=== PATIENT | female | born 1945 | race Caucasian/White ===

== ENCOUNTER 2018-05-28 08:45 | Inpatient (IN) | payer MEDICAID ==
[2018-05-28] MEDS ORDERED: NACL 0.9% 500 ML 500 ML IV ONE (09:04)
[2018-05-28 09:33] LABS: Hematocrit 25.7 % (30.3-42.9); Hemoglobin 7.8 gm/dl (10.1-14.3); Mean Corpuscular HGB Conc 30 % (30-34); Mean Corpuscular Volume 80 fl (79-97); Platelet Count 596 K/mm3 (140-440); Red Blood Count 3.23 M/mm3 (3.65-5.03); Red Cell Distribution Width 17.2 % (13.2-15.2)
[2018-05-28 09:45] LABS: INR 1.1 (0.87-1.13)
[2018-05-28] MEDS ORDERED: NACL 0.9% 1000 ML IV ONE (09:52)
[2018-05-28] MEDS ORDERED: ZOSYN/NS 4.5GM/100ML 4.5 GM/100 ML VIAL IV ONE (09:52)
[2018-05-28 09:56] LABS: Albumin 2.6 g/dL (3.9-5); Calcium 9.2 mg/dL (8.4-10.2)
--- NOTE | 2018-05-28 10:04 | Emergency Department Report ---
ED Female HPI - General Chief complaint: Urogenital-Female Stated complaint: SIDE PAIN Time Seen by Provider: 05/28/18 09:09 Source: patient Mode of arrival: Ambulatory Limitations: Language Barrier - History of Present Illness Initial comments: 73-year-old female with no significant past medical history presents to the hospital complaining of suprapubic abdominal pain 1 month. Patient is complaining of urinary incontinence, suprapubic pain, dysuria, decreased appetite, intermittent fever, and generalized weakness. Patient also complains of intermittent fecal incontinence. She denies a history of medical problems but she has not seen a doctor in over 20 years and does not currently have a PMD. Patient is Maltese-speaking and cement handler used at the bedside. - Related Data Allergies Allergy/AdvReac Type Severity Reaction Status Date / Time No Known Allergies Allergy Verified 05/28/18 09:10 ED Review of Systems ROS: Stated complaint: SIDE PAIN Other details as noted in HPI Comment: All other systems reviewed and negative ED Past Medical Hx - Past Medical History Previous Medical History?: No Additional medical history: Tubal ligation - Surgical History Past Surgical History?: No - Social History Smoking Status: Never Smoker Substance Use Type: None ED Physical Exam - General Limitations: No Limitations - Other Other exam information: General: No limitations, patient is alert in no acute distress Head exam: Atraumatic, normocephalic Eyes exam: Normal appearance, pupils equal reactive to light, extraocular movements intact ENT: Moist mucous membrane, normal oropharynx Neck exam: Normal inspection, full range of motion, no meningismus nontender Respiratory exam: Clear to auscultation bilateral, no wheezes, rales, crackles Cardiovascular: Normal rate and rhythm Abdomen: Soft, nondistended, suprapubic tenderness, with normal bowel sounds, no rebound, or guarding Extremity: Full range of motion normal inspection no deformity Back: Normal Inspection, full range of motion, no tenderness Neurologic: Alert, oriented x3, cranial nerves intact, no motor or sensory deficit Psychiatric: normal affect, normal mood Skin: Warm, dry, intact ED Course Vital Signs 05/28/18 05/28/18 05/28/18 09:01 09:22 09:30 Temperature 98 F Pulse Rate 150 H 126 H 100 H Respiratory 20 22 15 Rate Blood Pressure 115/53 155/84 O2 Sat by Pulse 97 98 Oximetry 02/05/28/18 05/28/18 09:46 10:00 10:16 Temperature Pulse Rate 99 H 94 H 98 H Respiratory 12 13 16 Rate Blood Pressure 162/76 172/67 128/71 O2 Sat by Pulse 99 98 99 Oximetry 05/28/18 11:23 Temperature Pulse Rate 117 H Respiratory 14 Rate Blood Pressure 143/68 O2 Sat by Pulse 98 Oximetry - Consultations Consultation #1: 05/28/18 10:30 Gibran residential plumber paged Consultation #2: 05/28/18 12:20 Case d/w Dr Leary request vascular consult for dialysis if pt consents 05/28/18 12:30 Galen with vascular consultation for Vas-Cath placement and possible nephrostomy tubes ED Medical Decision Making - Lab Data Result diagrams: 05/28/18 09:09 05/28/18 09:09 Lab Results 05/28/18 05/28/18 05/28/18 Range/Units 09:09 09:09 09:09 WBC 33.9 H (4.5-11.0) K/mm3 RBC 3.23 L (3.65-5.03) M/mm3 Hgb 7.8 L (10.1-14.3) gm/dl Hct 25.7 L (30.3-42.9) % MCV 80 (79-97) fl MCH 24 L (28-32) pg MCHC 30 (30-34) % RDW 17.2 H (13.2-15.2) % Plt Count 596 H (140-440) K/mm3 Add Manual Diff Complete Total Counted 100 Seg Neutrophils % Linux System Admin Seg Neuts % (Manual) 93.0 H (40.0-70.0) % Band Neutrophils % 0 % Lymphocytes % (Manual) 4.0 L (13.4-35.0) % Reactive Lymphs % (Man) 0 % Monocytes % (Manual) 2.0 (0.0-7.3) % Eosinophils % (Manual) 1.0 (0.0-4.3) % Basophils % (Manual) 0 (0.0-1.8) % Metamyelocytes % 0 % Myelocytes % 0 % Promyelocytes % 0 % Blast Cells % 0 % Nucleated RBC % Not Reportable Seg Neutrophils # Man 31.5 H (1.8-7.7) K/mm3 Band Neutrophils # 0.0 K/mm3 Lymphocytes # (Manual) 1.4 (1.2-5.4) K/mm3 Abs React Lymphs (Man) 0.0 K/mm3 Monocytes # (Manual) 0.7 (0.0-0.8) K/mm3 Eosinophils # (Manual) 0.3 (0.0-0.4) K/mm3 Basophils # (Manual) 0.0 (0.0-0.1) K/mm3 Metamyelocytes # 0.0 K/mm3 Myelocytes # 0.0 K/mm3 Promyelocytes # 0.0 K/mm3 Blast Cells # 0.0 K/mm3 WBC Morphology Not Reportable Hypersegmented Neuts Not Reportable Hyposegmented Neuts Not Reportable Hypogranular Neuts Not Reportable Smudge Cells Not Reportable Toxic Granulation Not Reportable Toxic Vacuolation Not Reportable Dohle Bodies Not Reportable Pelger-Huet Anomaly Not Reportable Sully Rods Not Reportable Platelet Estimate Consistent w auto Clumped Platelets Not Reportable Plt Clumps, EDTA Not Reportable Large Platelets Not Reportable Giant Platelets Not Reportable Platelet Satelliting Not Reportable Plt Morphology Comment Not Reportable RBC Morphology Not Reportable Dimorphic RBCs Not Reportable Polychromasia 1+ Hypochromasia 1+ Poikilocytosis Not Reportable Anisocytosis 1+ Microcytosis Not Reportable Macrocytosis Not Reportable Spherocytes Not Reportable Pappenheimer Bodies Not Reportable Sickle Cells Not Reportable Target Cells Not Reportable Tear Drop Cells Not Reportable Ovalocytes Not Reportable Helmet Cells Not Reportable Blackmon-Maxwell Bodies Not Reportable Warwick Rings Not Reportable Bowdon Cells Not Reportable Bite Cells Not Reportable Crenated Cell Not Reportable Elliptocytes Not Reportable Acanthocytes (Spur) Not Reportable Rouleaux Not Reportable Hemoglobin C Crystals Not Reportable Schistocytes Not Reportable Malaria parasites Not Reportable Stevenson Bodies Not Reportable Hem Pathologist Commnt No PT 14.9 (12.2-14.9) Sec. INR 1.10 (0.87-1.13) VBG pH (7.320-7.420) Sodium 133 L (137-145) mmol/L Potassium 6.1 H* (3.6-5.0) mmol/L Chloride 91.0 L (98-107) mmol/L Carbon Dioxide 12 L (22-30) mmol/L Anion Gap 36 mmol/L BUN 107 H (7-17) mg/dL Creatinine 10.9 H (0.7-1.2) mg/dL Estimated GFR 3 ml/min BUN/Creatinine Ratio 10 % Glucose 97 (65-100) mg/dL Lactic Acid (0.7-2.0) mmol/L Calcium 9.2 (8.4-10.2) mg/dL Total Bilirubin 0.30 (0.1-1.2) mg/dL AST 13 (5-40) units/L ALT 11 (7-56) units/L Alkaline Phosphatase 106 (35-129) units/L Total Protein 7.9 (6.3-8.2) g/dL Albumin 2.6 L (3.9-5) g/dL Albumin/Globulin Ratio 0.5 % Urine Color (Yellow) Urine Turbidity (Clear) Urine pH (5.0-7.0) Ur Specific [place] (1.003-1.030) Urine Protein (Negative) mg/dL Urine Glucose (UA) (Negative) mg/dL Urine Ketones (Negative) mg/dL Urine Blood (Negative) Urine Nitrite (Negative) Urine Bilirubin (Negative) Urine Urobilinogen (<2.0) mg/dL Ur Leukocyte Esterase (Negative) Urine WBC (Auto) (0.0-6.0) /HPF Urine RBC (Auto) (0.0-6.0) /HPF U Epithel Cells (Auto) (0-13.0) /HPF Urine Bacteria (Auto) (Negative) /HPF Urine Mucus /HPF 05/28/18 05/28/18 05/28/18 Range/Units 09:09 09:09 11:44 WBC (4.5-11.0) K/mm3 RBC (3.65-5.03) M/mm3 Hgb (10.1-14.3) gm/dl Hct (30.3-42.9) % MCV (79-97) fl MCH (28-32) pg MCHC (30-34) % RDW (13.2-15.2) % Plt Count (140-440) K/mm3 Add Manual Diff Total Counted Seg Neutrophils % Seg Neuts % (Manual) (40.0-70.0) % Band Neutrophils % % Lymphocytes % (Manual) (13.4-35.0) % Reactive Lymphs % (Man) % Monocytes % (Manual) (0.0-7.3) % Eosinophils % (Manual) (0.0-4.3) % Basophils % (Manual) (0.0-1.8) % Metamyelocytes % % Myelocytes % % Promyelocytes % % Blast Cells % % Nucleated RBC % Seg Neutrophils # Man (1.8-7.7) K/mm3 Band Neutrophils # K/mm3 Lymphocytes # (Manual) (1.2-5.4) K/mm3 Abs React Lymphs (Man) K/mm3 Monocytes # (Manual) (0.0-0.8) K/mm3 Eosinophils # (Manual) (0.0-0.4) K/mm3 Basophils # (Manual) (0.0-0.1) K/mm3 Metamyelocytes # K/mm3 Myelocytes # K/mm3 Promyelocytes # K/mm3 Blast Cells # K/mm3 WBC Morphology Hypersegmented Neuts Hyposegmented Neuts Hypogranular Neuts Smudge Cells Toxic Granulation Toxic Vacuolation Dohle Bodies Pelger-Huet Anomaly Sully Rods Platelet Estimate Clumped Platelets Plt Clumps, EDTA Large Platelets Giant Platelets Platelet Satelliting Plt Morphology Comment RBC Morphology Dimorphic RBCs Polychromasia Hypochromasia Poikilocytosis Anisocytosis Microcytosis Macrocytosis Spherocytes Pappenheimer Bodies Sickle Cells Target Cells Tear Drop Cells Ovalocytes Helmet Cells Blackmon-Maxwell Bodies Warwick Rings Bowdon Cells Bite Cells Crenated Cell Elliptocytes Acanthocytes (Spur) Rouleaux Hemoglobin C Crystals Schistocytes Malaria parasites Stevenson Bodies Hem Pathologist Commnt PT (12.2-14.9) Sec. INR (0.87-1.13) VBG pH 7.271 L (7.320-7.420) Sodium (137-145) mmol/L Potassium (3.6-5.0) mmol/L Chloride (98-107) mmol/L Carbon Dioxide (22-30) mmol/L Anion Gap mmol/L BUN (7-17) mg/dL Creatinine (0.7-1.2) mg/dL Estimated GFR ml/min BUN/Creatinine Ratio % Glucose (65-100) mg/dL Lactic Acid 1.50 2.00 (0.7-2.0) mmol/L Calcium (8.4-10.2) mg/dL Total Bilirubin (0.1-1.2) mg/dL AST (5-40) units/L ALT (7-56) units/L Alkaline Phosphatase (35-129) units/L Total Protein (6.3-8.2) g/dL Albumin (3.9-5) g/dL Albumin/Globulin Ratio % Urine Color (Yellow) Urine Turbidity (Clear) Urine pH (5.0-7.0) Ur Specific [place] (1.003-1.030) Urine Protein (Negative) mg/dL Urine Glucose (UA) (Negative) mg/dL Urine Ketones (Negative) mg/dL Urine Blood (Negative) Urine Nitrite (Negative) Urine Bilirubin (Negative) Urine Urobilinogen (<2.0) mg/dL Ur Leukocyte Esterase (Negative) Urine WBC (Auto) (0.0-6.0) /HPF Urine RBC (Auto) (0.0-6.0) /HPF U Epithel Cells (Auto) (0-13.0) /HPF Urine Bacteria (Auto) (Negative) /HPF Urine Mucus /HPF / Range/Units 12:02 WBC (4.5-11.0) K/mm3 RBC (3.65-5.03) M/mm3 Hgb (10.1-14.3) gm/dl Hct (30.3-42.9) % MCV (79-97) fl MCH (28-32) pg MCHC (30-34) % RDW (13.2-15.2) % Plt Count (140-440) K/mm3 Add Manual Diff Total Counted Seg Neutrophils % Seg Neuts % (Manual) (40.0-70.0) % Band Neutrophils % % Lymphocytes % (Manual) (13.4-35.0) % Reactive Lymphs % (Man) % Monocytes % (Manual) (0.0-7.3) % Eosinophils % (Manual) (0.0-4.3) % Basophils % (Manual) (0.0-1.8) % Metamyelocytes % % Myelocytes % % Promyelocytes % % Blast Cells % % Nucleated RBC % Seg Neutrophils # Man (1.8-7.7) K/mm3 Band Neutrophils # K/mm3 Lymphocytes # (Manual) (1.2-5.4) K/mm3 Abs React Lymphs (Man) K/mm3 Monocytes # (Manual) (0.0-0.8) K/mm3 Eosinophils # (Manual) (0.0-0.4) K/mm3 Basophils # (Manual) (0.0-0.1) K/mm3 Metamyelocytes # K/mm3 Myelocytes # K/mm3 Promyelocytes # K/mm3 Blast Cells # K/mm3 WBC Morphology Hypersegmented Neuts Hyposegmented Neuts Hypogranular Neuts Smudge Cells Toxic Granulation Toxic Vacuolation Dohle Bodies Pelger-Huet Anomaly Sully Rods Platelet Estimate Clumped Platelets Plt Clumps, EDTA Large Platelets Giant Platelets Platelet Satelliting Plt Morphology Comment RBC Morphology Dimorphic RBCs Polychromasia Hypochromasia Poikilocytosis Anisocytosis Microcytosis Macrocytosis Spherocytes Pappenheimer Bodies Sickle Cells Target Cells Tear Drop Cells Ovalocytes Helmet Cells Blackmon-Maxwell Bodies Warwick Rings Radha Cells Bite Cells Crenated Cell Elliptocytes Acanthocytes (Spur) Rouleaux Hemoglobin C Crystals Schistocytes Malaria parasites Stevenson Bodies Hem Pathologist Commnt PT (12.2-14.9) Sec. INR (0.87-1.13) VBG pH (7.320-7.420) Sodium (137-145) mmol/L Potassium (3.6-5.0) mmol/L Chloride (98-107) mmol/L Carbon Dioxide (22-30) mmol/L Anion Gap mmol/L BUN (7-17) mg/dL Creatinine (0.7-1.2) mg/dL Estimated GFR ml/min BUN/Creatinine Ratio % Glucose (65-100) mg/dL Lactic Acid (0.7-2.0) mmol/L Calcium (8.4-10.2) mg/dL Total Bilirubin (0.1-1.2) mg/dL AST (5-40) units/L ALT (7-56) units/L Alkaline Phosphatase (35-129) units/L Total Protein (6.3-8.2) g/dL Albumin (3.9-5) g/dL Albumin/Globulin Ratio % Urine Color Yellow (Yellow) Urine Turbidity Clear (Clear) Urine pH 7.0 (5.0-7.0) Ur Specific [place] 1.006 (1.003-1.030) Urine Protein 30 mg/dl (Negative) mg/dL Urine Glucose (UA) Neg (Negative) mg/dL Urine Ketones Tr (Negative) mg/dL Urine Blood Mod (Negative) Urine Nitrite Neg (Negative) Urine Bilirubin Neg (Negative) Urine Urobilinogen < 2.0 (<2.0) mg/dL Ur Leukocyte Esterase Neg (Negative) Urine WBC (Auto) 6.0 (0.0-6.0) /HPF Urine RBC (Auto) 5.0 (0.0-6.0) /HPF U Epithel Cells (Auto) 1.0 (0-13.0) /HPF Urine Bacteria (Auto) 1+ (Negative) /HPF Urine Mucus Few /HPF - EKG Data -: EKG Interpreted by Tn EKG shows normal: sinus rhythm, axis (qrs 8), QRS complexes (qrs 94), ST-T waves (no stemi) - Radiology Data Radiology results: report reviewed CT ABDOMEN PELVIS WITHOUT CONTRAST: HISTORY: Abdominal pain, leukocytosis. COMPARISON: none. TECHNIQUE: Helical CT in 1.25mm intervals without IV contrast. Sagittal and coronal reconstructions. FINDINGS: Lung bases: Normal. Liver: Normal. Biliary system: Normal. Pancreas: Normal. Spleen: Normal. Kidneys/ureters/bladder: There is moderate to severe bilateral hydronephrosis. No obvious obstructing lesion in the distal ureters. The bladder is partially decompressed with a Wing catheter. 5.6 cm cyst in the superior right kidney is noted. Adrenal glands: Normal. Aorta: Normal. Intestines: Unremarkable given no oral contrast was administered. Appendix: Normal. Pelvic viscera: The cervix appears to be enlarged and heterogeneous measuring 9.4 x 5.4 cm in axial plane. A cervical mass cannot be excluded. PIC mass may be tracking both distal ureters. The uterus is unremarkable otherwise on noncontrast CT. The adnexa are unremarkable. Ascites: None. Adenopathy: There is suggestion of bilateral iliac adenopathy measuring up to 5 cm on the left and 3 cm on the right. A 3.4 x 3.7 cm lesion is identified to the left side of the aorta which probably represents an enlarged retroperitoneal lymph node. Musculoskeletal: Osteopenia is evident. No evidence for acute fracture sclerotic bony lesions are identified in the left posterior iliac bone and left ischium which are suspicious for metastatic lesions. IMPRESSION: Severe bilateral hydronephrosis. The cervix appears enlarged and heterogeneous. Bilateral iliac and retroperitoneal adenopathy is suspected. Sclerotic bony lesions are identified in the left pelvis. Metastatic cervical cancer? AP CHEST :05/28/18 08:45:00 CLINICAL: Sepsis. COMPARISON:None. FINDINGS: Normal heart and pulmonary vasculature. The lungs are normally expanded and clear except for a few chronic appearing interstitial opacities. No air space disease or pleural effusion. Hypertensive changes of the aorta. The bones and soft tissues are normal.No tubes or lines. IMPRESSION: No acute cardiopulmonary process and no pneumonia. - Medical Decision Making Patient presents to the hospital with newly diagnosed renal failure requiring emergent dialysis. CT reveals bilateral hydronephrosis with possible cervical cancer. Nephrology and vascular consult as well as interventional radiology to determine if nephrostomy tubes are required. Patient presents with a significant leukocytosis without active device was of infection. Empirically covered with Zosyn. Patient also received several medications for acute hyperkalemia. - Differential Diagnosis UTI, pneumonia, infection, dehydration, renal sufficiency Critical Care Time: No Critical care attestation.: If time is entered above; I have spent that time in minutes in the direct care of this critically ill patient, excluding procedure time. ED Disposition Clinical Impression: Acute renal failure, Bilateral hydronephrosis, Hyperkalemia, Leukocytosis, Anemia, Cervical mass Disposition: OP ADMIT IP TO THIS HOSP Is pt being admited?: Yes Condition: Stable Time of Disposition: 13:10 (Dr Corrigna/hosp)
[2018-05-28] MEDS ORDERED: PROVENTIL IH ONE (10:05)
[2018-05-28] MEDS ORDERED: CALCIUM GLUCONATE 1,000 MG in NACL 0.9% 100 ML IV ONE (10:05)
[2018-05-28] MEDS ORDERED: HumuLIN R IV ONE (10:06)
[2018-05-28 10:08] LABS: Basophils % (Manual) 0 % (0.0-1.8); Total Cells Counted 100
[2018-05-28 10:09] LABS: Anisocytosis 1+
[2018-05-28 10:10] LABS: Hypochromasia 1+; Platelet Estimate Consistent w Auto
[2018-05-28] MEDS: D50W (25GM) Syringe IV ONE (10:50)
[2018-05-28] MEDS ORDERED: SODIUM BICARBONATE IV ONE (11:00)
[2018-05-28 12:34] LABS: Bacteria,Urine 1+ /HPF (Negative); Bilirubin,Urine NEG (Negative); Blood,Urine MOD (Negative); Color,Urine Yellow (Yellow); Mucus,Urine FEW /HPF; Urobilinogen,Urine < 2.0 mg/dL (<2.0)
--- NOTE | 2018-05-28 12:47 | Cat Scan Report ---
CT ABDOMEN PELVIS WITHOUT CONTRAST: HISTORY: Abdominal pain, leukocytosis. COMPARISON: none. TECHNIQUE: Helical CT in 1.25mm intervals without IV contrast. Sagittal and coronal reconstructions. FINDINGS: Lung bases: Normal. Liver: Normal. Biliary system: Normal. Pancreas: Normal. Spleen: Normal. Kidneys/ureters/bladder: There is moderate to severe bilateral hydronephrosis. No obvious obstructing lesion in the distal ureters. The bladder is partially decompressed with a Wing catheter. 5.6 cm cyst in the superior right kidney is noted. Adrenal glands: Normal. Aorta: Normal. Intestines: Unremarkable given no oral contrast was administered. Appendix: Normal. Pelvic viscera: The cervix appears to be enlarged and heterogeneous measuring 9.4 x 5.4 cm in axial plane. A cervical mass cannot be excluded. PIC mass may be tracking both distal ureters. The uterus is unremarkable otherwise on noncontrast CT. The adnexa are unremarkable. Ascites: None. Adenopathy: There is suggestion of bilateral iliac adenopathy measuring up to 5 cm on the left and 3 cm on the right. A 3.4 x 3.7 cm lesion is identified to the left side of the aorta which probably represents an enlarged retroperitoneal lymph node. Musculoskeletal: Osteopenia is evident. No evidence for acute fracture sclerotic bony lesions are identified in the left posterior iliac bone and left ischium which are suspicious for metastatic lesions. IMPRESSION: Severe bilateral hydronephrosis. The cervix appears enlarged and heterogeneous. Bilateral iliac and retroperitoneal adenopathy is suspected. Sclerotic bony lesions are identified in the left pelvis. Metastatic cervical cancer?
[2018-05-28] MEDS ORDERED: ANCEF/STERILE WATER 2 GM/20 ML 2 GM/20 ML SYRINGE IV NR (13:00)
--- NOTE | 2018-05-28 13:20 | Consultation ---
History of Present Illness - History of Present Illness Thank you for the consultation ! Patient was evaluated today My assessment and plan are as follows; Met wtih daughter used Fire Control Mechanic Deborah from ER Discusssed with daughter / D?W Dr Pro Renal failure, severe metabolic acidosis, hyperkalemia encephalopathy: Patient will need immediate renal replacement therapy with a Vas-Cath discussed with emergency room physician already patient will need dialysis Severe bilateral hydronephrosis noted, cervix appears to be enlarged with b ilateral retroperitoneal adenopathy, ? Metastatic cervical cancer Patient will benefit from bilateral nephrostomy tube placement. FOOD SUPERVISOR oncology evaluation Duration of renal failure, unknown? Advanced renal failure. Patient has not been seen by physicians on a regular basis Metabolic acidosis: We'll give IV bicarbonate, patient does need initiation of renal replacement therapy Hyperkalemia. Patient has been given hyperkalemia treatment already in the ER. She needs hemodialysis. Anemia with renal failure. Patient will require further workup. Elevated platelet count. Likely may have iron deficiency Leukocytosis of unclear etiology, rule out sepsis, rule out other causes. Suggest Urine culture, blood culture Encephalopathy: Likely toxic metabolic resulting from renal failure. Rule out other causes Severe malnutrition, present on admission, likely due to renal failure Low-grade proteinuria 30 mg per DL Her overall prognosis appears to be very poor due to multiple comorbidities We'll continue with supportive care for now, care plan was discussed with emergency room physician already We'll order for stat hemodialysis post Vas-Cath placement. Discussed with emergency room physician about getting dialysis catheter Patient was adequately counseled and educated regarding multiple renal related issues. Renal prognosis remains guarded at this time All renal related questions were answered and simple [place] Sor[place] with the help of customer care representative, pertinent lab studies as well as imaging results were also discussed with patient And her family member We will continue to follow and make recommendations from renal standpoint. Thank you for the consultation Author: Matteo Leary M.D. [facility], [address] [place] [address] Tel; [phone] Source of information: From patient, History of present illness Patient has noted 3-year-old female who came to the hospital with complaints of abdominal pain mostly suprapubic in nature with urinary incontinence. Most the history was obtained from patient's relative of the bedside, as well as Ukrainian speaking customer care representative, which was ER staff. Consultation was placed for manage ment of acute renal failure BUN was 107 creatinine was 10.9 with a potassium of 6.1 hemoglobin 7.8 patient was also noted to have obstructive uropathy and due to the degree and severity of renal failure and hyperkalemia and dialysis was suggested Patient during this admission has also been noted to have bilateral hydronephrosis with a large retroperitoneal node possibility of metastatic cervical cancer is currently being entertained Past medical history is significant for No chronic disorder Current allergies: None Home medication: None Social history no history of any alcohol drug tobacco use Family history: Noncontributory for related daughter Review of system: Positive for Generalized weakness fatigue since the discomfort Urinary incontinence abdominal distention gradual All other review of systems negative Physical examination Vitals: Reviewed General: No acute distress/ Thin built Ukrainian female HEENT: Oral mucosa moist no pallor or icterus Neck: Supple without any JVD thyromegaly or nodular mass Chest: Clear to auscultation Heart: Regular rate and rhythm S1-S2 heard no S3-S4 Abdomen: Soft patient has some suprapubic discomfort Possibly may have fluid: Flank appears to be dull nontender, bowel sounds present no renal bruit no suprapubic masses no CVA tenderness noted Extremity: Minimal edema dry skin no peripheral cyanosis Endocrine: Thyroid not enlarged Psychiatric: No agitation and aggression noted Musculoskeletal: No joint effusion noted Labs and x-rays: Reviewed from this admission Medications and Allergies Allergies Allergy/AdvReac Type Severity Reaction Status Date / Time No Known Allergies Allergy Verified 05/28/18 09:10 Home Medications Medication Instructions Recorded Confirmed Last Taken Type Acetaminophen [Acetaminophen 650 mg PO Q4H PRN #15 tab 08/06/18 Unknown Rx SUPPOS] Active Meds: Active Medications Cefazolin Sodium (Ancef/Sterile Water 2 Gm/20 Ml) 2 gm in 20 mls @ 80 mls/hr IV PREOP NR; Protocol Stop: 05/28/18 23:00 Exam - Vital Signs Vital signs: Vital Signs Temp Pulse Resp BP Pulse Ox 98 F 150 H 20 115/53 97 05/28/18 09:01 05/28/18 09:01 05/28/18 09:01 05/28/18 09:01 05/28/18 09:01 Results - Lab Results 06/10/18 07:42 06/10/18 07:42 Most recent lab results Calcium 9.2 mg/dL (8.4-10.2) 05/28/18 09:09
[2018-05-28] MEDS ORDERED: NACL 0.9% 100 ML IV PRN (13:21)
[2018-05-28] MEDS ORDERED: HEPARIN/NS 5000 UNIT/500ML(CATH LAB) 500 ML IR ONE (14:49)
[2018-05-28] MEDS ORDERED: HEPARIN 10,000 UNITS/10 ML ONE (14:50)
[2018-05-28] MEDS ORDERED: XYLOCAINE 2% INFILTRATI ONE (14:50)
[2018-05-28] MEDS ORDERED: ANCEF/STERILE WATER 2 GM/20 ML 2 GM/20 ML SYRINGE IV ONE (14:52)
[2018-05-28] MEDS ORDERED: SUBLIMAZE ONE (15:16)
[2018-05-28] MEDS ORDERED: VERSED ONE (15:16)
--- NOTE | 2018-05-28 15:21 | Consultation ---
History of Present Illness - Reason for Consult Consult date: 05/28/18 Dialysis access, possible neph tube placement - History of Present Illness This pt is a 73 yo female who presented to the ER at [facility] with a 1 month history of progressive abdominal pain with dysuria. Initial lab work suggested renal failure. A ct scan of the abd and pelvis revealed severe bilateral hydronephrosis with and enlarged heterogeneous cervix with iliac retroperitoneal adenopathy concerning for possible metastatic disease. A vascular/IR consult has been requested to evaluate for temporary hemodialysis catheter and possible nephrostomy tube placement. Past History Past Medical History: other (Pt reportedly denied chronic medical conditions, but had not been seen by a physician in decades.) Past Surgical History: No surgical history (none listed) Social history: denies: smoking, alcohol abuse Family history: no significant family history (none listed) Medications and Allergies Allergies Allergy/AdvReac Type Severity Reaction Status Date / Time No Known Allergies Allergy Verified 05/28/18 09:10 Home Medications Medication Instructions Recorded Confirmed Last Taken Type No Known Home Medications [No 05/28/18 05/28/18 Unknown History Reported Home Medications] Active Meds: Active Medications Cefazolin Sodium (Ancef/Sterile Water 2 Gm/20 Ml) 2 gm in 20 mls @ 80 mls/hr IV PREOP NR; Protocol Stop: 05/28/18 23:00 Sodium Chloride (Nacl 0.9%) 100 mls @ 999 mls/hr IV CATHERINE PRN PRN Reason: Hypotension Review of Systems All systems: negative Exam - Constitutional Vitals: Temp Pulse Resp BP Pulse Ox 98 F 115 H 15 137/57 94 05/28/18 09:01 05/28/18 13:16 05/28/18 13:16 05/28/18 12:00 05/28/18 13:16 General appearance: Present: no acute distress - EENT Eyes: Present: EOM intact ENT: hearing intact - Neck Neck: Present: supple - Respiratory Respiratory effort: normal - Extremities Extremities: normal temperature - Psychiatric Psychiatric: appropriate mood/affect, intact judgment & insight, cooperative - Neurologic Neurologic: no focal deficits Results - Labs CBC & Chem 7: 05/28/18 09:09 05/28/18 09:09 Labs: Abnormal lab results 05/28/18 05/28/18 05/28/18 Range/Units 09:09 09:09 09:09 WBC 33.9 H (4.5-11.0) K/mm3 RBC 3.23 L (3.65-5.03) M/mm3 Hgb 7.8 L (10.1-14.3) gm/dl Hct 25.7 L (30.3-42.9) % MCH 24 L (28-32) pg RDW 17.2 H (13.2-15.2) % Plt Count 596 H (140-440) K/mm3 Seg Neuts % (Manual) 93.0 H (40.0-70.0) % Lymphocytes % (Manual) 4.0 L (13.4-35.0) % Seg Neutrophils # Man 31.5 H (1.8-7.7) K/mm3 VBG pH 7.271 L (7.320-7.420) Sodium 133 L (137-145) mmol/L Potassium 6.1 H* (3.6-5.0) mmol/L Chloride 91.0 L (98-107) mmol/L Carbon Dioxide 12 L (22-30) mmol/L BUN 107 H (7-17) mg/dL Creatinine 10.9 H (0.7-1.2) mg/dL Lactic Acid (0.7-2.0) mmol/L Albumin 2.6 L (3.9-5) g/dL 05/28/18 Range/Units 13:29 WBC (4.5-11.0) K/mm3 RBC (3.65-5.03) M/mm3 Hgb (10.1-14.3) gm/dl Hct (30.3-42.9) % MCH (28-32) pg RDW (13.2-15.2) % Plt Count (140-440) K/mm3 Seg Neuts % (Manual) (40.0-70.0) % Lymphocytes % (Manual) (13.4-35.0) % Seg Neutrophils # Man (1.8-7.7) K/mm3 VBG pH (7.320-7.420) Sodium (137-145) mmol/L Potassium (3.6-5.0) mmol/L Chloride (98-107) mmol/L Carbon Dioxide (22-30) mmol/L BUN (7-17) mg/dL Creatinine (0.7-1.2) mg/dL Lactic Acid 2.10 H* (0.7-2.0) mmol/L Albumin (3.9-5) g/dL Assessment and Plan Pt presented with ARF. CT scan suggest bilateral hydronephrosis and an enlarged cervix and bilateral iliac lymphadenopathy (concerning for cervical ca with mets). A vascular/IR consult was requested to evaluate for Vas cath/Neph tube placement. Spoke with nephrology. Given hyperkalemia, we will place a vas cath today, and pt will be dialyzed. Once medically stablized, we will plan on bilateral nephrostomy tube placement tomorrow. This was discussed with the pt, and her daughter at the bedside via a maxillofacial prosthodontist in the emergency room. The risk, bene fits, and alternatives to each were discussed in great detail (including but not limited to bleeding, infection, lung injury, blood clot, and a 1 in 20 chance of bleeding from kidney with nephrostomy tube placement). All questions were asked and answered. They stated understanding and agreed to proceed. - Patient Problems (1) Acute renal failure Current Visit: Yes Status: Acute (2) Hyperkalemia Current Visit: Yes Status: Acute (3) Bilateral hydronephrosis Current Visit: Yes Status: Acute (4) Cervical mass Current Visit: Yes Status: Acute (5) Leukocytosis Current Visit: Yes Status: Acute
--- NOTE | 2018-05-28 15:33 | Operative Report ---
Operative Report Operative Report: EXAM: 1. Ultrasound-guided puncture of the right internal jugular vein 2. Fluoroscopic-guided placement of a right internal jugular nontunneled noncuffed hemodialysis catheter. DATE: 03/27/19 INDICATION: Acute renal failure requiring hemodialysis. MEDICATIONS: Please see nursing report for full details. DEVICES: 15 cm dual lumen hemodialysis catheter FUNERAL PRE NEED CONSULTANT: JOSH FELIPE MD CONTRAST: None PROCEDURE: The risks, benefits, and alternatives were discussed and informed consent was obtained. The patient was transported to the angiography suite in satisfactory/stable condition and was transported onto the angiography table. The patient's right internal jugular vein was assessed with ultrasound and determined to be patent prior to procedure. The patient was prepped and draped in a sterile fashion. The puncture site was anesthetized. The right internal jugular vein was patent on ultrasound. Under sonographic guidance, the right internal jugular vein was punctured with a 21-gauge micropuncture needle and a 0.018 inch wire was advanced through the needle. Needle was exchanged for transitional dilator. The inner dilator and wire was removed and a 0.035 inch wire was advanced through the transitional dilator into the inferior vena cava. Over the 0.035 inch wire, serial dilatation was performed. The catheter was advanced over the wire and positioned centrally under fluoroscopic guidance. 2-0 Ethilon suture was used to secure the catheter. The catheter was charged with heparin 1000 units per mL space. Sterile dressing and Biopatch applied. The patient was transferred from the angiography suite back to the floor in stable condition. FNDINGS: 1. Excellent flow was obtained through the dialysis catheter with 20 mL syringes. 2. The catheter tip is in the right atrium. IMPRESSION: 1. Successful sonographically and fluoroscopically guided placement of a right internal jugular nontunneled noncuffed hemodialysis catheter.
[2018-05-28 16:40] LABS: Hepatitis B Surface Antigen Non-Reactive (Negative); Hepatitis C Virus Antibody Non-Reactive (NonReactive)
[2018-05-28] MEDS ORDERED: NACL 0.9 (PRIMING MACHINE ONLY DIALYSIS) MC ONE (16:57)
--- NOTE | 2018-05-28 21:28 | Event Note ---
Date: 05/28/18 See dictated H/p inreports Obstructive uropathy Bilateral Hydronephrosis Acute renal failure Cervical(Pelvic) mass with Lymphadenopathy Emergent vascath and Hemodialysis done
[2018-05-28] MEDS: TYLENOL PO PRN (23:04)
[2018-05-29] MEDS ORDERED: SODIUM CHLORIDE FLUSH SYRINGE 10 ML IV PRN ×2 (03:19→03:28)
[2018-05-29] MEDS ORDERED: TYLENOL PO PRN ×2 (03:19→03:28)
[2018-05-29] MEDS ORDERED: ZOFRAN IV PRN ×2 (03:19→03:28)
[2018-05-29] MEDS ORDERED: REGLAN IV PRN (03:21)
--- NOTE | 2018-05-29 03:50 | History and Physical Report ---
CHIEF COMPLAINT: Suprapubic abdominal pain for 1 month. Increasing weakness. HISTORY OF PRESENT ILLNESS: The patient is a 73-year-old female with no significant past medical history who comes in for suprapubic abdominal pain and difficulty urinating. Also, urinary incontinence. The patient has never been to a doctor in the last 20 years. No significant past medical history. PAST MEDICAL HISTORY: None. PAST SURGICAL HISTORY: Till now none except for tubal ligation. SOCIAL HISTORY: Does not smoke. FAMILY HISTORY: Hypertension. REVIEW OF SYSTEMS: Significant for lower abdominal pain, severe and intermittent. Also, decreased appetite. Otherwise, review of systems negative. PHYSICAL EXAMINATION: GENERAL: Elderly female. VITAL SIGNS: Blood pressure is 139/68, temperature is 97.6, pulse is 109, respirations 16. HEENT: Unremarkable. Pupils equal and reactive. NECK: Supple, no lymphadenopathy, no thyromegaly. LUNGS: Clear to auscultation and percussion. Good air entry. CARDIOVASCULAR: S1, S2 heard. No gallop, no murmur, no rub. Apical impulse in the left fifth intercostal space and midclavicular line. ABDOMEN: Soft and benign. No tenderness present. Bowel sounds are normal. EXTREMITIES: Good pedal pulses. No pedal edema. CENTRAL NERVOUS SYSTEM: Alert and oriented x 4. Nonfocal exam. SKIN: Normal. LABORATORY DATA: Significant for white count of 33,900, H and H is 7.8 and 25.7, platelet count is 596,000. Sodium is 133, potassium is 6.9, BUN and creatinine is 107/10.9. LFTs are normal. Albumin is 2.6. Urine is negative. Hepatitis profile is negative. LABORATORY DATA: Abdominal and pelvis CT shows cervical mass and also parailiac lymph nodes. Severe bilateral hydronephrosis on the CAT scan. Cervix appears enlarged and heterogeneous, bilateral iliac and retroperitoneal adenopathy suspected. Sclerotic bone lesions are noted. Metastatic cervical cancer suspected. ASSESSMENT AND PLAN: 1. Metastatic cervical cancer. Oncology consult requested. 2. Bilateral hydronephrosis causing acute renal failure. The patient to get Vas-Cath and an emergent hemodialysis. 3. Hyperkalemia, treated in the Emergency Room and the patient also going for hemodialysis. 4. Deep venous thrombosis prophylaxis, heparin 5000 q.12h. In summary, the patient has pelvic mass, which is compressing on the ureters, causing the bilateral hydronephrosis. May need radiation therapy. Oncology consult requested. An emergent hemodialysis done. JOB# [id number] VSM/NTS
[2018-05-29] MEDS ORDERED: NACL 0.45% 1000 ML 1,000 ML IV SCH (04:00)
[2018-05-29] MEDS: SODIUM CHLORIDE FLUSH SYRINGE 10 ML IV SCH ×3 (06:09→21:39)
[2018-05-29 09:02] LABS: Mean Corpuscular HGB Conc 31 % (30-34); Mean Corpuscular Volume 77 fl (79-97); Platelet Count 437 K/mm3 (140-440); Red Blood Count 2.53 M/mm3 (3.65-5.03); Red Cell Distribution Width 17.3 % (13.2-15.2)
[2018-05-29 09:07] LABS: Hematocrit 19.4 % (30.3-42.9)
[2018-05-29 09:22] LABS: Calcium 8.4 mg/dL (8.4-10.2)
[2018-05-29] MEDS ORDERED: NACL 0.9% 500 ML 500 ML IV NR (09:30)
[2018-05-29 09:54] LABS: Hematocrit 18.5 % (30.3-42.9)
[2018-05-29] MEDS ORDERED: PEPCID PO SCH (10:00)
[2018-05-29] MEDS ORDERED: SODIUM CHLORIDE FLUSH SYRINGE 10 ML IV SCH (10:00)
[2018-05-29] MEDS: PEPCID PO SCH ×2 (10:09→21:39)
--- NOTE | 2018-05-29 10:42 | Progress Note ---
Assessment and Plan Impression: * LYLE * obstructive uropathy * Uremia * AMS * bilateral hydronephrosis * metabolic acidosis * cervical lymphadenopathy * hyperkalemia * Anemia Plan: * s/p emergent hd * hb noted, needs prbcs, can give with hd today * strict i/os, avoid nephrotoxins * needs PCNT bilaterally * rec [facility] onc consultation * daily lytes * continue hd prn for volume and solute control Subjective Date of service: 05/29/18 Principal diagnosis: lyle, urinary obstruction Interval history: resting in bed today Objective - Exam Narrative Exam: General: No limitations, patient is alert in no acute distress Head exam: Atraumatic, normocephalic Eyes exam: Normal appearance, pupils equal reactive to light, extraocular movements intact ENT: Moist mucous membrane, normal oropharynx Neck exam: Normal inspection, full range of motion, no meningismus nontender Respiratory exam: Clear to auscultation bilateral, no wheezes, rales, crackles Cardiovascular: Normal rate and rhythm Abdomen: Soft, nondistended, suprapubic tenderness, with normal bowel sounds, no rebound, or guarding Extremity: Full range of motion normal inspection no deformity Back: Normal Inspection, full range of motion, no tenderness Neurologic: Alert, oriented x3, cranial nerves intact, no motor or sensory deficit Psychiatric: normal affect, normal mood Skin: Warm, dry, intact - Vital Signs Vital signs: Vital Signs - 12hr 05/28/18 05/29/18 05/29/18 23:04 01:35 04:16 Temperature 100.0 F H Pulse Rate 112 H 109 H Respiratory 18 17 17 Rate Blood Pressure 107/50 113/60 O2 Sat by Pulse 96 97 Oximetry - Lab 05/29/18 09:40 05/29/18 08:47 Most recent lab results Calcium 8.4 mg/dL (8.4-10.2) 05/29/18 08:47 Medications & Allergies - Medications Allergies/Adverse Reactions: Allergies No Known Allergies Allergy (Verified 05/28/18 09:10) Home Medications: Home Medications Medication Instructions Recorded Confirmed Last Taken Type No Known Home Medications [No 05/28/18 05/28/18 Unknown History Reported Home Medications] Active Medications: Generic Name Dose Route Start Last Admin Trade Name Freq PRN Reason Stop Dose Admin Acetaminophen 650 mg 05/28/18 22:37 05/28/18 23:04 Tylenol PO 650 mg Q6H PRN Administration Pain, Mild (1-3) Famotidine 10 mg 05/29/18 10:00 Pepcid PO BID ALBINA Hydromorphone HCl 0.5 mg 05/29/18 03:21 Dilaudid IV Q3H PRN Pain , Severe (7-10) Sodium Chloride 100 mls @ 999 mls/hr 05/28/18 13:21 Nacl 0.9% IV CATHERINE PRN Hypotension Sodium Chloride 1,000 mls @ 42 mls/hr 05/29/18 04:00 05/29/18 06:10 Nacl 0.45% 1000 Ml IV 05/29/18 11:00 42 mls/hr DIRECT ALBINA Administration Sodium Chloride 500 mls @ 0 mls/hr 05/29/18 09:30 Nacl 0.9% 500 Ml IV 05/29/18 15:00 ONCE NR As Directed Metoclopramide HCl 10 mg 05/29/18 03:21 Reglan IV Q6H PRN Nausea And Vomiting Ondansetron HCl 4 mg 05/29/18 03:19 Zofran IV Q8H PRN Nausea And Vomiting Oxycodone/Acetaminophen 1 tab 05/29/18 03:21 Percocet 5/325 PO Q6H PRN Pain, Moderate (4-6) Sodium Chloride 10 ml 05/29/18 04:00 05/29/18 06:09 Sodium Chloride Flush Syringe 10 Ml IV 10 ml BID ALBINA Administration Sodium Chloride 10 ml 05/29/18 03:19 Sodium Chloride Flush Syringe 10 Ml IV PRN PRN LINE FLUSH
--- NOTE | 2018-05-29 12:54 | Progress Note ---
Assessment and Plan Assessment and plan: Anemia. Transfuse 2 units PRBC Stool occult blood Cervical mass with enlarged regional nodes, likely cervical cancer Consult Gyne rn rehabilitation LYLE due to obstruction Nephrology following Hyperkalemia Improved Hypokalemia Leukocytosis:SIRS vs Sepsis Blood cultures drawn Bilateral hydronephrosis . For Nephrostomy tube placement IR consulted Full code status Hospitalist Physical - Physical exam Narrative exam: GEN: Not in acute distress, HEENT: Normocephalic, atraumatic, Neck: supple, No JVD Lungs: Clear to auscultation bilaterally, no wheeze Heart:S1 and S2 regular, no murmurs, rubs or gallop, Abd:soft, non tender, non distended, normal bowel sounds Ext: No edema, no clubbing or cyanosis Neuro: Awake,alert, moves all extremities, no focal neurological signs - Constitutional Vitals: Temp Pulse Resp BP Pulse Ox 100.0 F H 109 H 17 113/60 97 05/29/18 01:35 05/29/18 04:16 05/29/18 04:16 05/29/18 04:16 05/29/18 04:16 General appearance: Present: no acute distress Results - Labs CBC & Chem 7: 05/29/18 09:40 05/29/18 08:47 Labs: Laboratory Last Values WBC 24.4 K/mm3 (4.5-11.0) H 05/29/18 08:42 RBC 2.53 M/mm3 (3.65-5.03) L 05/29/18 08:42 Hgb 6.0 gm/dl (10.1-14.3) L 05/29/18 09:40 Hct 18.5 % (30.3-42.9) L* 05/29/18 09:40 MCV 77 fl (79-97) L 05/29/18 08:42 MCH 24 pg (28-32) L 05/29/18 08:42 MCHC 31 % (30-34) 05/29/18 08:42 RDW 17.3 % (13.2-15.2) H 05/29/18 08:42 Plt Count 437 K/mm3 (140-440) 05/29/18 08:42 Add Manual Diff Complete 05/28/18 09:09 Total Counted 100 05/28/18 09:09 Seg Neutrophils % Affiliate Manager 05/28/18 09:09 Seg Neuts % (Manual) 93.0 % (40.0-70.0) H 05/28/18 09:09 Band Neutrophils % 0 % 05/28/18 09:09 Lymphocytes % (Manual) 4.0 % (13.4-35.0) L 05/28/18 09:09 Reactive Lymphs % (Man) 0 % 05/28/18 09:09 Monocytes % (Manual) 2.0 % (0.0-7.3) 05/28/18 09:09 Eosinophils % (Manual) 1.0 % (0.0-4.3) 05/28/18 09:09 Basophils % (Manual) 0 % (0.0-1.8) 05/28/18 09:09 Metamyelocytes % 0 % 05/28/18 09:09 Myelocytes % 0 % 05/28/18 09:09 Promyelocytes % 0 % 05/28/18 09:09 Blast Cells % 0 % 05/28/18 09:09 Nucleated RBC % Not Reportable 05/28/18 09:09 Seg Neutrophils # Man 31.5 K/mm3 (1.8-7.7) H 05/28/18 09:09 Band Neutrophils # 0.0 K/mm3 05/28/18 09:09 Lymphocytes # (Manual) 1.4 K/mm3 (1.2-5.4) 05/28/18 09:09 Abs React Lymphs (Man) 0.0 K/mm3 05/28/18 09:09 Monocytes # (Manual) 0.7 K/mm3 (0.0-0.8) 05/28/18 09:09 Eosinophils # (Manual) 0.3 K/mm3 (0.0-0.4) 05/28/18 09:09 Basophils # (Manual) 0.0 K/mm3 (0.0-0.1) 05/28/18 09:09 Metamyelocytes # 0.0 K/mm3 05/28/18 09:09 Myelocytes # 0.0 K/mm3 05/28/18 09:09 Promyelocytes # 0.0 K/mm3 05/28/18 09:09 Blast Cells # 0.0 K/mm3 05/28/18 09:09 WBC Morphology Not Reportable 05/28/18 09:09 Hypersegmented Neuts Not Reportable 05/28/18 09:09 Hyposegmented Neuts Not Reportable 05/28/18 09:09 Hypogranular Neuts Not Reportable 05/28/18 09:09 Smudge Cells Not Reportable 05/28/18 09:09 Toxic Granulation Not Reportable 05/28/18 09:09 Toxic Vacuolation Not Reportable 05/28/18 09:09 Dohle Bodies Not Reportable 05/28/18 09:09 Pelger-Huet Anomaly Not Reportable 05/28/18 09:09 Sully Rods Not Reportable 05/28/18 09:09 Platelet Estimate Consistent w auto 05/28/18 09:09 Clumped Platelets Not Reportable 05/28/18 09:09 Plt Clumps, EDTA Not Reportable 05/28/18 09:09 Large Platelets Not Reportable 05/28/18 09:09 Giant Platelets Not Reportable 05/28/18 09:09 Platelet Satelliting Not Reportable 05/28/18 09:09 Plt Morphology Comment Not Reportable 05/28/18 09:09 RBC Morphology Not Reportable 05/28/18 09:09 Dimorphic RBCs Not Reportable 05/28/18 09:09 Polychromasia 1+ 05/28/18 09:09 Hypochromasia 1+ 05/28/18 09:09 Poikilocytosis Not Reportable 05/28/18 09:09 Anisocytosis 1+ 05/28/18 09:09 Microcytosis Not Reportable 05/28/18 09:09 Macrocytosis Not Reportable 05/28/18 09:09 Spherocytes Not Reportable 05/28/18 09:09 Pappenheimer Bodies Not Reportable 05/28/18 09:09 Sickle Cells Not Reportable 05/28/18 09:09 Target Cells Not Reportable 05/28/18 09:09 Tear Drop Cells Not Reportable 05/28/18 09:09 Ovalocytes Not Reportable 05/28/18 09:09 Helmet Cells Not Reportable 05/28/18 09:09 [place] Bodies Not Reportable 05/28/18 09:09 Callery Rings Not Reportable 05/28/18 09:09 Radha Cells Not Reportable 05/28/18 09:09 Bite Cells Not Reportable 05/28/18 09:09 Crenated Cell Not Reportable 05/28/18 09:09 Elliptocytes Not Reportable 05/28/18 09:09 Acanthocytes (Spur) Not Reportable 05/28/18 09:09 Rouleaux Not Reportable 05/28/18 09:09 Hemoglobin C Crystals Not Reportable 05/28/18 09:09 Schistocytes Not Reportable 05/28/18 09:09 Malaria parasites Not Reportable 05/28/18 09:09 Stevenson Bodies Not Reportable 05/28/18 09:09 Hem Pathologist Commnt No 05/28/18 09:09 PT 14.9 Sec. (12.2-14.9) 05/28/18 09:09 INR 1.10 (0.87-1.13) 05/28/18 09:09 VBG pH 7.271 (7.320-7.420) L 05/28/18 09:09 Sodium 137 mmol/L (137-145) 05/29/18 08:47 Potassium 4.6 mmol/L (3.6-5.0) D 05/29/18 08:47 Chloride 99.1 mmol/L (98-107) 05/29/18 08:47 Carbon Dioxide 22 mmol/L (22-30) D 05/29/18 08:47 Anion Gap 21 mmol/L 05/29/18 08:47 BUN 46 mg/dL (7-17) H 05/29/18 08:47 Creatinine 6.2 mg/dL (0.7-1.2) H 05/29/18 08:47 Estimated GFR 7 ml/min 05/29/18 08:47 BUN/Creatinine Ratio 7 % 05/29/18 08:47 Glucose 89 mg/dL (65-100) 05/29/18 08:47 Hemoglobin A1c 6.1 % (4-6) H 05/29/18 04:41 Lactic Acid 2.10 mmol/L (0.7-2.0) H* 05/28/18 13:29 Calcium 8.4 mg/dL (8.4-10.2) 05/29/18 08:47 Total Bilirubin 0.30 mg/dL (0.1-1.2) 05/28/18 09:09 AST 13 units/L (5-40) 05/28/18 09:09 ALT 11 units/L (7-56) 05/28/18 09:09 Alkaline Phosphatase 106 units/L (35-129) 05/28/18 09:09 Total Protein 7.9 g/dL (6.3-8.2) 05/28/18 09:09 Albumin 2.6 g/dL (3.9-5) L 05/28/18 09:09 Albumin/Globulin Ratio 0.5 % 05/28/18 09:09 Urine Color Yellow (Yellow) 05/28/18 12:02 Urine Turbidity Clear (Clear) 05/28/18 12:02 Urine pH 7.0 (5.0-7.0) 05/28/18 12:02 Ur Specific [place] 1.006 (1.003-1.030) 05/28/18 12:02 Urine Protein 30 mg/dl mg/dL (Negative) 05/28/18 12:02 Urine Glucose (UA) Neg mg/dL (Negative) 05/28/18 12:02 Urine Ketones Tr mg/dL (Negative) 05/28/18 12:02 Urine Blood Mod (Negative) 05/28/18 12:02 Urine Nitrite Neg (Negative) 05/28/18 12:02 Urine Bilirubin Neg (Negative) 05/28/18 12:02 Urine Urobilinogen < 2.0 mg/dL (<2.0) 05/28/18 12:02 Ur Leukocyte Esterase Neg (Negative) 05/28/18 12:02 Urine WBC (Auto) 6.0 /HPF (0.0-6.0) 05/28/18 12:02 Urine RBC (Auto) 5.0 /HPF (0.0-6.0) 05/28/18 12:02 U Epithel Cells (Auto) 1.0 /HPF (0-13.0) 05/28/18 12:02 Urine Bacteria (Auto) 1+ /HPF (Negative) 05/28/18 12:02 Urine Mucus Few /HPF 05/28/18 12:02 Hepatitis A IgM Ab Non-reactive (NonReactive) 05/28/18 15:50 Hep Bs Antigen Non-reactive (Negative) 05/28/18 15:50 Hep B Core IgM Ab Non-reactive (NonReactive) 05/28/18 15:50 Hepatitis C Antibody Non-reactive (NonReactive) 05/28/18 15:50 Blood Type O POSITIVE 05/29/18 09:41 Antibody Screen Negative 05/29/18 09:41 Crossmatch See Detail 05/29/18 09:41
--- NOTE | 2018-05-29 15:40 | Event Note ---
Date: 05/29/18 Contacted the nurse numerous times today to have blood transfused early for nephrostomy tubes later today. Contacted at 9 am. They are nearly complete, but still not completed. In order to prevent further delay and possible irreversible renal damage, we will bring downstairs for nephrostomy tubes and complete blood infusion downstairs.
[2018-05-29] MEDS ORDERED: NACL 0.9% 500 ML 0 ML ONE (15:58)
[2018-05-29] MEDS ORDERED: ANCEF/STERILE WATER 2 GM/20 ML 0 GM/0 ML SYRINGE IV ONE (15:58)
[2018-05-29] MEDS ORDERED: NACL 0.9% 500 ML IR ONE (15:58)
[2018-05-29] MEDS ORDERED: LEVAQUIN 500MG/100ML 500 MG/100 ML BAG IV ONE (16:27)
[2018-05-29] MEDS ORDERED: XYLOCAINE 2% INFILTRATI ONE (16:28)
[2018-05-29] MEDS: SUBLIMAZE ONE ×2 (16:42→16:55)
[2018-05-29] MEDS: VERSED ONE ×2 (16:42→16:55)
[2018-05-29] MEDS ORDERED: XYLOCAINE 1%/ EPI 1:100,000 INFILTRATI ONE (16:47)
--- NOTE | 2018-05-29 17:30 | Operative Report ---
Operative Report Operative Report: EXAM: 1. Ultrasound guided access of the interpolar posterior calyx of the left kidney 2. Nephrostogram of the left kidney 3. Percutaneous 8 Fr nephrostomy tube placement of the left kidney 4. Ultrasound guided access of the lower posterior calyx of the right kidney 5. Nephrostogram of the right kidney 6. Percutaneous 8 Fr nephrostomy tube placement of the right kidney DATE: 05/29/18 CORPORATE REPRESENTATIVE: JOSH FELIPE MD INDICATION: Bilateral hydronephrosis with underlying malignancy with acute renal failure. MEDICATIONS: Please see nursing report for full details. DEVICES: 8 Kenyan nephrostomy tube, bilateral CONTRAST: Please see labor representative report for full details. PROCEDURE: The risks, benefits, and alternatives were discussed with the patient; written informed consent was obtained. The patient's back was prepped and draped in a sterile fashion. The patient's puncture site was anesthetized with lidocaine. Under direct ultrasound guidance, the left interpolar pole posterior calyx was accessed with a 21-gauge needle. Urine was aspirated. 0.018 inch wire was passed into the collecting system. Needle was exchanged for a 6 Kenyan Accu stick system. 6 Kenyan Accustick system was advanced over the wire and passed into the collecting system. Wire, inner dilator and cannula were removed. Contrast was injected confirming position within the collecting system. Nephrostogram was performed demonstrating of the left collecting system demonstrating moderate to severe hydronephrosis and proximal occlusion of the ureter. 0.035 inch Amplatz wire was advanced through the transitional dilator of the AccuStick system and the dilator was removed. 8 Kenyan nephrostomy tube was adv anced over the wire. Wire was removed. Waka loop was performed in the renal pelvis. Contrast was injected into the nephrostomy tube confirming position within the collecting system. Contrast was aspirated. The nephrostomy tube was sutured in place with Ethilon. Sterile dressing applied. Under direct ultrasound guidance, the right lower pole posterior calyx was accessed with a 21-gauge needle. Urine was aspirated. 0.018 inch wire was passed into the collecting system. Needle was exchanged for a 6 Kenyan Accu stick system. 6 Kenyan Accustick system was advanced over the wire and passed into the collecting system. Wire, inner dilator and cannula were removed. Contrast was injected confirming position within the collecting system. Nephrostogram was performed demonstrating of the right collecting system demonstrating moderate to severe hydronephrosis and proximal occlusion of the ureter. 0.035 inch Amplatz wire was advanced through the transitional dilator of the AccuStick system and the dilator was removed. 8 Kenyan nephrostomy tube was advanced over the wire. Wire was removed. Waka loop was performed in the renal pelvis. Contrast was injected into the nephrostomy tube confirming position within the collecting system. Contrast was aspirated. The nephrostomy tube was sutured in place with Ethilon. Sterile dressing applied. Patient tolerated the procedure well. She was transferred to the floor in stable condition. FINDINGS: Please see procedure note above. IMPRESSION: 1. Percutaneous nephrostomy tube placement in the lower posterior calyx of the right kidney. 2. Percutaneous nephrostomy tube placement in the interpolar posterior calyx of the left kidney.
[2018-05-29] MEDS: REGLAN IV SCH (21:39)
[2018-05-29] MEDS: D50W (25GM) Syringe IV ONE (21:40)
[2018-05-30 05:12] LABS: Hemoglobin 9.3 gm/dl (10.1-14.3); Mean Corpuscular HGB Conc 32 % (30-34); Mean Corpuscular Volume 81 fl (79-97); Platelet Count 347 K/mm3 (140-440); Red Blood Count 3.58 M/mm3 (3.65-5.03); Red Cell Distribution Width 16.6 % (13.2-15.2)
[2018-05-30 05:27] LABS: Albumin 1.7 g/dL (3.9-5); BUN/Creatinine Ratio 11; Blood Urea Nitrogen 27 mg/dL (7-17); Calcium 8.4 mg/dL (8.4-10.2); Hemolysis Index 2
[2018-05-30 05:52] LABS: Alanine Aminotransferase < 5 units/L (7-56)
[2018-05-30 06:04] LABS: Band Neutrophils # (Manual) 0.3 K/mm3; Basophils % (Manual) 0 % (0.0-1.8); Monocytes % (Manual) 0 % (0.0-7.3); Ovalocytes 1+; Total Cells Counted 100
[2018-05-30 06:05] LABS: Large Platelets 1+; Tear Drop Cells Rare
[2018-05-30] MEDS: PEPCID PO SCH ×3 (09:54→21:55)
[2018-05-30] MEDS: REGLAN IV SCH ×2 (09:55→21:55)
[2018-05-30] MEDS: SODIUM CHLORIDE FLUSH SYRINGE 10 ML IV SCH ×2 (09:55→21:55)
--- NOTE | 2018-05-30 10:29 | Progress Note ---
Assessment and Plan Impression: * LYLE * obstructive uropathy * Uremia * AMS * bilateral hydronephrosis * metabolic acidosis * cervical lymphadenopathy * hyperkalemia * Anemia Plan: * s/p emergent hd * hold dialysis * cr is better at this time * strict i/os, avoid nephrotoxins * s/p PCNT bilaterally * rec Inside Sales Advertising Executive onc consultation * daily lytes * no indication for GANG BORE OPERATOR today Subjective Date of service: 05/30/18 Principal diagnosis: lyle, urinary obstruction Interval history: resting in bed today Objective - Exam Narrative Exam: General: No limitations, patient is alert in no acute distress Head exam: Atraumatic, normocephalic Eyes exam: Normal appearance, pupils equal reactive to light, extraocular movements intact ENT: Moist mucous membrane, normal oropharynx Neck exam: Normal inspection, full range of motion, no meningismus nontender Respiratory exam: Clear to auscultation bilateral, no wheezes, rales, crackles Cardiovascular: Normal rate and rhythm Abdomen: Soft, nondistended, suprapubic tenderness, with normal bowel sounds, no rebound, or guarding Extremity: Full range of motion normal inspection no deformity Back: Normal Inspection, full range of motion, no tenderness Neurologic: Alert, oriented x3, cranial nerves intact, no motor or sensory deficit Psychiatric: normal affect, normal mood Skin: Warm, dry, intact - Vital Signs Vital signs: Vital Signs - 12hr 05/30/18 05/30/18 05/30/18 00:09 03:00 05:02 Temperature 98.8 F 98.8 F Pulse Rate 105 H 105 H 104 H Respiratory 17 17 Rate Blood Pressure 128/65 127/68 O2 Sat by Pulse 95 94 Oximetry 05/30/18 08:35 Temperature 98.3 F Pulse Rate 104 H Respiratory 12 Rate Blood Pressure 135/74 O2 Sat by Pulse 95 Oximetry - Lab 05/30/18 04:29 05/30/18 04:29 Most recent lab results Calcium 8.4 mg/dL (8.4-10.2) 05/30/18 04:29 Medications & Allergies - Medications Allergies/Adverse Reactions: Allergies No Known Allergies Allergy (Verified 05/28/18 09:10) Home Medications: Home Medications Medication Instructions Recorded Confirmed Last Taken Type No Known Home Medications [No 05/28/18 05/28/18 Unknown History Reported Home Medications] Active Medications: Generic Name Dose Route Start Last Admin Trade Name Freq PRN Reason Stop Dose Admin Acetaminophen 650 mg 05/28/18 22:37 05/28/18 23:04 Tylenol PO 650 mg Q6H PRN Administration Pain, Mild (1-3) Famotidine 10 mg 05/29/18 10:00 05/30/18 09:54 Pepcid PO 10 mg BID ALBINA Administration Hydromorphone HCl 0.5 mg 05/29/18 03:21 Dilaudid IV Q3H PRN Pain , Severe (7-10) Sodium Chloride 100 mls @ 999 mls/hr 05/28/18 13:21 Nacl 0.9% IV CATHERINE PRN Hypotension Levofloxacin/Dextrose 500 mg in 100 mls @ 100 mls/hr 05/31/18 10:00 Levaquin 500mg/100ml IV Q48H [facility] Protocol Metoclopramide HCl 5 mg 05/29/18 22:00 05/30/18 09:55 Reglan IV 5 mg BID ALBINA Administration Ondansetron HCl 4 mg 05/29/18 03:19 Zofran IV Q8H PRN Nausea And Vomiting Oxycodone/Acetaminophen 1 tab 05/29/18 03:21 Percocet 5/325 PO Q6H PRN Pain, Moderate (4-6) Sodium Chloride 10 ml 05/29/18 04:00 05/30/18 09:55 Sodium Chloride Flush Syringe 10 Ml IV 10 ml BID ALBINA Administration Sodium Chloride 10 ml 05/29/18 03:19 Sodium Chloride Flush Syringe 10 Ml IV PRN PRN LINE FLUSH
--- NOTE | 2018-05-30 12:09 | Progress Note ---
Assessment and Plan Assessment and plan: Anemia. Transfused 2 units PRBC Stool occult blood Cervical mass with enlarged regional nodes, likely cervical cancer Consulted Gyne injection molding operator Discussed with Dr. Jair Hoyos. He states will do EUA and cervical biopsy tomorrow. LYLE due to obstruction Improving Cr 2.4 Nephrology following Hyperkalemia Improved Hypokalemia Leukocytosis:SIRS vs Sepsis Blood cultures drawn Continue Levaquin Bilateral hydronephrosis . s/p bilat Nephrostomy tube placement 05/29 Full code status History Interval history: Less abd pain Hospitalist Physical - Physical exam Narrative exam: GEN: Not in acute distress, HEENT: Normocephalic, atraumatic, Neck: supple, No JVD Lungs: Clear to auscultation bilaterally, no wheeze Heart:S1 and S2 regular, no murmurs, rubs or gallop, Abd:soft, non tender, non distended, normal bowel sounds Ext: No edema, no clubbing or cyanosis Neuro: Awake,alert, moves all extremities, no focal neurological signs - Constitutional Vitals: Temp Pulse Resp BP Pulse Ox 98.3 F 104 H 12 135/74 95 05/30/18 08:35 05/30/18 08:35 05/30/18 08:35 05/30/18 08:35 05/30/18 08:35 General appearance: Present: no acute distress Results - Labs CBC & Chem 7: 05/30/18 04:29 05/30/18 04:29 Labs: Laboratory Last Values WBC 26.3 K/mm3 (4.5-11.0) H 05/30/18 04:29 RBC 3.58 M/mm3 (3.65-5.03) L 05/30/18 04:29 Hgb 9.3 gm/dl (10.1-14.3) L D 05/30/18 04:29 Hct 29.0 % (30.3-42.9) L D 05/30/18 04:29 MCV 81 fl (79-97) 05/30/18 04:29 MCH 26 pg (28-32) L 05/30/18 04:29 MCHC 32 % (30-34) 05/30/18 04:29 RDW 16.6 % (13.2-15.2) H 05/30/18 04:29 Plt Count 347 K/mm3 (140-440) 05/30/18 04:29 Add Manual Diff Complete 05/30/18 04:29 Total Counted 100 05/30/18 04:29 Seg Neutrophils % Certified Hyperbaric Technologist 05/28/18 09:09 Seg Neuts % (Manual) 95.0 % (40.0-70.0) H 05/30/18 04:29 Band Neutrophils % 1.0 % 05/30/18 04:29 Lymphocytes % (Manual) 1.0 % (13.4-35.0) L 05/30/18 04:29 Reactive Lymphs % (Man) 0 % 05/30/18 04:29 Monocytes % (Manual) 0 % (0.0-7.3) 05/30/18 04:29 Eosinophils % (Manual) 2.0 % (0.0-4.3) 05/30/18 04:29 Basophils % (Manual) 0 % (0.0-1.8) 05/30/18 04:29 Metamyelocytes % 1.0 % 05/30/18 04:29 Myelocytes % 0 % 05/30/18 04:29 Promyelocytes % 0 % 05/30/18 04:29 Blast Cells % 0 % 05/30/18 04:29 Nucleated RBC % Not Reportable 05/30/18 04:29 Seg Neutrophils # Man 25.0 K/mm3 (1.8-7.7) H 05/30/18 04:29 Band Neutrophils # 0.3 K/mm3 05/30/18 04:29 Lymphocytes # (Manual) 0.3 K/mm3 (1.2-5.4) L 05/30/18 04:29 Abs React Lymphs (Man) 0.0 K/mm3 05/30/18 04:29 Monocytes # (Manual) 0.0 K/mm3 (0.0-0.8) 05/30/18 04:29 Eosinophils # (Manual) 0.5 K/mm3 (0.0-0.4) H 05/30/18 04:29 Basophils # (Manual) 0.0 K/mm3 (0.0-0.1) 05/30/18 04:29 Metamyelocytes # 0.3 K/mm3 05/30/18 04:29 Myelocytes # 0.0 K/mm3 05/30/18 04:29 Promyelocytes # 0.0 K/mm3 05/30/18 04:29 Blast Cells # 0.0 K/mm3 05/30/18 04:29 WBC Morphology Not Reportable 05/30/18 04:29 Hypersegmented Neuts Not Reportable 05/30/18 04:29 Hyposegmented Neuts Not Reportable 05/30/18 04:29 Hypogranular Neuts Not Reportable 05/30/18 04:29 Smudge Cells Not Reportable 05/30/18 04:29 Toxic Granulation Not Reportable 05/30/18 04:29 Toxic Vacuolation Not Reportable 05/30/18 04:29 Dohle Bodies Not Reportable 05/30/18 04:29 Pelger-Huet Anomaly Not Reportable 05/30/18 04:29 Sully Rods Not Reportable 05/30/18 04:29 Platelet Estimate Appears normal 05/30/18 04:29 Clumped Platelets Not Reportable 05/30/18 04:29 Plt Clumps, EDTA Not Reportable 05/30/18 04:29 Large Platelets 1+ 05/30/18 04:29 Giant Platelets Not Reportable 05/30/18 04:29 Platelet Satelliting Not Reportable 05/30/18 04:29 Plt Morphology Comment Not Reportable 05/30/18 04:29 RBC Morphology Not Reportable 05/30/18 04:29 Dimorphic RBCs Not Reportable 05/30/18 04:29 Polychromasia Not Reportable 05/30/18 04:29 Hypochromasia Not Reportable 05/30/18 04:29 Poikilocytosis Not Reportable 05/30/18 04:29 Anisocytosis Not Reportable 05/30/18 04:29 Microcytosis Not Reportable 05/30/18 04:29 Macrocytosis Not Reportable 05/30/18 04:29 Spherocytes Not Reportable 05/30/18 04:29 Pappenheimer Bodies Not Reportable 05/30/18 04:29 Sickle Cells Not Reportable 05/30/18 04:29 Target Cells Not Reportable 05/30/18 04:29 Tear Drop Cells Rare 05/30/18 04:29 Ovalocytes 1+ 05/30/18 04:29 Helmet Cells Not Reportable 05/30/18 04:29 Blackmon-Stebbins Bodies Not Reportable 05/30/18 04:29 [place] Rings Not Reportable 05/30/18 04:29 Radha Cells Not Reportable 05/30/18 04:29 Bite Cells Not Reportable 05/30/18 04:29 Crenated Cell Not Reportable 05/30/18 04:29 Elliptocytes Not Reportable 05/30/18 04:29 Acanthocytes (Spur) Not Reportable 05/30/18 04:29 Rouleaux Not Reportable 05/30/18 04:29 Hemoglobin C Crystals Not Reportable 05/30/18 04:29 Schistocytes Not Reportable 05/30/18 04:29 Malaria parasites Not Reportable 05/30/18 04:29 Stevenson Bodies Not Reportable 05/30/18 04:29 Hem Pathologist Commnt No 05/30/18 04:29 PT 14.9 Sec. (12.2-14.9) 05/28/18 09:09 INR 1.10 (0.87-1.13) 05/28/18 09:09 VBG pH 7.271 (7.320-7.420) L 05/28/18 09:09 Sodium 139 mmol/L (137-145) 05/30/18 04:29 Potassium 3.6 mmol/L (3.6-5.0) D 05/30/18 04:29 Chloride 104.2 mmol/L (98-107) 05/30/18 04:29 Carbon Dioxide 20 mmol/L (22-30) L 05/30/18 04:29 Anion Gap 18 mmol/L 05/30/18 04:29 BUN 27 mg/dL (7-17) H 05/30/18 04:29 Creatinine 2.4 mg/dL (0.7-1.2) H D 05/30/18 04:29 Estimated GFR 20 ml/min 05/30/18 04:29 BUN/Creatinine Ratio 11 % 05/30/18 04:29 Glucose 72 mg/dL (65-100) 05/30/18 04:29 Hemoglobin A1c 6.1 % (4-6) H 05/29/18 04:41 Lactic Acid 2.10 mmol/L (0.7-2.0) H* 05/28/18 13:29 Calcium 8.4 mg/dL (8.4-10.2) 05/30/18 04:29 Total Bilirubin 0.40 mg/dL (0.1-1.2) 05/30/18 04:29 AST 7 units/L (5-40) 05/30/18 04:29 ALT < 5 units/L (7-56) L 05/30/18 04:29 Alkaline Phosphatase 84 units/L (35-129) 05/30/18 04:29 Total Protein 6.2 g/dL (6.3-8.2) L D 05/30/18 04:29 Albumin 1.7 g/dL (3.9-5) L 05/30/18 04:29 Albumin/Globulin Ratio 0.4 % 05/30/18 04:29 Urine Color Yellow (Yellow) 05/28/18 12:02 Urine Turbidity Clear (Clear) 05/28/18 12:02 Urine pH 7.0 (5.0-7.0) 05/28/18 12:02 Ur Specific [place] 1.006 (1.003-1.030) 05/28/18 12:02 Urine Protein 30 mg/dl mg/dL (Negative) 05/28/18 12:02 Urine Glucose (UA) Neg mg/dL (Negative) 05/28/18 12:02 Urine Ketones Tr mg/dL (Negative) 05/28/18 12:02 Urine Blood Mod (Negative) 05/28/18 12:02 Urine Nitrite Neg (Negative) 05/28/18 12:02 Urine Bilirubin Neg (Negative) 05/28/18 12:02 Urine Urobilinogen < 2.0 mg/dL (<2.0) 05/28/18 12:02 Ur Leukocyte Esterase Neg (Negative) 05/28/18 12:02 Urine WBC (Auto) 6.0 /HPF (0.0-6.0) 05/28/18 12:02 Urine RBC (Auto) 5.0 /HPF (0.0-6.0) 05/28/18 12:02 U Epithel Cells (Auto) 1.0 /HPF (0-13.0) 05/28/18 12:02 Urine Bacteria (Auto) 1+ /HPF (Negative) 05/28/18 12:02 Urine Mucus Few /HPF 05/28/18 12:02 Hepatitis A IgM Ab Non-reactive (NonReactive) 05/28/18 15:50 Hep Bs Antigen Non-reactive (Negative) 05/28/18 15:50 Hep B Core IgM Ab Non-reactive (NonReactive) 05/28/18 15:50 Hepatitis C Antibody Non-reactive (NonReactive) 05/28/18 15:50 Blood Type O POSITIVE 05/29/18 09:41 Antibody Screen Negative 05/29/18 09:41 Crossmatch See Detail 05/29/18 09:41
--- NOTE | 2018-05-30 12:27 | Consultation ---
History of Present Illness Consult date: 05/30/18 Requesting physician: BOBBY DAVIES Reason for consult: pelvic mass History of present illness: Pt is a 73-year-old female LMP 19 years ago spontaneously with no significant past medical history presented to the hospital complaining of suprapubic abdominal pain 1 month. She complains of urinary incontinence, suprapubic pain, dysuria, decreased appetite, intermittent fever, and generalized weakness. Patient also complains of intermittent fecal incontinence. She denies a history of medical problems but she has not seen a doctor in over 20 years and does not currently have a PMD. Patient is Mauritian- speaking and her grand daughter is the vp director of finance at the bedside. A ct scan of the abd and pelvis revealed severe bilateral hydronephrosis with and enlarged heterogeneous cervix with iliac retroperitoneal adenopathy concerning for possible metastatic disease. A vascular/IR consult had bilateral nephrostomy tube placement for hemodialysis. I have been consulted to evaluate the cervical mass which is suspicious for cervical cancer. Past History Past Medical History: no pertinent history Past Surgical History: no surgical history Family/Genetic History: none Social history: no significant social history, single Medications and Allergies Allergies Allergy/AdvReac Type Severity Reaction Status Date / Time No Known Allergies Allergy Verified 05/28/18 09:10 Home Medications Medication Instructions Recorded Confirmed Last Taken Type No Known Home Medications [No 05/28/18 05/28/18 Unknown History Reported Home Medications] Active Meds: Active Medications Acetaminophen (Tylenol) 650 mg PO Q6H PRN PRN Reason: Pain, Mild (1-3) Last Admin: 05/28/18 23:04 Dose: 650 mg Documented by: Famotidine (Pepcid) 10 mg PO BID [facility] Last Admin: 05/30/18 09:54 Dose: 10 mg Documented by: Hydromorphone HCl (Dilaudid) 0.5 mg IV Q3H PRN PRN Reason: Pain , Severe (7-10) Sodium Chloride (Nacl 0.9%) 100 mls @ 999 mls/hr IV CATHERINE PRN PRN Reason: Hypotension Levofloxacin/Dextrose (Levaquin 500mg/100ml) 500 mg in 100 mls @ 100 mls/hr IV Q48H [facility]; Protocol Metoclopramide HCl (Reglan) 5 mg IV BID [facility] Last Admin: 05/30/18 09:55 Dose: 5 mg Documented by: Ondansetron HCl (Zofran) 4 mg IV Q8H PRN PRN Reason: Nausea And Vomiting Oxycodone/Acetaminophen (Percocet 5/325) 1 tab PO Q6H PRN PRN Reason: Pain, Moderate (4-6) Sodium Chloride (Sodium Chloride Flush Syringe 10 Ml) 10 ml IV BID ALBINA Last Admin: 05/30/18 09:55 Dose: 10 ml Documented by: Sodium Chloride (Sodium Chloride Flush Syringe 10 Ml) 10 ml IV PRN PRN PRN Reason: LINE FLUSH Review of Systems All systems: negative - Vital Signs Vital signs: Vital Signs Temp Pulse Resp BP Pulse Ox 98 F 150 H 20 115/53 97 05/28/18 09:01 05/28/18 09:01 05/28/18 09:01 05/28/18 09:01 05/28/18 09:01 Temp Pulse Resp BP Pulse Ox 98.3 F 104 H 12 135/74 95 05/30/18 08:35 05/30/18 08:35 05/30/18 08:35 05/30/18 08:35 05/30/18 08:35 Results Result Diagrams: 05/30/18 04:29 05/30/18 04:29 Abnormal lab results 05/29/18 05/30/18 05/30/18 Range/Units 09:41 04:29 04:29 WBC 26.3 H (4.5-11.0) K/mm3 RBC 3.58 L (3.65-5.03) M/mm3 Hgb 9.3 L D (10.1-14.3) gm/dl Hct 29.0 L D (30.3-42.9) % MCH 26 L (28-32) pg RDW 16.6 H (13.2-15.2) % Seg Neuts % (Manual) 95.0 H (40.0-70.0) % Lymphocytes % (Manual) 1.0 L (13.4-35.0) % Seg Neutrophils # Man 25.0 H (1.8-7.7) K/mm3 Lymphocytes # (Manual) 0.3 L (1.2-5.4) K/mm3 Eosinophils # (Manual) 0.5 H (0.0-0.4) K/mm3 Carbon Dioxide 20 L (22-30) mmol/L BUN 27 H (7-17) mg/dL Creatinine 2.4 H D (0.7-1.2) mg/dL ALT < 5 L (7-56) units/L Total Protein 6.2 L D (6.3-8.2) g/dL Albumin 1.7 L (3.9-5) g/dL Crossmatch See Detail All other labs normal. CT scan - abdomen: report reviewed Assessment and Plan - Patient Problems (1) Acute renal failure Onset Date: 05/30/18 Current Visit: Yes Status: Acute Qualifiers: Acute renal failure type: unspecified Qualified Code(s): N17.9 - Acute kidney failure, unspecified (2) Bilateral hydronephrosis Onset Date: 05/30/18 Current Visit: Yes Status: Acute (3) Cervical mass Onset Date: 05/30/18 Current Visit: Yes Status: Chronic Plan to address problem: A: Cervical mass Obstructive uropathy Bilateral hydronephrosis ARF P: Will schedule for Examination under anesthesia with cervical biopsy tomorrow.
--- NOTE | 2018-05-30 13:08 | Event Note ---
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
[2018-05-31 05:12] LABS: Hematocrit 30.9 % (30.3-42.9); Hemoglobin 9.9 gm/dl (10.1-14.3); Mean Corpuscular HGB Conc 32 % (30-34); Mean Corpuscular Volume 82 fl (79-97); Platelet Count 321 K/mm3 (140-440); Red Blood Count 3.79 M/mm3 (3.65-5.03); Red Cell Distribution Width 16.5 % (13.2-15.2)
[2018-05-31 05:34] LABS: BUN/Creatinine Ratio 19; Blood Urea Nitrogen 15 mg/dL (7-17); Calcium 8.6 mg/dL (8.4-10.2); Hemolysis Index 13
--- NOTE | 2018-05-31 09:32 | Progress Note ---
Assessment and Plan Assessment and plan: Anemia. Transfused 2 units PRBC Stool occult blood Cervical mass with enlarged regional nodes, likely cervical cancer Consulted Gyne consumer educator Discussed with Dr. Jair Hoyos. For EUA and cervical biopsy today LYLE due to obstruction s/p emergency hemodialysis Improving Cr 0.8 today Nephrology following Hyperkalemia, resolved Hypokalemia Leukocytosis:SIRS vs Sepsis Blood cultures drawn, no growth to date Continue Levaquin Bilateral hydronephrosis . s/p bilat Nephrostomy tube placement 05/29 Full code status History Interval history: Less abd pain fever 2 days ago, now resolved Hospitalist Physical - Physical exam Narrative exam: GEN: Not in acute distress, HEENT: Normocephalic, atraumatic, Neck: supple, No JVD Lungs: Clear to auscultation bilaterally, no wheeze Heart:S1 and S2 regular, no murmurs, rubs or gallop, Abd:soft, non tender, non distended, normal bowel sounds Ext: No edema, no clubbing or cyanosis Neuro: Awake,alert, moves all extremities, no focal neurological signs - Constitutional Vitals: Temp Pulse Resp BP Pulse Ox 98.2 F 108 H 20 143/71 93 05/31/18 07:45 05/31/18 07:45 05/31/18 07:45 05/31/18 07:45 05/31/18 07:45 General appearance: Present: no acute distress Results - Labs CBC & Chem 7: 05/31/18 04:46 05/31/18 04:46 Labs: Laboratory Last Values WBC 27.7 K/mm3 (4.5-11.0) H 05/31/18 04:46 RBC 3.79 M/mm3 (3.65-5.03) 05/31/18 04:46 Hgb 9.9 gm/dl (10.1-14.3) L 05/31/18 04:46 Hct 30.9 % (30.3-42.9) 05/31/18 04:46 MCV 82 fl (79-97) 05/31/18 04:46 MCH 26 pg (28-32) L 05/31/18 04:46 MCHC 32 % (30-34) 05/31/18 04:46 RDW 16.5 % (13.2-15.2) H 05/31/18 04:46 Plt Count 321 K/mm3 (140-440) 05/31/18 04:46 Add Manual Diff Complete 05/30/18 04:29 Total Counted 100 05/30/18 04:29 Seg Neutrophils % Core Cutter And Reamer 05/28/18 09:09 Seg Neuts % (Manual) 95.0 % (40.0-70.0) H 05/30/18 04:29 Band Neutrophils % 1.0 % 05/30/18 04:29 Lymphocytes % (Manual) 1.0 % (13.4-35.0) L 05/30/18 04:29 Reactive Lymphs % (Man) 0 % 05/30/18 04:29 Monocytes % (Manual) 0 % (0.0-7.3) 05/30/18 04:29 Eosinophils % (Manual) 2.0 % (0.0-4.3) 05/30/18 04:29 Basophils % (Manual) 0 % (0.0-1.8) 05/30/18 04:29 Metamyelocytes % 1.0 % 05/30/18 04:29 Myelocytes % 0 % 05/30/18 04:29 Promyelocytes % 0 % 05/30/18 04:29 Blast Cells % 0 % 05/30/18 04:29 Nucleated RBC % Not Reportable 05/30/18 04:29 Seg Neutrophils # Man 25.0 K/mm3 (1.8-7.7) H 05/30/18 04:29 Band Neutrophils # 0.3 K/mm3 05/30/18 04:29 Lymphocytes # (Manual) 0.3 K/mm3 (1.2-5.4) L 05/30/18 04:29 Abs React Lymphs (Man) 0.0 K/mm3 05/30/18 04:29 Monocytes # (Manual) 0.0 K/mm3 (0.0-0.8) 05/30/18 04:29 Eosinophils # (Manual) 0.5 K/mm3 (0.0-0.4) H 05/30/18 04:29 Basophils # (Manual) 0.0 K/mm3 (0.0-0.1) 05/30/18 04:29 Metamyelocytes # 0.3 K/mm3 05/30/18 04:29 Myelocytes # 0.0 K/mm3 05/30/18 04:29 Promyelocytes # 0.0 K/mm3 05/30/18 04:29 Blast Cells # 0.0 K/mm3 05/30/18 04:29 WBC Morphology Not Reportable 05/30/18 04:29 Hypersegmented Neuts Not Reportable 05/30/18 04:29 Hyposegmented Neuts Not Reportable 05/30/18 04:29 Hypogranular Neuts Not Reportable 05/30/18 04:29 Smudge Cells Not Reportable 05/30/18 04:29 Toxic Granulation Not Reportable 05/30/18 04:29 Toxic Vacuolation Not Reportable 05/30/18 04:29 Dohle Bodies Not Reportable 05/30/18 04:29 Pelger-Huet Anomaly Not Reportable 05/30/18 04:29 Sully Rods Not Reportable 05/30/18 04:29 Platelet Estimate Appears normal 05/30/18 04:29 Clumped Platelets Not Reportable 05/30/18 04:29 Plt Clumps, EDTA Not Reportable 05/30/18 04:29 Large Platelets 1+ 05/30/18 04:29 Giant Platelets Not Reportable 05/30/18 04:29 Platelet Satelliting Not Reportable 05/30/18 04:29 Plt Morphology Comment Not Reportable 05/30/18 04:29 RBC Morphology Not Reportable 05/30/18 04:29 Dimorphic RBCs Not Reportable 05/30/18 04:29 Polychromasia Not Reportable 05/30/18 04:29 Hypochromasia Not Reportable 05/30/18 04:29 Poikilocytosis Not Reportable 05/30/18 04:29 Anisocytosis Not Reportable 05/30/18 04:29 Microcytosis Not Reportable 05/30/18 04:29 Macrocytosis Not Reportable 05/30/18 04:29 Spherocytes Not Reportable 05/30/18 04:29 Pappenheimer Bodies Not Reportable 05/30/18 04:29 Sickle Cells Not Reportable 05/30/18 04:29 Target Cells Not Reportable 05/30/18 04:29 Tear Drop Cells Rare 05/30/18 04:29 Ovalocytes 1+ 05/30/18 04:29 Helmet Cells Not Reportable 05/30/18 04:29 Blackmon-Gaines Bodies Not Reportable 05/30/18 04:29 [place] Rings Not Reportable 05/30/18 04:29 [place] Cells Not Reportable 05/30/18 04:29 Bite Cells Not Reportable 05/30/18 04:29 Crenated Cell Not Reportable 05/30/18 04:29 Elliptocytes Not Reportable 05/30/18 04:29 Acanthocytes (Spur) Not Reportable 05/30/18 04:29 Rouleaux Not Reportable 05/30/18 04:29 Hemoglobin C Crystals Not Reportable 05/30/18 04:29 Schistocytes Not Reportable 05/30/18 04:29 Malaria parasites Not Reportable 05/30/18 04:29 Stevenson Bodies Not Reportable 05/30/18 04:29 Hem Pathologist Commnt No 05/30/18 04:29 PT 14.9 Sec. (12.2-14.9) 05/28/18 09:09 INR 1.10 (0.87-1.13) 05/28/18 09:09 VBG pH 7.271 (7.320-7.420) L 05/28/18 09:09 Sodium 141 mmol/L (137-145) 05/31/18 04:46 Potassium 3.0 mmol/L (3.6-5.0) L 05/31/18 04:46 Chloride 102.8 mmol/L (98-107) 05/31/18 04:46 Carbon Dioxide 18 mmol/L (22-30) L 05/31/18 04:46 Anion Gap 23 mmol/L 05/31/18 04:46 BUN 15 mg/dL (7-17) 05/31/18 04:46 Creatinine 0.8 mg/dL (0.7-1.2) D 05/31/18 04:46 Estimated GFR > 60 ml/min 05/31/18 04:46 BUN/Creatinine Ratio 19 % 05/31/18 04:46 Glucose 90 mg/dL (65-100) 05/31/18 04:46 Hemoglobin A1c 6.1 % (4-6) H 05/29/18 04:41 Lactic Acid 2.10 mmol/L (0.7-2.0) H* 05/28/18 13:29 Calcium 8.6 mg/dL (8.4-10.2) 05/31/18 04:46 Total Bilirubin 0.40 mg/dL (0.1-1.2) 05/30/18 04:29 AST 7 units/L (5-40) 05/30/18 04:29 ALT < 5 units/L (7-56) L 05/30/18 04:29 Alkaline Phosphatase 84 units/L (35-129) 05/30/18 04:29 Total Protein 6.2 g/dL (6.3-8.2) L D 05/30/18 04:29 Albumin 1.7 g/dL (3.9-5) L 05/30/18 04:29 Albumin/Globulin Ratio 0.4 % 05/30/18 04:29 Urine Color Yellow (Yellow) 05/28/18 12:02 Urine Turbidity Clear (Clear) 05/28/18 12:02 Urine pH 7.0 (5.0-7.0) 05/28/18 12:02 Ur Specific [place] 1.006 (1.003-1.030) 05/28/18 12:02 Urine Protein 30 mg/dl mg/dL (Negative) 05/28/18 12:02 Urine Glucose (UA) Neg mg/dL (Negative) 05/28/18 12:02 Urine Ketones Tr mg/dL (Negative) 05/28/18 12:02 Urine Blood Mod (Negative) 05/28/18 12:02 Urine Nitrite Neg (Negative) 05/28/18 12:02 Urine Bilirubin Neg (Negative) 05/28/18 12:02 Urine Urobilinogen < 2.0 mg/dL (<2.0) 05/28/18 12:02 Ur Leukocyte Esterase Neg (Negative) 05/28/18 12:02 Urine WBC (Auto) 6.0 /HPF (0.0-6.0) 05/28/18 12:02 Urine RBC (Auto) 5.0 /HPF (0.0-6.0) 05/28/18 12:02 U Epithel Cells (Auto) 1.0 /HPF (0-13.0) 05/28/18 12:02 Urine Bacteria (Auto) 1+ /HPF (Negative) 05/28/18 12:02 Urine Mucus Few /HPF 05/28/18 12:02 Hepatitis A IgM Ab Non-reactive (NonReactive) 05/28/18 15:50 Hep Bs Antigen Non-reactive (Negative) 05/28/18 15:50 Hep B Core IgM Ab Non-reactive (NonReactive) 05/28/18 15:50 Hepatitis C Antibody Non-reactive (NonReactive) 05/28/18 15:50 Blood Type O POSITIVE 05/29/18 09:41 Antibody Screen Negative 05/29/18 09:41 Crossmatch See Detail 05/29/18 09:41
[2018-05-31] MEDS: SODIUM CHLORIDE FLUSH SYRINGE 10 ML IV SCH ×2 (09:47→22:36)
[2018-05-31] MEDS: REGLAN IV SCH ×2 (09:47→22:32)
[2018-05-31] MEDS: PEPCID PO SCH ×2 (09:48→22:31)
[2018-05-31] MEDS ORDERED: LEVAQUIN 500MG/100ML 500 MG/100 ML BAG IV SCH (10:00)
[2018-05-31] MEDS ORDERED: DIPRIVAN 10 MG/ML IV ONE (10:03)
[2018-05-31] MEDS ORDERED: SUBLIMAZE ONE (10:03)
[2018-05-31] MEDS ORDERED: ZOFRAN IV PRN (10:20)
[2018-05-31] MEDS ORDERED: SUBLIMAZE IV PRN (10:20)
--- NOTE | 2018-05-31 10:22 | Anesthesia Day of Surgery ---
Anesthesia Day of Surgery - Day of Surgery Patient Examined: Yes Patient H&P Reviewed: Yes Patient is NPO: Yes
--- NOTE | 2018-05-31 10:23 | Anesthesia Consultation ---
Anesthesia Consult and Med Hx Date of service: 05/31/18 - Airway Anesthetic Teeth Evaluation: Edentulous ROM Head & Neck: Adequate Mental/Hyoid Distance: Adequate Mallampati Class: Class II Intubation Access Assessment: Good - Pre-Operative Health Status ASA Pre-Surgery Classification: ASA3, Emergency Proposed Anesthetic Plan: General - Pulmonary Hx Asthma: No COPD: No Hx Pneumonia: No - Endocrine Hx Renal Disease: Yes (ARF was dialyzed; pelvic mass obstructing ureters- nephrostomy tubes placed) Hx End Stage Renal Disease: No - Hematic Hx Anemia: Yes
[2018-05-31] MEDS ORDERED: SILVER NITRATE TP ONE (10:35)
--- NOTE | 2018-05-31 10:41 | Operative Report ---
Operative Report Operative Report: Date of procedure: 05/31/2018 Pre-operative diagnosis: Cervical mass Post-operative diagnosis: Same Procedure name(s): 1. Examination under anesthesia 2. Cervical biopsies Surgeon: Sixto Hoyos MD Rocket Engine Component Mechanic: None Anesthesia: Gen. mask EBL: Less than 10 mL Findings: An enlarged uterus with a large cervix flushed to the vaginal wall and extending to the pelvic sidewall bilaterally Procedure: After the patient was correctly identified, she was prepped and draped in the usual sterile fashion and placed in dorsolithotomy position. First the bladder was emptied using a straight catheter, and examination under anesthesia found the cervix to be enlarged and flushed with the vaginal wall, and extending to the pelvic sidewall bilaterally. The speculum was then placed in the vagina, and several random biopsies were performed on the cervix using scant amounts of cervical tissue which was sent to pathology. The biopsy sites were made hemostatic using silver nitrate sticks. The procedure was then considered complete. All instruments removed from the vagina. The patient tolerated the procedure well and was transported to recovery in stable condition.
[2018-05-31] MEDS ORDERED: LACTATED RINGERS 1,000 ML IV SCH (11:00)
--- NOTE | 2018-05-31 11:38 | Post Anesthesia Evaluation ---
- Post Anesthesia Evaluation Patient Participated: Yes Airway Patent: Yes Stable Respiratory Function: Yes Nausea/Vomiting: No Temp > 96.8F: Yes Pain Manageable: Yes Adequeate Hydration: Yes Anesthesia Complications: No Block Receding Appropriately: Not Applicable Patient on Ventilator: No
[2018-05-31] MEDS ORDERED: MAGNESIUM SULFATE 2GM/50ML 2 GM/50 ML BAG IV ONE (11:53)
--- NOTE | 2018-05-31 11:53 | Progress Note ---
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 * daily lytes * no indication for AUTOMOTIVE POWER ELECTRONICS ENGINEER today Subjective Date of service: 05/31/18 Principal diagnosis: lyle, urinary obstruction Interval history: resting in bed today Objective - Exam Narrative Exam: General: No limitations, patient is alert in no acute distress Head exam: Atraumatic, normocephalic Eyes exam: Normal appearance, pupils equal reactive to light, extraocular movements intact ENT: Moist mucous membrane, normal oropharynx Neck exam: Normal inspection, full range of motion, no meningismus nontender Respiratory exam: Clear to auscultation bilateral, no wheezes, rales, crackles Cardiovascular: Normal rate and rhythm Abdomen: Soft, nondistended, suprapubic tenderness, with normal bowel sounds, no rebound, or guarding Extremity: Full range of motion normal inspection no deformity Back: Normal Inspection, full range of motion, no tenderness Neurologic: Alert, oriented x3, cranial nerves intact, no motor or sensory d eficit Psychiatric: normal affect, normal mood Skin: Warm, dry, intact - Vital Signs Vital signs: Vital Signs - 12hr 05/31/18 05/31/18 05/31/18 04:53 07:45 10:50 Temperature 99.2 F 98.2 F 97.5 F L Pulse Rate 107 H 108 H 96 H Respiratory 20 20 14 Rate Blood Pressure 96/62 143/71 89/65 O2 Sat by Pulse 94 93 99 Oximetry 05/31/18 05/31/18 05/31/18 10:55 11:00 11:14 Temperature Pulse Rate 95 H 98 H 99 H Respiratory 10 L 10 L 12 Rate Blood Pressure 133/77 135/76 133/73 O2 Sat by Pulse 100 99 99 Oximetry 05/31/18 11:15 Temperature Pulse Rate 99 H Respiratory 12 Rate Blood Pressure 125/74 O2 Sat by Pulse 99 Oximetry - Lab 05/31/18 04:46 05/31/18 04:46 Most recent lab results Calcium 8.6 mg/dL (8.4-10.2) 05/31/18 04:46 Medications & Allergies - Medications Allergies/Adverse Reactions: Allergies No Known Allergies Allergy (Verified 05/28/18 09:10) Home Medications: Home Medications Medication Instructions Recorded Confirmed Last Taken Type No Known Home Medications [No 05/28/18 05/28/18 Unknown History Reported Home Medications] Active Medications: Generic Name Dose Route Start Last Admin Trade Name Freq PRN Reason Stop Dose Admin Acetaminophen 650 mg 05/28/18 22:37 05/28/18 23:04 Tylenol PO 650 mg Q6H PRN Administration Pain, Mild (1-3) Famotidine 10 mg 05/29/18 10:00 05/31/18 09:48 Pepcid PO Not Given BID ALBINA Fentanyl 50 mcg 05/31/18 10:20 Sublimaze IV 06/01/18 10:19 Q5MIN PRN Pain , Severe (7-10) Hydromorphone HCl 0.5 mg 05/29/18 03:21 Dilaudid IV Q3H PRN Pain , Severe (7-10) Sodium Chloride 100 mls @ 999 mls/hr 05/28/18 13:21 Nacl 0.9% IV CATHERINE PRN Hypotension Levofloxacin/Dextrose 500 mg in 100 mls @ 100 mls/hr 05/31/18 10:00 05/31/18 09:47 Levaquin 500mg/100ml IV 100 mls/hr Q48H ALBINA Administration Protocol Lactated Ringer's 1,000 mls @ 42 mls/hr 05/31/18 11:00 Lactated Ringers IV DIRECT ALBINA Metoclopramide HCl 5 mg 05/29/18 22:00 05/31/18 09:47 Reglan IV 5 mg BID ALBINA Administration Ondansetron HCl 4 mg 05/29/18 03:19 Zofran IV Q8H PRN Nausea And Vomiting Ondansetron HCl 4 mg 05/31/18 10:20 Zofran IV ONCE PRN Nausea And Vomiting Oxycodone/Acetaminophen 1 tab 05/29/18 03:21 Percocet 5/325 PO Q6H PRN Pain, Moderate (4-6) Sodium Chloride 10 ml 05/29/18 04:00 05/31/18 09:47 Sodium Chloride Flush Syringe 10 Ml IV 10 ml BID ALBINA Administration Sodium Chloride 10 ml 05/29/18 03:19 Sodium Chloride Flush Syringe 10 Ml IV PRN PRN LINE FLUSH
[2018-05-31 14:40] LABS: Iron 22 ug/dL (37-170); Total Iron Binding Capacity 81 mcg/dL (250-450)
[2018-05-31] MEDS: NACL 0.45% 1000 ML 1,000 ML with KCL 20 MEQ IV SCH (15:28)
[2018-05-31] MEDS ORDERED: FERRLECIT 125 MG in NACL 0.9% 100 ML IV ONE (16:10)
--- NOTE | 2018-05-31 16:13 | Hem/Onc Progress Note ---
Assessment and Plan 1. Cervical mass. 2. Retroperitoneal lymph nodes. 3. Bone abnormality. 4. Hydronephrosis. 5. INTERN ARCHITECT team is planning biopsy. This most likely is advanced cervical cancer, 6 - severe anemia - will Ix and follow I will liase with INTERN ARCHITECT team. s/p nephrostomy+ 05/31 - s/p cx bx - Patient Problems (1) Anemia Current Visit: Yes Status: Acute Qualifiers: Anemia type: iron deficiency (2) Cervical mass Onset Date: 05/30/18 Current Visit: Yes Status: Chronic Subjective Date of service: 05/31/18 Principal diagnosis: cervical mass Interval history: had cx bx Objective - Constitutional Vitals: Last Vital Signs Temp 98.2 F 05/31/18 13:09 Pulse 100 H 05/31/18 12:00 Resp 19 05/31/18 12:00 BP 131/70 05/31/18 12:00 Pulse Ox 99 05/31/18 11:30 Pain Intensity (0-10): denies any pain General appearance: no acute distress Performance status: 2- selfcare, ambulatory - EENT Eyes: EOM intact ENT: clear oral mucosa Lymph node exam: negative cervical - Neck Neck: normal ROM - Respiratory Respiratory effort: Positive: normal Respiratory: bilateral: CTA - Cardiovascular Heart Sounds: Present: S1 & S2 Extremities: normal temperature - Gastrointestinal General gastrointestinal: Present: soft, other (nephrostomy) Rectal Exam: deferred - Genitourinary Female genitourinary: Present: deferred - Integumentary Integumentary: warm - Musculoskeletal Musculoskeletal: strength equal bilaterally - Neurologic Neurologic: moves all extremities - Psychiatric Psychiatric: appropriate mood/affect - Labs Lab Results: Laboratory Results - last 24 hr 05/31/18 05/31/18 05/31/18 04:46 04:46 13:06 WBC 27.7 H RBC 3.79 Hgb 9.9 L Hct 30.9 MCV 82 MCH 26 L MCHC 32 RDW 16.5 H Plt Count 321 Sodium 141 Potassium 3.0 L Chloride 102.8 Carbon Dioxide 18 L Anion Gap 23 BUN 15 Creatinine 0.8 D Estimated GFR > 60 BUN/Creatinine Ratio 19 Glucose 90 Calcium 8.6 Iron 22 L TIBC 81 L Ferritin Vitamin B12 Folate 05/31/18 05/31/18 05/31/18 13:06 13:06 13:06 WBC RBC Hgb Hct MCV MCH MCHC RDW Plt Count Sodium Potassium Chloride Carbon Dioxide Anion Gap BUN Creatinine Estimated GFR BUN/Creatinine Ratio Glucose Calcium Iron TIBC Ferritin 1083.0 H Vitamin B12 753.6 Folate 3.98 L Medications & Allergies - Medications Allergies/Adverse Reactions: Allergies No Known Allergies Allergy (Verified 05/28/18 09:10) Home Medications: Home Medications Medication Instructions Recorded Confirmed Last Taken Type RX: No Known Home Medications [No 05/28/18 05/28/18 Unknown History Reported Home Medications] Active Medications: Generic Name Dose Route Start Last Admin Trade Name Freq PRN Reason Stop Dose Admin Acetaminophen 650 mg 05/28/18 22:37 05/28/18 23:04 Tylenol PO 650 mg Q6H PRN Administration Pain, Mild (1-3) Famotidine 10 mg 05/29/18 10:00 05/31/18 09:48 Pepcid PO Not Given BID ALBINA Fentanyl 50 mcg 05/31/18 10:20 Sublimaze IV 06/01/18 10:19 Q5MIN PRN Pain , Severe (7-10) Folic Acid 1 mg 05/31/18 17:00 Folvite PO QDAY ALBINA Hydromorphone HCl 0.5 mg 05/29/18 03:21 Dilaudid IV Q3H PRN Pain , Severe (7-10) Sodium Chloride 100 mls @ 999 mls/hr 05/28/18 13:21 Nacl 0.9% IV CATHERINE PRN Hypotension Levofloxacin/Dextrose 500 mg in 100 mls @ 100 mls/hr 05/31/18 10:00 05/31/18 09:47 Levaquin 500mg/100ml IV 100 mls/hr Q48H ALBINA Administration Protocol Potassium Chloride 20 meq/ 1,010 mls @ 100 mls/hr 05/31/18 12:00 05/31/18 15:28 Sodium Chloride IV 100 mls/hr DIRECT ALBINA Administration Ferric Sodium Gluconate 110 mls @ 100 mls/hr 05/31/18 16:10 Complex 125 mg/ Sodium IV 05/31/18 17:15 Chloride ONCE ONE Metoclopramide HCl 5 mg 05/29/18 22:00 05/31/18 09:47 Reglan IV 5 mg BID ALBINA Administration Multivitamins 5 ml 05/31/18 17:00 Centrum Liq PO QDAY ALBINA Ondansetron HCl 4 mg 02/15/19 03:19 Zofran IV Q8H PRN Nausea And Vomiting Ondansetron HCl 4 mg 05/31/18 10:20 Zofran IV ONCE PRN Nausea And Vomiting Oxycodone/Acetaminophen 1 tab 05/29/18 03:21 Percocet 5/325 PO Q6H PRN Pain, Moderate (4-6) Sodium Chloride 10 ml 05/29/18 04:00 05/31/18 09:47 Sodium Chloride Flush Syringe 10 Ml IV 10 ml BID ALBINA Administration Sodium Chloride 10 ml 05/29/18 03:19 Sodium Chloride Flush Syringe 10 Ml IV PRN PRN LINE FLUSH
[2018-05-31] MEDS: DILAUDID IV PRN (16:49)
[2018-05-31] MEDS: FOLVITE PO SCH (16:49)
--- NOTE | 2018-05-31 20:35 | Consultation ---
REFERRING PHYSICIAN: Dr. Josh Corrigan. REASON FOR CONSULTATION: Cervical cancer. HISTORY OF PRESENT ILLNESS: I saw the patient, a 73-year-old female who came to the hospital because of suprapubic discomfort and difficulty urinating. The patient has not been to a physician for many years. During this admission, a cervical mass was found. [employer] team is consulted and seen the patient. There is a plan for biopsy. I have been asked to evaluate the patient. ALLERGIES: None. PAST SURGICAL HISTORY: Tubal ligation. SOCIAL HISTORY: No history of smoking. FAMILY HISTORY: Hypertension. REVIEW OF SYSTEMS: Positive for abdominal pain and difficulty urinating. ALLERGIES: None. MEDICATIONS: Included pain medications, antibiotics. PHYSICAL EXAMINATION: VITAL SIGNS: Temperature 98, pulse 107, respirations 20, BP 137/70. HEENT: Pallor present. No icterus. NECK: No neck lymph nodes. HEART: S1, S2. LUNGS: Clear to auscultation. ABDOMEN: Soft. Nephrostomy tube has been placed. NEUROLOGIC: Alert and awake. LABORATORY DATA: White cell 26, hemoglobin 9.3, at admission, hemoglobin was 6, MCV 81, platelets 347. Potassium 3.6, creatinine at admission was 6.2, bilirubin 0.4. Hepatitis testing negative. RADIOLOGY: CT of pelvis, cervix enlarged, 9.4 x 5.4 cm; bilateral hydronephrosis present, bilateral iliac and retroperitoneal adenopathies are seen. Sclerotic bone lesions are identified in the left pelvis. IMPRESSION: 1. Cervical mass. 2. Retroperitoneal lymph nodes. 3. Bone abnormality. 4. Hydronephrosis. 5. [employer] team is planning biopsy. This most likely is advanced cervical cancer, 6- anemia - will IX I will liase with the [employer] team. JOB# [id number] YIN/AUTUMN DAILEY
[2018-05-31] MEDS: HEPARIN SUB-Q SCH (22:32)
[2018-05-31] MEDS: Centrum Liq PO SCH (22:32)
[2018-06-01 04:23] LABS: Hematocrit 29.8 % (30.3-42.9); Hemoglobin 9.5 gm/dl (10.1-14.3); Mean Corpuscular HGB Conc 32 % (30-34); Mean Corpuscular Volume 82 fl (79-97); Platelet Count 318 K/mm3 (140-440); Red Blood Count 3.62 M/mm3 (3.65-5.03); Red Cell Distribution Width 16.5 % (13.2-15.2)
[2018-06-01 04:35] LABS: BUN/Creatinine Ratio 27; Blood Urea Nitrogen 19 mg/dL (7-17); Calcium 8.5 mg/dL (8.4-10.2); Hemolysis Index 5
[2018-06-01] MEDS: NACL 0.45% 1000 ML 1,000 ML with KCL 20 MEQ IV SCH ×2 (05:33→20:00)
[2018-06-01] MEDS ORDERED: MAGNESIUM SULFATE 2GM/50ML 2 GM/50 ML BAG IV ONE (09:44)
[2018-06-01] MEDS: DILAUDID IV PRN (09:45)
[2018-06-01] MEDS: FOLVITE PO SCH (09:45)
[2018-06-01] MEDS: PEPCID PO SCH ×2 (09:45→23:11)
[2018-06-01] MEDS: REGLAN IV SCH ×2 (09:45→23:12)
--- NOTE | 2018-06-01 09:45 | Progress Note ---
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 * daily lytes * will follow labs peripherally Subjective Date of service: 06/01/18 Principal diagnosis: cervical mass Interval history: resting in bed today Objective - Exam Narrative Exam: General: No limitations, patient is alert in no acute distress Head exam: Atraumatic, normocephalic Eyes exam: Normal appearance, pupils equal reactive to light, extraocular movements intact ENT: Moist mucous membrane, normal oropharynx Neck exam: Normal inspection, full range of motion, no meningismus nontender Respiratory exam: Clear to auscultation bilateral, no wheezes, rales, crackles Cardiovascular: Normal rate and rhythm Abdomen: Soft, nondistended, suprapubic tenderness, with normal bowel sounds, no rebound, or guarding Extremity: Full range of motion normal inspection no deformity Back: Normal Inspection, full range of motion, no tenderness Neurologic: Alert, oriented x3, cranial nerves intact, no motor or sensory deficit Psychiatric: normal affect, normal mood Skin: Warm, dry, intact - Vital Signs Vital signs: Vital Signs - 12hr 05/31/18 06/01/18 06/01/18 22:00 01:47 07:41 Temperature 98.5 F 98.4 F Pulse Rate 101 H 104 H Pulse Rate [ 100 H Apical] Pulse Rate [ 108 H Right Radial] Respiratory 20 20 18 Rate Blood Pressure 126/70 124/74 O2 Sat by Pulse 98 94 94 Oximetry 06/01/18 08:00 Temperature Pulse Rate 104 H Pulse Rate [ Apical] Pulse Rate [ Right Radial] Respiratory Rate Blood Pressure O2 Sat by Pulse Oximetry - Lab 06/01/18 03:39 06/01/18 03:39 Most recent lab results Calcium 8.5 mg/dL (8.4-10.2) 06/01/18 03:39 Medications & Allergies - Medications Allergies/Adverse Reactions: Allergies No Known Allergies Allergy (Verified 05/28/18 09:10) Home Medications: Home Medications Medication Instructions Recorded Confirmed Last Taken Type No Known Home Medications [No 05/28/18 05/28/18 Unknown History Reported Home Medications] Active Medications: Generic Name Dose Route Start Last Admin Trade Name Freq PRN Reason Stop Dose Admin Acetaminophen 650 mg 05/28/18 22:37 05/28/18 23:04 Tylenol PO 650 mg Q6H PRN Administration Pain, Mild (1-3) Famotidine 10 mg 05/29/18 10:00 05/31/18 22:31 Pepcid PO 10 mg BID ALBINA Administration Fentanyl 50 mcg 05/31/18 10:20 Sublimaze IV 06/01/18 10:19 Q5MIN PRN Pain , Severe (7-10) Folic Acid 1 mg 05/31/18 17:00 05/31/18 16:49 Folvite PO 1 mg QDAY ALBINA Administration Heparin Sodium (Porcine) 5,000 unit 05/31/18 22:00 05/31/18 22:32 Heparin SUB-Q 5,000 unit Q12HR ALBINA Administration Hydromorphone HCl 0.5 mg 05/29/18 03:21 05/31/18 16:49 Dilaudid IV 0.5 mg Q3H PRN Administration Pain , Severe (7-10) Sodium Chloride 100 mls @ 999 mls/hr 05/28/18 13:21 Nacl 0.9% IV CATHERINE PRN Hypotension Levofloxacin/Dextrose 500 mg in 100 mls @ 100 mls/hr 05/31/18 10:00 05/31/18 09:47 Levaquin 500mg/100ml IV 100 mls/hr Q48H ALBINA Administration Protocol Potassium Chloride 20 meq/ 1,010 mls @ 100 mls/hr 05/31/18 12:00 06/01/18 05:33 Sodium Chloride IV 100 mls/hr DIRECT ALBINA Administration Magnesium Sulfate 2 gm in 50 mls @ 25 mls/hr 06/01/18 09:44 Magnesium Sulfate 2gm/50ml IV 06/01/18 11:43 ONCE ONE Metoclopramide HCl 5 mg 05/29/18 22:00 05/31/18 22:32 Reglan IV 5 mg BID ALBINA Administration Multivitamins 5 ml 05/31/18 17:00 05/31/18 22:32 Centrum Liq PO 5 ml QDAY ALBINA Administration Ondansetron HCl 4 mg 05/29/18 03:19 05/31/18 22:32 Zofran IV 4 mg Q8H PRN Administration Nausea And Vomiting Ondansetron HCl 4 mg 05/31/18 10:20 Zofran IV ONCE PRN Nausea And Vomiting Oxycodone/Acetaminophen 1 tab 05/29/18 03:21 Percocet 5/325 PO Q6H PRN Pain, Moderate (4-6) Sodium Chloride 10 ml 05/29/18 04:00 05/31/18 22:36 Sodium Chloride Flush Syringe 10 Ml IV 10 ml BID ALBINA Administration Sodium Chloride 10 ml 05/29/18 03:19 Sodium Chloride Flush Syringe 10 Ml IV PRN PRN LINE FLUSH
[2018-06-01] MEDS: SODIUM CHLORIDE FLUSH SYRINGE 10 ML IV SCH (09:46)
[2018-06-01] MEDS: HEPARIN SUB-Q SCH ×2 (09:46→23:11)
[2018-06-01] MEDS: Centrum Liq PO SCH (09:46)
--- NOTE | 2018-06-01 14:20 | Progress Note ---
Assessment and Plan Assessment and plan: Anemia. 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 Jair Hoyos. EUA and cervical biopsy done 05/31/18, report pending LYLE due to obstruction s/p emergency hemodialysis Improving Cr 0.8 today Nephrology following Hyperkalemia, resolved Hypokalemia Leukocytosis:SIRS vs Sepsis Blood cultures drawn, no growth to date Continue Levaquin Bilateral hydronephrosis . s/p bilat Nephrostomy tube placement 05/29 Full code status History Interval history: Less abd pain fever of 100.0 few days ago, now resolved Hospitalist Physical - Physical exam Narrative exam: GEN: Not in acute distress, HEENT: Normocephalic, atraumatic, Neck: supple, No JVD Lungs: Clear to auscultation bilaterally, no wheeze Heart:S1 and S2 regular, no murmurs, rubs or gallop, Abd:soft, non tender, non distended, normal bowel sounds Ext: No edema, no clubbing or cyanosis Neuro: Awake,alert, moves all extremities, no focal neurological signs - Constitutional Vitals: Temp Pulse Resp BP Pulse Ox 98.4 F 104 H 18 124/74 94 06/01/18 07:41 06/01/18 08:00 06/01/18 07:41 06/01/18 07:41 06/01/18 07:41 General appearance: Present: no acute distress Results - Labs CBC & Chem 7: 06/02/18 05:01 06/02/18 05:01 Labs: Laboratory Last Values WBC 39.4 K/mm3 (4.5-11.0) H 06/01/18 03:39 RBC 3.62 M/mm3 (3.65-5.03) L 06/01/18 03:39 Hgb 9.5 gm/dl (10.1-14.3) L 06/01/18 03:39 Hct 29.8 % (30.3-42.9) L 06/01/18 03:39 MCV 82 fl (79-97) 06/01/18 03:39 MCH 26 pg (28-32) L 06/01/18 03:39 MCHC 32 % (30-34) 06/01/18 03:39 RDW 16.5 % (13.2-15.2) H 06/01/18 03:39 Plt Count 318 K/mm3 (140-440) 06/01/18 03:39 Add Manual Diff Complete 05/30/18 04:29 Total Counted 100 05/30/18 04:29 Seg Neutrophils % Barometers Calibrator 05/28/18 09:09 Seg Neuts % (Manual) 95.0 % (40.0-70.0) H 05/30/18 04:29 Band Neutrophils % 1.0 % 05/30/18 04:29 Lymphocytes % (Manual) 1.0 % (13.4-35.0) L 05/30/18 04:29 Reactive Lymphs % (Man) 0 % 05/30/18 04:29 Monocytes % (Manual) 0 % (0.0-7.3) 05/30/18 04:29 Eosinophils % (Manual) 2.0 % (0.0-4.3) 05/30/18 04:29 Basophils % (Manual) 0 % (0.0-1.8) 05/30/18 04:29 Metamyelocytes % 1.0 % 05/30/18 04:29 Myelocytes % 0 % 05/30/18 04:29 Promyelocytes % 0 % 05/30/18 04:29 Blast Cells % 0 % 05/30/18 04:29 Nucleated RBC % Not Reportable 05/30/18 04:29 Seg Neutrophils # Man 25.0 K/mm3 (1.8-7.7) H 05/30/18 04:29 Band Neutrophils # 0.3 K/mm3 05/30/18 04:29 Lymphocytes # (Manual) 0.3 K/mm3 (1.2-5.4) L 05/30/18 04:29 Abs React Lymphs (Man) 0.0 K/mm3 05/30/18 04:29 Monocytes # (Manual) 0.0 K/mm3 (0.0-0.8) 05/30/18 04:29 Eosinophils # (Manual) 0.5 K/mm3 (0.0-0.4) H 05/30/18 04:29 Basophils # (Manual) 0.0 K/mm3 (0.0-0.1) 05/30/18 04:29 Metamyelocytes # 0.3 K/mm3 05/30/18 04:29 Myelocytes # 0.0 K/mm3 05/30/18 04:29 Promyelocytes # 0.0 K/mm3 05/30/18 04:29 Blast Cells # 0.0 K/mm3 05/30/18 04:29 WBC Morphology Not Reportable 05/30/18 04:29 Hypersegmented Neuts Not Reportable 05/30/18 04:29 Hyposegmented Neuts Not Reportable 05/30/18 04:29 Hypogranular Neuts Not Reportable 05/30/18 04:29 Smudge Cells Not Reportable 05/30/18 04:29 Toxic Granulation Not Reportable 05/30/18 04:29 Toxic Vacuolation Not Reportable 05/30/18 04:29 Dohle Bodies Not Reportable 05/30/18 04:29 Pelger-Huet Anomaly Not Reportable 05/30/18 04:29 Sully Rods Not Reportable 05/30/18 04:29 Platelet Estimate Appears normal 05/30/18 04:29 Clumped Platelets Not Reportable 05/30/18 04:29 Plt Clumps, EDTA Not Reportable 05/30/18 04:29 Large Platelets 1+ 05/30/18 04:29 Giant Platelets Not Reportable 05/30/18 04:29 Platelet Satelliting Not Reportable 05/30/18 04:29 Plt Morphology Comment Not Reportable 05/30/18 04:29 RBC Morphology Not Reportable 05/30/18 04:29 Dimorphic RBCs Not Reportable 05/30/18 04:29 Polychromasia Not Reportable 05/30/18 04:29 Hypochromasia Not Reportable 05/30/18 04:29 Poikilocytosis Not Reportable 05/30/18 04:29 Anisocytosis Not Reportable 05/30/18 04:29 Microcytosis Not Reportable 05/30/18 04:29 Macrocytosis Not Reportable 05/30/18 04:29 Spherocytes Not Reportable 05/30/18 04:29 Pappenheimer Bodies Not Reportable 05/30/18 04:29 Sickle Cells Not Reportable 05/30/18 04:29 Target Cells Not Reportable 05/30/18 04:29 Tear Drop Cells Rare 05/30/18 04:29 Ovalocytes 1+ 05/30/18 04:29 Helmet Cells Not Reportable 05/30/18 04:29 [place] Bodies Not Reportable 05/30/18 04:29 [place] Rings Not Reportable 05/30/18 04:29 [place] Cells Not Reportable 05/30/18 04:29 Bite Cells Not Reportable 05/30/18 04:29 Crenated Cell Not Reportable 05/30/18 04:29 Elliptocytes Not Reportable 05/30/18 04:29 Acanthocytes (Spur) Not Reportable 05/30/18 04:29 Rouleaux Not Reportable 05/30/18 04:29 Hemoglobin C Crystals Not Reportable 05/30/18 04:29 Schistocytes Not Reportable 05/30/18 04:29 Malaria parasites Not Reportable 05/30/18 04:29 [place] Bodies Not Reportable 05/30/18 04:29 Hem Pathologist Commnt No 05/30/18 04:29 PT 14.9 Sec. (12.2-14.9) 05/28/18 09:09 INR 1.10 (0.87-1.13) 05/28/18 09:09 VBG pH 7.271 (7.320-7.420) L 05/28/18 09:09 Sodium 139 mmol/L (137-145) 06/01/18 03:39 Potassium 3.3 mmol/L (3.6-5.0) L 06/01/18 03:39 Chloride 103.9 mmol/L (98-107) 06/01/18 03:39 Carbon Dioxide 20 mmol/L (22-30) L 06/01/18 03:39 Anion Gap 18 mmol/L 06/01/18 03:39 BUN 19 mg/dL (7-17) H 06/01/18 03:39 Creatinine 0.7 mg/dL (0.7-1.2) 06/01/18 03:39 Estimated GFR > 60 ml/min 06/01/18 03:39 BUN/Creatinine Ratio 27 % 06/01/18 03:39 Glucose 123 mg/dL (65-100) H 06/01/18 03:39 Hemoglobin A1c 6.1 % (4-6) H 05/29/18 04:41 Lactic Acid 2.10 mmol/L (0.7-2.0) H* 05/28/18 13:29 Calcium 8.5 mg/dL (8.4-10.2) 06/01/18 03:39 Magnesium 2.00 mg/dL (1.7-2.3) 06/01/18 03:39 Iron 22 ug/dL (37-170) L 05/31/18 13:06 TIBC 81 mcg/dL (250-450) L 05/31/18 13:06 Ferritin 1083.0 ng/mL (13.0-400.0) H 05/31/18 13:06 Total Bilirubin 0.40 mg/dL (0.1-1.2) 05/30/18 04:29 AST 7 units/L (5-40) 05/30/18 04:29 ALT < 5 units/L (7-56) L 05/30/18 04:29 Alkaline Phosphatase 84 units/L (35-129) 05/30/18 04:29 Total Protein 6.2 g/dL (6.3-8.2) L D 05/30/18 04:29 Albumin 1.7 g/dL (3.9-5) L 05/30/18 04:29 Albumin/Globulin Ratio 0.4 % 05/30/18 04:29 Vitamin B12 753.6 pg/mL (211-911) 05/31/18 13:06 Folate 3.98 ng/mL (7.3-26.0) L 05/31/18 13:06 Urine Color Yellow (Yellow) 05/28/18 12:02 Urine Turbidity Clear (Clear) 05/28/18 12:02 Urine pH 7.0 (5.0-7.0) 05/28/18 12:02 Ur Specific [place] 1.006 (1.003-1.030) 05/28/18 12:02 Urine Protein 30 mg/dl mg/dL (Negative) 05/28/18 12:02 Urine Glucose (UA) Neg mg/dL (Negative) 05/28/18 12:02 Urine Ketones Tr mg/dL (Negative) 05/28/18 12:02 Urine Blood Mod (Negative) 05/28/18 12:02 Urine Nitrite Neg (Negative) 05/28/18 12:02 Urine Bilirubin Neg (Negative) 05/28/18 12:02 Urine Urobilinogen < 2.0 mg/dL (<2.0) 05/28/18 12:02 Ur Leukocyte Esterase Neg (Negative) 05/28/18 12:02 Urine WBC (Auto) 6.0 /HPF (0.0-6.0) 05/28/18 12:02 Urine RBC (Auto) 5.0 /HPF (0.0-6.0) 05/28/18 12:02 U Epithel Cells (Auto) 1.0 /HPF (0-13.0) 05/28/18 12:02 Urine Bacteria (Auto) 1+ /HPF (Negative) 05/28/18 12:02 Urine Mucus Few /HPF 05/28/18 12:02 Hepatitis A IgM Ab Non-reactive (NonReactive) 05/28/18 15:50 Hep Bs Antigen Non-reactive (Negative) 05/28/18 15:50 Hep B Core IgM Ab Non-reactive (NonReactive) 05/28/18 15:50 Hepatitis C Antibody Non-reactive (NonReactive) 05/28/18 15:50 Blood Type O POSITIVE 05/29/18 09:41 Antibody Screen Negative 05/29/18 09:41 Crossmatch See Detail 05/29/18 09:41
[2018-06-01] MEDS ORDERED: TRIPLE ANTIBIOTIC TP ONE (14:54)
--- NOTE | 2018-06-01 16:42 | Consultation ---
History of Present Illness - Reason for Consult Consult date: 06/01/18 Leucocytosis, low grade fever Requesting physician: BOBBY DAVIES - History of Present Illness The patient is a 73-year-old female with no significant past medical history presented to the hospital emergency room on 05/28/2017 with complaints of suprapubic pain. Upon evaluation here, she was found to have acute renal failure, CT abdomen pelvis showed bilateral hydronephrosis and a large cervical mass. She had to undergo emergent dialysis with nephrology assistance after HD cath placement. On 05/29/2017 she underwent bilateral nephrostomy tube placements. On 05/31/2018, she underwent EUA and cervical biopsies by DISTRICT MANAGER IN TRAINING. Infectious diseases was consulted due to low-grade temperatures and significant leukocytosis. Patient denies any cough or shortness of breath. She reports mild lower abdominal pain. She has bilateral nephrostomy tubes are draining dirty urine. Her HD catheter was removed and her creatinine has returned back to normal. She has left lower extremity edema that has been going on for the last 2 weeks. She has also lost weight. Review of Systems: General: no fevers, chills or rigors. Feels weak. HEENT: no new visual disturbance Respiratory: No cough, sputum, hemoptysis or shortness of breath Cardiovascular: No chest pain, syncope Gastrointestinal: No nausea, vomiting or diarrhea Genitourinary: No dysuria or hematuria Musculoskeletal: No new or worsening neck pain or back pain Neurologic: No headaches, seizures Hematologic: No easy bruising or bleeding Endocrine: No night sweats. weight loss + Skin: negative for rash, jaundice Psychiatric: No suicidal or homicidal ideation Past History Past Medical History: other (Pt reportedly denied chronic medical conditions, but had not been seen by a physician in decades.) Past Surgical History: No surgical history (none listed) Social history: no significant social history, single Family history: no significant family history (none listed) Medications and Allergies Allergies Allergy/AdvReac Type Severity Reaction Status Date / Time No Known Allergies Allergy Verified 05/28/18 09:10 Home Medications Medication Instructions Recorded Confirmed Last Taken Type No Known Home Medications [No 05/28/18 05/28/18 Unknown History Reported Home Medications] Active Meds: Active Medications Acetaminophen (Tylenol) 650 mg PO Q6H PRN PRN Reason: Pain, Mild (1-3) Last Admin: 05/28/18 23:04 Dose: 650 mg Documented by: Famotidine (Pepcid) 10 mg PO BID [facility] Last Admin: 06/01/18 09:45 Dose: 10 mg Documented by: Folic Acid (Folvite) 1 mg PO QDAY [facility] Last Admin: 06/01/18 09:45 Dose: 1 mg Documented by: Heparin Sodium (Porcine) (Heparin) 5,000 unit SUB-Q Q12HR [facility] Last Admin: 06/01/18 09:46 Dose: 5,000 unit Documented by: Hydromorphone HCl (Dilaudid) 0.5 mg IV Q3H PRN PRN Reason: Pain , Severe (7-10) Last Admin: 06/01/18 09:45 Dose: 0.5 mg Documented by: Sodium Chloride (Nacl 0.9%) 100 mls @ 999 mls/hr IV [facility]ATHERINE PRN PRN Reason: Hypotension Levofloxacin/Dextrose (Levaquin 500mg/100ml) 500 mg in 100 mls @ 100 mls/hr IV Q48H [facility]; Protocol Last Admin: 05/31/18 09:47 Dose: 100 mls/hr Documented by: Potassium Chloride 20 meq/ (Sodium Chloride) 1,010 mls @ 100 mls/hr IV DIRECT [facility] Last Admin: 06/01/18 05:33 Dose: 100 mls/hr Documented by: Metoclopramide HCl (Reglan) 5 mg IV BID [facility] Last Admin: 06/01/18 09:45 Dose: 5 mg Documented by: Multivitamins (Centrum Liq) 5 ml PO QDAY [facility] Last Admin: 06/01/18 09:46 Dose: 5 ml Documented by: Ondansetron HCl (Zofran) 4 mg IV ONCE PRN PRN Reason: Nausea And Vomiting Oxycodone/Acetaminophen (Percocet 5/325) 1 tab PO Q6H PRN PRN Reason: Pain, Moderate (4-6) Sodium Chloride (Sodium Chloride Flush Syringe 10 Ml) 10 ml IV BID [facility] Last Admin: 06/01/18 09:46 Dose: 10 ml Documented by: Sodium Chloride (Sodium Chloride Flush Syringe 10 Ml) 10 ml IV PRN PRN PRN Reason: LINE FLUSH Physical Examination - Physical Exam Narrative exam: Physical Exam: Constitutional: Alert, cooperative. No acute distress Head, Ears, Nose: Normocephalic, atraumatic. External ears, nose normal Eyes: Conjunctivae/corneas clear. No icterus. No ptosis. Neck: Supple, no meningeal signs Oral: no thrush Cardiovascular: S1, S2 normal. Respiratory: Good air entry, clear to auscultation bilaterally GI: Soft, non-tender; bowel sounds normal. No peritoneal signs. B/L nephrostomy tubes + Musculoskeletal: LLE edema + Skin: No rash or abscess Hem/Lymphatic: No palpable cervical or supraclavicular nodes. No lymphangitis Psych: Mood ok. Affect normal Neurological: Awake, alert, oriented. No gross abnormality - Constitutional Vitals: Vital Signs Temp Pulse Resp BP Pulse Ox 98.5 F 107 H 18 140/75 95 06/01/18 14:25 06/01/18 14:25 06/01/18 14:25 06/01/18 14:25 06/01/18 14:25 Temperature -Last 24 Hours Temperature 98.5 F Temperature 98.4 F Temperature 98.5 F Temperature 97.4 F Results - Labs CBC & Chem 7: 06/01/18 03:39 06/01/18 03:39 Labs: Abnormal lab results 06/01/18 06/01/18 Range/Units 03:39 03:39 WBC 39.4 H (4.5-11.0) K/mm3 RBC 3.62 L (3.65-5.03) M/mm3 Hgb 9.5 L (10.1-14.3) gm/dl Hct 29.8 L (30.3-42.9) % MCH 26 L (28-32) pg RDW 16.5 H (13.2-15.2) % Potassium 3.3 L (3.6-5.0) mmol/L Carbon Dioxide 20 L (22-30) mmol/L BUN 19 H (7-17) mg/dL Glucose 123 H (65-100) mg/dL - Imaging and Cardiology Chest x-ray: report reviewed, image reviewed (no pneumonia) CT scan - abdomen: report reviewed, image reviewed (b/l hydronephrosis, cervical mass.) Assessment and Plan Cultures: 05/28/2018 blood culture: No growth 05/28/2018 urine culture: No significant growth A/P: 73-year-old female with no significant past medical history presented to the hospital emergency room on 05/28/2017 with complaints of suprapubic pain. Now with: 1) Leukemoid reaction: present since admission, likely related to underlying malignancy. She does not appear to be septic at this time. She has no diarrhea. Cultures with no growth. Will initiate a short trial of IV cefepime and monitor response. 2) Suspected cervical cancer: Status post biopsy. Hematology oncology and DISTRICT MANAGER IN TRAINING following. 3) Acute kidney injury: Likely from obstructive uropathy: Status post bilateral nephrostomy tube placements with improvement in creatinine. 4) Anemia: s/p transfusion. 5) Left lower extremity edema: Asymmetric compared to the right. We'll look and bilateral lower extremity venous duplex to rule out DVT. Recs: Discontinue levofloxacin Started IV cefepime 1 gm q12 hrs Monitor WBC Venous duplex ordered to rule out DVT D/W Dr. Davies. Jesus Chen MD [facility] C: [phone] O: [phone] F: [phone]
[2018-06-01] MEDS: MAXIPIME/NS 1 GM/100 ML 1 GM/100 ML BAG IV SCH (18:23)
--- NOTE | 2018-06-01 18:48 | Vascular Lab Report ---
FINAL REPORT EXAM: VL VENOUS DUPLEX LE BILAT HISTORY: eval for DVT TECHNIQUE: Ultrasound deep venous system of both lower extremities with pulsed and color Doppler emily luation PRIORS: None. FINDINGS: There is normal sonographic appearance of the deep venous system bilaterally from the common femoral to the visualized proximal calf veins. There is normal compressibility. On pulsed and color Doppler evaluation there is normal vascular flow and venous waveforms. IMPRESSION: Negative. No evidence of deep venous thrombosis
--- NOTE | 2018-06-01 19:10 | Hem/Onc Progress Note ---
Assessment and Plan 1. Cervical mass. 2. Retroperitoneal lymph nodes. 3. Bone abnormality. 4. Hydronephrosis. 5. PREVENTIVE MAINTENANCE COORDINATOR team is biopsy. This most likely is advanced cervical cancer, 6 - severe anemia - will Ix and follow I will liase with PREVENTIVE MAINTENANCE COORDINATOR team. s/p nephrostomy+ 05/31 - s/p cx bx 06/01 - d/w daughter - reg bone lesion - Patient Problems (1) Anemia Current Visit: Yes Status: Acute Qualifiers: Anemia type: iron deficiency (2) Cervical mass Onset Date: 05/30/18 Current Visit: Yes Status: Chronic Subjective Date of service: 06/01/18 Principal diagnosis: cervical mass Interval history: had cx bx - path pending Objective - Constitutional Vitals: Last Vital Signs Temp 98.5 F 06/01/18 14:25 Pulse 107 H 06/01/18 14:25 Resp 18 06/01/18 14:25 BP 140/75 06/01/18 14:25 Pulse Ox 95 06/01/18 14:25 Pain Intensity (0-10): denies any pain General appearance: no acute distress Performance status: 3-limited selfcare - EENT Eyes: EOM intact ENT: clear oral mucosa Lymph node exam: negative cervical - Neck Neck: normal ROM - Respiratory Respiratory effort: Positive: normal Respiratory: bilateral: CTA - Cardiovascular Heart Sounds: Present: S1 & S2 Extremities: normal temperature - Gastrointestinal General gastrointestinal: Present: soft Rectal Exam: deferred - Genitourinary Female genitourinary: Present: deferred - Integumentary Integumentary: warm - Musculoskeletal Musculoskeletal: strength equal bilaterally - Neurologic Neurologic: moves all extremities - Labs Lab Results: Laboratory Results - last 24 hr 06/01/18 06/01/18 06/01/18 03:39 03:39 03:39 WBC 39.4 H RBC 3.62 L Hgb 9.5 L Hct 29.8 L MCV 82 MCH 26 L MCHC 32 RDW 16.5 H Plt Count 318 Sodium 139 Potassium 3.3 L Chloride 103.9 Carbon Dioxide 20 L Anion Gap 18 BUN 19 H Creatinine 0.7 Estimated GFR > 60 BUN/Creatinine Ratio 27 Glucose 123 H Calcium 8.5 Magnesium 2.00 Medications & Allergies - Medications Allergies/Adverse Reactions: Allergies No Known Allergies Allergy (Verified 05/28/18 09:10) Home Medications: Home Medications Medication Instructions Recorded Confirmed Last Taken Type No Known Home Medications [No 05/28/18 05/28/18 Unknown History Reported Home Medications] Active Medications: Generic Name Dose Route Start Last Admin Trade Name Jd PRN Reason Stop Dose Admin Acetaminophen 650 mg 05/28/18 22:37 05/28/18 23:04 Tylenol PO 650 mg Q6H PRN Administration Pain, Mild (1-3) Famotidine 10 mg 05/29/18 10:00 06/01/18 09:45 Pepcid PO 10 mg BID [facility] Administration Folic Acid 1 mg 05/31/18 17:00 06/01/18 09:45 Folvite PO 1 mg QDAY [facility] Administration Heparin Sodium (Porcine) 5,000 unit 05/31/18 22:00 06/01/18 09:46 Heparin SUB-Q 5,000 unit Q12HR [facility] Administration Hydromorphone HCl 0.5 mg 05/29/18 03:21 06/01/18 09:45 Dilaudid IV 0.5 mg Q3H PRN Administration Pain , Severe (7-10) Sodium Chloride 100 mls @ 999 mls/hr 05/28/18 13:21 Nacl 0.9% IV [facility] PRN Hypotension Potassium Chloride 20 meq/ 1,010 mls @ 100 mls/hr 05/31/18 12:00 06/01/18 05:33 Sodium Chloride IV 100 mls/hr DIRECT [facility] Administration Cefepime HCl 1 gm in 100 mls @ 200 mls/hr 06/01/18 18:00 06/01/18 18:23 Maxipime/Ns 1 Gm/100 Ml IV 200 mls/hr Q12H [facility] Administration Protocol Metoclopramide HCl 5 mg 05/29/18 22:00 06/01/18 09:45 Reglan IV 5 mg BID [facility] Administration Multivitamins 5 ml 05/31/18 17:00 06/01/18 09:46 Centrum Liq PO 5 ml QDAY [facility] Administration Ondansetron HCl 4 mg 05/31/18 10:20 Zofran IV ONCE PRN Nausea And Vomiting Oxycodone/Acetaminophen 1 tab 05/29/18 03:21 Percocet 5/325 PO Q6H PRN Pain, Moderate (4-6) Sodium Chloride 10 ml 05/29/18 04:00 06/01/18 09:46 Sodium Chloride Flush Syringe 10 Ml IV 10 ml BID [facility] Administration Sodium Chloride 10 ml 05/29/18 03:19 Sodium Chloride Flush Syringe 10 Ml IV PRN PRN LINE FLUSH
[2018-06-02] MEDS: PERCOCET 5/325 PO PRN ×2 (01:59→22:17)
[2018-06-02] MEDS: SODIUM CHLORIDE FLUSH SYRINGE 10 ML IV SCH ×3 (03:28→22:18)
[2018-06-02 05:43] LABS: Mean Corpuscular HGB Conc 32 % (30-34); Mean Corpuscular Volume 82 fl (79-97); Platelet Count 265 K/mm3 (140-440); Red Blood Count 3.41 M/mm3 (3.65-5.03); Red Cell Distribution Width 16.6 % (13.2-15.2)
[2018-06-02 06:10] LABS: BUN/Creatinine Ratio 26; Blood Urea Nitrogen 13 mg/dL (7-17); Calcium 7.9 mg/dL (8.4-10.2); Hemolysis Index 2
--- NOTE | 2018-06-02 07:00 | Hem/Onc Progress Note ---
Assessment and Plan 1. Cervical mass. 2. Retroperitoneal lymph nodes. 3. Bone abnormality. 4. Hydronephrosis. 5. PRINTING PLATE SETTER team is biopsy. This most likely is advanced cervical cancer, 6 - severe anemia - will Ix and follow I will liase with PRINTING PLATE SETTER team. s/p nephrostomy+ 05/31 - s/p cx bx 06/01 - d/w daughter - reg bone lesion 06/02 - on folic acid - s/p iv iron - path pending - Patient Problems (1) Anemia Current Visit: Yes Status: Acute Qualifiers: Anemia type: iron deficiency (2) Cervical mass Onset Date: 05/30/18 Current Visit: Yes Status: Chronic Subjective Date of service: 06/02/18 Principal diagnosis: cervical mass Interval history: not eating a lot Objective - Constitutional Vitals: Last Vital Signs Temp 98.5 F 06/02/18 02:22 Pulse 110 H 06/02/18 02:22 Resp 18 06/02/18 02:22 BP 134/63 06/02/18 02:22 Pulse Ox 94 06/02/18 02:22 Pain Intensity (0-10): denies any pain General appearance: no acute distress Performance status: 3-limited selfcare - EENT Eyes: EOM intact ENT: clear oral mucosa, edentulous Lymph node exam: negative cervical - Neck Neck: normal ROM - Respiratory Respiratory effort: Positive: normal Respiratory: bilateral: CTA - Cardiovascular Heart Sounds: Present: S1 & S2 Extremities: normal temperature - Gastrointestinal General gastrointestinal: Present: soft, non-tender Rectal Exam: deferred - Genitourinary Female genitourinary: Present: deferred - Integumentary Integumentary: warm - Musculoskeletal Musculoskeletal: strength equal bilaterally - Neurologic Neurologic: moves all extremities - Psychiatric Psychiatric: appropriate mood/affect - Labs Lab Results: Laboratory Results - last 24 hr 06/01/18 06/02/18 06/02/18 03:39 05:01 05:01 WBC 24.8 H RBC 3.41 L Hgb 9.0 L Hct 28.0 L MCV 82 MCH 26 L MCHC 32 RDW 16.6 H Plt Count 265 Sodium 136 L Potassium 3.1 L Chloride 100.2 Carbon Dioxide 23 Anion Gap 16 BUN 13 Creatinine 0.5 L Estimated GFR > 60 BUN/Creatinine Ratio 26 Glucose 102 H Calcium 7.9 L Magnesium 2.00 1.80 Medications & Allergies - Medications Allergies/Adverse Reactions: Allergies No Known Allergies Allergy (Verified 05/28/18 09:10) Home Medications: Home Medications Medication Instructions Recorded Confirmed Last Taken Type No Known Home Medications [No 05/28/18 05/28/18 Unknown History Reported Home Medications] Active Medications: Generic Name Dose Route Start Last Admin Trade Name Freq PRN Reason Stop Dose Admin Acetaminophen 650 mg 05/28/18 22:37 05/28/18 23:04 Tylenol PO 650 mg Q6H PRN Administration Pain, Mild (1-3) Famotidine 10 mg 05/29/18 10:00 06/01/18 23:11 Pepcid PO 10 mg BID [facility] Administration Folic Acid 1 mg 05/31/18 17:00 06/01/18 09:45 Folvite PO 1 mg QDAY [facility] Administration Heparin Sodium (Porcine) 5,000 unit 05/31/18 22:00 06/01/18 23:11 Heparin SUB-Q 5,000 unit Q12HR [facility] Administration Hydromorphone HCl 0.5 mg 05/29/18 03:21 06/01/18 09:45 Dilaudid IV 0.5 mg Q3H PRN Administration Pain , Severe (7-10) Sodium Chloride 100 mls @ 999 mls/hr 05/28/18 13:21 Nacl 0.9% IV [facility] PRN Hypotension Potassium Chloride 20 meq/ 1,010 mls @ 100 mls/hr 05/31/18 12:00 06/01/18 20:00 Sodium Chloride IV 100 mls/hr DIRECT [facility] Administration Cefepime HCl 1 gm in 100 mls @ 200 mls/hr 06/01/18 18:00 06/01/18 18:23 Maxipime/Ns 1 Gm/100 Ml IV 200 mls/hr Q12H [facility] Administration Protocol Metoclopramide HCl 5 mg 05/29/18 22:00 06/01/18 23:12 Reglan IV 5 mg BID [facility] Administration Multivitamins 5 ml 05/31/18 17:00 06/01/18 09:46 Centrum Liq PO 5 ml QDAY [facility] Administration Ondansetron HCl 4 mg 05/31/18 10:20 Zofran IV ONCE PRN Nausea And Vomiting Oxycodone/Acetaminophen 1 tab 05/29/18 03:21 06/02/18 01:59 Percocet 5/325 PO 1 tab Q6H PRN Administration Pain, Moderate (4-6) Sodium Chloride 10 ml 05/29/18 04:00 06/02/18 03:28 Sodium Chloride Flush Syringe 10 Ml IV 10 ml BID [facility] Administration Sodium Chloride 10 ml 05/29/18 03:19 Sodium Chloride Flush Syringe 10 Ml IV PRN PRN LINE FLUSH
--- NOTE | 2018-06-02 08:31 | Progress Note ---
Assessment and Plan Cultures: 05/28/2018 blood culture: No growth 05/28/2018 urine culture: No significant growth A/P: 73-year-old female with no significant past medical history presented to the hospital emergency room on 05/28/2017 with complaints of suprapubic pain. Now with: 1) Leukemoid reaction: present since admission, likely related to underlying malignancy. She does not appear to be septic at this time. She has no diarrhea. Cultures with no growth. Will initiate a short trial of IV cefepime and monitor response. 2) Suspected cervical cancer: Status post biopsy. Hematology oncology and CONSTRUCTION GRIP following. 3) Acute kidney injury: Likely from obstructive uropathy: Status post bilateral nephrostomy tube placements with improvement in creatinine. 4) Anemia: s/p transfusion. 5) Left lower extremity edema: Asymmetric compared to the right. We'll look and bilateral lower extremity venous duplex to rule out DVT -. Duplex scan negative. No evidence of deep venous thrombosis Recs: Continue IV cefepime 1 gm q12 hrs, D2 of D5 Monitor WBC Marguerite Whitney NP [facility] M: [phone] O:[phone] Subjective Date of service: 06/02/18 Principal diagnosis: cervical mass Interval history: Patient seen and examined. Communication via interpretation line, primary language Yoruba. Denies generalized pain, fevers or SOB. States that she is having mild left leg pain. Nurses notes, labs, imaging and reports reviewed, discussed with patient, verbalized understanding. Objective - Exam Narrative Exam: Constitutional: Alert, cooperative. No acute distress Head, Ears, Nose: Normocephalic, atraumatic. External ears, nose normal Eyes: Conjunctivae/corneas clear. No icterus. No ptosis. Neck: Supple, no meningeal signs Oral: no thrush Cardiovascular: ST Respiratory: Good air entry, clear to auscultation bilaterally GI: Soft, non-tender; bowel sounds normal. No peritoneal signs. B/L nephrostomy tubes + Musculoskeletal: LLE edema + Skin: No rash or abscess Hem/Lymphatic: No palpable cervical or supraclavicular nodes. No lymphangitis Psych: Mood ok. Affect normal Neurological: Awake, alert, oriented. No gross abnormality - Constitutional Vitals: Vital Signs Temp Pulse Resp BP Pulse Ox 98.7 F 102 H 16 121/65 97 06/02/18 07:30 06/02/18 07:30 06/02/18 07:30 06/02/18 07:30 06/02/18 08:09 Temperature -Last 24 Hours Temperature 98.7 F Temperature 98.5 F Temperature 99.3 F Temperature 98.5 F - Labs CBC & Chem 7: 06/02/18 05:01 06/02/18 05:01 Labs: Abnormal lab results 06/02/18 06/02/18 Range/Units 05:01 05:01 WBC 24.8 H (4.5-11.0) K/mm3 RBC 3.41 L (3.65-5.03) M/mm3 Hgb 9.0 L (10.1-14.3) gm/dl Hct 28.0 L (30.3-42.9) % MCH 26 L (28-32) pg RDW 16.6 H (13.2-15.2) % Sodium 136 L (137-145) mmol/L Potassium 3.1 L (3.6-5.0) mmol/L Creatinine 0.5 L (0.7-1.2) mg/dL Glucose 102 H (65-100) mg/dL Calcium 7.9 L (8.4-10.2) mg/dL
--- NOTE | 2018-06-02 09:28 | Progress Note ---
Assessment and Plan Impression: * LYLE * obstructive uropathy * Uremia * AMS * bilateral hydronephrosis * metabolic acidosis * cervical lymphadenopathy * hypokalemia * Anemia Plan: * s/p emergent hd * stopped dialysis, removed vasc cath yesterday * replete k and mag prn * cr is better at this time * strict i/os, avoid nephrotoxins * s/p PCNT bilaterally * rec Contract Implementation Analyst onc consultation * daily lytes * will follow labs peripherally Subjective Date of service: 06/02/18 Principal diagnosis: cervical mass Interval history: resting in bed today Objective - Exam Narrative Exam: General: No limitations, patient is alert in no acute distress Head exam: Atraumatic, normocephalic Eyes exam: Normal appearance, pupils equal reactive to light, extraocular movements intact ENT: Moist mucous membrane, normal oropharynx Neck exam: Normal inspection, full range of motion, no meningismus nontender Respiratory exam: Clear to auscultation bilateral, no wheezes, rales, crackles Cardiovascular: Normal rate and rhythm Abdomen: Soft, nondistended, suprapubic tenderness, with normal bowel sounds, no rebound, or guarding Extremity: Full range of motion normal inspection no deformity Back: Normal Inspection, full range of motion, no tenderness Neurologic: Alert, oriented x3, cranial nerves intact, no motor or sensory def icit Psychiatric: normal affect, normal mood Skin: Warm, dry, intact - Vital Signs Vital signs: Vital Signs - 12hr 06/02/18 06/02/18 06/02/18 02:22 07:30 08:09 Temperature 98.5 F 98.7 F Pulse Rate 110 H 102 H Respiratory 18 16 Rate Blood Pressure 134/63 121/65 O2 Sat by Pulse 94 96 97 Oximetry - Lab 06/02/18 05:01 06/02/18 05:01 Most recent lab results Calcium 7.9 mg/dL (8.4-10.2) L 06/02/18 05:01 Magnesium 1.80 mg/dL (1.7-2.3) 06/02/18 05:01 Medications & Allergies - Medications Allergies/Adverse Reactions: Allergies No Known Allergies Allergy (Verified 05/28/18 09:10) Home Medications: Home Medications Medication Instructions Recorded Confirmed Last Taken Type No Known Home Medications [No 05/28/18 05/28/18 Unknown History Reported Home Medications] Active Medications: Generic Name Dose Route Start Last Admin Trade Name Freq PRN Reason Stop Dose Admin Acetaminophen 650 mg 05/28/18 22:37 05/28/18 23:04 Tylenol PO 650 mg Q6H PRN Administration Pain, Mild (1-3) Famotidine 10 mg 05/29/18 10:00 06/01/18 23:11 Pepcid PO 10 mg BID [facility] Administration Folic Acid 1 mg 05/31/18 17:00 06/01/18 09:45 Folvite PO 1 mg QDAY [facility] Administration Heparin Sodium (Porcine) 5,000 unit 05/31/18 22:00 06/01/18 23:11 Heparin SUB-Q 5,000 unit Q12HR [facility] Administration Hydromorphone HCl 0.5 mg 05/29/18 03:21 06/01/18 09:45 Dilaudid IV 0.5 mg Q3H PRN Administration Pain , Severe (7-10) Sodium Chloride 100 mls @ 999 mls/hr 05/28/18 13:21 Nacl 0.9% IV [facility] PRN Hypotension Cefepime HCl 1 gm in 100 mls @ 200 mls/hr 06/01/18 18:00 06/01/18 18:23 Maxipime/Ns 1 Gm/100 Ml IV 200 mls/hr Q12H [facility] Administration Protocol Magnesium Sulfate 2 gm in 50 mls @ 25 mls/hr 06/02/18 09:26 Magnesium Sulfate 2gm/50ml IV 06/02/18 11:25 ONCE ONE Potassium Chloride 40 meq/ 1,020 mls @ 100 mls/hr 06/02/18 09:27 Sodium Chloride IV DIRECT [facility] Metoclopramide HCl 5 mg 05/29/18 22:00 06/01/18 23:12 Reglan IV 5 mg BID [facility] Administration Multivitamins 5 ml 05/31/18 17:00 06/01/18 09:46 Centrum Liq PO 5 ml QDAY [facility] Administration Ondansetron HCl 4 mg 05/31/18 10:20 Zofran IV ONCE PRN Nausea And Vomiting Oxycodone/Acetaminophen 1 tab 05/29/18 03:21 06/02/18 01:59 Percocet 5/325 PO 1 tab Q6H PRN Administration Pain, Moderate (4-6) Sodium Chloride 10 ml 05/29/18 04:00 06/02/18 03:28 Sodium Chloride Flush Syringe 10 Ml IV 10 ml BID [facility] Administration Sodium Chloride 10 ml 05/29/18 03:19 Sodium Chloride Flush Syringe 10 Ml IV PRN PRN LINE FLUSH
[2018-06-02] MEDS: REGLAN IV SCH ×2 (09:40→22:17)
[2018-06-02] MEDS: PEPCID PO SCH ×2 (09:42→22:17)
[2018-06-02] MEDS: FOLVITE PO SCH (09:42)
[2018-06-02] MEDS: Centrum Liq PO SCH (09:42)
[2018-06-02] MEDS: HEPARIN SUB-Q SCH ×2 (09:43→22:18)
[2018-06-02] MEDS ORDERED: MAGNESIUM SULFATE 2GM/50ML 2 GM/50 ML BAG IV ONE (10:30)
--- NOTE | 2018-06-02 10:43 | Progress Note ---
Assessment and Plan Assessment and plan: Left lower extremity edema. Check Doppler ultrasound rule out DVT. Anemia. Transfused 2 units PRBC Stool occult blood Cervical mass with enlarged regional nodes, likely cervical cancer EUA and cervical biopsy done 05/31/18, report pending LYLE due to obstructive uropathy s/p emergency hemodialysis Nephrology following Hyperkalemia, resolved Hypokalemia Leukocytosis:SIRS vs Sepsis Blood cultures drawn, no growth to date Continue Levaquin Bilateral hydronephrosis . s/p bilat Nephrostomy tube placement 05/29 Full code status History Interval history: The patient is a 73-year-old female with no significant past medical history presented to the hospital emergency room on 05/28/2017 with complaints of suprapubic pain. Upon evaluation here, she was found to have acute renal failure, CT abdomen pelvis showed bilateral hydronephrosis and a large cervical mass. She had to undergo emergent dialysis with nephrology assistance after HD cath placement. On 05/29/2017 she underwent bilateral nephrostomy tube placements. On 05/31/2018, she underwent EUA and cervical biopsies by [employer]. Infectious diseases was consulted due to low-grade temperatures and significant leukocytosis. Patient denies any cough or shortness of breath. She reports mild lower abdominal pain. She has bilateral nephrostomy tubes are draining dirty urine. Her HD catheter was removed and her creatinine has returned back to normal. She has left lower extremity edema that has been going on for the last 2 weeks. She has also lost weight. The patient complains of left lower extremity calf pain today. Hospitalist Physical - Constitutional Vitals: Temp Pulse Resp BP Pulse Ox 98.7 F 102 H 16 121/65 97 06/02/18 07:30 06/02/18 07:30 06/02/18 07:30 06/02/18 07:30 06/02/18 08:09 General appearance: Present: no acute distress - EENT Eyes: Present: PERRL, EOM intact ENT: hearing intact, clear oral mucosa, dentition normal - Neck Neck: Present: supple, normal ROM - Respiratory Respiratory effort: normal Respiratory: bilateral: CTA - Cardiovascular Rhythm: regular Heart Sounds: Present: S1 & S2. Absent: gallop, rub - Extremities Extremities: no ischemia, No edema, Full ROM - Abdominal General gastrointestinal: soft, tender, non-distended, normal bowel sounds, other (bilateral nephrostomy tubes) Localized gastrointestinal: tender: diffuse (mild) - Integumentary Integumentary: Present: clear, warm, dry - Neurologic Neurologic: CNII-XII intact, moves all extremities Results - Labs CBC & Chem 7: 06/02/18 05:01 06/02/18 05:01 Labs: Laboratory Last Values WBC 24.8 K/mm3 (4.5-11.0) H 06/02/18 05:01 RBC 3.41 M/mm3 (3.65-5.03) L 06/02/18 05:01 Hgb 9.0 gm/dl (10.1-14.3) L 06/02/18 05:01 Hct 28.0 % (30.3-42.9) L 06/02/18 05:01 MCV 82 fl (79-97) 06/02/18 05:01 MCH 26 pg (28-32) L 06/02/18 05:01 MCHC 32 % (30-34) 06/02/18 05:01 RDW 16.6 % (13.2-15.2) H 06/02/18 05:01 Plt Count 265 K/mm3 (140-440) 06/02/18 05:01 Add Manual Diff Complete 05/30/18 04:29 Total Counted 100 05/30/18 04:29 Seg Neutrophils % [employer] Worker 05/28/18 09:09 Seg Neuts % (Manual) 95.0 % (40.0-70.0) H 05/30/18 04:29 Band Neutrophils % 1.0 % 05/30/18 04:29 Lymphocytes % (Manual) 1.0 % (13.4-35.0) L 05/30/18 04:29 Reactive Lymphs % (Man) 0 % 05/30/18 04:29 Monocytes % (Manual) 0 % (0.0-7.3) 05/30/18 04:29 Eosinophils % (Manual) 2.0 % (0.0-4.3) 05/30/18 04:29 Basophils % (Manual) 0 % (0.0-1.8) 05/30/18 04:29 Metamyelocytes % 1.0 % 05/30/18 04:29 Myelocytes % 0 % 05/30/18 04:29 Promyelocytes % 0 % 05/30/18 04:29 Blast Cells % 0 % 05/30/18 04:29 Nucleated RBC % Not Reportable 05/30/18 04:29 Seg Neutrophils # Man 25.0 K/mm3 (1.8-7.7) H 05/30/18 04:29 Band Neutrophils # 0.3 K/mm3 05/30/18 04:29 Lymphocytes # (Manual) 0.3 K/mm3 (1.2-5.4) L 05/30/18 04:29 Abs React Lymphs (Man) 0.0 K/mm3 05/30/18 04:29 Monocytes # (Manual) 0.0 K/mm3 (0.0-0.8) 05/30/18 04:29 Eosinophils # (Manual) 0.5 K/mm3 (0.0-0.4) H 05/30/18 04:29 Basophils # (Manual) 0.0 K/mm3 (0.0-0.1) 05/30/18 04:29 Metamyelocytes # 0.3 K/mm3 05/30/18 04:29 Myelocytes # 0.0 K/mm3 05/30/18 04:29 Promyelocytes # 0.0 K/mm3 05/30/18 04:29 Blast Cells # 0.0 K/mm3 05/30/18 04:29 WBC Morphology Not Reportable 05/30/18 04:29 Hypersegmented Neuts Not Reportable 05/30/18 04:29 Hyposegmented Neuts Not Reportable 05/30/18 04:29 Hypogranular Neuts Not Reportable 05/30/18 04:29 Smudge Cells Not Reportable 05/30/18 04:29 Toxic Granulation Not Reportable 05/30/18 04:29 Toxic Vacuolation Not Reportable 05/30/18 04:29 Dohle Bodies Not Reportable 05/30/18 04:29 Pelger-Huet Anomaly Not Reportable 05/30/18 04:29 Sully Rods Not Reportable 05/30/18 04:29 Platelet Estimate Appears normal 05/30/18 04:29 Clumped Platelets Not Reportable 05/30/18 04:29 Plt Clumps, EDTA Not Reportable 05/30/18 04:29 Large Platelets 1+ 05/30/18 04:29 Giant Platelets Not Reportable 05/30/18 04:29 Platelet Satelliting Not Reportable 05/30/18 04:29 Plt Morphology Comment Not Reportable 05/30/18 04:29 RBC Morphology Not Reportable 05/30/18 04:29 Dimorphic RBCs Not Reportable 05/30/18 04:29 Polychromasia Not Reportable 05/30/18 04:29 Hypochromasia Not Reportable 05/30/18 04:29 Poikilocytosis Not Reportable 05/30/18 04:29 Anisocytosis Not Reportable 05/30/18 04:29 Microcytosis Not Reportable 05/30/18 04:29 Macrocytosis Not Reportable 05/30/18 04:29 Spherocytes Not Reportable 05/30/18 04:29 Pappenheimer Bodies Not Reportable 05/30/18 04:29 Sickle Cells Not Reportable 05/30/18 04:29 Target Cells Not Reportable 05/30/18 04:29 Tear Drop Cells Rare 05/30/18 04:29 Ovalocytes 1+ 05/30/18 04:29 Helmet Cells Not Reportable 05/30/18 04:29 Blackmon-Towson Bodies Not Reportable 05/30/18 04:29 Mcclave Rings Not Reportable 05/30/18 04:29 Radha Cells Not Reportable 05/30/18 04:29 Bite Cells Not Reportable 05/30/18 04:29 Crenated Cell Not Reportable 05/30/18 04:29 Elliptocytes Not Reportable 05/30/18 04:29 Acanthocytes (Spur) Not Reportable 05/30/18 04:29 Rouleaux Not Reportable 05/30/18 04:29 Hemoglobin C Crystals Not Reportable 05/30/18 04:29 Schistocytes Not Reportable 05/30/18 04:29 Malaria parasites Not Reportable 05/30/18 04:29 Stevenson Bodies Not Reportable 05/30/18 04:29 Hem Pathologist Commnt No 05/30/18 04:29 PT 14.9 Sec. (12.2-14.9) 05/28/18 09:09 INR 1.10 (0.87-1.13) 05/28/18 09:09 VBG pH 7.271 (7.320-7.420) L 05/28/18 09:09 Sodium 136 mmol/L (137-145) L 06/02/18 05:01 Potassium 3.1 mmol/L (3.6-5.0) L 06/02/18 05:01 Chloride 100.2 mmol/L (98-107) 06/02/18 05:01 Carbon Dioxide 23 mmol/L (22-30) 06/02/18 05:01 Anion Gap 16 mmol/L 06/02/18 05:01 BUN 13 mg/dL (7-17) 06/02/18 05:01 Creatinine 0.5 mg/dL (0.7-1.2) L 06/02/18 05:01 Estimated GFR > 60 ml/min 06/02/18 05:01 BUN/Creatinine Ratio 26 % 06/02/18 05:01 Glucose 102 mg/dL (65-100) H 06/02/18 05:01 Hemoglobin A1c 6.1 % (4-6) H 05/29/18 04:41 Lactic Acid 2.10 mmol/L (0.7-2.0) H* 05/28/18 13:29 Calcium 7.9 mg/dL (8.4-10.2) L 06/02/18 05:01 Magnesium 1.80 mg/dL (1.7-2.3) 06/02/18 05:01 Iron 22 ug/dL (37-170) L 05/31/18 13:06 TIBC 81 mcg/dL (250-450) L 05/31/18 13:06 Ferritin 1083.0 ng/mL (13.0-400.0) H 05/31/18 13:06 Total Bilirubin 0.40 mg/dL (0.1-1.2) 05/30/18 04:29 AST 7 units/L (5-40) 05/30/18 04:29 ALT < 5 units/L (7-56) L 05/30/18 04:29 Alkaline Phosphatase 84 units/L (35-129) 05/30/18 04:29 Total Protein 6.2 g/dL (6.3-8.2) L D 05/30/18 04:29 Albumin 1.7 g/dL (3.9-5) L 05/30/18 04:29 Albumin/Globulin Ratio 0.4 % 05/30/18 04:29 Vitamin B12 753.6 pg/mL (211-911) 05/31/18 13:06 Folate 3.98 ng/mL (7.3-26.0) L 05/31/18 13:06 Urine Color Yellow (Yellow) 05/28/18 12:02 Urine Turbidity Clear (Clear) 05/28/18 12:02 Urine pH 7.0 (5.0-7.0) 05/28/18 12:02 Ur Specific [place] 1.006 (1.003-1.030) 05/28/18 12:02 Urine Protein 30 mg/dl mg/dL (Negative) 05/28/18 12:02 Urine Glucose (UA) Neg mg/dL (Negative) 05/28/18 12:02 Urine Ketones Tr mg/dL (Negative) 05/28/18 12:02 Urine Blood Mod (Negative) 05/28/18 12:02 Urine Nitrite Neg (Negative) 05/28/18 12:02 Urine Bilirubin Neg (Negative) 05/28/18 12:02 Urine Urobilinogen < 2.0 mg/dL (<2.0) 05/28/18 12:02 Ur Leukocyte Esterase Neg (Negative) 05/28/18 12:02 Urine WBC (Auto) 6.0 /HPF (0.0-6.0) 05/28/18 12:02 Urine RBC (Auto) 5.0 /HPF (0.0-6.0) 05/28/18 12:02 U Epithel Cells (Auto) 1.0 /HPF (0-13.0) 05/28/18 12:02 Urine Bacteria (Auto) 1+ /HPF (Negative) 05/28/18 12:02 Urine Mucus Few /HPF 05/28/18 12:02 Hepatitis A IgM Ab Non-reactive (NonReactive) 05/28/18 15:50 Hep Bs Antigen Non-reactive (Negative) 05/28/18 15:50 Hep B Core IgM Ab Non-reactive (NonReactive) 05/28/18 15:50 Hepatitis C Antibody Non-reactive (NonReactive) 05/28/18 15:50 Blood Type O POSITIVE 05/29/18 09:41 Antibody Screen Negative 05/29/18 09:41 Crossmatch See Detail 05/29/18 09:41 Nutrition/Malnutrition Assess - Dietary Evaluation Nutrition/Malnutrition Findings: Nutrition Notes Start: 06/01/18 14:20 Freq: Status: Active Protocol: Document 06/01/18 14:20 RM (Rec: 06/01/18 14:31 RM [id number]) Nutrition Notes Need for Assessment generated from: Low BMI Initial or Follow up Assessment Current Diagnosis Acute Kidney Injury Other Pertinent Diagnosis Metastatic cervical cancer Current Diet Regular Labs/Tests Reviewed Pertinent Medications Reviewed Height 5 ft 2 in Weight 45.1 kg [place] Body Weight (kg) 50.00 BMI 18.1 Subjective/Other Information Screened for Low BMI. Pt speaks only a little [place]. Speaks mostly [place] . Interpretive services used to communicate. 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 Stated that she eats <50% of her meals here. Noted lunch at bedside w/25% eaten. Admitted to chewing difficulty , swallowing difficulty, and nausea. Unsure of UBW. Noted temporal wasting. 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 No Is Patient Ambulatory and/or Out of Bed Yes REE-([place]-ambulatory/OOB) [ 1188.525 [id number]] Kcal/Kg value to use for calculation 33 Approximate Energy Requirements Using 1488 kcal/Kg Calculation Used for Recommendations Kcal/kg Additional Notes Protein Needs: 54-59g (1.2-1. 3g/kg) Fluid Needs: 1 ml/kcal Nutrition Intervention Change Diet Order: [facility] Soft Add Supplement/Snack (indicate name/kcal Ensure Enlive Vanilla 1 daily /protein ) Provides kCal: 350 Provides Protein (gm) 20 Goal #1 Diet tolerance Goal #2 Meet at least 75% of calorie and protein needs via PO and ONS intakes Anticipated Discharge Needs: unable to determine at this time Follow-Up By: 06/03/18 Additional Comments Follow for PO and ONS intakes
[2018-06-02] MEDS: KCL 40 MEQ in NACL 0.45% 1000 ML 1,000 ML IV SCH (11:22)
[2018-06-02] MEDS: MAXIPIME/NS 1 GM/100 ML 1 GM/100 ML BAG IV SCH ×2 (18:25)
[2018-06-03] MEDS: MAXIPIME/NS 1 GM/100 ML 1 GM/100 ML BAG IV SCH ×2 (05:04→18:19)
--- NOTE | 2018-06-03 07:14 | Hem/Onc Progress Note ---
Assessment and Plan 1. Cervical mass. 2. Retroperitoneal lymph nodes. 3. Bone abnormality. 4. Hydronephrosis. 5. 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 This most likely is advanced cervical cancer, 6 - severe anemia - will Ix and follow I will liase with ZOOLOGY TEACHER team. s/p nephrostomy+ 05/31 - s/p cx bx 06/01 - d/w daughter - reg bone lesion 06/02 - on folic acid - s/p iv iron - path pending 06/03 - path pending - d/w RN reg same - Patient Problems (1) Anemia Current Visit: Yes Status: Acute Qualifiers: Anemia type: iron deficiency (2) Cervical mass Onset Date: 05/30/18 Current Visit: Yes Status: Chronic Subjective Date of service: 06/03/18 Principal diagnosis: cervical mass Interval history: feeling ok ambulating to rest room path pending Objective - Constitutional Vitals: Last Vital Signs Temp 98.7 F 06/03/18 02:30 Pulse 109 H 06/02/18 22:00 Resp 18 06/03/18 02:30 BP 119/72 06/03/18 02:30 Pulse Ox 96 06/02/18 22:00 Pain Intensity (0-10): denies any pain General appearance: no acute distress Performance status: 2- selfcare, ambulatory - EENT Eyes: EOM intact ENT: clear oral mucosa Lymph node exam: negative cervical - Neck Neck: normal ROM - Respiratory Respiratory effort: Positive: normal Respiratory: bilateral: CTA - Cardiovascular Heart Sounds: Present: S1 & S2 Extremities: normal temperature - Gastrointestinal General gastrointestinal: Present: soft, non-tender Rectal Exam: deferred - Genitourinary Female genitourinary: Present: deferred - Integumentary Integumentary: warm - Musculoskeletal Musculoskeletal: strength equal bilaterally - Neurologic Neurologic: moves all extremities - Psychiatric Psychiatric: appropriate mood/affect Medications & Allergies - Medications Allergies/Adverse Reactions: Allergies No Known Allergies Allergy (Verified 05/28/18 09:10) Home Medications: Home Medications Medication Instructions Recorded Confirmed Last Taken Type No Known Home Medications [No 05/28/18 05/28/18 Unknown History Reported Home Medications] Active Medications: Generic Name Dose Route Start Last Admin Trade Name Freq PRN Reason Stop Dose Admin Acetaminophen 650 mg 05/28/18 22:37 05/28/18 23:04 Tylenol PO 650 mg Q6H PRN Administration Pain, Mild (1-3) Famotidine 10 mg 05/29/18 10:00 06/02/18 22:17 Pepcid PO 10 mg BID ALBINA Administration Folic Acid 1 mg 05/31/18 17:00 06/02/18 09:42 Folvite PO 1 mg QDAY ALBINA Administration Heparin Sodium (Porcine) 5,000 unit 05/31/18 22:00 06/02/18 22:18 Heparin SUB-Q 5,000 unit Q12HR ALBINA Administration Hydromorphone HCl 0.5 mg 05/29/18 03:21 06/01/18 09:45 Dilaudid IV 0.5 mg Q3H PRN Administration Pain , Severe (7-10) Sodium Chloride 100 mls @ 999 mls/hr 05/28/18 13:21 Nacl 0.9% IV CATHERINE PRN Hypotension Cefepime HCl 1 gm in 100 mls @ 200 mls/hr 06/01/18 18:00 06/03/18 05:04 Maxipime/Ns 1 Gm/100 Ml IV 200 mls/hr Q12H ALBINA Administration Protocol Potassium Chloride 40 meq/ 1,020 mls @ 100 mls/hr 06/02/18 11:00 06/02/18 11:22 Sodium Chloride IV 100 mls/hr DIRECT ALBINA Administration Metoclopramide HCl 5 mg 05/29/18 22:00 06/02/18 22:17 Reglan IV 5 mg BID ALBINA Administration Multivitamins 5 ml 05/31/18 17:00 06/02/18 09:42 Centrum Liq PO 5 ml QDAY ALBINA Administration Ondansetron HCl 4 mg 05/31/18 10:20 Zofran IV ONCE PRN Nausea And Vomiting Oxycodone/Acetaminophen 1 tab 05/29/18 03:21 06/02/18 22:17 Percocet 5/325 PO 1 tab Q6H PRN Administration Pain, Moderate (4-6) Sodium Chloride 10 ml 05/29/18 04:00 06/02/18 22:18 Sodium Chloride Flush Syringe 10 Ml IV 10 ml BID ALBINA Administration Sodium Chloride 10 ml 05/29/18 03:19 Sodium Chloride Flush Syringe 10 Ml IV PRN PRN LINE FLUSH
--- NOTE | 2018-06-03 09:41 | Progress Note ---
Assessment and Plan Assessment and plan: Left lower extremity edema. Check Doppler ultrasound rule out DVT. Anemia. s/p Transfusion of2 units PRBC Stool occult blood Cervical mass with enlarged regional nodes, likely cervical cancer EUA and cervical biopsy done 05/31/18, report pending LYLE due to obstructive uropathy s/p emergency hemodialysis Nephrology following Hypokalemia, rplete K as needed. Check BMP Leukocytosis:SIRS vs Sepsis Blood cultures drawn, no growth to date Continue Levaquin Bilateral hydronephrosis . s/p bilat Nephrostomy tube placement 05/29 Full code status History Interval history: The patient is a 73-year-old female with no significant past medical history pre sented to the hospital emergency room on 05/28/2017 with complaints of suprapubic pain. Upon evaluation here, she was found to have acute renal failure, CT abdomen pelvis showed bilateral hydronephrosis and a large cervical mass. She had to undergo emergent dialysis with nephrology assistance after HD cath placement. On 05/29/2017 she underwent bilateral nephrostomy tube placements. On 05/31/2018, she underwent EUA and cervical biopsies by RECEPTIONIST SCHEDULER. Infectious diseases was consulted due to low-grade temperatures and significant leukocytosis. Patient denies any cough or shortness of breath. She reports mild lower abdominal pain. She has bilateral nephrostomy tubes are draining dirty urine. Her HD catheter was removed and her creatinine has returned back to normal. She has left lower extremity edema that has been going on for the last 2 weeks. Doppler was negative. She has also lost weight. No complaints or new issues Hospitalist Physical - Constitutional Vitals: Temp Pulse Resp BP Pulse Ox 99.6 F 101 H 18 134/72 96 06/03/18 07:29 06/03/18 08:00 06/03/18 07:29 06/03/18 07:29 06/03/18 07:29 General appearance: Present: no acute distress - EENT Eyes: Present: PERRL, EOM intact ENT: hearing intact, clear oral mucosa, dentition normal - Neck Neck: Present: supple, normal ROM - Respiratory Respiratory effort: normal Respiratory: bilateral: CTA - Cardiovascular Rhythm: regular Heart Sounds: Present: S1 & S2. Absent: gallop, rub - Extremities Extremities: no ischemia, No edema, Full ROM - Abdominal General gastrointestinal: soft, non-tender, non-distended, normal bowel sounds - Integumentary Integumentary: Present: clear, warm, dry - Neurologic Neurologic: CNII-XII intact, moves all extremities Results - Labs CBC & Chem 7: 06/02/18 05:01 06/02/18 05:01 Labs: Laboratory Last Values WBC 24.8 K/mm3 (4.5-11.0) H 06/02/18 05:01 RBC 3.41 M/mm3 (3.65-5.03) L 06/02/18 05:01 Hgb 9.0 gm/dl (10.1-14.3) L 06/02/18 05:01 Hct 28.0 % (30.3-42.9) L 06/02/18 05:01 MCV 82 fl (79-97) 06/02/18 05:01 MCH 26 pg (28-32) L 06/02/18 05:01 MCHC 32 % (30-34) 06/02/18 05:01 RDW 16.6 % (13.2-15.2) H 06/02/18 05:01 Plt Count 265 K/mm3 (140-440) 06/02/18 05:01 Add Manual Diff Complete 05/30/18 04:29 Total Counted 100 05/30/18 04:29 Seg Neutrophils % Metal Riveter 05/28/18 09:09 Seg Neuts % (Manual) 95.0 % (40.0-70.0) H 05/30/18 04:29 Band Neutrophils % 1.0 % 05/30/18 04:29 Lymphocytes % (Manual) 1.0 % (13.4-35.0) L 05/30/18 04:29 Reactive Lymphs % (Man) 0 % 05/30/18 04:29 Monocytes % (Manual) 0 % (0.0-7.3) 05/30/18 04:29 Eosinophils % (Manual) 2.0 % (0.0-4.3) 05/30/18 04:29 Basophils % (Manual) 0 % (0.0-1.8) 05/30/18 04:29 Metamyelocytes % 1.0 % 05/30/18 04:29 Myelocytes % 0 % 05/30/18 04:29 Promyelocytes % 0 % 05/30/18 04:29 Blast Cells % 0 % 05/30/18 04:29 Nucleated RBC % Not Reportable 05/30/18 04:29 Seg Neutrophils # Man 25.0 K/mm3 (1.8-7.7) H 05/30/18 04:29 Band Neutrophils # 0.3 K/mm3 05/30/18 04:29 Lymphocytes # (Manual) 0.3 K/mm3 (1.2-5.4) L 05/30/18 04:29 Abs React Lymphs (Man) 0.0 K/mm3 05/30/18 04:29 Monocytes # (Manual) 0.0 K/mm3 (0.0-0.8) 05/30/18 04:29 Eosinophils # (Manual) 0.5 K/mm3 (0.0-0.4) H 05/30/18 04:29 Basophils # (Manual) 0.0 K/mm3 (0.0-0.1) 05/30/18 04:29 Metamyelocytes # 0.3 K/mm3 05/30/18 04:29 Myelocytes # 0.0 K/mm3 05/30/18 04:29 Promyelocytes # 0.0 K/mm3 05/30/18 04:29 Blast Cells # 0.0 K/mm3 05/30/18 04:29 WBC Morphology Not Reportable 05/30/18 04:29 Hypersegmented Neuts Not Reportable 05/30/18 04:29 Hyposegmented Neuts Not Reportable 05/30/18 04:29 Hypogranular Neuts Not Reportable 05/30/18 04:29 Smudge Cells Not Reportable 05/30/18 04:29 Toxic Granulation Not Reportable 05/30/18 04:29 Toxic Vacuolation Not Reportable 05/30/18 04:29 Dohle Bodies Not Reportable 05/30/18 04:29 Pelger-Huet Anomaly Not Reportable 05/30/18 04:29 Sully Rods Not Reportable 05/30/18 04:29 Platelet Estimate Appears normal 05/30/18 04:29 Clumped Platelets Not Reportable 05/30/18 04:29 Plt Clumps, EDTA Not Reportable 05/30/18 04:29 Large Platelets 1+ 05/30/18 04:29 Giant Platelets Not Reportable 05/30/18 04:29 Platelet Satelliting Not Reportable 05/30/18 04:29 Plt Morphology Comment Not Reportable 05/30/18 04:29 RBC Morphology Not Reportable 05/30/18 04:29 Dimorphic RBCs Not Reportable 05/30/18 04:29 Polychromasia Not Reportable 05/30/18 04:29 Hypochromasia Not Reportable 05/30/18 04:29 Poikilocytosis Not Reportable 05/30/18 04:29 Anisocytosis Not Reportable 05/30/18 04:29 Microcytosis Not Reportable 05/30/18 04:29 Macrocytosis Not Reportable 05/30/18 04:29 Spherocytes Not Reportable 05/30/18 04:29 Pappenheimer Bodies Not Reportable 05/30/18 04:29 Sickle Cells Not Reportable 05/30/18 04:29 Target Cells Not Reportable 05/30/18 04:29 Tear Drop Cells Rare 05/30/18 04:29 Ovalocytes 1+ 05/30/18 04:29 Helmet Cells Not Reportable 05/30/18 04:29 [place] Bodies Not Reportable 05/30/18 04:29 [place] Rings Not Reportable 05/30/18 04:29 Radha Cells Not Reportable 05/30/18 04:29 Bite Cells Not Reportable 05/30/18 04:29 Crenated Cell Not Reportable 05/30/18 04:29 Elliptocytes Not Reportable 05/30/18 04:29 Acanthocytes (Spur) Not Reportable 05/30/18 04:29 Rouleaux Not Reportable 05/30/18 04:29 Hemoglobin C Crystals Not Reportable 05/30/18 04:29 Schistocytes Not Reportable 05/30/18 04:29 Malaria parasites Not Reportable 05/30/18 04:29 Stevenson Bodies Not Reportable 05/30/18 04:29 Hem Pathologist Commnt No 05/30/18 04:29 PT 14.9 Sec. (12.2-14.9) 05/28/18 09:09 INR 1.10 (0.87-1.13) 05/28/18 09:09 VBG pH 7.271 (7.320-7.420) L 05/28/18 09:09 Sodium 136 mmol/L (137-145) L 06/02/18 05:01 Potassium 3.1 mmol/L (3.6-5.0) L 06/02/18 05:01 Chloride 100.2 mmol/L (98-107) 06/02/18 05:01 Carbon Dioxide 23 mmol/L (22-30) 06/02/18 05:01 Anion Gap 16 mmol/L 06/02/18 05:01 BUN 13 mg/dL (7-17) 06/02/18 05:01 Creatinine 0.5 mg/dL (0.7-1.2) L 06/02/18 05:01 Estimated GFR > 60 ml/min 06/02/18 05:01 BUN/Creatinine Ratio 26 % 06/02/18 05:01 Glucose 102 mg/dL (65-100) H 06/02/18 05:01 Hemoglobin A1c 6.1 % (4-6) H 05/29/18 04:41 Lactic Acid 2.10 mmol/L (0.7-2.0) H* 05/28/18 13:29 Calcium 7.9 mg/dL (8.4-10.2) L 06/02/18 05:01 Magnesium 1.80 mg/dL (1.7-2.3) 06/02/18 05:01 Iron 22 ug/dL (37-170) L 05/31/18 13:06 TIBC 81 mcg/dL (250-450) L 05/31/18 13:06 Ferritin 1083.0 ng/mL (13.0-400.0) H 05/31/18 13:06 Total Bilirubin 0.40 mg/dL (0.1-1.2) 05/30/18 04:29 AST 7 units/L (5-40) 05/30/18 04:29 ALT < 5 units/L (7-56) L 05/30/18 04:29 Alkaline Phosphatase 84 units/L (35-129) 05/30/18 04:29 Total Protein 6.2 g/dL (6.3-8.2) L D 05/30/18 04:29 Albumin 1.7 g/dL (3.9-5) L 05/30/18 04:29 Albumin/Globulin Ratio 0.4 % 05/30/18 04:29 Vitamin B12 753.6 pg/mL (211-911) 05/31/18 13:06 Folate 3.98 ng/mL (7.3-26.0) L 05/31/18 13:06 Urine Color Yellow (Yellow) 05/28/18 12:02 Urine Turbidity Clear (Clear) 05/28/18 12:02 Urine pH 7.0 (5.0-7.0) 05/28/18 12:02 Ur Specific [place] 1.006 (1.003-1.030) 05/28/18 12:02 Urine Protein 30 mg/dl mg/dL (Negative) 05/28/18 12:02 Urine Glucose (UA) Neg mg/dL (Negative) 05/28/18 12:02 Urine Ketones Tr mg/dL (Negative) 05/28/18 12:02 Urine Blood Mod (Negative) 05/28/18 12:02 Urine Nitrite Neg (Negative) 05/28/18 12:02 Urine Bilirubin Neg (Negative) 05/28/18 12:02 Urine Urobilinogen < 2.0 mg/dL (<2.0) 05/28/18 12:02 Ur Leukocyte Esterase Neg (Negative) 05/28/18 12:02 Urine WBC (Auto) 6.0 /HPF (0.0-6.0) 05/28/18 12:02 Urine RBC (Auto) 5.0 /HPF (0.0-6.0) 05/28/18 12:02 U Epithel Cells (Auto) 1.0 /HPF (0-13.0) 05/28/18 12:02 Urine Bacteria (Auto) 1+ /HPF (Negative) 05/28/18 12:02 Urine Mucus Few /HPF 05/28/18 12:02 Hepatitis A IgM Ab Non-reactive (NonReactive) 05/28/18 15:50 Hep Bs Antigen Non-reactive (Negative) 05/28/18 15:50 Hep B Core IgM Ab Non-reactive (NonReactive) 05/28/18 15:50 Hepatitis C Antibody Non-reactive (NonReactive) 05/28/18 15:50 Blood Type O POSITIVE 05/29/18 09:41 Antibody Screen Negative 05/29/18 09:41 Crossmatch See Detail 05/29/18 09:41 Nutrition/Malnutrition Assess - Dietary Evaluation Nutrition/Malnutrition Findings: Nutrition Notes Start: 06/01/18 14:20 Freq: Status: Active Protocol: Document 06/01/18 14:20 RM (Rec: 06/01/18 14:31 RM [id number]) Nutrition Notes Need for Assessment generated from: Low BMI Initial or Follow up Assessment Current Diagnosis Acute Kidney Injury Other Pertinent Diagnosis Metastatic cervical cancer Current Diet Regular Labs/Tests Reviewed Pertinent Medications Reviewed Height 5 ft 2 in Weight 45.1 kg [place] Body Weight (kg) 50.00 BMI 18.1 Subjective/Other Information Screened for Low BMI. Pt speaks only a little Nauruan. Speaks mostly [place]uran . Interpretive services used to communicate. 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 Stated that she eats <50% of her meals here. Noted lunch at bedside w/25% eaten. Admitted to chewing difficulty , swallowing difficulty, and nausea. Unsure of UBW. Noted temporal wasting. 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 No Is Patient Ambulatory and/or Out of Bed Yes REE-(Worth-. [facility]-ambulatory/OOB) [ 1188.525 [id number]] Kcal/Kg value to use for calculation 33 Approximate Energy Requirements Using 1488 kcal/Kg Calculation Used for Recommendations Kcal/kg Additional Notes Protein Needs: 54-59g (1.2-1. 3g/kg) Fluid Needs: 1 ml/kcal Nutrition Intervention Change Diet Order: [facility] Soft Add Supplement/Snack (indicate name/kcal Ensure Enlive Vanilla 1 daily /protein ) Provides kCal: 350 Provides Protein (gm) 20 Goal #1 Diet tolerance Goal #2 Meet at least 75% of calorie and protein needs via PO and ONS intakes Anticipated Discharge Needs: unable to determine at this time Follow-Up By: 06/03/18 Additional Comments Follow for PO and ONS intakes
[2018-06-03] MEDS: FOLVITE PO SCH (09:42)
[2018-06-03] MEDS: Centrum Liq PO SCH (09:42)
[2018-06-03] MEDS: PEPCID PO SCH ×2 (09:42→21:03)
[2018-06-03] MEDS: SODIUM CHLORIDE FLUSH SYRINGE 10 ML IV SCH ×2 (09:42→21:04)
[2018-06-03] MEDS: REGLAN IV SCH ×2 (09:42→21:03)
[2018-06-03] MEDS: HEPARIN SUB-Q SCH ×2 (09:43→21:03)
--- NOTE | 2018-06-03 12:01 | Progress Note ---
Assessment and Plan Cultures: 05/28/2018 blood culture: No growth 05/28/2018 urine culture: No significant growth A/P: 73-year-old female with no significant past medical history presented to the hospital emergency room on 05/28/2017 with complaints of suprapubic pain. Now with: 1) Leukemoid reaction: present since admission, likely related to underlying malignancy. She does not appear to be septic at this time. She has no diarrhea. Cultures with no growth. Continue short trial of IV cefepime and monitor response. 2) Suspected cervical cancer: Status post biopsy. Hematology oncology and DRAFTING TEACHER following. Path pending. 3) Acute kidney injury: Likely from obstructive uropathy: Status post bilateral nephrostomy tube placements with improvement in creatinine. 4) Anemia: s/p transfusion. 5) Left lower extremity edema: Asymmetric compared to the right. Duplex scan negative. No evidence of deep venous thrombosis. Recs: Continue IV cefepime 1 gm q12 hrs, D3 of D5 Monitor WBC Jesus Chen MD [facility] C: [phone] O: [phone] F: [phone] Subjective Date of service: 06/03/18 Principal diagnosis: cervical mass Interval history: No fever. Denies any cough or shortness of breath. Denies any abdominal pain. Objective - Exam Narrative Exam: Physical Exam: Constitutional: Alert, cooperative. No acute distress Head, Ears, Nose: Normocephalic, atraumatic. External ears, nose normal Eyes: Conjunctivae/corneas clear. No icterus. No ptosis. Neck: Supple, no meningeal signs Oral: no thrush Cardiovascular: S1, S2 normal. Respiratory: Good air entry, clear to auscultation bilaterally GI: Soft, non-tender; bowel sounds normal. No peritoneal signs. B/L nephrostomy tubes + Musculoskeletal: LLE edema + Skin: No rash or abscess Hem/Lymphatic: No palpable cervical or supraclavicular nodes. No lymphangitis Psych: Mood ok. Affect normal Neurological: Awake, alert, oriented. No gross abnormality - Constitutional Vitals: Vital Signs Temp Pulse Resp BP Pulse Ox 99.6 F 101 H 18 134/72 96 06/03/18 07:29 06/03/18 08:00 06/03/18 07:29 06/03/18 07:29 06/03/18 07:29 Temperature -Last 24 Hours Temperature 99.6 F Temperature 98.7 F Temperature 99.7 F Temperature 99.6 F - Labs CBC & Chem 7: 06/02/18 05:01 06/02/18 05:01
[2018-06-03 13:59] LABS: BUN/Creatinine Ratio 28; Blood Urea Nitrogen 11 mg/dL (7-17); Hemolysis Index 10
[2018-06-03] MEDS: KCL 40 MEQ in NACL 0.45% 1000 ML 1,000 ML IV SCH (21:01)
[2018-06-04] MEDS: MAXIPIME/NS 1 GM/100 ML 1 GM/100 ML BAG IV SCH (05:12)
[2018-06-04 05:58] LABS: Hematocrit 28.3 % (30.3-42.9); Hemoglobin 9.3 gm/dl (10.1-14.3); Mean Corpuscular HGB Conc 33 % (30-34); Mean Corpuscular Volume 81 fl (79-97); Platelet Count 299 K/mm3 (140-440); Red Cell Distribution Width 16.5 % (13.2-15.2)
[2018-06-04 06:23] LABS: BUN/Creatinine Ratio 30; Blood Urea Nitrogen 9 mg/dL (7-17); Calcium 7.9 mg/dL (8.4-10.2); Hemolysis Index 1
[2018-06-04 07:19] LABS: Band Neutrophils # (Manual) 0.2 K/mm3; Basophils % (Manual) 0 % (0.0-1.8); Total Cells Counted 100
[2018-06-04 07:20] LABS: Anisocytosis 1+; Hypochromasia 1+; Stomatocytes Rare
--- NOTE | 2018-06-04 07:59 | Hem/Onc Progress Note ---
Assessment and Plan 1. Cervical mass. 2. Retroperitoneal lymph nodes. 3. Bone abnormality. 4. Hydronephrosis. 5. DIRECTOR OF PERIOPERATIVE SERVICES team is biopsy. This most likely is advanced cervical cancer, 6 - severe anemia - will Ix and follow I will liase with DIRECTOR OF PERIOPERATIVE SERVICES team. s/p nephrostomy+ 05/31 - s/p cx bx 06/01 - d/w daughter - reg bone lesion 06/02 - on folic acid - s/p iv iron - path pending 06/03 - path pending - d/w RN reg same 06/04 - path - neg for neoplasm - ? 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 bx issues?? Objective - Constitutional Vitals: Last Vital Signs Temp 99.3 F 06/04/18 02:14 Pulse 100 H 06/04/18 02:14 Resp 20 06/04/18 02:14 BP 115/69 06/04/18 02:14 Pulse Ox 98 06/04/18 02:14 Pain Intensity (0-10): denies any pain General appearance: no acute distress Performance status: 3-limited selfcare - EENT Eyes: EOM intact ENT: clear oral mucosa Lymph node exam: negative cervical - Neck Neck: normal ROM - Respiratory Respiratory effort: Positive: normal Respiratory: bilateral: CTA - Cardiovascular Heart Sounds: Present: S1 & S2 Extremities: normal temperature - Gastrointestinal General gastrointestinal: Present: soft, non-tender Rectal Exam: deferred - Genitourinary Female genitourinary: Present: deferred - Integumentary Integumentary: warm - Musculoskeletal Musculoskeletal: strength equal bilaterally - Neurologic Neurologic: moves all extremities - Psychiatric Psychiatric: appropriate mood/affect - Labs Lab Results: Laboratory Results - last 24 hr 06/03/18 06/04/18 06/04/18 13:14 05:30 05:30 WBC 20.4 H RBC 3.50 L Hgb 9.3 L Hct 28.3 L MCV 81 MCH 27 L MCHC 33 RDW 16.5 H Plt Count 299 Add Manual Diff Complete Total Counted 100 Seg Neuts % (Manual) 83.0 H Band Neutrophils % 1.0 Lymphocytes % (Manual) 8.0 L Reactive Lymphs % (Man) 0 Monocytes % (Manual) 3.0 Eosinophils % (Manual) 5.0 H Basophils % (Manual) 0 Metamyelocytes % 0 Myelocytes % 0 Promyelocytes % 0 Blast Cells % 0 Nucleated RBC % Not Reportable Seg Neutrophils # Man 16.9 H Band Neutrophils # 0.2 Lymphocytes # (Manual) 1.6 Abs React Lymphs (Man) 0.0 Monocytes # (Manual) 0.6 Eosinophils # (Manual) 1.0 H Basophils # (Manual) 0.0 Metamyelocytes # 0.0 Myelocytes # 0.0 Promyelocytes # 0.0 Blast Cells # 0.0 WBC Morphology Not Reportable Hypersegmented Neuts Not Reportable Hyposegmented Neuts Not Reportable Hypogranular Neuts Not Reportable Smudge Cells Not Reportable Toxic Granulation Not Reportable Toxic Vacuolation Not Reportable Dohle Bodies Not Reportable Pelger-Huet Anomaly Not Reportable Sully Rods Not Reportable Platelet Estimate Appears normal Clumped Platelets Not Reportable Plt Clumps, EDTA Not Reportable Large Platelets Not Reportable Giant Platelets Not Reportable Platelet Satelliting Not Reportable Plt Morphology Comment Not Reportable RBC Morphology Not Reportable Dimorphic RBCs Not Reportable Polychromasia Not Reportable Hypochromasia 1+ Poikilocytosis Not Reportable Anisocytosis 1+ Microcytosis Few Macrocytosis Not Reportable Spherocytes Not Reportable Pappenheimer Bodies Not Reportable Sickle Cells Not Reportable Target Cells Not Reportable Tear Drop Cells Not Reportable Ovalocytes Not Reportable Stomatocytes Rare Helmet Cells Not Reportable [place] Bodies Not Reportable [place] Rings Not Reportable [place] Cells Not Reportable Bite Cells Not Reportable Crenated Cell Not Reportable Elliptocytes Not Reportable Acanthocytes (Spur) Not Reportable Rouleaux Not Reportable Hemoglobin C Crystals Not Reportable Schistocytes Not Reportable Malaria parasites Not Reportable Stevenson Bodies Not Reportable Hem Pathologist Commnt No Sodium 136 L 137 Potassium 3.4 L 3.6 Chloride 99.8 101.0 Carbon Dioxide 22 26 Anion Gap 18 14 BUN 11 9 Creatinine 0.4 L 0.3 L Estimated GFR > 60 > 60 BUN/Creatinine Ratio 28 30 Glucose 144 H 115 H Calcium 8.0 L 7.9 L Magnesium 06/04/18 05:30 WBC RBC Hgb Hct MCV MCH MCHC RDW Plt Count Add Manual Diff Total Counted Seg Neuts % (Manual) Band Neutrophils % Lymphocytes % (Manual) Reactive Lymphs % (Man) Monocytes % (Manual) Eosinophils % (Manual) Basophils % (Manual) Metamyelocytes % Myelocytes % Promyelocytes % Blast Cells % Nucleated RBC % Seg Neutrophils # Man Band Neutrophils # Lymphocytes # (Manual) Abs React Lymphs (Man) Monocytes # (Manual) Eosinophils # (Manual) Basophils # (Manual) Metamyelocytes # Myelocytes # Promyelocytes # Blast Cells # WBC Morphology Hypersegmented Neuts Hyposegmented Neuts Hypogranular Neuts Smudge Cells Toxic Granulation Toxic Vacuolation Dohle Bodies Pelger-Huet Anomaly Sully Rods Platelet Estimate Clumped Platelets Plt Clumps, EDTA Large Platelets Giant Platelets Platelet Satelliting Plt Morphology Comment RBC Morphology Dimorphic RBCs Polychromasia Hypochromasia Poikilocytosis Anisocytosis Microcytosis Macrocytosis Spherocytes Pappenheimer Bodies Sickle Cells Target Cells Tear Drop Cells Ovalocytes Stomatocytes Helmet Cells [place] Bodies [place] Rings [place] Cells Bite Cells Crenated Cell Elliptocytes Acanthocytes (Spur) Rouleaux Hemoglobin C Crystals Schistocytes Malaria parasites Stevenson Bodies Hem Pathologist Commnt Sodium Potassium Chloride Carbon Dioxide Anion Gap BUN Creatinine Estimated GFR BUN/Creatinine Ratio Glucose Calcium Magnesium 1.50 L Medications & Allergies - Medications Allergies/Adverse Reactions: Allergies No Known Allergies Allergy (Verified 05/28/18 09:10) Home Medications: Home Medications Medication Instructions Recorded Confirmed Last Taken Type No Known Home Medications [No 05/28/18 05/28/18 Unknown History Reported Home Medications] Active Medications: Generic Name Dose Route Start Last Admin Trade Name Freq PRN Reason Stop Dose Admin Acetaminophen 650 mg 05/28/18 22:37 05/28/18 23:04 Tylenol PO 650 mg Q6H PRN Administration Pain, Mild (1-3) Famotidine 10 mg 05/29/18 10:00 06/03/18 21:03 Pepcid PO 10 mg BID ALBINA Administration Folic Acid 1 mg 05/31/18 17:00 06/03/18 09:42 Folvite PO 1 mg QDAY ALBINA Administration Heparin Sodium (Porcine) 5,000 unit 05/31/18 22:00 06/03/18 21:03 Heparin SUB-Q 5,000 unit Q12HR ALBINA Administration Hydromorphone HCl 0.5 mg 05/29/18 03:21 06/01/18 09:45 Dilaudid IV 0.5 mg Q3H PRN Administration Pain , Severe (7-10) Sodium Chloride 100 mls @ 999 mls/hr 05/28/18 13:21 Nacl 0.9% IV CATHERINE PRN Hypotension Cefepime HCl 1 gm in 100 mls @ 200 mls/hr 06/01/18 18:00 06/04/18 05:43 Maxipime/Ns 1 Gm/100 Ml IV Infused Q12H ALBINA Infusion Protocol Potassium Chloride 40 meq/ 1,020 mls @ 100 mls/hr 06/02/18 11:00 06/03/18 21:01 Sodium Chloride IV 100 mls/hr DIRECT ALBINA Administration Metoclopramide HCl 5 mg 05/29/18 22:00 06/03/18 21:03 Reglan IV 5 mg BID ALBINA Administration Multivitamins 5 ml 05/31/18 17:00 06/03/18 09:42 Centrum Liq PO 5 ml QDAY ALBINA Administration Ondansetron HCl 4 mg 05/31/18 10:20 Zofran IV ONCE PRN Nausea And Vomiting Oxycodone/Acetaminophen 1 tab 05/29/18 03:21 06/02/18 22:17 Percocet 5/325 PO 1 tab Q6H PRN Administration Pain, Moderate (4-6) Sodium Chloride 10 ml 05/29/18 04:00 06/03/18 21:04 Sodium Chloride Flush Syringe 10 Ml IV 10 ml BID ALBINA Administration Sodium Chloride 10 ml 05/29/18 03:19 Sodium Chloride Flush Syringe 10 Ml IV PRN PRN LINE FLUSH
--- NOTE | 2018-06-04 08:45 | Progress Note ---
Assessment and Plan Cultures: 05/28/2018 blood culture: No growth 05/28/2018 urine culture: No significant growth A/P: 73-year-old female with no significant past medical history presented to the hospital emergency room on 05/28/2017 with complaints of suprapubic pain. Now with: 1) Leukemoid reaction: present since admission and continuing, likely related to underlying malignancy. She does not appear to be septic at this time. She has no diarrhea. Cultures with no growth. Continue short trial of IV cefepime and monitor response. 2) Suspected cervical cancer: Status post biopsy.. 06/04 - path - neg for n eoplasm - ? 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 4) Anemia: s/p transfusion. 5) Left lower extremity edema: Asymmetric compared to the right. Duplex scan negative. No evidence of deep venous thrombosis. Recs: Discontinue Cefepime Start Cefttriaxone 2 gm IV every 24 hours Start Flagyl 500 mg IV q 8 H Will order HIV, RPR and GC Continue to monitor WBC Marguerite Whitney NP [facility] M: [phone] O:[phone] Subjective Date of service: 06/04/18 Principal diagnosis: cervical mass Interval history: Patient seen and examined. Communication via interpretation line, primary language Kyrgyz. Denies generalized pain, fevers or SOB. Nurses notes, labs, imaging and reports reviewed, discussed with patient, verbalized understanding. Objective - Exam Narrative Exam: Constitutional: Alert, cooperative. No acute distress Head, Ears, Nose: Normocephalic, atraumatic. External ears, nose normal Eyes: Conjunctivae/corneas clear. No icterus. No ptosis. Neck: Supple, no meningeal signs Oral: no thrush Cardiovascular: ST Respiratory: Good air entry, clear to auscultation bilaterally GI: Soft, non-tender; bowel sounds normal. No peritoneal signs. B/L nephrostomy tubes + Musculoskeletal: LLE edema + Skin: No rash or abscess Hem/Lymphatic: No palpable cervical or supraclavicular nodes. No lymphangitis Psych: Mood ok. Affect normal Neurological: Awake, alert, oriented. No gross abnormality - Constitutional Vitals: Vital Signs Temp Pulse Resp BP Pulse Ox 99.5 F 96 H 18 139/76 98 06/04/18 08:09 06/04/18 08:09 06/04/18 08:09 06/04/18 08:09 06/04/18 08:09 Temperature -Last 24 Hours Temperature 99.5 F Temperature 99.3 F Temperature 99.2 F Temperature 99.3 F - Labs CBC & Chem 7: 06/04/18 05:30 06/04/18 05:30 Labs: Abnormal lab results 06/03/18 06/04/18 06/04/18 Range/Units 13:14 05:30 05:30 WBC 20.4 H (4.5-11.0) K/mm3 RBC 3.50 L (3.65-5.03) M/mm3 Hgb 9.3 L (10.1-14.3) gm/dl Hct 28.3 L (30.3-42.9) % MCH 27 L (28-32) pg RDW 16.5 H (13.2-15.2) % Seg Neuts % (Manual) 83.0 H (40.0-70.0) % Lymphocytes % (Manual) 8.0 L (13.4-35.0) % Eosinophils % (Manual) 5.0 H (0.0-4.3) % Seg Neutrophils # Man 16.9 H (1.8-7.7) K/mm3 Eosinophils # (Manual) 1.0 H (0.0-0.4) K/mm3 Sodium 136 L (137-145) mmol/L Potassium 3.4 L (3.6-5.0) mmol/L Creatinine 0.4 L 0.3 L (0.7-1.2) mg/dL Glucose 144 H 115 H (65-100) mg/dL Calcium 8.0 L 7.9 L (8.4-10.2) mg/dL Magnesium (1.7-2.3) mg/dL 06/04/18 Range/Units 05:30 WBC (4.5-11.0) K/mm3 RBC (3.65-5.03) M/mm3 Hgb (10.1-14.3) gm/dl Hct (30.3-42.9) % MCH (28-32) pg RDW (13.2-15.2) % Seg Neuts % (Manual) (40.0-70.0) % Lymphocytes % (Manual) (13.4-35.0) % Eosinophils % (Manual) (0.0-4.3) % Seg Neutrophils # Man (1.8-7.7) K/mm3 Eosinophils # (Manual) (0.0-0.4) K/mm3 Sodium (137-145) mmol/L Potassium (3.6-5.0) mmol/L Creatinine (0.7-1.2) mg/dL Glucose (65-100) mg/dL Calcium (8.4-10.2) mg/dL Magnesium 1.50 L (1.7-2.3) mg/dL
--- NOTE | 2018-06-04 09:12 | Progress Note ---
Assessment and Plan - Patient Problems (1) Acute renal failure Onset Date: 05/30/18 Current Visit: Yes Status: Acute Qualifiers: Acute renal failure type: unspecified Qualified Code(s): N17.9 - Acute kidney failure, unspecified (2) Bilateral hydronephrosis Onset Date: 05/30/18 Current Visit: Yes Status: Acute (3) Cervical mass Onset Date: 05/30/18 Current Visit: Yes Status: Chronic Plan to address problem: A: Cervical mass Obstructive uropathy Bilateral hydronephrosis ARF P: Even though path report does not confirm cervical cancer, the CT scan and pelvic exam is highly suspicious for cervical cancer. She will need a Cops Oncologist consultation - unfortunately we do NOT have a Cops Oncologist on staff at [facility] Subjective - Subjective Date of service: 06/04/18 Principal diagnosis: cervical mass Interval history: Reviewed path report - benign dyskeratosis Patient reports: appetite normal Objective - Vital Signs Latest vital signs: Vital Signs Temp Pulse Resp BP BP Pulse Ox 06/04/18 08:09 99.5 F 96 H 18 139/76 98 06/04/18 02:14 99.3 F 100 H 20 115/69 98 06/03/18 21:02 99.2 F 104 H 20 132/64 96 06/03/18 20:12 98 06/03/18 13:50 99.3 F 115 H 18 115/68 95 Intake and Output 06/03/18 06/04/18 06/04/18 22:59 06:59 14:59 Intake Total 1770 100 Output Total 850 1400 Balance 920 -1300 Intake: IV 100 100 MAXIPIME/NS 1 GM/100 ML 1 100 100 gm In 100 ml @ 200 mls/ hr IV Q12H [facility] Rx#: [id number] Oral 1010 Intake, Free Water 360 Other 300 Output: Urine 850 1400 Nephrostomy(Left) 300 Nephrostomy(right) 550 1400 Other: Intake, Other Source Saline Solution Total, Intake Amount 350 Total, Output Amount 850 1400 Voiding Method Toilet Weight 45.1 kg - Labs Labs: Abnormal lab results 06/03/18 06/04/18 06/04/18 Range/Units 13:14 05:30 05:30 WBC 20.4 H (4.5-11.0) K/mm3 RBC 3.50 L (3.65-5.03) M/mm3 Hgb 9.3 L (10.1-14.3) gm/dl Hct 28.3 L (30.3-42.9) % MCH 27 L (28-32) pg RDW 16.5 H (13.2-15.2) % Seg Neuts % (Manual) 83.0 H (40.0-70.0) % Lymphocytes % (Manual) 8.0 L (13.4-35.0) % Eosinophils % (Manual) 5.0 H (0.0-4.3) % Seg Neutrophils # Man 16.9 H (1.8-7.7) K/mm3 Eosinophils # (Manual) 1.0 H (0.0-0.4) K/mm3 Sodium 136 L (137-145) mmol/L Potassium 3.4 L (3.6-5.0) mmol/L Creatinine 0.4 L 0.3 L (0.7-1.2) mg/dL Glucose 144 H 115 H (65-100) mg/dL Calcium 8.0 L 7.9 L (8.4-10.2) mg/dL Magnesium (1.7-2.3) mg/dL 06/04/18 Range/Units 05:30 WBC (4.5-11.0) K/mm3 RBC (3.65-5.03) M/mm3 Hgb (10.1-14.3) gm/dl Hct (30.3-42.9) % MCH (28-32) pg RDW (13.2-15.2) % Seg Neuts % (Manual) (40.0-70.0) % Lymphocytes % (Manual) (13.4-35.0) % Eosinophils % (Manual) (0.0-4.3) % Seg Neutrophils # Man (1.8-7.7) K/mm3 Eosinophils # (Manual) (0.0-0.4) K/mm3 Sodium (137-145) mmol/L Potassium (3.6-5.0) mmol/L Creatinine (0.7-1.2) mg/dL Glucose (65-100) mg/dL Calcium (8.4-10.2) mg/dL Magnesium 1.50 L (1.7-2.3) mg/dL
--- NOTE | 2018-06-04 09:22 | Progress Note ---
Assessment and Plan Assessment and plan: Cervical mass with enlarged regional nodes, likely cervical cancer EUA and cervical biopsy done 05/31/18, report pending Leukemoid reaction. Etiology likely secondary to malignancy Cultures are negative. Patient has no evidence of any infectious process. Anemia. s/p Transfusion of 2 units PRBC Stool occult blood LYLE due to obstructive uropathy s/p emergenct hemodialysis Nephrology following Hypokalemia, replete K as needed. Check BMP Bilateral hydronephrosis . s/p bilat Nephrostomy tube placement 05/29 Full code status History Interval history: The patient is a 73-year-old female with no significant past medical history presented to the hospital emergency room on 05/28/2017 with complaints of suprapubic pain. Upon evaluation here, she was found to have acute renal failure, CT abdomen pelvis showed bilateral hydronephrosis and a large cervical mass. She had to undergo emergent dialysis with nephrology assistance after HD cath placement. On 05/29/2017 she underwent bilateral nephrostomy tube placements. 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 Infectious diseases was consulted due to low-grade temperatures and significant leukocytosis. She has bilateral nephrostomy tubes are draining . Her HD catheter was removed and her creatinine has returned back to normal. She has left lower extremity edema that has been going on for the last 2 weeks. Doppler was negative. Patient was noted to have leukemoid reaction present since admission that is likely related to underlying malignancy. However, ID treating empi rically with a short trial of IV cefepime to complete on tomorrow.. No complaints or new issues Hospitalist Physical - Constitutional Vitals: Temp Pulse Resp BP Pulse Ox 99.5 F 96 H 18 139/76 98 06/04/18 08:09 06/04/18 08:09 06/04/18 08:09 06/04/18 08:09 06/04/18 08:09 General appearance: Present: no acute distress - EENT Eyes: Present: PERRL, EOM intact ENT: hearing intact, clear oral mucosa, dentition normal - Neck Neck: Present: supple, normal ROM - Respiratory Respiratory effort: normal Respiratory: bilateral: CTA - Cardiovascular Rhythm: regular Heart Sounds: Present: S1 & S2. Absent: gallop, rub - Extremities Extremities: no ischemia, No edema, Full ROM - Abdominal General gastrointestinal: soft, non-tender, non-distended, normal bowel sounds - Integumentary Integumentary: Present: clear, warm, dry - Neurologic Neurologic: CNII-XII intact, moves all extremities Results - Labs CBC & Chem 7: 06/04/18 05:30 06/04/18 05:30 Labs: Laboratory Last Values WBC 20.4 K/mm3 (4.5-11.0) H 06/04/18 05:30 RBC 3.50 M/mm3 (3.65-5.03) L 06/04/18 05:30 Hgb 9.3 gm/dl (10.1-14.3) L 06/04/18 05:30 Hct 28.3 % (30.3-42.9) L 06/04/18 05:30 MCV 81 fl (79-97) 06/04/18 05:30 MCH 27 pg (28-32) L 06/04/18 05:30 MCHC 33 % (30-34) 06/04/18 05:30 RDW 16.5 % (13.2-15.2) H 06/04/18 05:30 Plt Count 299 K/mm3 (140-440) 06/04/18 05:30 Add Manual Diff Complete 06/04/18 05:30 Total Counted 100 06/04/18 05:30 Seg Neutrophils % Telesales Consultant 05/28/18 09:09 Seg Neuts % (Manual) 83.0 % (40.0-70.0) H 06/04/18 05:30 Band Neutrophils % 1.0 % 06/04/18 05:30 Lymphocytes % (Manual) 8.0 % (13.4-35.0) L 06/04/18 05:30 Reactive Lymphs % (Man) 0 % 06/04/18 05:30 Monocytes % (Manual) 3.0 % (0.0-7.3) 06/04/18 05:30 Eosinophils % (Manual) 5.0 % (0.0-4.3) H 06/04/18 05:30 Basophils % (Manual) 0 % (0.0-1.8) 06/04/18 05:30 Metamyelocytes % 0 % 06/04/18 05:30 Myelocytes % 0 % 06/04/18 05:30 Promyelocytes % 0 % 06/04/18 05:30 Blast Cells % 0 % 06/04/18 05:30 Nucleated RBC % Not Reportable 06/04/18 05:30 Seg Neutrophils # Man 16.9 K/mm3 (1.8-7.7) H 06/04/18 05:30 Band Neutrophils # 0.2 K/mm3 06/04/18 05:30 Lymphocytes # (Manual) 1.6 K/mm3 (1.2-5.4) 06/04/18 05:30 Abs React Lymphs (Man) 0.0 K/mm3 06/04/18 05:30 Monocytes # (Manual) 0.6 K/mm3 (0.0-0.8) 06/04/18 05:30 Eosinophils # (Manual) 1.0 K/mm3 (0.0-0.4) H 06/04/18 05:30 Basophils # (Manual) 0.0 K/mm3 (0.0-0.1) 06/04/18 05:30 Metamyelocytes # 0.0 K/mm3 06/04/18 05:30 Myelocytes # 0.0 K/mm3 06/04/18 05:30 Promyelocytes # 0.0 K/mm3 06/04/18 05:30 Blast Cells # 0.0 K/mm3 06/04/18 05:30 WBC Morphology Not Reportable 06/04/18 05:30 Hypersegmented Neuts Not Reportable 06/04/18 05:30 Hyposegmented Neuts Not Reportable 06/04/18 05:30 Hypogranular Neuts Not Reportable 06/04/18 05:30 Smudge Cells Not Reportable 06/04/18 05:30 Toxic Granulation Not Reportable 06/04/18 05:30 Toxic Vacuolation Not Reportable 06/04/18 05:30 Dohle Bodies Not Reportable 06/04/18 05:30 Pelger-Huet Anomaly Not Reportable 06/04/18 05:30 Sully Rods Not Reportable 06/04/18 05:30 Platelet Estimate Appears normal 06/04/18 05:30 Clumped Platelets Not Reportable 06/04/18 05:30 Plt Clumps, EDTA Not Reportable 06/04/18 05:30 Large Platelets Not Reportable 06/04/18 05:30 Giant Platelets Not Reportable 06/04/18 05:30 Platelet Satelliting Not Reportable 06/04/18 05:30 Plt Morphology Comment Not Reportable 06/04/18 05:30 RBC Morphology Not Reportable 06/04/18 05:30 Dimorphic RBCs Not Reportable 06/04/18 05:30 Polychromasia Not Reportable 06/04/18 05:30 Hypochromasia 1+ 06/04/18 05:30 Poikilocytosis Not Reportable 06/04/18 05:30 Anisocytosis 1+ 06/04/18 05:30 Microcytosis Few 06/04/18 05:30 Macrocytosis Not Reportable 06/04/18 05:30 Spherocytes Not Reportable 06/04/18 05:30 Pappenheimer Bodies Not Reportable 06/04/18 05:30 Sickle Cells Not Reportable 06/04/18 05:30 Target Cells Not Reportable 06/04/18 05:30 Tear Drop Cells Not Reportable 06/04/18 05:30 Ovalocytes Not Reportable 06/04/18 05:30 Stomatocytes Rare 06/04/18 05:30 Helmet Cells Not Reportable 06/04/18 05:30 [place] Bodies Not Reportable 06/04/18 05:30 Radom Rings Not Reportable 06/04/18 05:30 [place] Cells Not Reportable 06/04/18 05:30 Bite Cells Not Reportable 06/04/18 05:30 Crenated Cell Not Reportable 06/04/18 05:30 Elliptocytes Not Reportable 06/04/18 05:30 Acanthocytes (Spur) Not Reportable 06/04/18 05:30 Rouleaux Not Reportable 06/04/18 05:30 Hemoglobin C Crystals Not Reportable 06/04/18 05:30 Schistocytes Not Reportable 06/04/18 05:30 Malaria parasites Not Reportable 06/04/18 05:30 [place] Bodies Not Reportable 06/04/18 05:30 Hem Pathologist Commnt No 06/04/18 05:30 PT 14.9 Sec. (12.2-14.9) 05/28/18 09:09 INR 1.10 (0.87-1.13) 05/28/18 09:09 VBG pH 7.271 (7.320-7.420) L 05/28/18 09:09 Sodium 137 mmol/L (137-145) 06/04/18 05:30 Potassium 3.6 mmol/L (3.6-5.0) 06/04/18 05:30 Chloride 101.0 mmol/L (98-107) 06/04/18 05:30 Carbon Dioxide 26 mmol/L (22-30) 06/04/18 05:30 Anion Gap 14 mmol/L 06/04/18 05:30 BUN 9 mg/dL (7-17) 06/04/18 05:30 Creatinine 0.3 mg/dL (0.7-1.2) L 06/04/18 05:30 Estimated GFR > 60 ml/min 06/04/18 05:30 BUN/Creatinine Ratio 30 % 06/04/18 05:30 Glucose 115 mg/dL (65-100) H 06/04/18 05:30 Hemoglobin A1c 6.1 % (4-6) H 05/29/18 04:41 Lactic Acid 2.10 mmol/L (0.7-2.0) H* 05/28/18 13:29 Calcium 7.9 mg/dL (8.4-10.2) L 06/04/18 05:30 Magnesium 1.50 mg/dL (1.7-2.3) L 06/04/18 05:30 Iron 22 ug/dL (37-170) L 05/31/18 13:06 TIBC 81 mcg/dL (250-450) L 05/31/18 13:06 Ferritin 1083.0 ng/mL (13.0-400.0) H 05/31/18 13:06 Total Bilirubin 0.40 mg/dL (0.1-1.2) 05/30/18 04:29 AST 7 units/L (5-40) 05/30/18 04:29 ALT < 5 units/L (7-56) L 05/30/18 04:29 Alkaline Phosphatase 84 units/L (35-129) 05/30/18 04:29 Total Protein 6.2 g/dL (6.3-8.2) L D 05/30/18 04:29 Albumin 1.7 g/dL (3.9-5) L 05/30/18 04:29 Albumin/Globulin Ratio 0.4 % 05/30/18 04:29 Vitamin B12 753.6 pg/mL (211-911) 05/31/18 13:06 Folate 3.98 ng/mL (7.3-26.0) L 05/31/18 13:06 Urine Color Yellow (Yellow) 05/28/18 12:02 Urine Turbidity Clear (Clear) 05/28/18 12:02 Urine pH 7.0 (5.0-7.0) 05/28/18 12:02 Ur Specific [place] 1.006 (1.003-1.030) 05/28/18 12:02 Urine Protein 30 mg/dl mg/dL (Negative) 05/28/18 12:02 Urine Glucose (UA) Neg mg/dL (Negative) 05/28/18 12:02 Urine Ketones Tr mg/dL (Negative) 05/28/18 12:02 Urine Blood Mod (Negative) 05/28/18 12:02 Urine Nitrite Neg (Negative) 05/28/18 12:02 Urine Bilirubin Neg (Negative) 05/28/18 12:02 Urine Urobilinogen < 2.0 mg/dL (<2.0) 05/28/18 12:02 Ur Leukocyte Esterase Neg (Negative) 05/28/18 12:02 Urine WBC (Auto) 6.0 /HPF (0.0-6.0) 05/28/18 12:02 Urine RBC (Auto) 5.0 /HPF (0.0-6.0) 05/28/18 12:02 U Epithel Cells (Auto) 1.0 /HPF (0-13.0) 05/28/18 12:02 Urine Bacteria (Auto) 1+ /HPF (Negative) 05/28/18 12:02 Urine Mucus Few /HPF 05/28/18 12:02 Hepatitis A IgM Ab Non-reactive (NonReactive) 05/28/18 15:50 Hep Bs Antigen Non-reactive (Negative) 05/28/18 15:50 Hep B Core IgM Ab Non-reactive (NonReactive) 05/28/18 15:50 Hepatitis C Antibody Non-reactive (NonReactive) 05/28/18 15:50 Blood Type O POSITIVE 05/29/18 09:41 Antibody Screen Negative 05/29/18 09:41 Crossmatch See Detail 05/29/18 09:41 Nutrition/Malnutrition Assess - Dietary Evaluation Nutrition/Malnutrition Findings: Nutrition Notes Start: 06/01/18 14:20 Freq: Status: Active Protocol: Document 06/03/18 15:36 SA (Rec: 06/03/18 16:08 SA [id number]) Co-Sign 06/03/18 15:36 LP Nutrition Notes Initial or Follow up Reassessment Current Diagnosis Acute Kidney Injury Other Pertinent Diagnosis Metastatic cervical cancer, esophageal obstruction Current Diet Mechanical Soft Labs/Tests Na: 136 K: 3.1 Cr: 0.5 Glu: 102 Ca: 7.9 Pertinent Medications Reviewed Height 5 ft 2 in Weight 45.1 kg [place] Body Weight (kg) 50.00 BMI 18.1 Weight Status Underweight Subjective/Other Information Patient unable to speak Engl[place]. Interpretive services used to communicate. Patient states appetite is poor. Patient reports eating 5% of meals at hospital stay. Patient states drinking ONS in mornings and drinking almost all of it. Patient states she doesn't know her UBW. Percent of energy/protein needs met: 9%/ Minimum of two criteria Yes Energy Intake (non-severe) <75% Estimated Energy Requirement >7 days Muscle Mass Mild Depletion (non-severe) #1 Nutrition Diagnosis Malnutrition Etiology decreased appetite As Evidenced by Signs and Symptoms eating less than 5% of meals and temporal wasting Diagnosis Progress(for reassessment Continues documentation) Is patient on ventilator? No Is Patient Ambulatory and/or Out of Bed Yes [facility] [ 1188.525 [id number]] Kcal/Kg value to use for calculation 33 Approximate Energy Requirements Using 1488 kcal/Kg Calculation Used for Recommendations Kcal/kg Additional Notes Protein Needs: 54-68g (1.2-1. 5g/kg) Fluid Needs: 1 ml/kcal Nutrition Intervention Change Diet Order: Continue current Add Supplement/Snack (indicate name/kcal Ensure Enlive 1 daily /protein ) Provides kCal: 350 Provides Protein (gm) 20 Goal #1 Meet at least 75% of calorie and protein needs via PO and ONS intake Anticipated Discharge Needs: unable to determine at this time Follow-Up By: 06/05/18 Additional Comments F/U for PO and ONS intakes
--- NOTE | 2018-06-04 10:52 | Progress Note ---
Assessment and Plan Impression: * LYLE * obstructive uropathy * Uremia * AMS * bilateral hydronephrosis * metabolic acidosis * cervical lymphadenopathy * hypokalemia * Anemia Plan: * s/p emergent hd * stopped dialysis, removed vasc cath yesterday * replete k and mag prn * cr is normal at this time * strict i/os, avoid nephrotoxins * s/p PCNT bilaterally * rec Corporate Safety Director onc consultation * daily lytes * will follow labs peripherally Subjective Date of service: 06/04/18 Principal diagnosis: cervical mass Interval history: resting in bed today Objective - Exam Narrative Exam: General: No limitations, patient is alert in no acute distress Head exam: Atraumatic, normocephalic Eyes exam: Normal appearance, pupils equal reactive to light, extraocular movements intact ENT: Moist mucous membrane, normal oropharynx Neck exam: Normal inspection, full range of motion, no meningismus nontender Respiratory exam: Clear to auscultation bilateral, no wheezes, rales, crackles Cardiovascular: Normal rate and rhythm Abdomen: Soft, nondistended, suprapubic tenderness, with normal bowel sounds, no rebound, or guarding Extremity: Full range of motion normal inspection no deformity Back: Normal Inspection, full range of motion, no tenderness Neurologic: Alert, oriented x3, cranial nerves intact, no motor or sensory def icit Psychiatric: normal affect, normal mood Skin: Warm, dry, intact - Vital Signs Vital signs: Vital Signs - 12hr 06/04/18 06/04/18 06/04/18 02:14 08:09 09:19 Temperature 99.3 F 99.5 F Pulse Rate 100 H 96 H Respiratory 20 18 18 Rate Blood Pressure 115/69 Blood Pressure 139/76 [Right] O2 Sat by Pulse 98 98 100 Oximetry - Lab 06/04/18 05:30 06/04/18 05:30 Most recent lab results Calcium 7.9 mg/dL (8.4-10.2) L 06/04/18 05:30 Magnesium 1.50 mg/dL (1.7-2.3) L 06/04/18 05:30 Medications & Allergies - Medications Allergies/Adverse Reactions: Allergies No Known Allergies Allergy (Verified 05/28/18 09:10) Home Medications: Home Medications Medication Instructions Recorded Confirmed Last Taken Type No Known Home Medications [No 05/28/18 05/28/18 Unknown History Reported Home Medications] Active Medications: Generic Name Dose Route Start Last Admin Trade Name Freq PRN Reason Stop Dose Admin Acetaminophen 650 mg 05/28/18 22:37 05/28/18 23:04 Tylenol PO 650 mg Q6H PRN Administration Pain, Mild (1-3) Famotidine 10 mg 05/29/18 10:00 06/03/18 21:03 Pepcid PO 10 mg BID ALBINA Administration Ferrous Sulfate 325 mg 06/04/18 10:00 Feosol PO BID ALBINA Folic Acid 1 mg 05/31/18 17:00 06/03/18 09:42 Folvite PO 1 mg QDAY ALBINA Administration Heparin Sodium (Porcine) 5,000 unit 05/31/18 22:00 06/03/18 21:03 Heparin SUB-Q 5,000 unit Q12HR ALBINA Administration Hydromorphone HCl 0.5 mg 05/29/18 03:21 06/01/18 09:45 Dilaudid IV 0.5 mg Q3H PRN Administration Pain , Severe (7-10) Sodium Chloride 100 mls @ 999 mls/hr 05/28/18 13:21 Nacl 0.9% IV CATHERINE PRN Hypotension Cefepime HCl 1 gm in 100 mls @ 200 mls/hr 06/01/18 18:00 06/04/18 05:43 Maxipime/Ns 1 Gm/100 Ml IV Infused Q12H ALBINA Infusion Protocol Potassium Chloride 40 meq/ 1,020 mls @ 100 mls/hr 06/02/18 11:00 06/03/18 21:01 Sodium Chloride IV 100 mls/hr DIRECT ALBINA Administration Metoclopramide HCl 5 mg 05/29/18 22:00 06/03/18 21:03 Reglan IV 5 mg BID ALBINA Administration Multivitamins 5 ml 05/31/18 17:00 06/03/18 09:42 Centrum Liq PO 5 ml QDAY ALBINA Administration Ondansetron HCl 4 mg 05/31/18 10:20 Zofran IV ONCE PRN Nausea And Vomiting Oxycodone/Acetaminophen 1 tab 05/29/18 03:21 06/02/18 22:17 Percocet 5/325 PO 1 tab Q6H PRN Administration Pain, Moderate (4-6) Sodium Chloride 10 ml 05/29/18 04:00 06/03/18 21:04 Sodium Chloride Flush Syringe 10 Ml IV 10 ml BID ALBINA Administration Sodium Chloride 10 ml 05/29/18 03:19 Sodium Chloride Flush Syringe 10 Ml IV PRN PRN LINE FLUSH
[2018-06-04] MEDS: Centrum Liq PO SCH (11:15)
[2018-06-04] MEDS: FEOSOL PO SCH ×2 (11:15→21:31)
[2018-06-04] MEDS: PEPCID PO SCH ×2 (11:15→21:30)
[2018-06-04] MEDS: HEPARIN SUB-Q SCH ×2 (11:16→21:31)
[2018-06-04] MEDS: REGLAN IV SCH ×2 (11:16→21:31)
[2018-06-04] MEDS: FOLVITE PO SCH (11:16)
[2018-06-04] MEDS: SODIUM CHLORIDE FLUSH SYRINGE 10 ML IV SCH ×2 (11:16→21:31)
[2018-06-04] MEDS: KCL 40 MEQ in NACL 0.45% 1000 ML 1,000 ML IV SCH (12:57)
[2018-06-04] MEDS: ROCEPHIN/NS 2 GM/100 ML 2 GM/100 ML BAG IV SCH (17:55)
[2018-06-04] MEDS: FLAGYL 500 MG/100 ML 500 MG/100 ML BAG IV SCH ×2 (17:58→21:30)
[2018-06-04 21:00] LABS: BUN/Creatinine Ratio 27; Blood Urea Nitrogen 8 mg/dL (7-17); Calcium 7.9 mg/dL (8.4-10.2); Hemolysis Index 0
[2018-06-05] MEDS: KCL 40 MEQ in NACL 0.45% 1000 ML 1,000 ML IV SCH ×2 (02:00→16:33)
[2018-06-05] MEDS: FLAGYL 500 MG/100 ML 500 MG/100 ML BAG IV SCH ×3 (05:13→21:53)
--- NOTE | 2018-06-05 06:48 | Hem/Onc Progress Note ---
Assessment and Plan 1. Cervical mass. 2. Retroperitoneal lymph nodes. 3. Bone abnormality. 4. Hydronephrosis. 5. DIRECTOR OF RELIGIOUS ACTIVITIES team is biopsy. This most likely is advanced cervical cancer, 6 - severe anemia - will Ix and follow I will liase with DIRECTOR OF RELIGIOUS ACTIVITIES team. s/p nephrostomy+ 05/31 - s/p cx bx 06/01 - d/w daughter - reg bone lesion 06/02 - on folic acid - s/p iv iron - path pending 06/03 - path pending - d/w RN reg same 06/04 - path - neg for neoplasm - ? need for repeat bx - bundler following oral iron 06/05 - Ct chest and bone scan - as per bundler - bundler onc planned project hire is now normal - ? Ct with contrast?? - Patient Problems (1) Anemia Current Visit: Yes Status: Acute Qualifiers: Anemia type: iron deficiency (2) Cervical mass Onset Date: 05/30/18 Current Visit: Yes Status: Chronic Subjective Date of service: 06/05/18 Principal diagnosis: cervical mass Interval history: bx neg for cancer Objective - Constitutional Vitals: Last Vital Signs Temp 98.6 F 06/05/18 02:09 Pulse 101 H 06/05/18 02:09 Resp 18 06/05/18 02:09 BP 136/73 06/05/18 02:09 Pulse Ox 96 06/05/18 02:09 Pain Intensity (0-10): denies any pain General appearance: no acute distress Performance status: 3-limited selfcare - EENT Eyes: EOM intact ENT: clear oral mucosa Lymph node exam: negative cervical - Neck Neck: normal ROM - Respiratory Respiratory effort: Positive: normal Respiratory: bilateral: CTA - Cardiovascular Heart Sounds: Present: S1 & S2 Extremities: normal temperature - Gastrointestinal General gastrointestinal: Present: soft, non-tender Rectal Exam: deferred - Genitourinary Female genitourinary: Present: deferred - Integumentary Integumentary: warm - Musculoskeletal Musculoskeletal: other (left leg slightly weak ) - Psychiatric Psychiatric: appropriate mood/affect - Labs Lab Results: Laboratory Results - last 24 hr 06/04/18 06/04/18 06/04/18 05:30 20:15 20:15 Add Manual Diff Complete Total Counted 100 Seg Neuts % (Manual) 83.0 H Band Neutrophils % 1.0 Lymphocytes % (Manual) 8.0 L Reactive Lymphs % (Man) 0 Monocytes % (Manual) 3.0 Eosinophils % (Manual) 5.0 H Basophils % (Manual) 0 Metamyelocytes % 0 Myelocytes % 0 Promyelocytes % 0 Blast Cells % 0 Nucleated RBC % Not Reportable Seg Neutrophils # Man 16.9 H Band Neutrophils # 0.2 Lymphocytes # (Manual) 1.6 Abs React Lymphs (Man) 0.0 Monocytes # (Manual) 0.6 Eosinophils # (Manual) 1.0 H Basophils # (Manual) 0.0 Metamyelocytes # 0.0 Myelocytes # 0.0 Promyelocytes # 0.0 Blast Cells # 0.0 WBC Morphology Not Reportable Hypersegmented Neuts Not Reportable Hyposegmented Neuts Not Reportable Hypogranular Neuts Not Reportable Smudge Cells Not Reportable Toxic Granulation Not Reportable Toxic Vacuolation Not Reportable Dohle Bodies Not Reportable Pelger-Huet Anomaly Not Reportable Sully Rods Not Reportable Platelet Estimate Appears normal Clumped Platelets Not Reportable Plt Clumps, EDTA Not Reportable Large Platelets Not Reportable Giant Platelets Not Reportable Platelet Satelliting Not Reportable Plt Morphology Comment Not Reportable RBC Morphology Not Reportable Dimorphic RBCs Not Reportable Polychromasia Not Reportable Hypochromasia 1+ Poikilocytosis Not Reportable Anisocytosis 1+ Microcytosis Few Macrocytosis Not Reportable Spherocytes Not Reportable Pappenheimer Bodies Not Reportable Sickle Cells Not Reportable Target Cells Not Reportable Tear Drop Cells Not Reportable Ovalocytes Not Reportable Stomatocytes Rare Helmet Cells Not Reportable [place] Bodies Not Reportable [place] Rings Not Reportable [place] Cells Not Reportable Bite Cells Not Reportable Crenated Cell Not Reportable Elliptocytes Not Reportable Acanthocytes (Spur) Not Reportable Rouleaux Not Reportable Hemoglobin C Crystals Not Reportable Schistocytes Not Reportable Malaria parasites Not Reportable [place] Bodies Not Reportable Hem Pathologist Commnt No Sodium 134 L Potassium 4.3 Chloride 99.9 Carbon Dioxide 23 Anion Gap 15 BUN 8 Creatinine 0.3 L Estimated GFR > 60 BUN/Creatinine Ratio 27 Glucose 105 H Calcium 7.9 L HIV 1&2 Antibody Rapid Non react HIV P24 Antigen Non react Medications & Allergies - Medications Allergies/Adverse Reactions: Allergies No Known Allergies Allergy (Verified 05/28/18 09:10) Home Medications: Home Medications Medication Instructions Recorded Confirmed Last Taken Type No Known Home Medications [No 05/28/18 05/28/18 Unknown History Reported Home Medications] Active Medications: Generic Name Dose Route Start Last Admin Trade Name Freq PRN Reason Stop Dose Admin Acetaminophen 650 mg 05/28/18 22:37 05/28/18 23:04 Tylenol PO 650 mg Q6H PRN Administration Pain, Mild (1-3) Famotidine 10 mg 05/29/18 10:00 06/04/18 21:30 Pepcid PO 10 mg BID ALBINA Administration Ferrous Sulfate 325 mg 06/04/18 10:00 06/04/18 21:31 Feosol PO 325 mg BID ALBINA Administration Folic Acid 1 mg 05/31/18 17:00 06/04/18 11:16 Folvite PO 1 mg QDAY ALBINA Administration Heparin Sodium (Porcine) 5,000 unit 05/31/18 22:00 06/04/18 21:31 Heparin SUB-Q 5,000 unit Q12HR ALBINA Administration Hydromorphone HCl 0.5 mg 05/29/18 03:21 06/01/18 09:45 Dilaudid IV 0.5 mg Q3H PRN Administration Pain , Severe (7-10) Sodium Chloride 100 mls @ 999 mls/hr 05/28/18 13:21 Nacl 0.9% IV CATHERINE PRN Hypotension Potassium Chloride 40 meq/ 1,020 mls @ 100 mls/hr 06/02/18 11:00 06/05/18 02:00 Sodium Chloride IV 100 mls/hr DIRECT ALBINA Administration Ceftriaxone Sodium 2 gm in 100 mls @ 200 mls/hr 06/04/18 16:00 06/04/18 19:00 Rocephin/Ns 2 Gm/100 Ml IV Infused Q24HR ALBINA Infusion Protocol Metronidazole 500 mg in 100 mls @ 100 mls/hr 06/04/18 16:00 06/05/18 05:13 Flagyl 500 Mg/100 Ml IV 100 mls/hr Q8HR ALBINA Administration Protocol Metoclopramide HCl 5 mg 05/29/18 22:00 06/04/18 21:31 Reglan IV 5 mg BID ALBINA Administration Multivitamins 5 ml 05/31/18 17:00 06/04/18 11:15 Centrum Liq PO 5 ml QDAY ALBINA Administration Oxycodone/Acetaminophen 1 tab 05/29/18 03:21 06/02/18 22:17 Percocet 5/325 PO 1 tab Q6H PRN Administration Pain, Moderate (4-6) Sodium Chloride 10 ml 05/29/18 04:00 06/04/18 21:31 Sodium Chloride Flush Syringe 10 Ml IV 10 ml BID ALBINA Administration Sodium Chloride 10 ml 05/29/18 03:19 Sodium Chloride Flush Syringe 10 Ml IV PRN PRN LINE FLUSH
--- NOTE | 2018-06-05 09:24 | Progress Note ---
Assessment and Plan Cultures: 05/28/2018 blood culture: No growth 05/28/2018 urine culture: No significant growth A/P: 73-year-old female with no significant past medical history presented to the hospital emergency room on 05/28/2017 with complaints of suprapubic pain. Now with: 1) Leukemoid reaction: present since admission and continuing, likely related to underlying malignancy. She does not appear to be septic at this time. She has no diarrhea. Cultures with no growth. Continue short trial of IV cefepime , di scontinued. Started Ceftriaxone and Flagyl. HIV negative. 2) Suspected cervical cancer: Status post biopsy.. 06/04 - path - neg for neoplasm, concern remains for malignancy, however, patient did have significant leukocytosis on admission which has been improving whether that was reactive in the setting of obstructive uropathy versus infectious (and responding to Cefepime) is difficult to ascertain at this time. Certain infections could also mimic a malignancy. For now, will continue antibiotics. 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 Likely from obstructive uropathy: Status post bilateral nephrostomy tube placements with improvement in creatinine. 4) Anemia: s/p transfusion. 5) Left lower extremity edema: Asymmetric compared to the right. Duplex scan negative. No evidence of deep venous thrombosis. Recs: Start Cefttriaxone 2 gm IV every 24 hours Start Flagyl 500 mg IV q 8 H f/u RPR/GC Continue to monitor WBC Consider IR biopsy, and send separate samples for histopathology and separate sample for aerobic, fungal and AFB cultures Dr. Pereira will be search engine optimization manager this weekend, . Please call for questions. Marguerite Whitney NP [facility] M: [id number] O:[phone] Subjective Date of service: 06/05/18 Principal diagnosis: cervical mass Interval history: Patient seen and examined. Asleep, easily arousable. Communication via interpretation line, primary language [place] Irish. Denied generalized pain, no fevers. Objective - Exam Narrative Exam: Constitutional: Asleep, easily arousable. . No acute distress Head, Ears, Nose: Normocephalic, atraumatic. External ears, nose normal Eyes: Conjunctivae/corneas clear. No icterus. No ptosis. Neck: Supple, no meningeal signs Oral: no thrush Cardiovascular: ST Respiratory: Good air entry, clear to auscultation bilaterally GI: Soft, non-tender; bowel sounds normal. No peritoneal signs. B/L nephrostomy tubes + Musculoskeletal: LLE edema + Skin: No rash or abscess Hem/Lymphatic: No palpable cervical or supraclavicular nodes. No lymphangitis Psych: Mood ok. Affect normal Neurological: Asleep, easily arousable, oriented. No gross abnormality - Constitutional Vitals: Vital Signs Temp Pulse Resp BP Pulse Ox 98.7 F 97 H 16 133/72 97 06/05/18 08:18 06/05/18 08:18 06/05/18 08:18 06/05/18 08:18 06/05/18 08:18 Temperature -Last 24 Hours Temperature 98.7 F Temperature 98.6 F Temperature 99.5 F Temperature 99.5 F - Labs CBC & Chem 7: 06/04/18 05:30 06/05/18 14:50 Labs: Abnormal lab results 06/04/18 Range/Units 20:15 Sodium 134 L (137-145) mmol/L Creatinine 0.3 L (0.7-1.2) mg/dL Glucose 105 H (65-100) mg/dL Calcium 7.9 L (8.4-10.2) mg/dL
[2018-06-05] MEDS: PEPCID PO SCH ×2 (09:47→21:54)
[2018-06-05] MEDS: REGLAN IV SCH ×2 (09:47→21:53)
[2018-06-05] MEDS: FOLVITE PO SCH (09:47)
[2018-06-05] MEDS: Centrum Liq PO SCH (09:47)
[2018-06-05] MEDS: FEOSOL PO SCH ×2 (09:47→21:54)
[2018-06-05] MEDS: ROCEPHIN/NS 2 GM/100 ML 2 GM/100 ML BAG IV SCH (09:51)
[2018-06-05] MEDS: HEPARIN SUB-Q SCH ×2 (09:52→21:54)
[2018-06-05 12:47] LABS: BUN/Creatinine Ratio 35; Blood Urea Nitrogen 7 mg/dL (7-17); Hemolysis Index 12
[2018-06-05 12:54] LABS: Calcium 8.5 mg/dL (8.4-10.2)
--- NOTE | 2018-06-05 13:53 | Progress Note ---
Assessment and Plan Assessment and plan: Cervical mass. Pt. with enlarged regional nodes, suspected cervical cancer but 06/04 bx with negative path for neoplasm concern remains for malignancy, however, patient did have significant leukocytosis on admission which has been improving whether that was reactive in the setting of obstructive uropathy versus infectious (and responding to Cefepime) is difficult to ascertain at this time. Certain in fections could also mimic a malignancy. For now, will continue antibiotics. Consider IR biopsy, and send separate samples for histopathology and separate sample for aerobic, fungal and AFB cultures -GAS LINE SERVICER and Hematology following. ID d/w GAS LINE SERVICER. Leukemoid reaction. ? Infectious etiology. Ceftriaxone and Flagyl started per ID Anemia. s/p Transfusion of 2 units PRBC Stool occult blood LYLE due to obstructive uropathy s/p emergenct hemodialysis Nephrology following Hypokalemia, replete K as needed. Check BMP Bilateral hydronephrosis . s/p bilat Nephrostomy tube placement 05/29 Full code status History Interval history: The patient is a 73-year-old female with no significant past medical history presented to the hospital emergency room on 05/28/2017 with complaints of suprapubic pain. Upon evaluation here, she was found to have acute renal failure, CT abdomen pelvis showed bilateral hydronephrosis and a large cervical mass. She had to undergo emergent dialysis with nephrology assistance after HD cath placement. On 05/29/2017 she underwent bilateral nephrostomy tube placements. On 05/31/2018, she underwent EUA and cervical biopsies by GAS LINE SERVICER. Infectious diseases was consulted due to low-grade temperatures and significant leukocytosis. She has bilateral nephrostomy tubes are draining . Her HD catheter was removed and her creatinine has returned back to normal. She has left lower extremity edema that has been going on for the last 2 weeks. Doppler was negative. Patient was noted to have leukemoid reaction present since admission that is likely related to underlying malignancy. However, ID treating empirically with a short trial of IV cefepime to complete today No complaints or new issues Hospitalist Physical - Constitutional Vitals: Temp Pulse Resp BP Pulse Ox 98.7 F 102 H 16 133/72 97 06/05/18 08:18 06/05/18 10:00 06/05/18 08:18 06/05/18 08:18 06/05/18 10:00 General appearance: Present: no acute distress - EENT Eyes: Present: PERRL, EOM intact ENT: hearing intact, clear oral mucosa, dentition normal - Neck Neck: Present: supple, normal ROM - Respiratory Respiratory effort: normal Respiratory: bilateral: CTA - Cardiovascular Rhythm: regular Heart Sounds: Present: S1 & S2. Absent: gallop, rub - Extremities Extremities: no ischemia, No edema, Full ROM - Abdominal General gastrointestinal: soft, non-tender, non-distended, normal bowel sounds - Integumentary Integumentary: Present: clear, warm, dry - Neurologic Neurologic: CNII-XII intact, moves all extremities Results - Labs CBC & Chem 7: 06/04/18 05:30 06/05/18 11:31 Labs: Laboratory Last Values WBC 20.4 K/mm3 (4.5-11.0) H 06/04/18 05:30 RBC 3.50 M/mm3 (3.65-5.03) L 06/04/18 05:30 Hgb 9.3 gm/dl (10.1-14.3) L 06/04/18 05:30 Hct 28.3 % (30.3-42.9) L 06/04/18 05:30 MCV 81 fl (79-97) 06/04/18 05:30 MCH 27 pg (28-32) L 06/04/18 05:30 MCHC 33 % (30-34) 06/04/18 05:30 RDW 16.5 % (13.2-15.2) H 06/04/18 05:30 Plt Count 299 K/mm3 (140-440) 06/04/18 05:30 Add Manual Diff Complete 06/04/18 05:30 Total Counted 100 06/04/18 05:30 Seg Neutrophils % Early Morning Babysitter 05/28/18 09:09 Seg Neuts % (Manual) 83.0 % (40.0-70.0) H 06/04/18 05:30 Band Neutrophils % 1.0 % 06/04/18 05:30 Lymphocytes % (Manual) 8.0 % (13.4-35.0) L 06/04/18 05:30 Reactive Lymphs % (Man) 0 % 06/04/18 05:30 Monocytes % (Manual) 3.0 % (0.0-7.3) 06/04/18 05:30 Eosinophils % (Manual) 5.0 % (0.0-4.3) H 06/04/18 05:30 Basophils % (Manual) 0 % (0.0-1.8) 06/04/18 05:30 Metamyelocytes % 0 % 06/04/18 05:30 Myelocytes % 0 % 06/04/18 05:30 Promyelocytes % 0 % 06/04/18 05:30 Blast Cells % 0 % 06/04/18 05:30 Nucleated RBC % Not Reportable 06/04/18 05:30 Seg Neutrophils # Man 16.9 K/mm3 (1.8-7.7) H 06/04/18 05:30 Band Neutrophils # 0.2 K/mm3 06/04/18 05:30 Lymphocytes # (Manual) 1.6 K/mm3 (1.2-5.4) 06/04/18 05:30 Abs React Lymphs (Man) 0.0 K/mm3 06/04/18 05:30 Monocytes # (Manual) 0.6 K/mm3 (0.0-0.8) 06/04/18 05:30 Eosinophils # (Manual) 1.0 K/mm3 (0.0-0.4) H 06/04/18 05:30 Basophils # (Manual) 0.0 K/mm3 (0.0-0.1) 06/04/18 05:30 Metamyelocytes # 0.0 K/mm3 06/04/18 05:30 Myelocytes # 0.0 K/mm3 06/04/18 05:30 Promyelocytes # 0.0 K/mm3 06/04/18 05:30 Blast Cells # 0.0 K/mm3 06/04/18 05:30 WBC Morphology Not Reportable 06/04/18 05:30 Hypersegmented Neuts Not Reportable 06/04/18 05:30 Hyposegmented Neuts Not Reportable 06/04/18 05:30 Hypogranular Neuts Not Reportable 06/04/18 05:30 Smudge Cells Not Reportable 06/04/18 05:30 Toxic Granulation Not Reportable 06/04/18 05:30 Toxic Vacuolation Not Reportable 06/04/18 05:30 Dohle Bodies Not Reportable 06/04/18 05:30 Pelger-Huet Anomaly Not Reportable 06/04/18 05:30 Sully Rods Not Reportable 06/04/18 05:30 Platelet Estimate Appears normal 06/04/18 05:30 Clumped Platelets Not Reportable 06/04/18 05:30 Plt Clumps, EDTA Not Reportable 06/04/18 05:30 Large Platelets Not Reportable 06/04/18 05:30 Giant Platelets Not Reportable 06/04/18 05:30 Platelet Satelliting Not Reportable 06/04/18 05:30 Plt Morphology Comment Not Reportable 06/04/18 05:30 RBC Morphology Not Reportable 06/04/18 05:30 Dimorphic RBCs Not Reportable 06/04/18 05:30 Polychromasia Not Reportable 06/04/18 05:30 Hypochromasia 1+ 06/04/18 05:30 Poikilocytosis Not Reportable 06/04/18 05:30 Anisocytosis 1+ 06/04/18 05:30 Microcytosis Few 06/04/18 05:30 Macrocytosis Not Reportable 06/04/18 05:30 Spherocytes Not Reportable 06/04/18 05:30 Pappenheimer Bodies Not Reportable 06/04/18 05:30 Sickle Cells Not Reportable 06/04/18 05:30 Target Cells Not Reportable 06/04/18 05:30 Tear Drop Cells Not Reportable 06/04/18 05:30 Ovalocytes Not Reportable 06/04/18 05:30 Stomatocytes Rare 06/04/18 05:30 Helmet Cells Not Reportable 06/04/18 05:30 [place] Bodies Not Reportable 06/04/18 05:30 [place] Rings Not Reportable 06/04/18 05:30 [place] Cells Not Reportable 06/04/18 05:30 Bite Cells Not Reportable 06/04/18 05:30 Crenated Cell Not Reportable 06/04/18 05:30 Elliptocytes Not Reportable 06/04/18 05:30 Acanthocytes (Spur) Not Reportable 06/04/18 05:30 Rouleaux Not Reportable 06/04/18 05:30 Hemoglobin C Crystals Not Reportable 06/04/18 05:30 Schistocytes Not Reportable 06/04/18 05:30 Malaria parasites Not Reportable 06/04/18 05:30 [place] Bodies Not Reportable 06/04/18 05:30 Hem Pathologist Commnt No 06/04/18 05:30 PT 14.9 Sec. (12.2-14.9) 05/28/18 09:09 INR 1.10 (0.87-1.13) 05/28/18 09:09 VBG pH 7.271 (7.320-7.420) L 05/28/18 09:09 Sodium 129 mmol/L (137-145) L 06/05/18 11:31 Potassium 4.5 mmol/L (3.6-5.0) 06/05/18 11:31 Chloride 94.9 mmol/L (98-107) L 06/05/18 11:31 Carbon Dioxide 15 mmol/L (22-30) L D 06/05/18 11:31 Anion Gap 24 mmol/L 06/05/18 11:31 BUN 7 mg/dL (7-17) 06/05/18 11:31 Creatinine 0.2 mg/dL (0.7-1.2) L 06/05/18 11:31 Estimated GFR > 60 ml/min 06/05/18 11:31 BUN/Creatinine Ratio 35 % 06/05/18 11:31 Glucose 94 mg/dL (65-100) 06/05/18 11:31 Hemoglobin A1c 6.1 % (4-6) H 05/29/18 04:41 Lactic Acid 2.10 mmol/L (0.7-2.0) H* 05/28/18 13:29 Calcium 8.5 mg/dL (8.4-10.2) 06/05/18 11:31 Magnesium 1.50 mg/dL (1.7-2.3) L 06/04/18 05:30 Iron 22 ug/dL (37-170) L 05/31/18 13:06 TIBC 81 mcg/dL (250-450) L 05/31/18 13:06 Ferritin 1083.0 ng/mL (13.0-400.0) H 05/31/18 13:06 Total Bilirubin 0.40 mg/dL (0.1-1.2) 05/30/18 04:29 AST 7 units/L (5-40) 05/30/18 04:29 ALT < 5 units/L (7-56) L 05/30/18 04:29 Alkaline Phosphatase 84 units/L (35-129) 05/30/18 04:29 Total Protein 6.2 g/dL (6.3-8.2) L D 05/30/18 04:29 Albumin 1.7 g/dL (3.9-5) L 05/30/18 04:29 Albumin/Globulin Ratio 0.4 % 05/30/18 04:29 Vitamin B12 753.6 pg/mL (211-911) 05/31/18 13:06 Folate 3.98 ng/mL (7.3-26.0) L 05/31/18 13:06 Urine Color Yellow (Yellow) 05/28/18 12:02 Urine Turbidity Clear (Clear) 05/28/18 12:02 Urine pH 7.0 (5.0-7.0) 05/28/18 12:02 Ur Specific [place] 1.006 (1.003-1.030) 05/28/18 12:02 Urine Protein 30 mg/dl mg/dL (Negative) 05/28/18 12:02 Urine Glucose (UA) Neg mg/dL (Negative) 05/28/18 12:02 Urine Ketones Tr mg/dL (Negative) 05/28/18 12:02 Urine Blood Mod (Negative) 05/28/18 12:02 Urine Nitrite Neg (Negative) 05/28/18 12:02 Urine Bilirubin Neg (Negative) 05/28/18 12:02 Urine Urobilinogen < 2.0 mg/dL (<2.0) 05/28/18 12:02 Ur Leukocyte Esterase Neg (Negative) 05/28/18 12:02 Urine WBC (Auto) 6.0 /HPF (0.0-6.0) 05/28/18 12:02 Urine RBC (Auto) 5.0 /HPF (0.0-6.0) 05/28/18 12:02 U Epithel Cells (Auto) 1.0 /HPF (0-13.0) 05/28/18 12:02 Urine Bacteria (Auto) 1+ /HPF (Negative) 05/28/18 12:02 Urine Mucus Few /HPF 05/28/18 12:02 RPR Nonreactive (Nonreactive) 06/04/18 20:15 Hepatitis A IgM Ab Non-reactive (NonReactive) 05/28/18 15:50 Hep Bs Antigen Non-reactive (Negative) 05/28/18 15:50 Hep B Core IgM Ab Non-reactive (NonReactive) 05/28/18 15:50 Hepatitis C Antibody Non-reactive (NonReactive) 05/28/18 15:50 HIV 1&2 Antibody Rapid Non react (Non React) 06/04/18 20:15 HIV P24 Antigen Non react (Non React) 06/04/18 20:15 Blood Type O POSITIVE 05/29/18 09:41 Antibody Screen Negative 05/29/18 09:41 Crossmatch See Detail 05/29/18 09:41 Nutrition/Malnutrition Assess - Dietary Evaluation Nutrition/Malnutrition Findings: Nutrition Notes Start: 06/01/18 14:20 Freq: Status: Active Protocol: Document 06/05/18 10:07 (Rec: 06/05/18 10:35 [id number]) Co-Sign 06/05/18 10:07 LP Nutrition Notes Initial or Follow up Reassessment Current Diagnosis Acute Kidney Injury Other Pertinent Diagnosis Metastatic cervical cancer, esophageal obstruction Current Diet Mechanical Soft Labs/Tests Na: 134 Cr: 0.3 Glu: 105 Ca: 7.9 Pertinent Medications Reviewed Height 5 ft 2 in Weight 45.1 kg [place] Body Weight (kg) 50.00 BMI 18.1 Weight Status Underweight Subjective/Other Information Interpretive phone used to commincate. Patient states no appetite at all. She reports eating a spoonful at each meal but states she is drinking her ONS. Patient reports vomiting yesterday and experiencing nausea. Patient reports having problems swallowing because food gets caught in throat. Patient states chicken was very dry on yesterday's tray and was unable to swallow due to not being mosit. However, patient doesn't have any preferences for food. Patient reports sitting up during mealtime. Patient is interested in increasing ONS to three times a day. Percent of energy/protein needs met: 38%/56% Burn Absent Trauma Absent Minimum of two criteria Yes Energy Intake (non-severe) <75% Estimated Energy Requirement >7 days Muscle Mass Mild Depletion (non-severe) #1 Nutrition Diagnosis Malnutrition Diagnosis Progress(for reassessment Continues documentation) Is patient on ventilator? No Is Patient Ambulatory and/or Out of Bed Yes REE-([place]-St. Jeor-ambulatory/OOB) [ 1188.525 [id number]] Kcal/Kg value to use for calculation 33 Approximate Energy Requirements Using 1488 kcal/Kg Calculation Used for Recommendations Kcal/kg Additional Notes Protein Needs: 54-68g (1.2-1. 5g/kg) Fluid Needs: 1 ml/kcal Nutrition Intervention Change Diet Order: Continue current Add Supplement/Snack (indicate name/kcal Ensure Enlive TID [place] /protein ) Provides kCal: 1,050 Provides Protein (gm) 60 Goal #1 Meet at least 75% of calorie and protein needs via PO and ONS intake Anticipated Discharge Needs: Mechanical Soft Follow-Up By: 06/08/18 Additional Comments F/U: for PO intakes and ONS intakes
[2018-06-05] MEDS: SODIUM CHLORIDE FLUSH SYRINGE 10 ML IV SCH (14:29)
[2018-06-05 15:24] LABS: BUN/Creatinine Ratio 13; Blood Urea Nitrogen 5 mg/dL (7-17); Hemolysis Index 9
[2018-06-05 15:48] LABS: Calcium 4.6 mg/dL (8.4-10.2)
[2018-06-05] MEDS: TYLENOL PO PRN (16:43)
--- NOTE | 2018-06-05 17:20 | Nuclear Medicine Report ---
FINAL REPORT PROCEDURE: Nuclear medicine whole-body bone scan. TECHNIQUE: Anterior and posterior gamma camera images of the entire skeleton were obtained 2-4 hours after the IV injection of 25 mCi of Tc-99m oxidronate. Injection site: CPT 62681 HISTORY: Bone lesions left pelvis, cervical mass. COMPARISON: No other studies available for comparison. FINDINGS: There is intense focal increased activity involving the left ischium. This abnormal uptake extends cl ose to the left acetabulum. There is also some focal intense activity near the upper margin of the le ft sacroiliac joint. There is a 3rd area of focal uptake involving the posterolateral portion of the left 6th rib. There is some activity that overlies the left 12th rib. I am uncertain if these represe nt 2 additional small bone lesions or if they simply represent collecting system activity in the left kidney. The findings are worrisome for possible metastatic disease. Clinical correlation is recommen ded. IMPRESSION: Abnormal focal uptake in the left side of the pelvis in 2 locations and in the left 6th rib. Possible activity in the left 12th rib versus renal collecting system activity.
--- NOTE | 2018-06-05 17:52 | Cat Scan Report ---
FINAL REPORT PROCEDURE: CT chest with contrast. TECHNIQUE: Computerized axial tomography of the chest was performed during the IV injection of iodin ated nonionic contrast. HISTORY: Cervical mass. COMPARISON: No prior studies are available for comparison. TECHNICAL QUALITY: Satisfactory. FINDINGS: The trachea and central bronchi appear normal. There is some minimal opacity in the posterior portion of the right lower lobe. This probably represents subsegmental atelectasis. There is minimal subsegm ental atelectasis in the posterior portion of the lingula. There is an abnormal solid nodule in the c entral portion of the left lower lobe. This measures 19.7 millimeters x 16.4 millimeters in cross-sec tion. It contains no calcification. It is worrisome for a primary lung malignancy. A large metastatic lesion is also possible. There is a 2nd tiny pleural based nodule located medially in the left lower lobe. This measures 6.3 millimeters in diameter. It is not highly suspicious, but is an indeterminat e nodule. Further evaluation is recommended. There are no pleural effusions. The thoracic aorta has a normal caliber without evidence of dissection. The central pulmonary arteries enhance normally. Ther e is no mediastinal adenopathy. The heart size is normal. The adrenal glands are not enlarged. The ki dneys are incompletely imaged. There is a cyst in the right kidney. There is probably a nephrostomy t ube in the left kidney. There is a partially imaged abnormal mass sitting between the aorta and the l eft kidney. This has some diminished attenuation areas centrally suggesting necrosis. This mass could be metastatic lymph nodes or possibly in the pancreas. A CT scan of the abdomen and pelvis after ora l and IV contrast enhancement would be the best means of further evaluation. The thoracic skeleton ap pears intact. IMPRESSION: Two nodules in the left lower lobe, the largest of which is worrisome for malignancy. Probable neopla stic mass between the abdominal aorta and left kidney.
[2018-06-05] MEDS: K-DUR PO SCH (18:07)
[2018-06-06] MEDS: SODIUM CHLORIDE FLUSH SYRINGE 10 ML IV SCH ×3 (04:10→21:39)
[2018-06-06] MEDS: K-DUR PO SCH (04:13)
[2018-06-06] MEDS: KCL 40 MEQ in NACL 0.45% 1000 ML 1,000 ML IV SCH (04:20)
[2018-06-06] MEDS ORDERED: K-DUR PO SCH (05:00)
[2018-06-06] MEDS: FLAGYL 500 MG/100 ML 500 MG/100 ML BAG IV SCH ×3 (05:14→21:39)
[2018-06-06] MEDS: FOLVITE PO SCH (09:45)
[2018-06-06] MEDS: PEPCID PO SCH ×2 (09:45→21:39)
[2018-06-06] MEDS: FEOSOL PO SCH ×2 (09:45→21:39)
[2018-06-06] MEDS: Centrum Liq PO SCH (09:45)
[2018-06-06] MEDS: REGLAN IV SCH ×2 (09:46→21:39)
[2018-06-06] MEDS: ROCEPHIN/NS 2 GM/100 ML 2 GM/100 ML BAG IV SCH (09:47)
[2018-06-06] MEDS: DILAUDID IV PRN (09:51)
[2018-06-06] MEDS: HEPARIN SUB-Q SCH ×2 (09:57→21:40)
--- NOTE | 2018-06-06 12:42 | Progress Note ---
Assessment and Plan Assessment and plan: Cervical mass. Pt. with enlarged regional nodes, suspected cervical cancer but 06/04 bx with negative path for neoplasm concern remains for malignancy, however, patient did have significant leukocytosis on admission which has been improving whether that was reactive in the setting of obstructive uropathy versus infectious (and responding to Cefepime) is difficult to ascertain at this time. Certain in fections could also mimic a malignancy. For now, will continue antibiotics. Consider IR biopsy, and send separate samples for histopathology and separate sample for aerobic, fungal and AFB cultures -TUBE TEST TECHNICIAN and Hematology following. ID d/w TUBE TEST TECHNICIAN. Leukemoid reaction. ? Infectious etiology. Ceftriaxone and Flagyl started per ID Anemia. s/p Transfusion of 2 units PRBC Stool occult blood LYLE due to obstructive uropathy s/p emergenct hemodialysis Nephrology following Hypokalemia, replete K as needed. Check BMP Bilateral hydronephrosis . s/p bilat Nephrostomy tube placement 05/29 Full code status History Interval history: The patient is a 73-year-old female with no significant past medical history presented to the hospital emergency room on 05/28/2017 with complaints of suprapubic pain. Upon evaluation here, she was found to have acute renal failure, CT abdomen pelvis showed bilateral hydronephrosis and a large cervical mass. She had to undergo emergent dialysis with nephrology assistance after HD cath placement. On 05/29/2017 she underwent bilateral nephrostomy tube placements. On 05/31/2018, she underwent EUA and cervical biopsies by TUBE TEST TECHNICIAN. Infectious diseases was consulted due to low-grade temperatures and significant leukocytosis. She has bilateral nephrostomy tubes are draining . Her HD catheter was removed and her creatinine has returned back to normal. She has left lower extremity edema that has been going on for the last 2 weeks. Doppler was negative. Patient was noted to have leukemoid reaction present since admission that is likely related to underlying malignancy. However, ID treating empirically with a short trial of IV cefepime to complete today No complaints or new issues Hospitalist Physical - Constitutional Vitals: Temp Pulse Resp BP Pulse Ox 99.0 F 107 H 18 134/74 97 06/06/18 07:28 06/06/18 10:00 06/06/18 10:00 06/06/18 07:28 06/06/18 10:00 General appearance: Present: no acute distress - EENT Eyes: Present: PERRL, EOM intact ENT: hearing intact, clear oral mucosa, dentition normal - Neck Neck: Present: supple, normal ROM - Respiratory Respiratory effort: normal Respiratory: bilateral: CTA - Cardiovascular Rhythm: regular Heart Sounds: Present: S1 & S2. Absent: gallop, rub - Extremities Extremities: no ischemia, No edema, Full ROM - Abdominal General gastrointestinal: soft, non-tender, non-distended, normal bowel sounds - Integumentary Integumentary: Present: clear, warm, dry - Neurologic Neurologic: CNII-XII intact, moves all extremities Results - Labs CBC & Chem 7: 06/04/18 05:30 06/05/18 14:50 Labs: Laboratory Last Values WBC 20.4 K/mm3 (4.5-11.0) H 06/04/18 05:30 RBC 3.50 M/mm3 (3.65-5.03) L 06/04/18 05:30 Hgb 9.3 gm/dl (10.1-14.3) L 06/04/18 05:30 Hct 28.3 % (30.3-42.9) L 06/04/18 05:30 MCV 81 fl (79-97) 06/04/18 05:30 MCH 27 pg (28-32) L 06/04/18 05:30 MCHC 33 % (30-34) 06/04/18 05:30 RDW 16.5 % (13.2-15.2) H 06/04/18 05:30 Plt Count 299 K/mm3 (140-440) 06/04/18 05:30 Add Manual Diff Complete 06/04/18 05:30 Total Counted 100 06/04/18 05:30 Seg Neutrophils % Php [employer] Developer 05/28/18 09:09 Seg Neuts % (Manual) 83.0 % (40.0-70.0) H 06/04/18 05:30 Band Neutrophils % 1.0 % 06/04/18 05:30 Lymphocytes % (Manual) 8.0 % (13.4-35.0) L 06/04/18 05:30 Reactive Lymphs % (Man) 0 % 06/04/18 05:30 Monocytes % (Manual) 3.0 % (0.0-7.3) 06/04/18 05:30 Eosinophils % (Manual) 5.0 % (0.0-4.3) H 06/04/18 05:30 Basophils % (Manual) 0 % (0.0-1.8) 06/04/18 05:30 Metamyelocytes % 0 % 06/04/18 05:30 Myelocytes % 0 % 06/04/18 05:30 Promyelocytes % 0 % 06/04/18 05:30 Blast Cells % 0 % 06/04/18 05:30 Nucleated RBC % Not Reportable 06/04/18 05:30 Seg Neutrophils # Man 16.9 K/mm3 (1.8-7.7) H 06/04/18 05:30 Band Neutrophils # 0.2 K/mm3 06/04/18 05:30 Lymphocytes # (Manual) 1.6 K/mm3 (1.2-5.4) 06/04/18 05:30 Abs React Lymphs (Man) 0.0 K/mm3 06/04/18 05:30 Monocytes # (Manual) 0.6 K/mm3 (0.0-0.8) 06/04/18 05:30 Eosinophils # (Manual) 1.0 K/mm3 (0.0-0.4) H 06/04/18 05:30 Basophils # (Manual) 0.0 K/mm3 (0.0-0.1) 06/04/18 05:30 Metamyelocytes # 0.0 K/mm3 06/04/18 05:30 Myelocytes # 0.0 K/mm3 06/04/18 05:30 Promyelocytes # 0.0 K/mm3 06/04/18 05:30 Blast Cells # 0.0 K/mm3 06/04/18 05:30 WBC Morphology Not Reportable 06/04/18 05:30 Hypersegmented Neuts Not Reportable 06/04/18 05:30 Hyposegmented Neuts Not Reportable 06/04/18 05:30 Hypogranular Neuts Not Reportable 06/04/18 05:30 Smudge Cells Not Reportable 06/04/18 05:30 Toxic Granulation Not Reportable 06/04/18 05:30 Toxic Vacuolation Not Reportable 06/04/18 05:30 Dohle Bodies Not Reportable 06/04/18 05:30 Pelger-Huet Anomaly Not Reportable 06/04/18 05:30 Sully Rods Not Reportable 06/04/18 05:30 Platelet Estimate Appears normal 06/04/18 05:30 Clumped Platelets Not Reportable 06/04/18 05:30 Plt Clumps, EDTA Not Reportable 06/04/18 05:30 Large Platelets Not Reportable 06/04/18 05:30 Giant Platelets Not Reportable 06/04/18 05:30 Platelet Satelliting Not Reportable 06/04/18 05:30 Plt Morphology Comment Not Reportable 06/04/18 05:30 RBC Morphology Not Reportable 06/04/18 05:30 Dimorphic RBCs Not Reportable 06/04/18 05:30 Polychromasia Not Reportable 06/04/18 05:30 Hypochromasia 1+ 06/04/18 05:30 Poikilocytosis Not Reportable 06/04/18 05:30 Anisocytosis 1+ 06/04/18 05:30 Microcytosis Few 06/04/18 05:30 Macrocytosis Not Reportable 06/04/18 05:30 Spherocytes Not Reportable 06/04/18 05:30 Pappenheimer Bodies Not Reportable 06/04/18 05:30 Sickle Cells Not Reportable 06/04/18 05:30 Target Cells Not Reportable 06/04/18 05:30 Tear Drop Cells Not Reportable 06/04/18 05:30 Ovalocytes Not Reportable 06/04/18 05:30 Stomatocytes Rare 06/04/18 05:30 Helmet Cells Not Reportable 06/04/18 05:[address] [place] Bodies Not Reportable 06/04/18 05:30 [place] Rings Not Reportable 06/04/18 05:30 Ona Cells Not Reportable 06/04/18 05:30 Bite Cells Not Reportable 06/04/18 05:30 Crenated Cell Not Reportable 06/04/18 05:30 Elliptocytes Not Reportable 06/04/18 05:30 Acanthocytes (Spur) Not Reportable 06/04/18 05:30 Rouleaux Not Reportable 06/04/18 05:30 Hemoglobin C Crystals Not Reportable 06/04/18 05:30 Schistocytes Not Reportable 06/04/18 05:30 Malaria parasites Not Reportable 06/04/18 05:30 [place] Bodies Not Reportable 06/04/18 05:30 Hem Pathologist Commnt No 06/04/18 05:30 PT 14.9 Sec. (12.2-14.9) 05/28/18 09:09 INR 1.10 (0.87-1.13) 05/28/18 09:09 VBG pH 7.271 (7.320-7.420) L 05/28/18 09:09 Sodium 129 mmol/L (137-145) L 06/05/18 11:31 Potassium 2.8 mmol/L (3.6-5.0) L* D 06/05/18 14:50 Chloride 94.9 mmol/L (98-107) L 06/05/18 11:31 Carbon Dioxide 13 mmol/L (22-30) L 06/05/18 14:50 Anion Gap 16 mmol/L 06/05/18 14:50 BUN 5 mg/dL (7-17) L 06/05/18 14:50 Creatinine 0.4 mg/dL (0.7-1.2) L D 06/05/18 14:50 Estimated GFR > 60 ml/min 06/05/18 14:50 BUN/Creatinine Ratio 13 % 06/05/18 14:50 Glucose 64 mg/dL (65-100) L 06/05/18 14:50 Hemoglobin A1c 6.1 % (4-6) H 05/29/18 04:41 Lactic Acid 2.10 mmol/L (0.7-2.0) H* 05/28/18 13:29 Calcium 4.6 mg/dL (8.4-10.2) L* D 06/05/18 14:50 Magnesium 1.50 mg/dL (1.7-2.3) L 06/04/18 05:30 Iron 22 ug/dL (37-170) L 05/31/18 13:06 TIBC 81 mcg/dL (250-450) L 05/31/18 13:06 Ferritin 1083.0 ng/mL (13.0-400.0) H 05/31/18 13:06 Total Bilirubin 0.40 mg/dL (0.1-1.2) 05/30/18 04:29 AST 7 units/L (5-40) 05/30/18 04:29 ALT < 5 units/L (7-56) L 05/30/18 04:29 Alkaline Phosphatase 84 units/L (35-129) 05/30/18 04:29 Total Protein 6.2 g/dL (6.3-8.2) L D 05/30/18 04:29 Albumin 1.7 g/dL (3.9-5) L 05/30/18 04:29 Albumin/Globulin Ratio 0.4 % 05/30/18 04:29 Vitamin B12 753.6 pg/mL (211-911) 05/31/18 13:06 Folate 3.98 ng/mL (7.3-26.0) L 05/31/18 13:06 Urine Color Yellow (Yellow) 05/28/18 12:02 Urine Turbidity Clear (Clear) 05/28/18 12:02 Urine pH 7.0 (5.0-7.0) 05/28/18 12:02 Ur Specific [place] 1.006 (1.003-1.030) 05/28/18 12:02 Urine Protein 30 mg/dl mg/dL (Negative) 05/28/18 12:02 Urine Glucose (UA) Neg mg/dL (Negative) 05/28/18 12:02 Urine Ketones Tr mg/dL (Negative) 05/28/18 12:02 Urine Blood Mod (Negative) 05/28/18 12:02 Urine Nitrite Neg (Negative) 05/28/18 12:02 Urine Bilirubin Neg (Negative) 05/28/18 12:02 Urine Urobilinogen < 2.0 mg/dL (<2.0) 05/28/18 12:02 Ur Leukocyte Esterase Neg (Negative) 05/28/18 12:02 Urine WBC (Auto) 6.0 /HPF (0.0-6.0) 05/28/18 12:02 Urine RBC (Auto) 5.0 /HPF (0.0-6.0) 05/28/18 12:02 U Epithel Cells (Auto) 1.0 /HPF (0-13.0) 05/28/18 12:02 Urine Bacteria (Auto) 1+ /HPF (Negative) 05/28/18 12:02 Urine Mucus Few /HPF 05/28/18 12:02 RPR Nonreactive (Nonreactive) 06/04/18 20:15 Hepatitis A IgM Ab Non-reactive (NonReactive) 05/28/18 15:50 Hep Bs Antigen Non-reactive (Negative) 05/28/18 15:50 Hep B Core IgM Ab Non-reactive (NonReactive) 05/28/18 15:50 Hepatitis C Antibody Non-reactive (NonReactive) 05/28/18 15:50 HIV 1&2 Antibody Rapid Non react (Non React) 06/04/18 20:15 HIV P24 Antigen Non react (Non React) 06/04/18 20:15 Blood Type O POSITIVE 05/29/18 09:41 Antibody Screen Negative 05/29/18 09:41 Crossmatch See Detail 05/29/18 09:41 Nutrition/Malnutrition Assess - Dietary Evaluation Nutrition/Malnutrition Findings: Nutrition Notes Start: 06/01/18 14:20 Freq: Status: Active Protocol: Document 06/05/18 10:07 (Rec: 06/05/18 10:35 [id number]) Co-Sign 06/05/18 10:07 LP Nutrition Notes Initial or Follow up Reassessment Current Diagnosis Acute Kidney Injury Other Pertinent Diagnosis Metastatic cervical cancer, esophageal obstruction Current Diet Mechanical Soft Labs/Tests Na: 134 Cr: 0.3 Glu: 105 Ca: 7.9 Pertinent Medications Reviewed Height 5 ft 2 in Weight 45.1 kg [place] Body Weight (kg) 50.00 BMI 18.1 Weight Status Underweight Subjective/Other Information Interpretive phone used to commincate. Patient states no appetite at all. She reports eating a spoonful at each meal but states she is drinking her ONS. Patient reports vomiting yesterday and experiencing nausea. Patient reports having problems swallowing because food gets caught in throat. Patient states chicken was very dry on yesterday's tray and was unable to swallow due to not being mosit. However, patient doesn't have any preferences for food. Patient reports sitting up during mealtime. Patient is interested in increasing ONS to three times a day. Percent of energy/protein needs met: 38%/56% Burn Absent Trauma Absent Minimum of two criteria Yes Energy Intake (non-severe) <75% Estimated Energy Requirement >7 days Muscle Mass Mild Depletion (non-severe) #1 Nutrition Diagnosis Malnutrition Diagnosis Progress(for reassessment Continues documentation) Is patient on ventilator? No Is Patient Ambulatory and/or Out of Bed Yes REE-(Fifield-St. Jeor-ambulatory/OOB) [ 1188.525 NUTR.[id number]] Kcal/Kg value to use for calculation 33 Approximate Energy Requirements Using 1488 kcal/Kg Calculation Used for Recommendations Kcal/kg Additional Notes Protein Needs: 54-68g (1.2-1. 5g/kg) Fluid Needs: 1 ml/kcal Nutrition Intervention Change Diet Order: Continue current Add Supplement/Snack (indicate name/kcal Ensure Enlive TID [place] /protein ) Provides kCal: 1,050 Provides Protein (gm) 60 Goal #1 Meet at least 75% of calorie and protein needs via PO and ONS intake Anticipated Discharge Needs: Mechanical Soft Follow-Up By: 06/08/18 Additional Comments F/U: for PO intakes and ONS intakes
[2018-06-06 14:32] LABS: BUN/Creatinine Ratio 23; Blood Urea Nitrogen 7 mg/dL (7-17); Hemolysis Index 7
--- NOTE | 2018-06-06 15:02 | Progress Note ---
Assessment and Plan Impression: * LYLE secondary to obstructive uropathy --s/p Emergent HD * Bilateral hydronephrosis/obstrucive uropathy secondary cervical mass --s/p Bilateral percutanous nephrostomy tubes * Cervical mass w/ lymphadenopathy * Uremia * AMS * Metabolic acidosis * Anemia Plan: * Renal function remains stable * K 5.1 - remove K additive from IVF * Change IVF to NS 75ml/hour - no evidence of post obstructive diuresis at this time * Monitor lytes and replete PRN * Recommend gynecology oncology evaluation * Encourage hydration * Avoid potential nephrotoxins * Will follow peripherally Subjective Date of service: 06/06/18 Principal diagnosis: cervical mass Interval history: No acute events overnight. Objective - Vital Signs Vital signs: Vital Signs - 12hr 06/06/18 06/06/18 06/06/18 07:28 09:51 10:00 Temperature 99.0 F Pulse Rate 110 H 107 H Pulse Rate [ 107 H From Monitor] Respiratory 18 18 18 Rate Blood Pressure 134/74 O2 Sat by Pulse 97 97 Oximetry - General Appearance General appearance: frail EENT: ATNC Respiratory: Present: Clear to Ascultation Cardiology: regular, S1S2 Gastrointestinal: no tenderness, no distended Integumentary: warm and dry Psychiatric: cooperative - Lab 06/04/18 05:30 06/06/18 13:57 Most recent lab results Calcium 9.0 mg/dL (8.4-10.2) D 06/06/18 13:57 Magnesium 1.50 mg/dL (1.7-2.3) L 06/04/18 05:30 Medications & Allergies - Medications Allergies/Adverse Reactions: Allergies No Known Allergies Allergy (Verified 05/28/18 09:10) Home Medications: Home Medications Medication Instructions Recorded Confirmed Last Taken Type No Known Home Medications [No 05/28/18 05/28/18 Unknown History Reported Home Medications] Active Medications: Generic Name Dose Route Start Last Admin Trade Name Freq PRN Reason Stop Dose Admin Acetaminophen 650 mg 05/28/18 22:37 06/05/18 16:43 Tylenol PO 650 mg Q6H PRN Administration Pain, Mild (1-3) Famotidine 10 mg 05/29/18 10:00 06/06/18 09:45 Pepcid PO 10 mg BID ALBINA Administration Ferrous Sulfate 325 mg 06/04/18 10:00 06/06/18 09:45 Feosol PO 325 mg BID ALBINA Administration Folic Acid 1 mg 05/31/18 17:00 06/06/18 09:45 Folvite PO 1 mg QDAY ALBINA Administration Heparin Sodium (Porcine) 5,000 unit 05/31/18 22:00 06/06/18 09:57 Heparin SUB-Q 5,000 unit Q12HR ALBINA Administration Hydromorphone HCl 0.5 mg 05/29/18 03:21 06/06/18 09:51 Dilaudid IV 0.5 mg Q3H PRN Administration Pain , Severe (7-10) Sodium Chloride 100 mls @ 999 mls/hr 05/28/18 13:21 Nacl 0.9% IV CATHERINE PRN Hypotension Potassium Chloride 40 meq/ 1,020 mls @ 100 mls/hr 06/02/18 11:00 06/06/18 04:20 Sodium Chloride IV 100 mls/hr DIRECT ALBINA Administration Ceftriaxone Sodium 2 gm in 100 mls @ 200 mls/hr 06/04/18 16:00 06/06/18 09:47 Rocephin/Ns 2 Gm/100 Ml IV 200 mls/hr Q24HR ALBINA Administration Protocol Metronidazole 500 mg in 100 mls @ 100 mls/hr 06/04/18 16:00 06/06/18 13:28 Flagyl 500 Mg/100 Ml IV 100 mls/hr Q8HR ALBINA Administration Protocol Metoclopramide HCl 5 mg 05/29/18 22:00 06/06/18 09:46 Reglan IV 5 mg BID ALBINA Administration Multivitamins 5 ml 05/31/18 17:00 06/06/18 09:45 Centrum Liq PO 5 ml QDAY ALBINA Administration Oxycodone/Acetaminophen 1 tab 05/29/18 03:21 06/02/18 22:17 Percocet 5/325 PO 1 tab Q6H PRN Administration Pain, Moderate (4-6) Sodium Chloride 10 ml 05/29/18 04:00 06/06/18 09:57 Sodium Chloride Flush Syringe 10 Ml IV 10 ml BID ALBINA Administration Sodium Chloride 10 ml 05/29/18 03:19 Sodium Chloride Flush Syringe 10 Ml IV PRN PRN LINE FLUSH
[2018-06-06] MEDS: NACL 0.9% 1000 ML 1,000 ML IV SCH (17:48)
[2018-06-07 06:12] LABS: Hematocrit 26.7 % (30.3-42.9); Hemoglobin 8.3 gm/dl (10.1-14.3); Mean Corpuscular HGB Conc 31 % (30-34); Mean Corpuscular Volume 83 fl (79-97); Platelet Count 475 K/mm3 (140-440); Red Blood Count 3.22 M/mm3 (3.65-5.03); Red Cell Distribution Width 16.9 % (13.2-15.2)
[2018-06-07] MEDS: FLAGYL 500 MG/100 ML 500 MG/100 ML BAG IV SCH ×3 (06:18→22:12)
--- NOTE | 2018-06-07 07:35 | Hem/Onc Progress Note ---
Assessment and Plan 1. Cervical mass. 2. Retroperitoneal lymph nodes. 3. Bone abnormality. 4. Hydronephrosis. 5. DOWEL INSPECTOR team is biopsy. This most likely is advanced cervical cancer, 6 - severe anemia - will Ix and follow I will liase with DOWEL INSPECTOR team. s/p nephrostomy+ 05/31 - s/p cx bx 06/01 - d/w daughter - reg bone lesion 06/02 - on folic acid - s/p iv iron - path pending 06/03 - path pending - d/w RN reg same 06/04 - path - neg for neoplasm - ? need for repeat bx - rn gynecology following oral iron 06/05 - Ct chest and bone scan - as per rn gynecology - rn gynecology onc planned wax pumper is now normal - ? Ct with contrast?? 06/07/2018 - pt had CT chest - lung lesions+ bone scan - lesions + the pt most likely has stage IV cervical ca - however cervical bx was neg - if repeat cervical bx not possible - ? option of lung and bone biopsy to prove stage IV - Patient Problems (1) Anemia Current Visit: Yes Status: Acute Qualifiers: Anemia type: iron deficiency (2) Cervical mass Onset Date: 05/30/18 Current Visit: Yes Status: Chronic Subjective Date of service: 06/07/18 Principal diagnosis: cervical mass Interval history: pt had CT chest and bone scan Objective - Constitutional Vitals: Last Vital Signs Temp 98.5 F 06/07/18 03:12 Pulse 108 H 06/07/18 07:25 Resp 16 06/07/18 03:12 BP 120/64 06/07/18 03:12 Pulse Ox 96 06/07/18 03:12 Pain Intensity (0-10): denies any pain General appearance: no acute distress - EENT Eyes: EOM intact ENT: clear oral mucosa Lymph node exam: negative cervical - Neck Neck: normal ROM - Respiratory Respiratory effort: Positive: normal Respiratory: bilateral: CTA - Cardiovascular Heart Sounds: Present: S1 & S2 Extremities: No edema - Gastrointestinal General gastrointestinal: Present: soft, non-tender Rectal Exam: deferred - Genitourinary Female genitourinary: Present: deferred - Integumentary Integumentary: warm - Musculoskeletal Musculoskeletal: strength equal bilaterally - Neurologic Neurologic: moves all extremities - Psychiatric Psychiatric: appropriate mood/affect - Labs Lab Results: Laboratory Results - last 24 hr 06/06/18 06/07/18 13:57 05:19 WBC 32.5 H RBC 3.22 L Hgb 8.3 L Hct 26.7 L MCV 83 MCH 26 L MCHC 31 RDW 16.9 H Plt Count 475 H Sodium 130 L Potassium 5.1 H D Chloride 96.0 L Carbon Dioxide 17 L Anion Gap 22 BUN 7 Creatinine 0.3 L Estimated GFR > 60 BUN/Creatinine Ratio 23 Glucose 86 Calcium 9.0 D Medications & Allergies - Medications Allergies/Adverse Reactions: Allergies No Known Allergies Allergy (Verified 05/28/18 09:10) Home Medications: Home Medications Medication Instructions Recorded Confirmed Last Taken Type No Known Home Medications [No 05/28/18 05/28/18 Unknown History Reported Home Medications] Active Medications: Generic Name Dose Route Start Last Admin Trade Name Freq PRN Reason Stop Dose Admin Acetaminophen 650 mg 05/28/18 22:37 06/05/18 16:43 Tylenol PO 650 mg Q6H PRN Administration Pain, Mild (1-3) Famotidine 10 mg 05/29/18 10:00 06/06/18 21:39 Pepcid PO 10 mg BID ALBINA Administration Ferrous Sulfate 325 mg 06/04/18 10:00 06/06/18 21:39 Feosol PO 325 mg BID ALBINA Administration Folic Acid 1 mg 05/31/18 17:00 06/06/18 09:45 Folvite PO 1 mg QDAY ALBINA Administration Heparin Sodium (Porcine) 5,000 unit 05/31/18 22:00 06/06/18 21:40 Heparin SUB-Q 5,000 unit Q12HR ALBINA Administration Hydromorphone HCl 0.5 mg 05/29/18 03:21 06/06/18 09:51 Dilaudid IV 0.5 mg Q3H PRN Administration Pain , Severe (7-10) Sodium Chloride 100 mls @ 999 mls/hr 05/28/18 13:21 Nacl 0.9% IV CATHERINE PRN Hypotension Ceftriaxone Sodium 2 gm in 100 mls @ 200 mls/hr 06/04/18 16:00 06/06/18 09:47 Rocephin/Ns 2 Gm/100 Ml IV 200 mls/hr Q24HR ALBINA Administration Protocol Metronidazole 500 mg in 100 mls @ 100 mls/hr 06/04/18 16:00 06/07/18 06:18 Flagyl 500 Mg/100 Ml IV 100 mls/hr Q8HR ALBINA Administration Protocol Sodium Chloride 1,000 mls @ 75 mls/hr 06/06/18 16:00 06/06/18 17:48 Nacl 0.9% 1000 Ml IV 75 mls/hr DIRECT ALBINA Administration Metoclopramide HCl 5 mg 05/29/18 22:00 06/06/18 21:39 Reglan IV 5 mg BID ALBINA Administration Multivitamins 5 ml 05/31/18 17:00 06/06/18 09:45 Centrum Liq PO 5 ml QDAY ALBINA Administration Oxycodone/Acetaminophen 1 tab 05/29/18 03:21 06/02/18 22:17 Percocet 5/325 PO 1 tab Q6H PRN Administration Pain, Moderate (4-6) Sodium Chloride 10 ml 05/29/18 04:00 06/06/18 21:39 Sodium Chloride Flush Syringe 10 Ml IV 10 ml BID ALBINA Administration Sodium Chloride 10 ml 05/29/18 03:19 Sodium Chloride Flush Syringe 10 Ml IV PRN PRN LINE FLUSH
[2018-06-07] MEDS: NACL 0.9% 1000 ML 1,000 ML IV SCH (09:29)
[2018-06-07] MEDS: ROCEPHIN/NS 2 GM/100 ML 2 GM/100 ML BAG IV SCH (09:29)
[2018-06-07] MEDS: PEPCID PO SCH ×2 (09:45→22:14)
[2018-06-07] MEDS: REGLAN IV SCH ×2 (09:45→22:14)
[2018-06-07] MEDS: FEOSOL PO SCH ×2 (09:45→22:14)
[2018-06-07] MEDS: FOLVITE PO SCH (09:45)
[2018-06-07] MEDS: Centrum Liq PO SCH (09:45)
[2018-06-07] MEDS: SODIUM CHLORIDE FLUSH SYRINGE 10 ML IV SCH ×2 (09:46→22:15)
[2018-06-07] MEDS: HEPARIN SUB-Q SCH ×2 (09:47→22:14)
--- NOTE | 2018-06-07 10:21 | Progress Note ---
Assessment and Plan Cultures: 05/28/2018 blood culture: No growth 05/28/2018 urine culture: No significant growth A/P: 73-year-old female with no significant past medical history presented to the hospital emergency room on 05/28/2017 with complaints of suprapubic pain. Now with: 1) Leukemoid reaction: present since admission and continuing, likely related to underlying malignancy. She does not appear to be septic at this time. She has no diarrhea. Cultures with no growth. Continue short trial of IV cefepime , di scontinued. Started Ceftriaxone and Flagyl. HIV negative. RPR- nonreactive Hepatitis panel - nonreative 2) Suspected cervical cancer: Status post biopsy.. 06/04 - path - neg for neoplasm, concern remains for malignancy, CT scan and pelvic exam is highly suspicious for cervical cancer. Patient needs Dual Rate Dealer Oncologist consultation. Leukocytosis trending up and continuing, Certain infections could also mimic a malignancy. For now, will continue antibiotics. Consider IR biopsy, and send separate samples for histopathology and separate sample for aerobic, fungal and AFB cultures. 3) Acute kidney injury: Reolved. Likely from obstructive uropathy: Status post bilateral nephrostomy tube placements with improvement in creatinine. 4) Anemia: s/p transfusion. 5) Left lower extremity edema: Asymmetric compared to the right. Duplex scan negative. No evidence of deep venous thrombosis. Recs: Continue Cefttriaxone 2 gm IV every 24 hours, D4 Continue Flagyl 500 mg IV q 8 H, D4 Continue to monitor WBC Consider IR biopsy, and send separate samples for histopathology and separate sample for aerobic, fungal and AFB cultures [facility] M: [id number] O:[phone] Subjective Date of service: 06/07/18 Principal diagnosis: cervical mass Interval history: Patient seen and examined. Awake, Alert, siting on the side of the bed drinking Ensure. Denied generalized pain, no fevers. Objective - Exam Narrative Exam: Constitutional: Awake, alert . No acute distress Head, Ears, Nose: Normocephalic, atraumatic. External ears, nose normal Eyes: Conjunctivae/corneas clear. No icterus. No ptosis. Neck: Supple, no meningeal signs Oral: Dentition good, no thrush Cardiovascular: ST Respiratory: Good air entry, clear to auscultation bilaterally GI: Soft, non-tender; bowel sounds normal. No peritoneal signs. B/L nephrostomy tubes + Musculoskeletal: LLE edema + Skin: No rash or abscess Hem/Lymphatic: No palpable cervical or supraclavicular nodes. No lymphangitis Psych: Mood good. . Affect normal Neurological: Awake, alert oriented. No gross abnormality - Constitutional Vitals: Vital Signs Temp Pulse Resp BP Pulse Ox 99.0 F 109 H 18 116/68 96 06/07/18 07:46 06/07/18 08:55 06/07/18 08:55 06/07/18 07:46 06/07/18 08:55 Temperature -Last 24 Hours Temperature 99.0 F Temperature 98.5 F Temperature 98.4 F Temperature 98.0 F - Labs CBC & Chem 7: 06/07/18 05:19 06/06/18 13:57 Labs: Abnormal lab results 06/06/18 06/07/18 Range/Units 13:57 05:19 WBC 32.5 H (4.5-11.0) K/mm3 RBC 3.22 L (3.65-5.03) M/mm3 Hgb 8.3 L (10.1-14.3) gm/dl Hct 26.7 L (30.3-42.9) % MCH 26 L (28-32) pg RDW 16.9 H (13.2-15.2) % Plt Count 475 H (140-440) K/mm3 Sodium 130 L (137-145) mmol/L Potassium 5.1 H D (3.6-5.0) mmol/L Chloride 96.0 L (98-107) mmol/L Carbon Dioxide 17 L (22-30) mmol/L Creatinine 0.3 L (0.7-1.2) mg/dL
[2018-06-07 10:37] LABS: Total Cells Counted 200
[2018-06-07 10:38] LABS: Basophils % (Manual) 0 % (0.0-1.8)
[2018-06-07 10:40] LABS: Anisocytosis 1+; Hypochromasia 2+; Macrocytosis Few; Ovalocytes Few; Platelet Estimate Appears Increased; Schistocytes Rare
--- NOTE | 2018-06-07 14:19 | Progress Note ---
Assessment and Plan Assessment and plan: Cervical mass. Suspected cervical CA Pt. with enlarged regional nodes, suspected cervical cancer but 06/04 bx with negative path for neoplasm concern remains for malignancy, however, patient did have significant leukocytosis on admission which is now worsening. Certain infections could also mimic a malignancy. For now, will continue antibiotics. Consider IR biopsy, and send separate samples for histopathology and separate sample for aerobic, fungal and AFB cultures -PHARMACY OPERATIONS COORDINATOR and Hematology following. Leukemoid reaction. ? Infectious etiology. Ceftriaxone and Flagyl started per ID Anemia. s/p Transfusion of 2 units PRBC Stool occult blood LYLE due to obstructive uropathy s/p emergency hemodialysis Nephrology following Hypokalemia, replete K as needed. Check BMP Bilateral hydronephrosis . s/p bilat Nephrostomy tube placement 05/29 Full code status History Interval history: The patient is a 73-year-old female with no significant past medical history presented to the hospital emergency room on 05/28/2017 with complaints of suprapubic pain. Upon evaluation here, she was found to have acute renal failure, CT abdomen pelvis showed bilateral hydronephrosis and a large cervical mass. She had to undergo emergent dialysis with nephrology assistance after HD cath placement. On 05/29/2017 she underwent bilateral nephrostomy tube placements. On 05/31/2018, she underwent EUA and cervical biopsies by PHARMACY OPERATIONS COORDINATOR. Infectious diseases was consulted due to low-grade temperatures and significant leukocytosis. She has bilateral nephrostomy tubes are draining . Her HD catheter was removed and her creatinine has returned back to normal. She has left lower extremity edema that has been going on for the last 2 weeks. Doppler was negative. Patient was noted to have leukemoid reaction present since admission that is likely related to underlying malignancy. However, ID treating empirically with a short trial of IV cefepime to complete today No complaints or new issues Hospitalist Physical - Constitutional Vitals: Temp Pulse Resp BP Pulse Ox 99.0 F 108 H 18 116/68 96 06/07/18 07:46 06/07/18 10:00 06/07/18 10:00 06/07/18 07:46 06/07/18 10:00 General appearance: Present: no acute distress - EENT Eyes: Present: PERRL, EOM intact ENT: hearing intact, clear oral mucosa, dentition normal - Neck Neck: Present: supple, normal ROM - Respiratory Respiratory effort: normal Respiratory: bilateral: CTA - Cardiovascular Rhythm: regular Heart Sounds: Present: S1 & S2. Absent: gallop, rub - Extremities Extremities: no ischemia, No edema, Full ROM - Abdominal General gastrointestinal: soft, non-tender, non-distended, normal bowel sounds - Integumentary Integumentary: Present: clear, warm, dry - Neurologic Neurologic: CNII-XII intact, moves all extremities Results - Labs CBC & Chem 7: 06/07/18 05:19 06/06/18 13:57 Labs: Laboratory Last Values WBC 32.5 K/mm3 (4.5-11.0) H 06/07/18 05:19 RBC 3.22 M/mm3 (3.65-5.03) L 06/07/18 05:19 Hgb 8.3 gm/dl (10.1-14.3) L 06/07/18 05:19 Hct 26.7 % (30.3-42.9) L 06/07/18 05:19 MCV 83 fl (79-97) 06/07/18 05:19 MCH 26 pg (28-32) L 06/07/18 05:19 MCHC 31 % (30-34) 06/07/18 05:19 RDW 16.9 % (13.2-15.2) H 06/07/18 05:19 Plt Count 475 K/mm3 (140-440) H 06/07/18 05:19 Add Manual Diff Complete 06/07/18 05:19 Total Counted 200 06/07/18 05:19 Seg Neutrophils % Tool Carrier 05/28/18 09:09 Seg Neuts % (Manual) 85.5 % (40.0-70.0) H 06/07/18 05:19 Band Neutrophils % 0 % 06/07/18 05:19 Lymphocytes % (Manual) 4.5 % (13.4-35.0) L 06/07/18 05:19 Reactive Lymphs % (Man) 0 % 06/07/18 05:19 Monocytes % (Manual) 9.0 % (0.0-7.3) H 06/07/18 05:19 Eosinophils % (Manual) 1.0 % (0.0-4.3) 06/07/18 05:19 Basophils % (Manual) 0 % (0.0-1.8) 06/07/18 05:19 Metamyelocytes % 0 % 06/07/18 05:19 Myelocytes % 0 % 06/07/18 05:19 Promyelocytes % 0 % 06/07/18 05:19 Blast Cells % 0 % 06/07/18 05:19 Nucleated RBC % Not Reportable 06/07/18 05:19 Seg Neutrophils # Man 27.8 K/mm3 (1.8-7.7) H 06/07/18 05:19 Band Neutrophils # 0.0 K/mm3 06/07/18 05:19 Lymphocytes # (Manual) 1.5 K/mm3 (1.2-5.4) 06/07/18 05:19 Abs React Lymphs (Man) 0.0 K/mm3 06/07/18 05:19 Monocytes # (Manual) 2.9 K/mm3 (0.0-0.8) H 06/07/18 05:19 Eosinophils # (Manual) 0.3 K/mm3 (0.0-0.4) 06/07/18 05:19 Basophils # (Manual) 0.0 K/mm3 (0.0-0.1) 06/07/18 05:19 Metamyelocytes # 0.0 K/mm3 06/07/18 05:19 Myelocytes # 0.0 K/mm3 06/07/18 05:19 Promyelocytes # 0.0 K/mm3 06/07/18 05:19 Blast Cells # 0.0 K/mm3 06/07/18 05:19 WBC Morphology Not Reportable 06/07/18 05:19 Hypersegmented Neuts Not Reportable 06/07/18 05:19 Hyposegmented Neuts Not Reportable 06/07/18 05:19 Hypogranular Neuts Not Reportable 06/07/18 05:19 Smudge Cells Not Reportable 06/07/18 05:19 Toxic Granulation Not Reportable 06/07/18 05:19 Toxic Vacuolation Not Reportable 06/07/18 05:19 Dohle Bodies Not Reportable 06/07/18 05:19 Pelger-Huet Anomaly Not Reportable 06/07/18 05:19 Sully Rods Not Reportable 06/07/18 05:19 Platelet Estimate Appears increased 06/07/18 05:19 Clumped Platelets Not Reportable 06/07/18 05:19 Plt Clumps, EDTA Not Reportable 06/07/18 05:19 Large Platelets Not Reportable 06/07/18 05:19 Giant Platelets Not Reportable 06/07/18 05:19 Platelet Satelliting Not Reportable 06/07/18 05:19 Plt Morphology Comment Not Reportable 06/07/18 05:19 RBC Morphology Not Reportable 06/07/18 05:19 Dimorphic RBCs Not Reportable 06/07/18 05:19 Polychromasia Not Reportable 06/07/18 05:19 Hypochromasia 2+ 06/07/18 05:19 Poikilocytosis Not Reportable 06/07/18 05:19 Anisocytosis 1+ 06/07/18 05:19 Microcytosis Few 06/07/18 05:19 Macrocytosis Few 06/07/18 05:19 Spherocytes Not Reportable 06/07/18 05:19 Pappenheimer Bodies Not Reportable 06/07/18 05:19 Sickle Cells Not Reportable 06/07/18 05:19 Target Cells Not Reportable 06/07/18 05:19 Tear Drop Cells Not Reportable 06/07/18 05:19 Ovalocytes Few 06/07/18 05:19 Stomatocytes Rare 06/04/18 05:30 Helmet Cells Not Reportable 06/07/18 05:19 [place] Bodies Not Reportable 06/07/18 05:19 [place] Rings Not Reportable 06/07/18 05:19 [place] Cells Not Reportable 06/07/18 05:19 Bite Cells Not Reportable 06/07/18 05:19 Crenated Cell Not Reportable 06/07/18 05:19 Elliptocytes Not Reportable 06/07/18 05:19 Acanthocytes (Spur) Not Reportable 06/07/18 05:19 Rouleaux Not Reportable 06/07/18 05:19 Hemoglobin C Crystals Not Reportable 06/07/18 05:19 Schistocytes Rare 06/07/18 05:19 Malaria parasites Not Reportable 06/07/18 05:19 Stevenson Bodies Not Reportable 06/07/18 05:19 Hem Pathologist Commnt Sent to pathology 06/07/18 05:19 PT 14.9 Sec. (12.2-14.9) 05/28/18 09:09 INR 1.10 (0.87-1.13) 05/28/18 09:09 VBG pH 7.271 (7.320-7.420) L 05/28/18 09:09 Sodium 130 mmol/L (137-145) L 06/06/18 13:57 Potassium 5.1 mmol/L (3.6-5.0) H D 06/06/18 13:57 Chloride 96.0 mmol/L (98-107) L 06/06/18 13:57 Carbon Dioxide 17 mmol/L (22-30) L 06/06/18 13:57 Anion Gap 22 mmol/L 06/06/18 13:57 BUN 7 mg/dL (7-17) 06/06/18 13:57 Creatinine 0.3 mg/dL (0.7-1.2) L 06/06/18 13:57 Estimated GFR > 60 ml/min 06/06/18 13:57 BUN/Creatinine Ratio 23 % 06/06/18 13:57 Glucose 86 mg/dL (65-100) 06/06/18 13:57 Hemoglobin A1c 6.1 % (4-6) H 05/29/18 04:41 Lactic Acid 2.10 mmol/L (0.7-2.0) H* 05/28/18 13:29 Calcium 9.0 mg/dL (8.4-10.2) D 06/06/18 13:57 Magnesium 1.50 mg/dL (1.7-2.3) L 06/04/18 05:30 Iron 22 ug/dL (37-170) L 05/31/18 13:06 TIBC 81 mcg/dL (250-450) L 05/31/18 13:06 Ferritin 1083.0 ng/mL (13.0-400.0) H 05/31/18 13:06 Total Bilirubin 0.40 mg/dL (0.1-1.2) 05/30/18 04:29 AST 7 units/L (5-40) 05/30/18 04:29 ALT < 5 units/L (7-56) L 05/30/18 04:29 Alkaline Phosphatase 84 units/L (35-129) 05/30/18 04:29 Total Protein 6.2 g/dL (6.3-8.2) L D 05/30/18 04:29 Albumin 1.7 g/dL (3.9-5) L 05/30/18 04:29 Albumin/Globulin Ratio 0.4 % 05/30/18 04:29 Vitamin B12 753.6 pg/mL (211-911) 05/31/18 13:06 Folate 3.98 ng/mL (7.3-26.0) L 05/31/18 13:06 Urine Color Yellow (Yellow) 05/28/18 12:02 Urine Turbidity Clear (Clear) 05/28/18 12:02 Urine pH 7.0 (5.0-7.0) 05/28/18 12:02 Ur Specific [place] 1.006 (1.003-1.030) 05/28/18 12:02 Urine Protein 30 mg/dl mg/dL (Negative) 05/28/18 12:02 Urine Glucose (UA) Neg mg/dL (Negative) 05/28/18 12:02 Urine Ketones Tr mg/dL (Negative) 05/28/18 12:02 Urine Blood Mod (Negative) 05/28/18 12:02 Urine Nitrite Neg (Negative) 05/28/18 12:02 Urine Bilirubin Neg (Negative) 05/28/18 12:02 Urine Urobilinogen < 2.0 mg/dL (<2.0) 05/28/18 12:02 Ur Leukocyte Esterase Neg (Negative) 05/28/18 12:02 Urine WBC (Auto) 6.0 /HPF (0.0-6.0) 05/28/18 12:02 Urine RBC (Auto) 5.0 /HPF (0.0-6.0) 05/28/18 12:02 U Epithel Cells (Auto) 1.0 /HPF (0-13.0) 05/28/18 12:02 Urine Bacteria (Auto) 1+ /HPF (Negative) 05/28/18 12:02 Urine Mucus Few /HPF 05/28/18 12:02 RPR Nonreactive (Nonreactive) 06/04/18 20:15 Hepatitis A IgM Ab Non-reactive (NonReactive) 05/28/18 15:50 Hep Bs Antigen Non-reactive (Negative) 05/28/18 15:50 Hep B Core IgM Ab Non-reactive (NonReactive) 05/28/18 15:50 Hepatitis C Antibody Non-reactive (NonReactive) 05/28/18 15:50 HIV 1&2 Antibody Rapid Non react (Non React) 06/04/18 20:15 HIV P24 Antigen Non react (Non React) 06/04/18 20:15 Blood Type O POSITIVE 05/29/18 09:41 Antibody Screen Negative 05/29/18 09:41 Crossmatch See Detail 05/29/18 09:41 Nutrition/Malnutrition Assess - Dietary Evaluation Nutrition/Malnutrition Findings: Nutrition Notes Start: 06/01/18 14:20 Freq: Status: Active Protocol: Document 06/05/18 10:07 SA (Rec: 06/05/18 10:35 SA [id number]) Co-Sign 06/05/18 10:07 LP Nutrition Notes Initial or Follow up Reassessment Current Diagnosis Acute Kidney Injury Other Pertinent Diagnosis Metastatic cervical cancer, esophageal obstruction Current Diet Mechanical Soft Labs/Tests Na: 134 Cr: 0.3 Glu: 105 Ca: 7.9 Pertinent Medications Reviewed Height 5 ft 2 in Weight 45.1 kg [place] Body Weight (kg) 50.00 BMI 18.1 Weight Status Underweight Subjective/Other Information Interpretive phone used to commincate. Patient states no appetite at all. She reports eating a spoonful at each meal but states she is drinking her ONS. Patient reports vomiting yesterday and experiencing nausea. Patient reports having problems swallowing because food gets caught in throat. Patient states chicken was very dry on yesterday's tray and was unable to swallow due to not being mosit. However, patient doesn't have any preferences for food. Patient reports sitting up during mealtime. Patient is interested in increasing ONS to three times a day. Percent of energy/protein needs met: 38%/56% Burn Absent Trauma Absent Minimum of two criteria Yes Energy Intake (non-severe) <75% Estimated Energy Requirement >7 days Muscle Mass Mild Depletion (non-severe) #1 Nutrition Diagnosis Malnutrition Diagnosis Progress(for reassessment Continues documentation) Is patient on ventilator? No Is Patient Ambulatory and/or Out of Bed Yes REE-([place]-St. Jeor-ambulatory/OOB) [ 1188.525 NUTR.[id number]] Kcal/Kg value to use for calculation 33 Approximate Energy Requirements Using 1488 kcal/Kg Calculation Used for Recommendations Kcal/kg Additional Notes Protein Needs: 54-68g (1.2-1. 5g/kg) Fluid Needs: 1 ml/kcal Nutrition Intervention Change Diet Order: Continue current Add Supplement/Snack (indicate name/kcal Ensure Enlive TID [place] /protein ) Provides kCal: 1,050 Provides Protein (gm) 60 Goal #1 Meet at least 75% of calorie and protein needs via PO and ONS intake Anticipated Discharge Needs: Mechanical Soft Follow-Up By: 06/08/18 Additional Comments F/U: for PO intakes and ONS intakes
[2018-06-07 16:52] LABS: BUN/Creatinine Ratio 33; Blood Urea Nitrogen 13 mg/dL (7-17); Calcium 8.7 mg/dL (8.4-10.2); Hemolysis Index 0
[2018-06-07] MEDS: DILAUDID IV PRN (18:31)
[2018-06-08] MEDS: NACL 0.9% 1000 ML 1,000 ML IV SCH ×2 (00:33→19:50)
[2018-06-08] MEDS: FLAGYL 500 MG/100 ML 500 MG/100 ML BAG IV SCH ×3 (05:07→23:32)
[2018-06-08 05:39] LABS: Hematocrit 25.6 % (30.3-42.9); Hemoglobin 7.9 gm/dl (10.1-14.3); Mean Corpuscular HGB Conc 31 % (30-34); Mean Corpuscular Volume 87 fl (79-97); Platelet Count 431 K/mm3 (140-440); Red Blood Count 2.96 M/mm3 (3.65-5.03); Red Cell Distribution Width 17.2 % (13.2-15.2)
[2018-06-08 06:36] LABS: Band Neutrophils # (Manual) 0.2 K/mm3; Basophils % (Manual) 0 % (0.0-1.8); Total Cells Counted 100
[2018-06-08 06:37] LABS: Anisocytosis 1+; Hypochromasia 1+; Platelet Estimate Consistent w Auto; Spherocytes Few
--- NOTE | 2018-06-08 07:23 | Hem/Onc Progress Note ---
Assessment and Plan 1. Cervical mass. 2. Retroperitoneal lymph nodes. 3. Bone abnormality. 4. Hydronephrosis. 5. PSYCHIATRIC CLINICAL NURSE SPECIALIST team is biopsy. This most likely is advanced cervical cancer, 6 - severe anemia - will Ix and follow I will liase with PSYCHIATRIC CLINICAL NURSE SPECIALIST team. s/p nephrostomy+ 05/31 - s/p cx bx 06/01 - d/w daughter - reg bone lesion 06/02 - on folic acid - s/p iv iron - path pending 06/03 - path pending - d/w RN reg same 06/04 - path - neg for neoplasm - ? need for repeat bx - department clerk following oral iron 06/05 - Ct chest and bone scan - as per department clerk - department clerk onc planned choir leader is now normal - ? Ct with contrast?? 06/07/2018 - pt had CT chest - lung lesions+ bone scan - lesions + the pt most likely has stage IV cervical ca - however cervical bx was neg - if repeat cervical bx not possible - ? option of lung and bone biopsy to prove stage IV 06/08/2018 - IR consult - bone vs lugn bx - toprove stage IV hb 7.9 - pt on oral iron - folci acid and MVI - Patient Problems (1) Anemia Current Visit: Yes Status: Acute Qualifiers: Anemia type: iron deficiency (2) Cervical mass Onset Date: 05/30/18 Current Visit: Yes Status: Chronic Subjective Date of service: 06/08/18 Principal diagnosis: cervical mass Interval history: pt nto eating - she will get home food - d/w RN Objective - Constitutional Vitals: Last Vital Signs Temp 98.5 F 06/08/18 02:09 Pulse 107 H 06/08/18 02:09 Resp 18 06/08/18 02:09 BP 114/56 06/08/18 02:09 Pulse Ox 98 06/08/18 02:09 Pain Intensity (0-10): denies any pain General appearance: no acute distress Performance status: 3-limited selfcare - EENT Eyes: EOM intact ENT: clear oral mucosa Lymph node exam: negative cervical - Neck Neck: normal ROM - Respiratory Respiratory effort: Positive: normal Respiratory: bilateral: CTA - Cardiovascular Heart Sounds: Present: S1 & S2 Extremities: normal temperature - Gastrointestinal General gastrointestinal: Present: soft, non-tender Rectal Exam: deferred - Genitourinary Female genitourinary: Present: deferred - Integumentary Integumentary: warm - Musculoskeletal Musculoskeletal: strength equal bilaterally - Neurologic Neurologic: moves all extremities - Psychiatric Psychiatric: appropriate mood/affect - Labs Lab Results: Laboratory Results - last 24 hr 06/07/18 06/07/18 06/08/18 05:19 15:23 03:45 WBC 32.5 H 23.7 H RBC 3.22 L 2.96 L Hgb 8.3 L 7.9 L Hct 26.7 L 25.6 L MCV 83 87 MCH 26 L 27 L MCHC 31 31 RDW 16.9 H 17.2 H Plt Count 475 H 431 Add Manual Diff Complete Complete Total Counted 200 100 Seg Neuts % (Manual) 85.5 H 96.0 H Band Neutrophils % 0 1.0 Lymphocytes % (Manual) 4.5 L 0 L Reactive Lymphs % (Man) 0 0 Monocytes % (Manual) 9.0 H 2.0 Eosinophils % (Manual) 1.0 1.0 Basophils % (Manual) 0 0 Metamyelocytes % 0 0 Myelocytes % 0 0 Promyelocytes % 0 0 Blast Cells % 0 0 Nucleated RBC % Not Reportable Not Reportable Seg Neutrophils # Man 27.8 H 22.8 H Band Neutrophils # 0.0 0.2 Lymphocytes # (Manual) 1.5 0.0 L Abs React Lymphs (Man) 0.0 0.0 Monocytes # (Manual) 2.9 H 0.5 Eosinophils # (Manual) 0.3 0.2 Basophils # (Manual) 0.0 0.0 Metamyelocytes # 0.0 0.0 Myelocytes # 0.0 0.0 Promyelocytes # 0.0 0.0 Blast Cells # 0.0 0.0 WBC Morphology Not Reportable Not Reportable Hypersegmented Neuts Not Reportable Not Reportable Hyposegmented Neuts Not Reportable Not Reportable Hypogranular Neuts Not Reportable Not Reportable Smudge Cells Not Reportable Not Reportable Toxic Granulation Not Reportable Not Reportable Toxic Vacuolation Not Reportable Not Reportable Dohle Bodies Not Reportable Not Reportable Pelger-Huet Anomaly Not Reportable Not Reportable Sully Rods Not Reportable Not Reportable Platelet Estimate Appears increased Consistent w auto Clumped Platelets Not Reportable Not Reportable Plt Clumps, EDTA Not Reportable Not Reportable Large Platelets Not Reportable Not Reportable Giant Platelets Not Reportable Not Reportable Platelet Satelliting Not Reportable Not Reportable Plt Morphology Comment Not Reportable Not Reportable RBC Morphology Not Reportable Not Reportable Dimorphic RBCs Not Reportable Not Reportable Polychromasia Not Reportable Not Reportable Hypochromasia 2+ 1+ Poikilocytosis Not Reportable Not Reportable Anisocytosis 1+ 1+ Microcytosis Few Not Reportable Macrocytosis Few Not Reportable Spherocytes Not Reportable Few Pappenheimer Bodies Not Reportable Not Reportable Sickle Cells Not Reportable Not Reportable Target Cells Not Reportable Not Reportable Tear Drop Cells Not Reportable Not Reportable Ovalocytes Few Not Reportable Helmet Cells Not Reportable Not Reportable [place] Bodies Not Reportable Not Reportable [place] Rings Not Reportable Not Reportable Radha Cells Not Reportable Not Reportable Bite Cells Not Reportable Not Reportable Crenated Cell Not Reportable Not Reportable Elliptocytes Not Reportable Not Reportable Acanthocytes (Spur) Not Reportable Not Reportable Rouleaux Not Reportable Not Reportable Hemoglobin C Crystals Not Reportable Not Reportable Schistocytes Rare Not Reportable Malaria parasites Not Reportable Not Reportable Stevenson Bodies Not Reportable Not Reportable Hem Pathologist Commnt Sent to pathology No Sodium 131 L Potassium 3.8 D Chloride 96.7 L Carbon Dioxide 20 L Anion Gap 18 BUN 13 Creatinine 0.4 L Estimated GFR > 60 BUN/Creatinine Ratio 33 Glucose 125 H Calcium 8.7 Medications & Allergies - Medications Allergies/Adverse Reactions: Allergies No Known Allergies Allergy (Verified 05/28/18 09:10) Home Medications: Home Medications Medication Instructions Recorded Confirmed Last Taken Type No Known Home Medications [No 05/28/18 05/28/18 Unknown History Reported Home Medications] Active Medications: Generic Name Dose Route Start Last Admin Trade Name Freq PRN Reason Stop Dose Admin Acetaminophen 650 mg 05/28/18 22:37 06/05/18 16:43 Tylenol PO 650 mg Q6H PRN Administration Pain, Mild (1-3) Famotidine 10 mg 05/29/18 10:00 06/07/18 22:14 Pepcid PO 10 mg BID ALBINA Administration Ferrous Sulfate 325 mg 06/04/18 10:00 06/07/18 22:14 Feosol PO 325 mg BID ALBINA Administration Folic Acid 1 mg 05/31/18 17:00 06/07/18 09:45 Folvite PO 1 mg QDAY ALBINA Administration Heparin Sodium (Porcine) 5,000 unit 05/31/18 22:00 06/07/18 22:14 Heparin SUB-Q 5,000 unit Q12HR ALBINA Administration Hydromorphone HCl 0.5 mg 05/29/18 03:21 06/07/18 18:31 Dilaudid IV 0.5 mg Q3H PRN Administration Pain , Severe (7-10) Sodium Chloride 100 mls @ 999 mls/hr 05/28/18 13:21 Nacl 0.9% IV CATHERINE PRN Hypotension Ceftriaxone Sodium 2 gm in 100 mls @ 200 mls/hr 06/04/18 16:00 06/07/18 09:29 Rocephin/Ns 2 Gm/100 Ml IV 200 mls/hr Q24HR ALBINA Administration Protocol Metronidazole 500 mg in 100 mls @ 100 mls/hr 06/04/18 16:00 06/08/18 05:07 Flagyl 500 Mg/100 Ml IV 100 mls/hr Q8HR ALBINA Administration Protocol Sodium Chloride 1,000 mls @ 75 mls/hr 06/06/18 16:00 06/08/18 00:33 Nacl 0.9% 1000 Ml IV 75 mls/hr DIRECT LABINA Administration Metoclopramide HCl 5 mg 05/29/18 22:00 06/07/18 22:14 Reglan IV 5 mg BID ALBINA Administration Multivitamins 5 ml 05/31/18 17:00 06/07/18 09:45 Centrum Liq PO 5 ml QDAY ALBINA Administration Oxycodone/Acetaminophen 1 tab 05/29/18 03:21 06/02/18 22:17 Percocet 5/325 PO 1 tab Q6H PRN Administration Pain, Moderate (4-6) Sodium Chloride 10 ml 05/29/18 04:00 06/07/18 22:15 Sodium Chloride Flush Syringe 10 Ml IV 10 ml BID ALBINA Administration Sodium Chloride 10 ml 05/29/18 03:19 Sodium Chloride Flush Syringe 10 Ml IV PRN PRN LINE FLUSH
--- NOTE | 2018-06-08 08:37 | Progress Note ---
Assessment and Plan Cultures: 05/28/2018 blood culture: No growth 05/28/2018 urine culture: No significant growth A/P: 73-year-old female with no significant past medical history presented to the hospital emergency room on 05/28/2017 with complaints of suprapubic pain. Now with: 1) Leukemoid reaction: present since admission and continuing, likely related to underlying malignancy. She does not appear to be septic at this time. She has no diarrhea. Cultures with no growth. Continue short trial of IV cefepime , di scontinued. Started Ceftriaxone and Flagyl. HIV negative. RPR- nonreactive Hepatitis panel - nonreative 2) Suspected cervical cancer: Status post biopsy.. 06/04 - path - neg for neoplasm, concern remains for malignancy, CT scan and pelvic exam is highly suspicious for cervical cancer. Option of lung and bone biopsy to prove stage IV . Leukocytosis continuing, Certain infections could also mimic a malignancy. Fo r now, will continue antibiotics. Consider lung and bone biopsy and send separate samples for histopathology and separate sample for aerobic, fungal and AFB cultures. Will stop antibiotics as there is no evidence of a pelvic abscess. Abdomen and pelvis CT show that the cervix appears to be enlarged and heterogeneous measuring 9.4 x 5.4 cm in axial plane. A cervical mass cannot be excluded. Monitor leukocytosis which we believe is due to malignancy 3) Acute kidney injury: Reolved. Likely from obstructive uropathy: Status post bilateral nephrostomy tube placements with improvement in creatinine. 4) Anemia: s/p transfusion. 5) Left lower extremity edema: Asymmetric compared to the right. Duplex scan negative. No evidence of deep venous thrombosis. Recs: Continue Cefttriaxone 2 gm IV every 24 hours, D5, last dose today Continue Flagyl 500 mg IV q 8 H, D5, last dose today Consider lung and bone biopsy and send separate samples for histopathology and separate sample for aerobic, fungal and AFB cultures. Will stop antibiotics, last dose today, as there is no evidence of a pelvic abscess. Monitor leukocytosis which we believe is due to malignancy d/w Dr. Randall Whitney, MILITARY ANALYST [facility] M: [phone] O:[phone] Subjective Date of service: 06/08/18 Principal diagnosis: cervical mass Interval history: Patient seen and examined. Awake, Alert, no acute distress, no fevers. Denies generalized pain, no fevers. Objective - Exam Narrative Exam: Constitutional: Awake, alert . No acute distress Head, Ears, Nose: Normocephalic, atraumatic. External ears, nose normal Eyes: Conjunctivae/corneas clear. No icterus. No ptosis. Neck: Supple, no meningeal signs Oral: Dentition good, no thrush Cardiovascular: ST Respiratory: Good air entry, clear to auscultation bilaterally GI: Soft, non-tender; bowel sounds normal. No peritoneal signs. B/L nephrostomy tubes + Musculoskeletal: LLE edema + Skin: No rash or abscess Hem/Lymphatic: No palpable cervical or supraclavicular nodes. No lymphangitis Psych: Mood good. . Affect normal Neurological: Awake, alert oriented. No gross abnormality - Constitutional Vitals: Vital Signs Temp Pulse Resp BP Pulse Ox 98.5 F 107 H 18 114/56 98 06/08/18 02:09 06/08/18 02:09 06/08/18 02:09 06/08/18 02:09 06/08/18 02:09 Temperature -Last 24 Hours Temperature 98.5 F Temperature 98.1 F Temperature 98.8 F - Labs CBC & Chem 7: 06/08/18 03:45 06/07/18 15:23 Labs: Abnormal lab results 06/07/18 06/07/18 06/08/18 Range/Units 05:19 15:23 03:45 WBC 32.5 H 23.7 H (4.5-11.0) K/mm3 RBC 3.22 L 2.96 L (3.65-5.03) M/mm3 Hgb 8.3 L 7.9 L (10.1-14.3) gm/dl Hct 26.7 L 25.6 L (30.3-42.9) % MCH 26 L 27 L (28-32) pg RDW 16.9 H 17.2 H (13.2-15.2) % Plt Count 475 H (140-440) K/mm3 Seg Neuts % (Manual) 85.5 H 96.0 H (40.0-70.0) % Lymphocytes % (Manual) 4.5 L 0 L (13.4-35.0) % Monocytes % (Manual) 9.0 H (0.0-7.3) % Seg Neutrophils # Man 27.8 H 22.8 H (1.8-7.7) K/mm3 Lymphocytes # (Manual) 0.0 L (1.2-5.4) K/mm3 Monocytes # (Manual) 2.9 H (0.0-0.8) K/mm3 Sodium 131 L (137-145) mmol/L Chloride 96.7 L (98-107) mmol/L Carbon Dioxide 20 L (22-30) mmol/L Creatinine 0.4 L (0.7-1.2) mg/dL Glucose 125 H (65-100) mg/dL
[2018-06-08] MEDS: FEOSOL PO SCH ×2 (09:10→23:33)
[2018-06-08] MEDS: PEPCID PO SCH ×2 (09:10→23:35)
[2018-06-08] MEDS: FOLVITE PO SCH (09:10)
[2018-06-08] MEDS: Centrum Liq PO SCH (09:10)
[2018-06-08] MEDS: REGLAN IV SCH ×2 (09:10→23:35)
[2018-06-08] MEDS: SODIUM CHLORIDE FLUSH SYRINGE 10 ML IV SCH (09:12)
[2018-06-08] MEDS: HEPARIN SUB-Q SCH ×2 (09:14→23:34)
[2018-06-08] MEDS: ROCEPHIN/NS 2 GM/100 ML 2 GM/100 ML BAG IV SCH (09:28)
--- NOTE | 2018-06-08 09:41 | Progress Note ---
Subjective Principal diagnosis: cervical mass Interval history: Patient was seen today for follow-up on multiple renal related issues Events of this hospitalization noted Dialysis catheter has been removed Renal function stable Vitals labs intake output medications were reviewed Social history: Reviewed Allergies: Reviewed Family history: Reviewed Physical examination HEENT: Oral mucosa moist no pallor or icterus Neck: Supple no JVD Chest: Clear to auscultation anteriorly CVS: Regular rate and rhythm S1 and S2 heard Abdomen: Soft nontender no suprapubic masses no organomegaly appreciable Extremity: Dry skin less than 1+ peripheral edema Musculoskeletal: No joint effusion noted in knees and ankle Neurological: Alert awake Dermatology: No petechial rashes Psychiatry: No evidence of any agitation and aggression noted Assessment and plan Acute kidney injury mostly resulting from obstructive uropathy, renal function has improved no indication for renal placement therapy patient will need follow- up in the office upon discharge Mild hyponatremia: Continue to monitor and follow: This is multifactorial Hyperkalemia appears to have resolved Obstructive uropathy, cervical cancer, lung nodule Overall patient is stable from renal standpoint Will sign off the case please call if needed Objective - Vital Signs Vital signs: Vital Signs - 12hr 06/07/18 06/08/18 06/08/18 22:00 02:09 08:50 Temperature 98.5 F 98.3 F Pulse Rate 107 H 103 H Respiratory 20 18 20 Rate Respiratory 20 Rate [ suprapubic] Blood Pressure 114/56 129/66 O2 Sat by Pulse 94 98 96 Oximetry - Lab 06/09/18 04:16 06/08/18 13:50 Most recent lab results Calcium 8.7 mg/dL (8.4-10.2) 06/07/18 15:23 Magnesium 1.50 mg/dL (1.7-2.3) L 06/04/18 05:30 Medications & Allergies - Medications Allergies/Adverse Reactions: Allergies No Known Allergies Allergy (Verified 05/28/18 09:10) Home Medications: Home Medications Medication Instructions Recorded Confirmed Last Taken Type No Known Home Medications [No 05/28/18 05/28/18 Unknown History Reported Home Medications] Active Medications: Generic Name Dose Route Start Last Admin Trade Name Freq PRN Reason Stop Dose Admin Acetaminophen 650 mg 05/28/18 22:37 06/05/18 16:43 Tylenol PO 650 mg Q6H PRN Administration Pain, Mild (1-3) Famotidine 10 mg 05/29/18 10:00 06/08/18 09:10 Pepcid PO 10 mg BID ALBINA Administration Ferrous Sulfate 325 mg 06/04/18 10:00 06/08/18 09:10 Feosol PO 325 mg BID ALBINA Administration Folic Acid 1 mg 05/31/18 17:00 06/08/18 09:10 Folvite PO 1 mg QDAY ALBINA Administration Heparin Sodium (Porcine) 5,000 unit 05/31/18 22:00 06/08/18 09:14 Heparin SUB-Q 5,000 unit Q12HR ALBINA Administration Hydromorphone HCl 0.5 mg 05/29/18 03:21 06/07/18 18:31 Dilaudid IV 0.5 mg Q3H PRN Administration Pain , Severe (7-10) Sodium Chloride 100 mls @ 999 mls/hr 05/28/18 13:21 Nacl 0.9% IV CATHERINE PRN Hypotension Ceftriaxone Sodium 2 gm in 100 mls @ 200 mls/hr 06/04/18 16:00 06/08/18 09:28 Rocephin/Ns 2 Gm/100 Ml IV 200 mls/hr Q24HR ALBINA Administration Protocol Metronidazole 500 mg in 100 mls @ 100 mls/hr 06/04/18 16:00 06/08/18 05:07 Flagyl 500 Mg/100 Ml IV 100 mls/hr Q8HR ALBINA Administration Protocol Sodium Chloride 1,000 mls @ 75 mls/hr 06/06/18 16:00 06/08/18 00:33 Nacl 0.9% 1000 Ml IV 75 mls/hr DIRECT ALBINA Administration Metoclopramide HCl 5 mg 05/29/18 22:00 06/08/18 09:10 Reglan IV 5 mg BID ALBINA Administration Multivitamins 5 ml 05/31/18 17:00 06/08/18 09:10 Centrum Liq PO 5 ml QDAY ALBINA Administration Oxycodone/Acetaminophen 1 tab 05/29/18 03:21 06/02/18 22:17 Percocet 5/325 PO 1 tab Q6H PRN Administration Pain, Moderate (4-6) Sodium Chloride 10 ml 05/29/18 04:00 06/08/18 09:12 Sodium Chloride Flush Syringe 10 Ml IV 10 ml BID ALBINA Administration Sodium Chloride 10 ml 05/29/18 03:19 Sodium Chloride Flush Syringe 10 Ml IV PRN PRN LINE FLUSH
[2018-06-08 14:22] LABS: BUN/Creatinine Ratio 30; Blood Urea Nitrogen 12 mg/dL (7-17); Calcium 8.3 mg/dL (8.4-10.2); Hemolysis Index 39
--- NOTE | 2018-06-08 16:21 | Progress Note ---
Assessment and Plan Assessment and plan: The patient is a 73-year-old female with no significant past medical history presented to the hospital emergency room on 05/28/2017 with complaints of suprapubic pain. Upon evaluation here, she was found to have acute renal failure, CT abdomen pelvis showed bilateral hydronephrosis and a large cervical mass. She had to undergo emergent dialysis with nephrology assistance after HD cath placement. On 05/29/2017 she underwent bilateral nephrostomy tube placements. On 05/31/2018, she underwent EUA and cervical biopsies by OUTREACH TEAM MEMBER. Infectious diseases was consulted due to low-grade temperatures and significant leukocytosis. She has bilateral nephrostomy tubes are draining . Her HD catheter was removed and her creatinine has returned back to normal. She has left lower extremity edema that has been going on for the last 2 weeks. Doppler was negative. Patient was noted to have leukemoid reaction present since admission that is likely related to underlying malignancy. However, ID treating empirically with a short trial of IV cefepime to complete today No complaints or new issues. Cervical mass. Suspected cervical CA Pt. with enlarged regional nodes, suspected cervical cancer but 06/04 bx with neg ative path for neoplasm concern remains for malignancy, however, patient did have significant leukocytosis on admission which is now worsening. Certain infections could also mimic a malignancy. For now, will continue antibiotics. Consider IR biopsy, and send separate samples for histopathology and separate sample for aerobic, fungal and AFB cultures -OUTREACH TEAM MEMBER and Hematology following. Leukemoid reaction. ? Infectious etiology. Ceftriaxone and Flagyl started per ID Anemia. s/p Transfusion of 2 units PRBC Stool occult blood LYLE due to obstructive uropathy s/p emergency hemodialysis Nephrology following Hypokalemia, replete K as needed. Check BMP Bilateral hydronephrosis . s/p bilat Nephrostomy tube placement 05/29 Full code status History Interval history: Patient was seen and evaluated this morning. Patient was alert and oriented, not in pain or distress. Hospitalist Physical - Physical exam Narrative exam: Not in cardiopulmonary distress. The patient appeared well nourished and normally developed. Vital signs as documented. Head exam is unremarkable. No scleral icterus . Neck is without jugular venous distension, thyromegaly, or carotid bruits. Lungs are clear to auscultation. Cardiac exam reveals regular rate and Rhythm. Abdominal exam reveals normal bowel sounds, no masses, no organomegaly and no aortic enlargement. Extremities are nonedematous and both femoral and pedal pulses are normal. THORACIC SURGEON: Alert and oriented 3. No focal weakness. - Constitutional Vitals: Temp Pulse Resp BP Pulse Ox 98.8 F 106 H 20 116/63 96 06/08/18 14:39 06/08/18 14:39 06/08/18 14:39 06/08/18 14:39 06/08/18 14:39 General appearance: Present: no acute distress Results - Labs CBC & Chem 7: 06/08/18 03:45 06/08/18 13:50 Labs: Laboratory Last Values WBC 23.7 K/mm3 (4.5-11.0) H 06/08/18 03:45 RBC 2.96 M/mm3 (3.65-5.03) L 06/08/18 03:45 Hgb 7.9 gm/dl (10.1-14.3) L 06/08/18 03:45 Hct 25.6 % (30.3-42.9) L 06/08/18 03:45 MCV 87 fl (79-97) 06/08/18 03:45 MCH 27 pg (28-32) L 06/08/18 03:45 MCHC 31 % (30-34) 06/08/18 03:45 RDW 17.2 % (13.2-15.2) H 06/08/18 03:45 Plt Count 431 K/mm3 (140-440) 06/08/18 03:45 Add Manual Diff Complete 06/08/18 03:45 Total Counted 100 06/08/18 03:45 Seg Neutrophils % Steam Box Operator 05/28/18 09:09 Seg Neuts % (Manual) 96.0 % (40.0-70.0) H 06/08/18 03:45 Band Neutrophils % 1.0 % 06/08/18 03:45 Lymphocytes % (Manual) 0 % (13.4-35.0) L 06/08/18 03:45 Reactive Lymphs % (Man) 0 % 06/08/18 03:45 Monocytes % (Manual) 2.0 % (0.0-7.3) 06/08/18 03:45 Eosinophils % (Manual) 1.0 % (0.0-4.3) 06/08/18 03:45 Basophils % (Manual) 0 % (0.0-1.8) 06/08/18 03:45 Metamyelocytes % 0 % 06/08/18 03:45 Myelocytes % 0 % 06/08/18 03:45 Promyelocytes % 0 % 06/08/18 03:45 Blast Cells % 0 % 06/08/18 03:45 Nucleated RBC % Not Reportable 06/08/18 03:45 Seg Neutrophils # Man 22.8 K/mm3 (1.8-7.7) H 06/08/18 03:45 Band Neutrophils # 0.2 K/mm3 06/08/18 03:45 Lymphocytes # (Manual) 0.0 K/mm3 (1.2-5.4) L 06/08/18 03:45 Abs React Lymphs (Man) 0.0 K/mm3 06/08/18 03:45 Monocytes # (Manual) 0.5 K/mm3 (0.0-0.8) 06/08/18 03:45 Eosinophils # (Manual) 0.2 K/mm3 (0.0-0.4) 06/08/18 03:45 Basophils # (Manual) 0.0 K/mm3 (0.0-0.1) 06/08/18 03:45 Metamyelocytes # 0.0 K/mm3 06/08/18 03:45 Myelocytes # 0.0 K/mm3 06/08/18 03:45 Promyelocytes # 0.0 K/mm3 06/08/18 03:45 Blast Cells # 0.0 K/mm3 06/08/18 03:45 Pathologist Review 06/07/18 05:19 WBC Morphology Not Reportable 06/08/18 03:45 Hypersegmented Neuts Not Reportable 06/08/18 03:45 Hyposegmented Neuts Not Reportable 06/08/18 03:45 Hypogranular Neuts Not Reportable 06/08/18 03:45 Smudge Cells Not Reportable 06/08/18 03:45 Toxic Granulation Not Reportable 06/08/18 03:45 Toxic Vacuolation Not Reportable 06/08/18 03:45 Dohle Bodies Not Reportable 06/08/18 03:45 Pelger-Huet Anomaly Not Reportable 06/08/18 03:45 Sully Rods Not Reportable 06/08/18 03:45 Platelet Estimate Consistent w auto 06/08/18 03:45 Clumped Platelets Not Reportable 06/08/18 03:45 Plt Clumps, EDTA Not Reportable 06/08/18 03:45 Large Platelets Not Reportable 06/08/18 03:45 Giant Platelets Not Reportable 06/08/18 03:45 Platelet Satelliting Not Reportable 06/08/18 03:45 Plt Morphology Comment Not Reportable 06/08/18 03:45 RBC Morphology Not Reportable 06/08/18 03:45 Dimorphic RBCs Not Reportable 06/08/18 03:45 Polychromasia Not Reportable 06/08/18 03:45 Hypochromasia 1+ 06/08/18 03:45 Poikilocytosis Not Reportable 06/08/18 03:45 Anisocytosis 1+ 06/08/18 03:45 Microcytosis Not Reportable 06/08/18 03:45 Macrocytosis Not Reportable 06/08/18 03:45 Spherocytes Few 06/08/18 03:45 Pappenheimer Bodies Not Reportable 06/08/18 03:45 Sickle Cells Not Reportable 06/08/18 03:45 Target Cells Not Reportable 06/08/18 03:45 Tear Drop Cells Not Reportable 06/08/18 03:45 Ovalocytes Not Reportable 06/08/18 03:45 Stomatocytes Rare 06/04/18 05:30 Helmet Cells Not Reportable 06/08/18 03:45 [place] Bodies Not Reportable 06/08/18 03:45 [place] Rings Not Reportable 06/08/18 03:45 [place] Cells Not Reportable 06/08/18 03:45 Bite Cells Not Reportable 06/08/18 03:45 Crenated Cell Not Reportable 06/08/18 03:45 Elliptocytes Not Reportable 06/08/18 03:45 Acanthocytes (Spur) Not Reportable 06/08/18 03:45 Rouleaux Not Reportable 06/08/18 03:45 Hemoglobin C Crystals Not Reportable 06/08/18 03:45 Schistocytes Not Reportable 06/08/18 03:45 Malaria parasites Not Reportable 06/08/18 03:45 [place] Bodies Not Reportable 06/08/18 03:45 Hem Pathologist Commnt No 06/08/18 03:45 PT 14.9 Sec. (12.2-14.9) 05/28/18 09:09 INR 1.10 (0.87-1.13) 05/28/18 09:09 VBG pH 7.271 (7.320-7.420) L 05/28/18 09:09 Sodium 134 mmol/L (137-145) L 06/08/18 13:50 Potassium 3.4 mmol/L (3.6-5.0) L 06/08/18 13:50 Chloride 100.5 mmol/L (98-107) 06/08/18 13:50 Carbon Dioxide 20 mmol/L (22-30) L 06/08/18 13:50 Anion Gap 17 mmol/L 06/08/18 13:50 BUN 12 mg/dL (7-17) 06/08/18 13:50 Creatinine 0.4 mg/dL (0.7-1.2) L 06/08/18 13:50 Estimated GFR > 60 ml/min 06/08/18 13:50 BUN/Creatinine Ratio 30 % 06/08/18 13:50 Glucose 140 mg/dL (65-100) H 06/08/18 13:50 Hemoglobin A1c 6.1 % (4-6) H 05/29/18 04:41 Lactic Acid 2.10 mmol/L (0.7-2.0) H* 05/28/18 13:29 Calcium 8.3 mg/dL (8.4-10.2) L 06/08/18 13:50 Magnesium 1.50 mg/dL (1.7-2.3) L 06/04/18 05:30 Iron 22 ug/dL (37-170) L 05/31/18 13:06 TIBC 81 mcg/dL (250-450) L 05/31/18 13:06 Ferritin 1083.0 ng/mL (13.0-400.0) H 05/31/18 13:06 Total Bilirubin 0.40 mg/dL (0.1-1.2) 05/30/18 04:29 AST 7 units/L (5-40) 05/30/18 04:29 ALT < 5 units/L (7-56) L 05/30/18 04:29 Alkaline Phosphatase 84 units/L (35-129) 05/30/18 04:29 Total Protein 6.2 g/dL (6.3-8.2) L D 05/30/18 04:29 Albumin 1.7 g/dL (3.9-5) L 05/30/18 04:29 Albumin/Globulin Ratio 0.4 % 05/30/18 04:29 Vitamin B12 753.6 pg/mL (211-911) 05/31/18 13:06 Folate 3.98 ng/mL (7.3-26.0) L 05/31/18 13:06 Urine Color Yellow (Yellow) 05/28/18 12:02 Urine Turbidity Clear (Clear) 05/28/18 12:02 Urine pH 7.0 (5.0-7.0) 05/28/18 12:02 Ur Specific [place] 1.006 (1.003-1.030) 05/28/18 12:02 Urine Protein 30 mg/dl mg/dL (Negative) 05/28/18 12:02 Urine Glucose (UA) Neg mg/dL (Negative) 05/28/18 12:02 Urine Ketones Tr mg/dL (Negative) 05/28/18 12:02 Urine Blood Mod (Negative) 05/28/18 12:02 Urine Nitrite Neg (Negative) 05/28/18 12:02 Urine Bilirubin Neg (Negative) 05/28/18 12:02 Urine Urobilinogen < 2.0 mg/dL (<2.0) 05/28/18 12:02 Ur Leukocyte Esterase Neg (Negative) 05/28/18 12:02 Urine WBC (Auto) 6.0 /HPF (0.0-6.0) 05/28/18 12:02 Urine RBC (Auto) 5.0 /HPF (0.0-6.0) 05/28/18 12:02 U Epithel Cells (Auto) 1.0 /HPF (0-13.0) 05/28/18 12:02 Urine Bacteria (Auto) 1+ /HPF (Negative) 05/28/18 12:02 Urine Mucus Few /HPF 05/28/18 12:02 RPR Nonreactive (Nonreactive) 06/04/18 20:15 Hepatitis A IgM Ab Non-reactive (NonReactive) 05/28/18 15:50 Hep Bs Antigen Non-reactive (Negative) 05/28/18 15:50 Hep B Core IgM Ab Non-reactive (NonReactive) 05/28/18 15:50 Hepatitis C Antibody Non-reactive (NonReactive) 05/28/18 15:50 HIV 1&2 Antibody Rapid Non react (Non React) 06/04/18 20:15 HIV P24 Antigen Non react (Non React) 06/04/18 20:15 Blood Type O POSITIVE 05/29/18 09:41 Antibody Screen Negative 05/29/18 09:41 Crossmatch See Detail 05/29/18 09:41 Nutrition/Malnutrition Assess - Dietary Evaluation Nutrition/Malnutrition Findings: Nutrition Notes Start: 06/01/18 14:20 Freq: Status: Active Protocol: Document 06/08/18 14:52 RM (Rec: 06/08/18 15:02 RM [id number]) Nutrition Notes Initial or Follow up Reassessment Current Diagnosis Acute Kidney Injury Other Pertinent Diagnosis Metastatic cervical cancer, esophageal obstruction Current Diet Mechanical Soft Labs/Tests Reviewed Pertinent Medications Reviewed Height 5 ft 2 in Weight 45.1 kg [place] Body Weight (kg) 50.00 BMI 18.1 Subjective/Other Information Pt stated that her appetite is poor. Stated that the condiments and sauces on the food makes her nauseous. Stated that she only ate half of her oatmeal from her breakfast. Noted preferences. Stated she drinks the Ensure Enlive. Percent of energy/protein needs met: 23%/37% Burn Absent Trauma Absent #1 Nutrition Diagnosis Malnutrition Diagnosis Progress(for reassessment Continues documentation) Is patient on ventilator? No Is Patient Ambulatory and/or Out of Bed Yes REE-([facility]-ambulatory/OOB) [ 1188.525 [id number]] Kcal/Kg value to use for calculation 33 Approximate Energy Requirements Using 1488 kcal/Kg Calculation Used for Recommendations Kcal/kg Additional Notes Protein Needs: 54-68g (1.2-1. 5g/kg) Fluid Needs: 1 ml/kcal Nutrition Intervention Change Diet Order: Continue current Add Supplement/Snack (indicate name/kcal Ensure Enlive TID [place] /protein ) Provides kCal: 1,050 Provides Protein (gm) 60 Goal #1 Meet at least 75% of calorie and protein needs via PO and ONS intake Anticipated Discharge Needs: Mechanical Soft Follow-Up By: 06/10/18 Additional Comments F/U: for PO intakes and ONS intakes
[2018-06-09 06:20] LABS: Basophils # (Auto) 0.2 K/mm3 (0.0-0.1); Basophils % (Auto) 1.2 % (0.0-1.8); Eosinophils # (Auto) 0.4 K/mm3 (0.0-0.4); Eosinophils % (Auto) 1.9 % (0.0-4.3); Hematocrit 23.8 % (30.3-42.9); Hemoglobin 7.7 gm/dl (10.1-14.3); Lymphocytes # (Auto) 1.3 K/mm3 (1.2-5.4); Lymphocytes % (Auto) 6.7 % (13.4-35.0); Mean Corpuscular HGB Conc 33 % (30-34); Mean Corpuscular Volume 82 fl (79-97); Monocytes # (Auto) 1.5 K/mm3 (0.0-0.8); Monocytes % (Auto) 7.7 % (0.0-7.3); Platelet Count 439 K/mm3 (140-440); Red Blood Count 2.89 M/mm3 (3.65-5.03); Red Cell Distribution Width 17.3 % (13.2-15.2)
--- NOTE | 2018-06-09 07:32 | Hem/Onc Progress Note ---
Assessment and Plan 1. Cervical mass. 2. Retroperitoneal lymph nodes. 3. Bone abnormality. 4. Hydronephrosis. 5. NIGHTCLUB MANAGER team is biopsy. This most likely is advanced cervical cancer, 6 - severe anemia - will Ix and follow I will liase with NIGHTCLUB MANAGER team. s/p nephrostomy+ 05/31 - s/p cx bx 06/01 - d/w daughter - reg bone lesion 06/02 - on folic acid - s/p iv iron - path pending 06/03 - path pending - d/w RN reg same 06/04 - path - neg for neoplasm - ? 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 Ct with contrast?? 06/07/2018 - pt had CT chest - lung lesions+ bone scan - lesions + the pt most likely has stage IV cervical ca - however cervical bx was neg - if repeat cervical bx not possible - ? option of lung and bone biopsy to prove stage IV 06/08/2018 - IR consult - bone vs lugn bx - toprove stage IV hb 7.9 - pt on oral iron - folci acid and MVI 06/09 - IR consulted for bx - Patient Problems (1) Anemia Current Visit: Yes Status: Acute Qualifiers: Anemia type: iron deficiency (2) Cervical mass Onset Date: 05/30/18 Current Visit: Yes Status: Chronic Subjective Date of service: 06/09/18 Principal diagnosis: cervical mass Interval history: abdo pain Objective - Constitutional Vitals: Last Vital Signs Temp 99.2 F 06/08/18 19:35 Pulse 99 H 06/09/18 02:18 Resp 18 06/09/18 02:00 BP 121/68 06/09/18 02:00 Pulse Ox 96 06/09/18 02:18 Pain Intensity (0-10): 1/10 (abdo) General appearance: no acute distress Performance status: 3-limited selfcare - EENT Eyes: EOM intact ENT: clear oral mucosa Lymph node exam: negative cervical - Neck Neck: normal ROM - Respiratory Respiratory effort: Positive: normal Respiratory: bilateral: CTA - Cardiovascular Heart Sounds: Present: S1 & S2 Extremities: No edema - Gastrointestinal General gastrointestinal: Present: soft Rectal Exam: deferred - Genitourinary Female genitourinary: Present: deferred - Integumentary Integumentary: warm - Musculoskeletal Musculoskeletal: strength equal bilaterally - Neurologic Neurologic: moves all extremities - Psychiatric Psychiatric: appropriate mood/affect - Labs Lab Results: Laboratory Results - last 24 hr 06/04/18 06/07/18 06/08/18 18:21 05:19 13:50 WBC RBC Hgb Hct MCV MCH MCHC RDW Plt Count Lymph % (Auto) [place] % (Auto) Eos % (Auto) Baso % (Auto) Lymph # [place] # Eos # Baso # Seg Neutrophils % Seg Neutrophils # Pathologist Review Sodium 134 L Potassium 3.4 L Chloride 100.5 Carbon Dioxide 20 L Anion Gap 17 BUN 12 Creatinine 0.4 L Estimated GFR > 60 BUN/Creatinine Ratio 30 Glucose 140 H Calcium 8.3 L C.trachomatis DNA (SDA) Not detected N.gonorrhoeae DNA (SDA) Not detected 06/09/18 04:16 WBC 18.8 H RBC 2.89 L Hgb 7.7 L Hct 23.8 L MCV 82 MCH 27 L MCHC 33 RDW 17.3 H Plt Count 439 Lymph % (Auto) 6.7 L [place] % (Auto) 7.7 H Eos % (Auto) 1.9 Baso % (Auto) 1.2 Lymph # 1.3 [place] # 1.5 H Eos # 0.4 Baso # 0.2 H Seg Neutrophils % 82.5 H Seg Neutrophils # 15.5 H Pathologist Review Sodium Potassium Chloride Carbon Dioxide Anion Gap BUN Creatinine Estimated GFR BUN/Creatinine Ratio Glucose Calcium C.trachomatis DNA (SDA) N.gonorrhoeae DNA (SDA) Medications & Allergies - Medications Allergies/Adverse Reactions: Allergies No Known Allergies Allergy (Verified 05/28/18 09:10) Home Medications: Home Medications Medication Instructions Recorded Confirmed Last Taken Type No Known Home Medications [No 05/28/18 05/28/18 Unknown History Reported Home Medications] Active Medications: Generic Name Dose Route Start Last Admin Trade Name Freq PRN Reason Stop Dose Admin Acetaminophen 650 mg 05/28/18 22:37 06/05/18 16:43 Tylenol PO 650 mg Q6H PRN Administration Pain, Mild (1-3) Famotidine 10 mg 05/29/18 10:00 06/08/18 23:35 Pepcid PO 10 mg BID ALBINA Administration Ferrous Sulfate 325 mg 06/04/18 10:00 06/08/18 23:33 Feosol PO 325 mg BID ALBINA Administration Folic Acid 1 mg 05/31/18 17:00 06/08/18 09:10 Folvite PO 1 mg QDAY ALBINA Administration Heparin Sodium (Porcine) 5,000 unit 05/31/18 22:00 06/08/18 23:34 Heparin SUB-Q 5,000 unit Q12HR ALBINA Administration Hydromorphone HCl 0.5 mg 05/29/18 03:21 06/07/18 18:31 Dilaudid IV 0.5 mg Q3H PRN Administration Pain , Severe (7-10) Sodium Chloride 100 mls @ 999 mls/hr 05/28/18 13:21 Nacl 0.9% IV CATHERINE PRN Hypotension Ceftriaxone Sodium 2 gm in 100 mls @ 200 mls/hr 06/04/18 16:00 06/08/18 09:28 Rocephin/Ns 2 Gm/100 Ml IV 200 mls/hr Q24HR ALBINA Administration Protocol Metronidazole 500 mg in 100 mls @ 100 mls/hr 06/04/18 16:00 06/08/18 23:32 Flagyl 500 Mg/100 Ml IV 100 mls/hr Q8HR ALBINA Administration Protocol Sodium Chloride 1,000 mls @ 75 mls/hr 06/06/18 16:00 06/08/18 19:50 Nacl 0.9% 1000 Ml IV 75 mls/hr DIRECT ALBINA Administration Metoclopramide HCl 5 mg 05/29/18 22:00 06/08/18 23:35 Reglan IV 5 mg BID ALBINA Administration Multivitamins 5 ml 05/31/18 17:00 06/08/18 09:10 Centrum Liq PO 5 ml QDAY ALBINA Administration Oxycodone/Acetaminophen 1 tab 05/29/18 03:21 06/02/18 22:17 Percocet 5/325 PO 1 tab Q6H PRN Administration Pain, Moderate (4-6) Sodium Chloride 10 ml 05/29/18 04:00 06/08/18 09:12 Sodium Chloride Flush Syringe 10 Ml IV 10 ml BID ALBINA Administration Sodium Chloride 10 ml 05/29/18 03:19 Sodium Chloride Flush Syringe 10 Ml IV PRN PRN LINE FLUSH
--- NOTE | 2018-06-09 08:50 | Progress Note ---
Assessment and Plan Cultures: 05/28/2018 blood culture: No growth 05/28/2018 urine culture: No significant growth A/P: 73-year-old female with no significant past medical history presented to the hospital emergency room on 05/28/2017 with complaints of suprapubic pain. Now with: 1) Leukemoid reaction: Trending down, likely related to underlying malignancy. She does not appear to be septic at this time. She has no diarrhea. Cultures with no growth. Continue short trial of IV cefepime , discontinued. Started Ceftriaxone and Flagyl. HIV negative. RPR- nonreactive Hepatitis panel - nonreative 2) Suspected cervical cancer: Status post biopsy.. 06/04 - path - neg for neoplasm, concern remains for malignancy, CT scan and pelvic exam is highly suspicious for cervical cancer. Option of lung and bone biopsy to prove stage IV . Leukocytosis continuing, Certain infections could also mimic a malignancy. For now, will continue antibiotics. Consider lung and bone biopsy and send separate samples for histopathology and separate sample for aerobic, fungal and AFB cultures. Will stop antibiotics as there is no evidence of a pelvic abscess. Abdomen and pelvis CT show that the cervix appears to be enlarged and heterogeneous measuring 9.4 x 5.4 cm in axial plane. A cervical mass cannot be excluded. Monitor leukocytosis which we believe is due to malignancy 3) Acute kidney injury: Resolved. Likely from obstructive uropathy: Status post bilateral nephrostomy tube placements with improvement in creatinine. 4) Anemia: s/p transfusion. 5) Left lower extremity edema: Asymmetric compared to the right. Duplex scan negative. No evidence of deep venous thrombosis. Recs: Ceftriaxone and flagyl discontinued Monitor off antibiotics Monitor leukocytosis which we believe is due to malignancy ID is signing off [facility] M: [id number] O:[phone] Subjective Date of service: 06/09/18 Principal diagnosis: cervical mass Interval history: Patient seen and examined. Awake, Alert, no acute distress, no fevers. Denies generalized pain, no fevers. Objective - Exam Narrative Exam: Constitutional: Awake, alert . No acute distress Head, Ears, Nose: Normocephalic, atraumatic. External ears, nose normal Eyes: Conjunctivae/corneas clear. No icterus. No ptosis. Neck: Supple, no meningeal signs Oral: Dentition good, no thrush Cardiovascular: ST Respiratory: Good air entry, clear to auscultation bilaterally GI: Soft, non-tender; bowel sounds normal. No peritoneal signs. B/L nephrostomy tubes + Musculoskeletal: LLE edema + Skin: No rash or abscess Hem/Lymphatic: No palpable cervical or supraclavicular nodes. No lymphangitis Psych: Mood good. . Affect normal Neurological: Awake, alert oriented. No gross abnormality - Constitutional Vitals: Vital Signs Temp Pulse Resp BP Pulse Ox 99.2 F 95 H 18 121/68 96 06/08/18 19:35 06/09/18 07:00 06/09/18 02:00 06/09/18 02:00 06/09/18 02:18 Temperature -Last 24 Hours Temperature 99.2 F Temperature 98.8 F Temperature 98.3 F - Labs CBC & Chem 7: 06/09/18 04:16 06/08/18 13:50 Labs: Abnormal lab results 06/08/18 06/09/18 Range/Units 13:50 04:16 WBC 18.8 H (4.5-11.0) K/mm3 RBC 2.89 L (3.65-5.03) M/mm3 Hgb 7.7 L (10.1-14.3) gm/dl Hct 23.8 L (30.3-42.9) % MCH 27 L (28-32) pg RDW 17.3 H (13.2-15.2) % Lymph % (Auto) 6.7 L (13.4-35.0) % [place] % (Auto) 7.7 H (0.0-7.3) % [place] # 1.5 H (0.0-0.8) K/mm3 Baso # 0.2 H (0.0-0.1) K/mm3 Seg Neutrophils % 82.5 H (40.0-70.0) % Seg Neutrophils # 15.5 H (1.8-7.7) K/mm3 Sodium 134 L (137-145) mmol/L Potassium 3.4 L (3.6-5.0) mmol/L Carbon Dioxide 20 L (22-30) mmol/L Creatinine 0.4 L (0.7-1.2) mg/dL Glucose 140 H (65-100) mg/dL Calcium 8.3 L (8.4-10.2) mg/dL
[2018-06-09] MEDS: NACL 0.9% 1000 ML 1,000 ML IV SCH (11:21)
[2018-06-09] MEDS: SODIUM CHLORIDE FLUSH SYRINGE 10 ML IV SCH ×2 (11:22→22:23)
[2018-06-09] MEDS: FEOSOL PO SCH ×2 (11:23→22:22)
[2018-06-09] MEDS: PEPCID PO SCH ×2 (11:23→22:22)
[2018-06-09] MEDS: FOLVITE PO SCH (11:23)
[2018-06-09] MEDS: Centrum Liq PO SCH (11:23)
[2018-06-09] MEDS: REGLAN IV SCH ×2 (11:23→22:22)
[2018-06-09] MEDS: HEPARIN SUB-Q SCH ×2 (11:23→22:22)
[2018-06-09] MEDS ORDERED: SUBLIMAZE ONE (12:04)
[2018-06-09] MEDS ORDERED: VERSED IV ONE ×2 (12:04→12:30)
[2018-06-09] MEDS ORDERED: SUBLIMAZE IV ONE (12:30)
--- NOTE | 2018-06-09 13:56 | Cat Scan Report ---
CT BIOPSY BONE SUPERFICIAL History: Left iliac bone mass. Description of procedure: Informed consent was obtained with the use of an park interpreter. Sterile technique was utilized. 1% lidocaine for skin anesthesia. Moderate sedation was accomplished with Versed and fentanyl. The patient was sedated for 15 minutes. Intraobserver time of 15 minutes. Independent cardiorespiratory monitoring by RN. Using CT guidance, a 10-gauge introducer needle was advanced to the leading each of the 3.0 x 1.7 cm sclerotic bony lesion in the left iliac bone. A 1 cm 11-gauge core biopsy was obtained for pathology. No complications. Impression: Successful CT-guided biopsy of the sclerotic left iliac bone lesion.
[2018-06-09 14:30] LABS: BUN/Creatinine Ratio 27; Blood Urea Nitrogen 8 mg/dL (7-17); Calcium 8.4 mg/dL (8.4-10.2); Hemolysis Index 17
--- NOTE | 2018-06-09 15:31 | Progress Note ---
Assessment and Plan Assessment and plan: The patient is a 73-year-old female with no significant past medical history presented to the hospital emergency room on 05/28/2017 with complaints of suprapubic pain. Upon evaluation here, she was found to have acute renal failure, CT abdomen pelvis showed bilateral hydronephrosis and a large cervical mass. She had to undergo emergent dialysis with nephrology assistance after HD cath placement. On 05/29/2017 she underwent bilateral nephrostomy tube placements. On 05/31/2018, she underwent EUA and cervical biopsies by [employer] SOURCE COLLECTION MANAGER. Infectious diseases was consulted due to low-grade temperatures and significant leukocytosis. She has bilateral nephrostomy tubes are draining . Her HD catheter was removed and her creatinine has returned back to normal. She has left lower extremity edema that has been going on for the last 2 weeks. Doppler was negative. Patient was noted to have leukemoid reaction present since admission that is likely related to underlying malignancy. However, ID treating empirically with a short trial of IV cefepime to complete today No complaints or new issues. Cervical mass. Suspected cervical CA Pt. with enlarged regional nodes, suspected cervical cancer but 06/04 bx with neg ative path for neoplasm concern remains for malignancy, however, patient did have significant leukocytosis on admission which is now worsening. Certain infections could also mimic a malignancy. For now, will continue antibiotics. Consider IR biopsy, and send separate samples for histopathology and separate sample for aerobic, fungal and AFB cultures -[employer] SOURCE COLLECTION MANAGER and Hematology following. IR will do Bone biopsy today. Leukemoid reaction. patient was treated with IV Ceftriaxone and Flagyl currently off antibiotics. WBC is trending down. Anemia. s/p Transfusion of 2 units PRBC stable Stool occult blood LYLE due to obstructive uropathy s/p emergency hemodialysis Nephrology following Hypokalemia, replete K as needed. Check BMP Bilateral hydronephrosis . s/p bilat Nephrostomy tube placement 05/29 Full code status History Interval history: Patient was seen and evaluated this morning. Patient was alert and oriented, not in pain or distress. Discussed with the patient about the management plan. Hospitalist Physical - Physical exam Narrative exam: Not in cardiopulmonary distress. The patient appeared well nourished and normally developed. Vital signs as documented. Head exam is unremarkable. No scleral icterus . Neck is without jugular venous distension, thyromegaly, or carotid bruits. Lungs are clear to auscultation. Cardiac exam reveals regular rate and Rhythm. Abdominal exam reveals normal bowel sounds, no masses, no organomegaly and no aortic enlargement. Extremities non edematous. 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 No focal weakness. - Constitutional Vitals: Temp Pulse Resp BP Pulse Ox 99.2 F 93 H 16 130/68 100 06/08/18 19:35 06/09/18 13:12 06/09/18 13:12 06/09/18 13:12 06/09/18 13:12 General appearance: Present: no acute distress Results - Labs CBC & Chem 7: 06/09/18 04:16 06/09/18 13:57 Labs: Laboratory Last Values WBC 18.8 K/mm3 (4.5-11.0) H 06/09/18 04:16 RBC 2.89 M/mm3 (3.65-5.03) L 06/09/18 04:16 Hgb 7.7 gm/dl (10.1-14.3) L 06/09/18 04:16 Hct 23.8 % (30.3-42.9) L 06/09/18 04:16 MCV 82 fl (79-97) 06/09/18 04:16 MCH 27 pg (28-32) L 06/09/18 04:16 MCHC 33 % (30-34) 06/09/18 04:16 RDW 17.3 % (13.2-15.2) H 06/09/18 04:16 Plt Count 439 K/mm3 (140-440) 06/09/18 04:16 Lymph % (Auto) 6.7 % (13.4-35.0) L 06/09/18 04:16 [place] % (Auto) 7.7 % (0.0-7.3) H 06/09/18 04:16 Eos % (Auto) 1.9 % (0.0-4.3) 06/09/18 04:16 Baso % (Auto) 1.2 % (0.0-1.8) 06/09/18 04:16 Lymph # 1.3 K/mm3 (1.2-5.4) 06/09/18 04:16 [place] # 1.5 K/mm3 (0.0-0.8) H 06/09/18 04:16 Eos # 0.4 K/mm3 (0.0-0.4) 06/09/18 04:16 Baso # 0.2 K/mm3 (0.0-0.1) H 06/09/18 04:16 Add Manual Diff Complete 06/08/18 03:45 Total Counted 100 06/08/18 03:45 Seg Neutrophils % 82.5 % (40.0-70.0) H 06/09/18 04:16 Seg Neuts % (Manual) 96.0 % (40.0-70.0) H 06/08/18 03:45 Band Neutrophils % 1.0 % 06/08/18 03:45 Lymphocytes % (Manual) 0 % (13.4-35.0) L 06/08/18 03:45 Reactive Lymphs % (Man) 0 % 06/08/18 03:45 Monocytes % (Manual) 2.0 % (0.0-7.3) 06/08/18 03:45 Eosinophils % (Manual) 1.0 % (0.0-4.3) 06/08/18 03:45 Basophils % (Manual) 0 % (0.0-1.8) 06/08/18 03:45 Metamyelocytes % 0 % 06/08/18 03:45 Myelocytes % 0 % 06/08/18 03:45 Promyelocytes % 0 % 06/08/18 03:45 Blast Cells % 0 % 06/08/18 03:45 Nucleated RBC % Not Reportable 06/08/18 03:45 Seg Neutrophils # 15.5 K/mm3 (1.8-7.7) H 06/09/18 04:16 Seg Neutrophils # Man 22.8 K/mm3 (1.8-7.7) H 06/08/18 03:45 Band Neutrophils # 0.2 K/mm3 06/08/18 03:45 Lymphocytes # (Manual) 0.0 K/mm3 (1.2-5.4) L 06/08/18 03:45 Abs React Lymphs (Man) 0.0 K/mm3 06/08/18 03:45 Monocytes # (Manual) 0.5 K/mm3 (0.0-0.8) 06/08/18 03:45 Eosinophils # (Manual) 0.2 K/mm3 (0.0-0.4) 06/08/18 03:45 Basophils # (Manual) 0.0 K/mm3 (0.0-0.1) 06/08/18 03:45 Metamyelocytes # 0.0 K/mm3 06/08/18 03:45 Myelocytes # 0.0 K/mm3 06/08/18 03:45 Promyelocytes # 0.0 K/mm3 06/08/18 03:45 Blast Cells # 0.0 K/mm3 06/08/18 03:45 Pathologist Review 06/07/18 05:19 WBC Morphology Not Reportable 06/08/18 03:45 Hypersegmented Neuts Not Reportable 06/08/18 03:45 Hyposegmented Neuts Not Reportable 06/08/18 03:45 Hypogranular Neuts Not Reportable 06/08/18 03:45 Smudge Cells Not Reportable 06/08/18 03:45 Toxic Granulation Not Reportable 06/08/18 03:45 Toxic Vacuolation Not Reportable 06/08/18 03:45 Dohle Bodies Not Reportable 06/08/18 03:45 Pelger-Huet Anomaly Not Reportable 06/08/18 03:45 Sully Rods Not Reportable 06/08/18 03:45 Platelet Estimate Consistent w auto 06/08/18 03:45 Clumped Platelets Not Reportable 06/08/18 03:45 Plt Clumps, EDTA Not Reportable 06/08/18 03:45 Large Platelets Not Reportable 06/08/18 03:45 Giant Platelets Not Reportable 06/08/18 03:45 Platelet Satelliting Not Reportable 06/08/18 03:45 Plt Morphology Comment Not Reportable 06/08/18 03:45 RBC Morphology Not Reportable 06/08/18 03:45 Dimorphic RBCs Not Reportable 06/08/18 03:45 Polychromasia Not Reportable 06/08/18 03:45 Hypochromasia 1+ 06/08/18 03:45 Poikilocytosis Not Reportable 06/08/18 03:45 Anisocytosis 1+ 06/08/18 03:45 Microcytosis Not Reportable 06/08/18 03:45 Macrocytosis Not Reportable 06/08/18 03:45 Spherocytes Few 06/08/18 03:45 Pappenheimer Bodies Not Reportable 06/08/18 03:45 Sickle Cells Not Reportable 06/08/18 03:45 Target Cells Not Reportable 06/08/18 03:45 Tear Drop Cells Not Reportable 06/08/18 03:45 Ovalocytes Not Reportable 06/08/18 03:45 Stomatocytes Rare 06/04/18 05:30 Helmet Cells Not Reportable 06/08/18 03:45 [place] Bodies Not Reportable 06/08/18 03:45 [place] Rings Not Reportable 06/08/18 03:45 [place] Cells Not Reportable 06/08/18 03:45 Bite Cells Not Reportable 06/08/18 03:45 Crenated Cell Not Reportable 06/08/18 03:45 Elliptocytes Not Reportable 06/08/18 03:45 Acanthocytes (Spur) Not Reportable 06/08/18 03:45 Rouleaux Not Reportable 06/08/18 03:45 Hemoglobin C Crystals Not Reportable 06/08/18 03:45 Schistocytes Not Reportable 06/08/18 03:45 Malaria parasites Not Reportable 06/08/18 03:45 [place] Bodies Not Reportable 06/08/18 03:45 Hem Pathologist Commnt No 06/08/18 03:45 PT 14.9 Sec. (12.2-14.9) 05/28/18 09:09 INR 1.10 (0.87-1.13) 05/28/18 09:09 VBG pH 7.271 (7.320-7.420) L 05/28/18 09:09 Sodium 135 mmol/L (137-145) L 06/09/18 13:57 Potassium 3.1 mmol/L (3.6-5.0) L 06/09/18 13:57 Chloride 101.3 mmol/L (98-107) 06/09/18 13:57 Carbon Dioxide 22 mmol/L (22-30) 06/09/18 13:57 Anion Gap 15 mmol/L 06/09/18 13:57 BUN 8 mg/dL (7-17) 06/09/18 13:57 Creatinine 0.3 mg/dL (0.7-1.2) L 06/09/18 13:57 Estimated GFR > 60 ml/min 06/09/18 13:57 BUN/Creatinine Ratio 27 % 06/09/18 13:57 Glucose 100 mg/dL (65-100) 06/09/18 13:57 Hemoglobin A1c 6.1 % (4-6) H 05/29/18 04:41 Lactic Acid 2.10 mmol/L (0.7-2.0) H* 05/28/18 13:29 Calcium 8.4 mg/dL (8.4-10.2) 06/09/18 13:57 Magnesium 1.50 mg/dL (1.7-2.3) L 06/04/18 05:30 Iron 22 ug/dL (37-170) L 05/31/18 13:06 TIBC 81 mcg/dL (250-450) L 05/31/18 13:06 Ferritin 1083.0 ng/mL (13.0-400.0) H 05/31/18 13:06 Total Bilirubin 0.40 mg/dL (0.1-1.2) 05/30/18 04:29 AST 7 units/L (5-40) 05/30/18 04:29 ALT < 5 units/L (7-56) L 05/30/18 04:29 Alkaline Phosphatase 84 units/L (35-129) 05/30/18 04:29 Total Protein 6.2 g/dL (6.3-8.2) L D 05/30/18 04:29 Albumin 1.7 g/dL (3.9-5) L 05/30/18 04:29 Albumin/Globulin Ratio 0.4 % 05/30/18 04:29 Vitamin B12 753.6 pg/mL (211-911) 05/31/18 13:06 Folate 3.98 ng/mL (7.3-26.0) L 05/31/18 13:06 Urine Color Yellow (Yellow) 05/28/18 12:02 Urine Turbidity Clear (Clear) 05/28/18 12:02 Urine pH 7.0 (5.0-7.0) 05/28/18 12:02 Ur Specific [place] 1.006 (1.003-1.030) 05/28/18 12:02 Urine Protein 30 mg/dl mg/dL (Negative) 05/28/18 12:02 Urine Glucose (UA) Neg mg/dL (Negative) 05/28/18 12:02 Urine Ketones Tr mg/dL (Negative) 05/28/18 12:02 Urine Blood Mod (Negative) 05/28/18 12:02 Urine Nitrite Neg (Negative) 05/28/18 12:02 Urine Bilirubin Neg (Negative) 05/28/18 12:02 Urine Urobilinogen < 2.0 mg/dL (<2.0) 05/28/18 12:02 Ur Leukocyte Esterase Neg (Negative) 05/28/18 12:02 Urine WBC (Auto) 6.0 /HPF (0.0-6.0) 05/28/18 12:02 Urine RBC (Auto) 5.0 /HPF (0.0-6.0) 05/28/18 12:02 U Epithel Cells (Auto) 1.0 /HPF (0-13.0) 05/28/18 12:02 Urine Bacteria (Auto) 1+ /HPF (Negative) 05/28/18 12:02 Urine Mucus Few /HPF 05/28/18 12:02 RPR Nonreactive (Nonreactive) 06/04/18 20:15 C.trachomatis DNA (SDA) Not detected (Not Detected) 06/04/18 18:21 Hepatitis A IgM Ab Non-reactive (NonReactive) 05/28/18 15:50 Hep Bs Antigen Non-reactive (Negative) 05/28/18 15:50 Hep B Core IgM Ab Non-reactive (NonReactive) 05/28/18 15:50 Hepatitis C Antibody Non-reactive (NonReactive) 05/28/18 15:50 HIV 1&2 Antibody Rapid Non react (Non React) 06/04/18 20:15 HIV P24 Antigen Non react (Non React) 06/04/18 20:15 N.gonorrhoeae DNA (SDA) Not detected (Not Detected) 06/04/18 18:21 Blood Type O POSITIVE 05/29/18 09:41 Antibody Screen Negative 05/29/18 09:41 Crossmatch See Detail 05/29/18 09:41 Nutrition/Malnutrition Assess - Dietary Evaluation Nutrition/Malnutrition Findings: Nutrition Notes Start: 06/01/18 14:20 Freq: Status: Active Protocol: Document 06/08/18 14:52 RM (Rec: 06/08/18 15:02 RM [id number]) Nutrition Notes Initial or Follow up Reassessment Current Diagnosis Acute Kidney Injury Other Pertinent Diagnosis Metastatic cervical cancer, esophageal obstruction Current Diet Mechanical Soft Labs/Tests Reviewed Pertinent Medications Reviewed Height 5 ft 2 in Weight 45.1 kg [place] Body Weight (kg) 50.00 BMI 18.1 Subjective/Other Information Pt stated that her appetite is poor. Stated that the condiments and sauces on the food makes her nauseous. Stated that she only ate half of her oatmeal from her breakfast. Noted preferences. Stated she drinks the Ensure Enlive. Percent of energy/protein needs met: 23%/37% Burn Absent Trauma Absent #1 Nutrition Diagnosis Malnutrition Diagnosis Progress(for reassessment Continues documentation) Is patient on ventilator? No Is Patient Ambulatory and/or Out of Bed Yes REE-([facility]-ambulatory/OOB) [ 1188.525 [id number]] Kcal/Kg value to use for calculation 33 Approximate Energy Requirements Using 1488 kcal/Kg Calculation Used for Recommendations Kcal/kg Additional Notes Protein Needs: 54-68g (1.2-1. 5g/kg) Fluid Needs: 1 ml/kcal Nutrition Intervention Change Diet Order: Continue current Add Supplement/Snack (indicate name/kcal Ensure Enlive TID [place] /protein ) Provides kCal: 1,050 Provides Protein (gm) 60 Goal #1 Meet at least 75% of calorie and protein needs via PO and ONS intake Anticipated Discharge Needs: Mechanical Soft Follow-Up By: 06/10/18 Additional Comments F/U: for PO intakes and ONS intakes
[2018-06-09] MEDS ORDERED: K-DUR PO ONE (16:00)
[2018-06-09] MEDS: PERCOCET 5/325 PO PRN (16:19)
[2018-06-10] MEDS: NACL 0.9% 1000 ML 1,000 ML IV SCH (01:41)
[2018-06-10] MEDS: PERCOCET 5/325 PO PRN ×2 (06:40→23:51)
--- NOTE | 2018-06-10 07:24 | Hem/Onc Progress Note ---
Assessment and Plan 1. Cervical mass. 2. Retroperitoneal lymph nodes. 3. Bone abnormality. 4. Hydronephrosis. 5. SUBSTATION INSPECTOR team is biopsy. This most likely is advanced cervical cancer, 6 - severe anemia - will Ix and follow I will liase with SUBSTATION INSPECTOR team. s/p nephrostomy+ 05/31 - s/p cx bx 06/01 - d/w daughter - reg bone lesion 06/02 - on folic acid - s/p iv iron - path pending 06/03 - path pending - d/w RN reg same 06/04 - path - neg for neoplasm - ? need for repeat bx - vessel welder following oral iron 06/05 - Ct chest and bone scan - as per vessel welder - vessel welder onc planned network program manager is now normal - ? Ct with contrast?? 06/07/2018 - pt had CT chest - lung lesions+ bone scan - lesions + the pt most likely has stage IV cervical ca - however cervical bx was neg - if repeat cervical bx not possible - ? option of lung and bone biopsy to prove stage IV 06/08/2018 - IR consult - bone vs lugn bx - toprove stage IV hb 7.9 - pt on oral iron - folci acid and MVI 06/09 - IR consulted for bx 06/10 - bone biopsy - path - if + for cancer - then - stage IV - OP follow up - Patient Problems (1) Anemia Current Visit: Yes Status: Acute Qualifiers: Anemia type: iron deficiency (2) Cervical mass Onset Date: 05/30/18 Current Visit: Yes Status: Chronic Subjective Date of service: 06/10/18 Principal diagnosis: cervical mass Interval history: pt had bone biopsy Objective - Constitutional Vitals: Last Vital Signs Temp 99 F 06/10/18 02:00 Pulse 109 H 06/10/18 02:00 Resp 18 06/10/18 02:00 BP 117/58 06/10/18 02:00 Pulse Ox 97 06/10/18 02:00 Pain Intensity (0-10): denies any pain General appearance: no acute distress Performance status: 2- selfcare, ambulatory - EENT Eyes: EOM intact ENT: clear oral mucosa Lymph node exam: negative cervical - Neck Neck: normal ROM - Respiratory Respiratory effort: Positive: normal Respiratory: bilateral: CTA - Cardiovascular Heart Sounds: Present: S1 & S2 Extremities: No edema - Gastrointestinal General gastrointestinal: Present: soft, non-tender Rectal Exam: deferred - Genitourinary Female genitourinary: Present: deferred - Integumentary Integumentary: warm - Musculoskeletal Musculoskeletal: strength equal bilaterally - Neurologic Neurologic: moves all extremities - Psychiatric Psychiatric: appropriate mood/affect - Labs Lab Results: Laboratory Results - last 24 hr 06/09/18 13:57 Sodium 135 L Potassium 3.1 L Chloride 101.3 Carbon Dioxide 22 Anion Gap 15 BUN 8 Creatinine 0.3 L Estimated GFR > 60 BUN/Creatinine Ratio 27 Glucose 100 Calcium 8.4 Medications & Allergies - Medications Allergies/Adverse Reactions: Allergies No Known Allergies Allergy (Verified 05/28/18 09:10) Home Medications: Home Medications Medication Instructions Recorded Confirmed Last Taken Type No Known Home Medications [No 05/28/18 05/28/18 Unknown History Reported Home Medications] Active Medications: Generic Name Dose Route Start Last Admin Trade Name Freq PRN Reason Stop Dose Admin Acetaminophen 650 mg 05/28/18 22:37 06/05/18 16:43 Tylenol PO 650 mg Q6H PRN Administration Pain, Mild (1-3) Famotidine 10 mg 05/29/18 10:00 06/09/18 22:22 Pepcid PO 10 mg BID ALBINA Administration Ferrous Sulfate 325 mg 06/04/18 10:00 06/09/18 22:22 Feosol PO 325 mg BID ALBINA Administration Folic Acid 1 mg 05/31/18 17:00 06/09/18 11:23 Folvite PO Not Given QDAY ALBINA Heparin Sodium (Porcine) 5,000 unit 05/31/18 22:00 06/09/18 22:22 Heparin SUB-Q 5,000 unit Q12HR ALBINA Administration Hydromorphone HCl 0.5 mg 05/29/18 03:21 06/07/18 18:31 Dilaudid IV 0.5 mg Q3H PRN Administration Pain , Severe (7-10) Sodium Chloride 100 mls @ 999 mls/hr 05/28/18 13:21 Nacl 0.9% IV CATHERINE PRN Hypotension Sodium Chloride 1,000 mls @ 75 mls/hr 06/06/18 16:00 06/10/18 01:41 Nacl 0.9% 1000 Ml IV 75 mls/hr DIRECT ALBINA Administration Metoclopramide HCl 5 mg 05/29/18 22:00 06/09/18 22:22 Reglan IV 5 mg BID ALBINA Administration Multivitamins 5 ml 05/31/18 17:00 06/09/18 11:23 Centrum Liq PO Not Given QDAY ALBINA Oxycodone/Acetaminophen 1 tab 05/29/18 03:21 06/10/18 06:40 Percocet 5/325 PO 1 tab Q6H PRN Administration Pain, Moderate (4-6) Sodium Chloride 10 ml 05/29/18 04:00 06/09/18 22:23 Sodium Chloride Flush Syringe 10 Ml IV 10 ml BID ALBINA Administration Sodium Chloride 10 ml 05/29/18 03:19 Sodium Chloride Flush Syringe 10 Ml IV PRN PRN LINE FLUSH
[2018-06-10 08:08] LABS: BUN/Creatinine Ratio 35; Blood Urea Nitrogen 7 mg/dL (7-17); Calcium 8.1 mg/dL (8.4-10.2); Hemolysis Index 1
[2018-06-10 08:16] LABS: Basophils # (Auto) 0.1 K/mm3 (0.0-0.1); Basophils % (Auto) 0.7 % (0.0-1.8); Eosinophils # (Auto) 0.3 K/mm3 (0.0-0.4); Eosinophils % (Auto) 1.8 % (0.0-4.3); Hematocrit 23.9 % (30.3-42.9); Hemoglobin 7.8 gm/dl (10.1-14.3); Lymphocytes # (Auto) 1.2 K/mm3 (1.2-5.4); Lymphocytes % (Auto) 6.1 % (13.4-35.0); Mean Corpuscular HGB Conc 32 % (30-34); Mean Corpuscular Volume 83 fl (79-97); Monocytes # (Auto) 1.5 K/mm3 (0.0-0.8); Monocytes % (Auto) 7.9 % (0.0-7.3); Platelet Count 446 K/mm3 (140-440); Red Cell Distribution Width 17.3 % (13.2-15.2)
[2018-06-10] MEDS: Centrum Liq PO SCH (09:04)
[2018-06-10] MEDS: FEOSOL PO SCH ×2 (09:04→23:23)
[2018-06-10] MEDS: FOLVITE PO SCH (09:04)
[2018-06-10] MEDS: PEPCID PO SCH ×2 (09:04→23:23)
[2018-06-10] MEDS: SODIUM CHLORIDE FLUSH SYRINGE 10 ML IV SCH ×3 (09:06→23:24)
[2018-06-10] MEDS: REGLAN IV SCH ×2 (09:07→23:23)
[2018-06-10] MEDS: HEPARIN SUB-Q SCH ×2 (09:13→23:23)
--- NOTE | 2018-06-10 10:43 | Progress Note ---
Assessment and Plan Assessment and plan: The patient is a 73-year-old female with no significant past medical history presented to the hospital emergency room on 05/28/2017 with complaints of suprapubic pain. Upon evaluation here, she was found to have acute renal failure, CT abdomen pelvis showed bilateral hydronephrosis and a large cervical mass. She had to undergo emergent dialysis with nephrology assistance after HD cath placement. On 05/29/2017 she underwent bilateral nephrostomy tube placements. On 05/31/2018, she underwent EUA and cervical biopsies by PRISON GUARD SUPERVISOR. Infectious diseases was consulted due to low-grade temperatures and significant leukocytosis. She has bilateral nephrostomy tubes are draining . Her HD catheter was removed and her creatinine has returned back to normal. She has left lower extremity edema that has been going on for the last 2 weeks. Doppler was negative. Patient was noted to have leukemoid reaction present since admission that is likely related to underlying malignancy. However, ID treating empirically with a short trial of IV cefepime to complete today No complaints or new issues. Cervical mass. Suspected cervical CA Pt. with enlarged regional nodes, suspected cervical cancer but 06/04 bx with neg ative path for neoplasm concern remains for malignancy, however, patient did have significant leukocytosis on admission which is now worsening. Certain infections could also mimic a malignancy. For now, will continue antibiotics. Consider IR biopsy, and send separate samples for histopathology and separate sample for aerobic, fungal and AFB cultures -PRISON GUARD SUPERVISOR and Hematology following. Will repeat CT to see the progression of the mass and hydronephrosis. IR did bone biopsy yesterday. will follow the results. Leukemoid reaction. patient was treated with IV Ceftriaxone and Flagyl currently off antibiotics. WBC is trending down. Anemia. s/p Transfusion of 2 units PRBC stable Stool occult blood LYLE due to obstructive uropathy s/p emergency hemodialysis Nephrology following Now resolved and off dialysis Hypokalemia, replete K as needed. Check BMP Bilateral hydronephrosis . - s/p bilat Nephrostomy tube placement 05/29 Full code status History Interval history: Patient was seen and evaluated this morning. Patient was alert and oriented, not in pain or distress. Discussed with the patient about the management plan. Hospitalist Physical - Physical exam Narrative exam: Not in cardiopulmonary distress. The patient appeared well nourished and normally developed. Vital signs as documented. Head exam is unremarkable. No scleral icterus . Neck is without jugular venous distension, thyromegaly, or carotid bruits. Lungs are clear to auscultation. Cardiac exam reveals regular rate and Rhythm. Abdominal exam reveals normal bowel sounds, no masses, no organomegaly and no aortic enlargement. Extremities non edematous. GIS INSTRUCTOR: Alert and oriented 3. No focal weakness. - Constitutional Vitals: Temp Pulse Resp BP Pulse Ox 99.8 F H 99 H 18 128/66 98 06/10/18 07:17 06/10/18 08:41 06/10/18 07:17 06/10/18 07:17 06/10/18 09:42 General appearance: Present: no acute distress Results - Labs CBC & Chem 7: 06/10/18 07:42 06/10/18 07:42 Labs: Laboratory Last Values WBC 19.1 K/mm3 (4.5-11.0) H 06/10/18 07:42 RBC 2.90 M/mm3 (3.65-5.03) L 06/10/18 07:42 Hgb 7.8 gm/dl (10.1-14.3) L 06/10/18 07:42 Hct 23.9 % (30.3-42.9) L 06/10/18 07:42 MCV 83 fl (79-97) 06/10/18 07:42 MCH 27 pg (28-32) L 06/10/18 07:42 MCHC 32 % (30-34) 06/10/18 07:42 RDW 17.3 % (13.2-15.2) H 06/10/18 07:42 Plt Count 446 K/mm3 (140-440) H 06/10/18 07:42 Lymph % (Auto) 6.1 % (13.4-35.0) L 06/10/18 07:42 Coal % (Auto) 7.9 % (0.0-7.3) H 06/10/18 07:42 Eos % (Auto) 1.8 % (0.0-4.3) 06/10/18 07:42 Baso % (Auto) 0.7 % (0.0-1.8) 06/10/18 07:42 Lymph # 1.2 K/mm3 (1.2-5.4) 06/10/18 07:42 Coal # 1.5 K/mm3 (0.0-0.8) H 06/10/18 07:42 Eos # 0.3 K/mm3 (0.0-0.4) 06/10/18 07:42 Baso # 0.1 K/mm3 (0.0-0.1) 06/10/18 07:42 Add Manual Diff Complete 06/08/18 03:45 Total Counted 100 06/08/18 03:45 Seg Neutrophils % 83.5 % (40.0-70.0) H 06/10/18 07:42 Seg Neuts % (Manual) 96.0 % (40.0-70.0) H 06/08/18 03:45 Band Neutrophils % 1.0 % 06/08/18 03:45 Lymphocytes % (Manual) 0 % (13.4-35.0) L 06/08/18 03:45 Reactive Lymphs % (Man) 0 % 06/08/18 03:45 Monocytes % (Manual) 2.0 % (0.0-7.3) 06/08/18 03:45 Eosinophils % (Manual) 1.0 % (0.0-4.3) 06/08/18 03:45 Basophils % (Manual) 0 % (0.0-1.8) 06/08/18 03:45 Metamyelocytes % 0 % 06/08/18 03:45 Myelocytes % 0 % 06/08/18 03:45 Promyelocytes % 0 % 06/08/18 03:45 Blast Cells % 0 % 06/08/18 03:45 Nucleated RBC % Not Reportable 06/08/18 03:45 Seg Neutrophils # 16.0 K/mm3 (1.8-7.7) H 06/10/18 07:42 Seg Neutrophils # Man 22.8 K/mm3 (1.8-7.7) H 06/08/18 03:45 Band Neutrophils # 0.2 K/mm3 06/08/18 03:45 Lymphocytes # (Manual) 0.0 K/mm3 (1.2-5.4) L 06/08/18 03:45 Abs React Lymphs (Man) 0.0 K/mm3 06/08/18 03:45 Monocytes # (Manual) 0.5 K/mm3 (0.0-0.8) 06/08/18 03:45 Eosinophils # (Manual) 0.2 K/mm3 (0.0-0.4) 06/08/18 03:45 Basophils # (Manual) 0.0 K/mm3 (0.0-0.1) 06/08/18 03:45 Metamyelocytes # 0.0 K/mm3 06/08/18 03:45 Myelocytes # 0.0 K/mm3 06/08/18 03:45 Promyelocytes # 0.0 K/mm3 06/08/18 03:45 Blast Cells # 0.0 K/mm3 06/08/18 03:45 Pathologist Review 06/07/18 05:19 WBC Morphology Not Reportable 06/08/18 03:45 Hypersegmented Neuts Not Reportable 06/08/18 03:45 Hyposegmented Neuts Not Reportable 06/08/18 03:45 Hypogranular Neuts Not Reportable 06/08/18 03:45 Smudge Cells Not Reportable 06/08/18 03:45 Toxic Granulation Not Reportable 06/08/18 03:45 Toxic Vacuolation Not Reportable 06/08/18 03:45 Dohle Bodies Not Reportable 06/08/18 03:45 Pelger-Huet Anomaly Not Reportable 06/08/18 03:45 Sully Rods Not Reportable 06/08/18 03:45 Platelet Estimate Consistent w auto 06/08/18 03:45 Clumped Platelets Not Reportable 06/08/18 03:45 Plt Clumps, EDTA Not Reportable 06/08/18 03:45 Large Platelets Not Reportable 06/08/18 03:45 Giant Platelets Not Reportable 06/08/18 03:45 Platelet Satelliting Not Reportable 06/08/18 03:45 Plt Morphology Comment Not Reportable 06/08/18 03:45 RBC Morphology Not Reportable 06/08/18 03:45 Dimorphic RBCs Not Reportable 06/08/18 03:45 Polychromasia Not Reportable 06/08/18 03:45 Hypochromasia 1+ 06/08/18 03:45 Poikilocytosis Not Reportable 06/08/18 03:45 Anisocytosis 1+ 06/08/18 03:45 Microcytosis Not Reportable 06/08/18 03:45 Macrocytosis Not Reportable 06/08/18 03:45 Spherocytes Few 02/25/19 03:45 Pappenheimer Bodies Not Reportable 06/08/18 03:45 Sickle Cells Not Reportable 06/08/18 03:45 Target Cells Not Reportable 06/08/18 03:45 Tear Drop Cells Not Reportable 06/08/18 03:45 Ovalocytes Not Reportable 06/08/18 03:45 Stomatocytes Rare 06/04/18 05:30 Helmet Cells Not Reportable 06/08/18 03:45 [place] Bodies Not Reportable 06/08/18 03:45 [place] Not Reportable 06/08/18 03:45 Radha Cells Not Reportable 06/08/18 03:45 Bite Cells Not Reportable 06/08/18 03:45 Crenated Cell Not Reportable 06/08/18 03:45 Elliptocytes Not Reportable 06/08/18 03:45 Acanthocytes (Spur) Not Reportable 06/08/18 03:45 Rouleaux Not Reportable 06/08/18 03:45 Hemoglobin C Crystals Not Reportable 06/08/18 03:45 Schistocytes Not Reportable 06/08/18 03:45 Malaria parasites Not Reportable 06/08/18 03:45 [place] Bodies Not Reportable 06/08/18 03:45 Hem Pathologist Commnt No 06/08/18 03:45 PT 14.9 Sec. (12.2-14.9) 05/28/18 09:09 INR 1.10 (0.87-1.13) 05/28/18 09:09 VBG pH 7.271 (7.320-7.420) L 05/28/18 09:09 Sodium 136 mmol/L (137-145) L 06/10/18 07:42 Potassium 3.8 mmol/L (3.6-5.0) D 06/10/18 07:42 Chloride 103.4 mmol/L (98-107) 06/10/18 07:42 Carbon Dioxide 22 mmol/L (22-30) 06/10/18 07:42 Anion Gap 14 mmol/L 06/10/18 07:42 BUN 7 mg/dL (7-17) 06/10/18 07:42 Creatinine 0.2 mg/dL (0.7-1.2) L 06/10/18 07:42 Estimated GFR > 60 ml/min 06/10/18 07:42 BUN/Creatinine Ratio 35 % 06/10/18 07:42 Glucose 115 mg/dL (65-100) H 06/10/18 07:42 Hemoglobin A1c 6.1 % (4-6) H 05/29/18 04:41 Lactic Acid 2.10 mmol/L (0.7-2.0) H* 05/28/18 13:29 Calcium 8.1 mg/dL (8.4-10.2) L 06/10/18 07:42 Magnesium 1.50 mg/dL (1.7-2.3) L 06/04/18 05:30 Iron 22 ug/dL (37-170) L 05/31/18 13:06 TIBC 81 mcg/dL (250-450) L 05/31/18 13:06 Ferritin 1083.0 ng/mL (13.0-400.0) H 05/31/18 13:06 Total Bilirubin 0.40 mg/dL (0.1-1.2) 05/30/18 04:29 AST 7 units/L (5-40) 05/30/18 04:29 ALT < 5 units/L (7-56) L 05/30/18 04:29 Alkaline Phosphatase 84 units/L (35-129) 05/30/18 04:29 Total Protein 6.2 g/dL (6.3-8.2) L D 05/30/18 04:29 Albumin 1.7 g/dL (3.9-5) L 05/30/18 04:29 Albumin/Globulin Ratio 0.4 % 05/30/18 04:29 Vitamin B12 753.6 pg/mL (211-911) 05/31/18 13:06 Folate 3.98 ng/mL (7.3-26.0) L 05/31/18 13:06 Urine Color Yellow (Yellow) 05/28/18 12:02 Urine Turbidity Clear (Clear) 05/28/18 12:02 Urine pH 7.0 (5.0-7.0) 05/28/18 12:02 Ur Specific [place] 1.006 (1.003-1.030) 05/28/18 12:02 Urine Protein 30 mg/dl mg/dL (Negative) 05/28/18 12:02 Urine Glucose (UA) Neg mg/dL (Negative) 05/28/18 12:02 Urine Ketones Tr mg/dL (Negative) 05/28/18 12:02 Urine Blood Mod (Negative) 05/28/18 12:02 Urine Nitrite Neg (Negative) 05/28/18 12:02 Urine Bilirubin Neg (Negative) 05/28/18 12:02 Urine Urobilinogen < 2.0 mg/dL (<2.0) 05/28/18 12:02 Ur Leukocyte Esterase Neg (Negative) 05/28/18 12:02 Urine WBC (Auto) 6.0 /HPF (0.0-6.0) 05/28/18 12:02 Urine RBC (Auto) 5.0 /HPF (0.0-6.0) 05/28/18 12:02 U Epithel Cells (Auto) 1.0 /HPF (0-13.0) 05/28/18 12:02 Urine Bacteria (Auto) 1+ /HPF (Negative) 05/28/18 12:02 Urine Mucus Few /HPF 05/28/18 12:02 RPR Nonreactive (Nonreactive) 06/04/18 20:15 C.trachomatis DNA (SDA) Not detected (Not Detected) 06/04/18 18:21 Hepatitis A IgM Ab Non-reactive (NonReactive) 05/28/18 15:50 Hep Bs Antigen Non-reactive (Negative) 05/28/18 15:50 Hep B Core IgM Ab Non-reactive (NonReactive) 05/28/18 15:50 Hepatitis C Antibody Non-reactive (NonReactive) 05/28/18 15:50 HIV 1&2 Antibody Rapid Non react (Non React) 06/04/18 20:15 HIV P24 Antigen Non react (Non React) 06/04/18 20:15 N.gonorrhoeae DNA (SDA) Not detected (Not Detected) 06/04/18 18:21 Blood Type O POSITIVE 05/29/18 09:41 Antibody Screen Negative 05/29/18 09:41 Crossmatch See Detail 05/29/18 09:41 Nutrition/Malnutrition Assess - Dietary Evaluation Nutrition/Malnutrition Findings: Nutrition Notes Start: 06/01/18 14:20 Freq: Status: Active Protocol: Document 06/08/18 14:52 (Rec: 06/08/18 15:02 [email or web address]) Nutrition Notes Initial or Follow up Reassessment Current Diagnosis Acute Kidney Injury Other Pertinent Diagnosis Metastatic cervical cancer, esophageal obstruction Current Diet Mechanical Soft Labs/Tests Reviewed Pertinent Medications Reviewed Height 5 ft 2 in Weight 45.1 kg [place] Body Weight (kg) 50.00 BMI 18.1 Subjective/Other Information Pt stated that her appetite is poor. Stated that the condiments and sauces on the food makes her nauseous. Stated that she only ate half of her oatmeal from her breakfast. Noted preferences. Stated she drinks the Ensure Enlive. Percent of energy/protein needs met: 23%/37% Burn Absent Trauma Absent #1 Nutrition Diagnosis Malnutrition Diagnosis Progress(for reassessment Continues documentation) Is patient on ventilator? No Is Patient Ambulatory and/or Out of Bed Yes [facility] [ 1188.525 [id number]] Kcal/Kg value to use for calculation 33 Approximate Energy Requirements Using 1488 kcal/Kg Calculation Used for Recommendations Kcal/kg Additional Notes Protein Needs: 54-68g (1.2-1. 5g/kg) Fluid Needs: 1 ml/kcal Nutrition Intervention Change Diet Order: Continue current Add Supplement/Snack (indicate name/kcal Ensure Enlive TID [place] /protein ) Provides kCal: 1,050 Provides Protein (gm) 60 Goal #1 Meet at least 75% of calorie and protein needs via PO and ONS intake Anticipated Discharge Needs: Mechanical Soft Follow-Up By: 06/10/18 Additional Comments F/U: for PO intakes and ONS intakes
--- NOTE | 2018-06-10 17:42 | Cat Scan Report ---
FINAL REPORT EXAM: CT ABDOMEN PELVIS WO CON HISTORY: Left perirenal abdominal mass and hydronephrosis , history of cervical mass and skeletal le sions TECHNIQUE: CT examination of the ABDOMEN without IV contrast CT examination of the PELVIS without IV contrast PRIORS: Chest CT 06/05/2018 and bone scan 06/05/2018 FINDINGS: Degenerative changes in the regional skeleton. No evidence of acute fracture. Slight vertebral compre ssion fracture deformity appears chronic at the T12, L1, L2, and L3. No associated osseous lesion or acute fracture line noted. Multiple skeletal lesions suggestive of metastatic disease: Partly imaged expansile lytic lesion in lateral left 6th rib. Sclerotic skeletal lesion in medial left iliac wing. Heterogeneous expansile sclerotic and lytic lesion left inferior pubic ramus posteriorly at the ischi um. Lack of IV and oral contrast significantly limits the examination. Nonspecific left lower lobe pulmonary nodules again noted which may reflect lung metastasis or primar y lung cancer. Left lower lobe solid nodule slightly larger at 21 mm, previously 20 mm. Medial subpleural left lower lobe nodule also larger at 9 mm, previously 6 mm. Additional smaller right lower lobe and right middle lobe pulmonary nodules again noted, relatively u nchanged. Normal noncontrast appearance of the liver, gallbladder, adrenals, pancreas, and spleen. Normal calib er abdominal aorta with slight calcified atherosclerotic plaque. Normal caliber IVC. Bilateral hydronephrosis with bilateral posterior approach nephrostomy tubes in place. Tubing distal coil in renal pelvis bilaterally. Nonspecific, smoothly marginated, simple appearing, low density morena ateral renal lesions remain statistically most likely cysts. No evidence of renal calculus. No noncon trast CT evidence of solid renal mass. Intact abdominal wall without evidence of hernia. No evidence of mesenteric mass. Nonspecific left retroperitoneal heterogeneous masses again noted position between the aorta and the left kidney. Maximum dimension is 4.6 cm. Lesion incompletely imaged on comparison exam. Maximum dime nsion on imaged portion was 4.2 cm. Lesion remains heterogeneous containing soft tissue and fluid den sity. This may be a partially necrotic metastatic lymph node. Normal-appearing stomach and duodenum. No small bowel distention in the abdomen and pelvis. No pelvic free fluid. Urinary bladder decompressed. Again noted are bilateral lower pelvic masses in the region of the cervix, nonspecific. These contain central low density which may be necrosis or cys tic change. Lesions appear contiguous in the midline. Approximate dimension of right lesion is 5.8 cm and approximate measurement of left lesion is also 5.8 cm. These may be degenerated fibroids. Differ ential includes other neoplasm. These masses may be the source of hydronephrosis with mass effect on the distal ureter, not directly visualized. No definite pelvic free fluid. Nonspecific bilateral pelvic sidewall masses are also heterogeneous with similar imaging characterist ics to the lesions in the region of the uterine cervix. Left pelvic sidewall lesion is 5.8 cm. Right pelvic sidewall lesion is 4.3 cm. These may reflect pelvic metastatic adenopathy with necrosis. Normal-appearing rectum and sigmoid colon. No gross ascites, free air, or colonic distention. Normal- appearing cecum and terminal ileum. Appendix not visualized. No pericecal inflammation. IMPRESSION: Multifocal masses and nodules are noted suspicious for metastatic neoplastic disease. Tissue of origi n is not definite. Nodules and masses are noted in both lung bases, the skeleton, the left retroperit oneum, bilateral pelvic sidewall, and the region of the cervix. Bilateral nephrostomy tubes in place with bilateral hydronephrosis likely secondary to pelvic mass in the region of the cervix Left lower lobe pulmonary lesions are slightly larger than comparison Left retroperitoneal lesion between aorta and left kidney measures 4 mm larger but was incompletely i jessica on comparison exam Multilevel vertebral compression fractures appear chronic without definite associated osseous lesion
[2018-06-11] MEDS: FLAGYL 500 MG/100 ML 500 MG/100 ML BAG IV SCH (02:08)
--- NOTE | 2018-06-11 07:17 | Hem/Onc Progress Note ---
Assessment and Plan 1. Cervical mass. 2. Retroperitoneal lymph nodes. 3. Bone abnormality. 4. Hydronephrosis. 5. PROCUREMENT TECHNICIAN team is biopsy. This most likely is advanced cervical cancer, 6 - severe anemia - will Ix and follow I will liase with PROCUREMENT TECHNICIAN team. s/p nephrostomy+ 05/31 - s/p cx bx 06/01 - d/w daughter - reg bone lesion 06/02 - on folic acid - s/p iv iron - path pending 06/03 - path pending - d/w RN reg same 06/04 - path - neg for neoplasm - ? need for repeat bx - national sales associate following oral iron 06/05 - Ct chest and bone scan - as per national sales associate - national sales associate onc planned payroll benefits clerk is now normal - ? Ct with contrast?? 06/07/2018 - pt had CT chest - lung lesions+ bone scan - lesions + the pt most likely has stage IV cervical ca - however cervical bx was neg - if repeat cervical bx not possible - ? option of lung and bone biopsy to prove stage IV 06/08/2018 - IR consult - bone vs lugn bx - toprove stage IV hb 7.9 - pt on oral iron - folci acid and MVI 06/09 - IR consulted for bx 06/10 - bone biopsy - path - if + for cancer - then - stage IV - OP follow up 06/11 - cx mass bx was benign - bone bx was benign option of OP national sales associate onc follow up for diagnosis - so we have tissue diagnosis - Patient Problems (1) Anemia Current Visit: Yes Status: Acute Qualifiers: Anemia type: iron deficiency (2) Cervical mass Onset Date: 05/30/18 Current Visit: Yes Status: Chronic Subjective Date of service: 06/11/18 Principal diagnosis: cervical mass Interval history: path of lung bx - non malignant Objective - Constitutional Vitals: Last Vital Signs Temp 98.9 F 06/11/18 02:29 Pulse 90 06/11/18 04:13 Resp 16 06/11/18 02:29 BP 116/60 06/11/18 02:29 Pulse Ox 97 06/11/18 02:29 Pain Intensity (0-10): denies any pain General appearance: no acute distress Performance status: 3-limited selfcare - EENT Eyes: EOM intact ENT: clear oral mucosa Lymph node exam: negative cervical - Neck Neck: normal ROM - Respiratory Respiratory effort: Positive: normal Respiratory: bilateral: CTA - Cardiovascular Heart Sounds: Present: S1 & S2 Extremities: No edema - Gastrointestinal General gastrointestinal: Present: soft, non-tender Rectal Exam: deferred - Genitourinary Female genitourinary: Present: deferred - Integumentary Integumentary: warm - Musculoskeletal Musculoskeletal: strength equal bilaterally - Neurologic Neurologic: moves all extremities - Psychiatric Psychiatric: appropriate mood/affect - Labs Lab Results: Laboratory Results - last 24 hr 06/10/18 06/10/18 07:42 07:42 WBC 19.1 H RBC 2.90 L Hgb 7.8 L Hct 23.9 L MCV 83 MCH 27 L MCHC 32 RDW 17.3 H Plt Count 446 H Lymph % (Auto) 6.1 L [place] % (Auto) 7.9 H Eos % (Auto) 1.8 Baso % (Auto) 0.7 Lymph # 1.2 [place] # 1.5 H Eos # 0.3 Baso # 0.1 Seg Neutrophils % 83.5 H Seg Neutrophils # 16.0 H Sodium 136 L Potassium 3.8 D Chloride 103.4 Carbon Dioxide 22 Anion Gap 14 BUN 7 Creatinine 0.2 L Estimated GFR > 60 BUN/Creatinine Ratio 35 Glucose 115 H Calcium 8.1 L Medications & Allergies - Medications Allergies/Adverse Reactions: Allergies No Known Allergies Allergy (Verified 05/28/18 09:10) Home Medications: Home Medications Medication Instructions Recorded Confirmed Last Taken Type No Known Home Medications [No 05/28/18 05/28/18 Unknown History Reported Home Medications] Active Medications: Generic Name Dose Route Start Last Admin Trade Name Freq PRN Reason Stop Dose Admin Acetaminophen 650 mg 05/28/18 22:37 06/05/18 16:43 Tylenol PO 650 mg Q6H PRN Administration Pain, Mild (1-3) Famotidine 10 mg 05/29/18 10:00 06/10/18 23:23 Pepcid PO 10 mg BID ALBINA Administration Ferrous Sulfate 325 mg 06/04/18 10:00 06/10/18 23:23 Feosol PO 325 mg BID ALBINA Administration Folic Acid 1 mg 05/31/18 17:00 06/10/18 09:04 Folvite PO 1 mg QDAY ALBINA Administration Heparin Sodium (Porcine) 5,000 unit 05/31/18 22:00 06/10/18 23:23 Heparin SUB-Q 5,000 unit Q12HR ALBINA Administration Hydromorphone HCl 0.5 mg 05/29/18 03:21 06/07/18 18:31 Dilaudid IV 0.5 mg Q3H PRN Administration Pain , Severe (7-10) Sodium Chloride 100 mls @ 999 mls/hr 05/28/18 13:21 Nacl 0.9% IV CATHERINE PRN Hypotension Sodium Chloride 1,000 mls @ 75 mls/hr 06/06/18 16:00 06/10/18 01:41 Nacl 0.9% 1000 Ml IV 75 mls/hr DIRECT ALBINA Administration Metoclopramide HCl 5 mg 05/29/18 22:00 06/10/18 23:23 Reglan IV 5 mg BID ALBINA Administration Multivitamins 5 ml 05/31/18 17:00 06/10/18 09:04 Centrum Liq PO 5 ml QDAY ALBINA Administration Oxycodone/Acetaminophen 1 tab 05/29/18 03:21 06/10/18 23:51 Percocet 5/325 PO 1 tab Q6H PRN Administration Pain, Moderate (4-6) Sodium Chloride 10 ml 05/29/18 04:00 06/10/18 23:24 Sodium Chloride Flush Syringe 10 Ml IV 10 ml BID ALBINA Administration Sodium Chloride 10 ml 05/29/18 03:19 Sodium Chloride Flush Syringe 10 Ml IV PRN PRN LINE FLUSH
[2018-06-11] MEDS: REGLAN IV SCH (09:53)
[2018-06-11] MEDS: FEOSOL PO SCH (09:53)
[2018-06-11] MEDS: Centrum Liq PO SCH (09:53)
[2018-06-11] MEDS: PEPCID PO SCH (09:53)
[2018-06-11] MEDS: SODIUM CHLORIDE FLUSH SYRINGE 10 ML IV SCH (09:54)
[2018-06-11] MEDS: FOLVITE PO SCH (09:54)
[2018-06-11] MEDS: HEPARIN SUB-Q SCH (09:54)
[2018-06-11] MEDS: PERCOCET 5/325 PO PRN (10:39)
[2018-06-11 14:16] VITALS: BP 116/60
--- NOTE | 2018-06-11 14:34 | Discharge Summary ---
Providers - Providers Date of Admission: 05/28/18 13:34 Attending physician: NEHA EPPS MD 05/28/18 12:21 Consult to Physician [CONS] Urgent Comment: DR FORMAN NOTIFIED 1205 Consulting Provider: NOÉ FORMAN Physician Instructions: Reason For Exam: acute renal failure 05/28/18 12:30 Consult to Physician [CONS] Urgent Comment: RAMILA RIBERA NOTIFIED 1225 Consulting Provider: GOYO RIBERA Physician Instructions: Reason For Exam: acute renal failure, needs dialysis 05/29/18 09:09 Consult to Physician [CONS] Routine Comment: Consulting Provider: DANGELO SINGH Physician Instructions: Reason For Exam: cervical cancer 05/29/18 12:52 Consult to Physician [CONS] Routine Comment: Consulting Provider: MAMADOU PHILLIPS Physician Instructions: Reason For Exam: Cervix enlarged, poss cancer 06/01/18 07:56 Consult to Physician [CONS] Routine Comment: Consulting Provider: LUIS OREILLY Physician Instructions: Reason For Exam: Leukocytosis, fever 06/08/18 07:22 Consult to Interventional Radiology [CONS] Routine Consulting Provider: JOSH MEDINA Reason For Exam: lung vs bone biopsy Place consult to:: answering service Notified:: yes Phone number called:: [phone] Was contact made?: Yes If yes, spoke with:: esteban Time called:: 08:00 Comment:: babatunde 06/10/18 09:53 Physical Therapy Evaluation and Treat [CONS] Routine Comment: Reason For Exam: generalized weakness [facility] Reason for admission: Cervical mass. retroperitoneal and lung nodules Condition: Stable Pertinent studies: CT abdomen and pelvis IMPRESSION: Severe bilateral hydronephrosis. The cervix appears enlarged and heterogeneous. Bilateral iliac and retroperitoneal adenopathy is suspected. Sclerotic bony lesions are identified in the left pelvis. Metastatic cervical cancer? CT chest with contrast IMPRESSION: Two nodules in the left lower lobe, the largest of which is worrisome for malignancy. Probable neoplastic mass between the abdominal aorta and left kidney. Bilateral doppler IMPRESSION: Negative. No evidence of deep venous thrombosis Procedures: Bone biopsy was done; no malignant cells were seen Cervical biopsy was done; no malignant cells were seen Hospital course: 73-year-old female with no significant past medical history presents to the hospital complaining of suprapubic abdominal pain 1 month. Patient is complaining of urinary incontinence, suprapubic pain, dysuria, decreased appetite, intermittent fever, and generalized weakness. Patient also complains of intermittent fecal incontinence. She denies a history of medical problems but she has not seen a doctor in over 20 years and does not currently have a PMD. Patient is Swedish-speaking and artist model used at the bedside. Patient was admitted to the floor ID was consulted and was managed with IV antibiotics. CT chest, abdomen and pelvis showed cervical mass, retroperitoneal nodules, sclerotic bone and pulmonary nodules suspicious for malignancy, bilateral severe hydronephrosis. IR have was consulted and did biopsy of the bone and the cervix which were negative, despite that the suspicion of malignancy is high and oncology was consulted and recommended further workup as an outpatient. For severe hydronephrosis IR did bilateral urostomy tubes and I have discussed with Dr. Pro at the time of discharge and recommended patient need replacement of urostomy tube every 3 months. Infection and acute renal failure subsided. Patient was hemodynamically stable and discharged home with home health. Patient doesn't have insurance and I have explained to the daughter to go to gynecology and oncology office and find financial assistance. Patient and daughter understand that the patient needs further workup to see either the diagnosis of malignancy. Patient scheduled to see gynecology and oncology as an outpatient. I use shrimp picker #[id number] and explained in detail about the disease process and management plan and daughter and mother verbalized understood. Disposition: DC- TO HOME OR SELFCARE Time spent for discharge: 31 minutes - Discharge Diagnoses (1) Acute renal failure Status: Acute Qualifiers: Acute renal failure type: unspecified Qualified Code(s): N17.9 - Acute kidney failure, unspecified (2) Anemia Status: Acute Qualifiers: Anemia type: iron deficiency (3) Bilateral hydronephrosis Status: Acute (4) Hyperkalemia Status: Acute (5) Leukocytosis Status: Acute (6) Cervical mass Status: Chronic Core Measure Documentation - Palliative Care Palliative Care/ Comfort Measures: Not Applicable - Core Measures Any of the following diagnoses?: none Exam - Physical Exam Narrative exam: Not in cardiopulmonary distress. The patient appeared well nourished and normally developed. Vital signs as documented. Head exam is unremarkable. No scleral icterus . Neck is without jugular venous distension, thyromegaly, or carotid bruits. Lungs are clear to auscultation. Cardiac exam reveals regular rate and Rhythm. Abdominal exam reveals normal bowel sounds, no masses, no organomegaly and no aortic enlargement. Extremities non edematous. VICE PRESIDENT LENDING: Alert and oriented 3. No focal weakness. - Constitutional Vitals: Temp Pulse Resp BP Pulse Ox 97.8 F 106 H 18 116/60 95 06/11/18 13:54 06/11/18 13:54 06/11/18 13:54 06/11/18 13:54 06/11/18 13:54 Plan Activity: no restrictions Weight Bearing Status: Full Weight Bearing Diet: regular Follow up with: TAMMIE [place] MD LETICIA [Primary Care Provider] - 3-5 Days DANGELO SINGH MD [Staff Physician] - 7 Days MAMADOU PHILLIPS MD [Staff Physician] - 10 Days
== END 2018-06-11 17:17 | disposition home or self-care (01) | DRG 673 ==
LOC: ED 08:45 → 4A 13:34 → 2B-ACE 05-31 16:25
PROVIDERS: ADMIT Internal Medicine; ATTEND Internal Medicine
PROC: 5A1D70Z Performance of Urinary Filtration, Intermittent, Less than 6 Hours Per Day (ICD-10-PCS; 2018-05-28)
PROC: 02H633Z Insertion of Infusion Device into Right Atrium, Percutaneous Approach (ICD-10-PCS; 2018-05-28)
PROC: B2141ZZ Fluoroscopy of Right Heart using Low Osmolar Contrast (ICD-10-PCS; 2018-05-28)
PROC: 30233N1 Transfusion of Nonautologous Red Blood Cells into Peripheral Vein, Percutaneous Approach (ICD-10-PCS; 2018-05-29)
PROC: BT131ZZ Fluoroscopy of Bilateral Kidneys using Low Osmolar Contrast (ICD-10-PCS; 2018-05-29)
PROC: 0T9430Z Drainage of Left Kidney Pelvis with Drainage Device, Percutaneous Approach (ICD-10-PCS; 2018-05-29)
PROC: 0T9330Z Drainage of Right Kidney Pelvis with Drainage Device, Percutaneous Approach (ICD-10-PCS; 2018-05-29)
PROC: 0UBC7ZX Excision of Cervix, Via Natural or Artificial Opening, Diagnostic (ICD-10-PCS; 2018-05-31)
PROC: 0QB33ZX Excision of Left Pelvic Bone, Percutaneous Approach, Diagnostic (ICD-10-PCS; principal; 2018-06-09)
DX: N17.8 Other acute kidney failure (principal); E43 Unspecified severe protein-calorie malnutrition; E87.2 Acidosis; G93.40 Encephalopathy, unspecified; Z68.1 Body mass index [BMI] 19.9 or less, adult; E87.1 Hypo-osmolality and hyponatremia; N13.30 Unspecified hydronephrosis; N13.1 Hydronephrosis with ureteral stricture, not elsewhere classified; R59.0 Localized enlarged lymph nodes; D72.823 Leukemoid reaction; M89.9 Disorder of bone, unspecified; D50.9 Iron deficiency anemia, unspecified; R91.1 Solitary pulmonary nodule; C53.9 Malignant neoplasm of cervix uteri, unspecified; N88.8 Other specified noninflammatory disorders of cervix uteri; E87.5 Hyperkalemia; Z82.49 Family history of ischemic heart disease and other diseases of the circulatory system; Z98.51 Tubal ligation status
CPT/HCPCS: 20220; 36415; 36556; 50432; 71045; 71260; 74176; 77012; 78306; 80048; 80053; 80074; 81001; 82140; 82607; 82728; 82747; 82805; 83036; 83550; 83735; 85007; 85014; 85018; 85025; 85027; 85610; 86592; 86850; 86900; 86901; 86920; 87040; 87086; 87591; 87806; 88173; 88305; 88307; 88311; 88333; 88341; 88342; 93005; 93010; 93970; 94760; G0378; A6250; A9503; C1729; C1751; C1752; C1769; J0610; J0690; J0692; J0696; J1170; J1644; J1815; J1956; J2250; J2405; J2543; J2704; J2765; J2916; J3010; J3475; J3480; J7030; J7040; P9016; Q9967

== ENCOUNTER 2018-08-04 21:29 | Inpatient (IN) | payer OTHER ==
--- NOTE | 2018-08-04 21:47 | Emergency Department Report ---
Chief Complaint: Urogenital-Female Stated Complaint: CLOGGED URINE BAG Time Seen by Provider: 08/04/18 21:44 - HPI History of Present Illness: HX PELVIC MASS WITH UROSTOMY WHICH IS NOW LEAKING WEAK AND FRAIL TACHYCARDIA LOW GRADE TEMP WILL NEED SEPTIC WORK UP GIVEN AGE AND PRESENTATION MSE screening note: Focused history and physical exam performed. Due to findings the following was ordered: ED Disposition for MSE Condition: Stable
[2018-08-04] MEDS ORDERED: NACL 0.9% 1000 ML IV ONE (21:48)
[2018-08-04 22:17] LABS: Mean Corpuscular HGB Conc 29 % (30-34); Mean Corpuscular Volume 92 fl (79-97); Platelet Count 358 K/mm3 (140-440); Red Blood Count 2.63 M/mm3 (3.65-5.03)
[2018-08-04] MEDS: ROCEPHIN/NS 1 GM/50 ML 1 GM/50 ML BAG IV SCH (22:22)
[2018-08-04 22:30] LABS: Hematocrit 24.3 % (30.3-42.9); Hemoglobin 7.1 gm/dl (10.1-14.3)
[2018-08-04 22:39] LABS: Alanine Aminotransferase 15 units/L (7-56); Albumin 1.9 g/dL (3.9-5); BUN/Creatinine Ratio 31; Blood Urea Nitrogen 25 mg/dL (7-17); Calcium 9.5 mg/dL (8.4-10.2); Hemolysis Index 9
--- NOTE | 2018-08-04 22:55 | Emergency Department Report ---
ED General Adult HPI - General Chief complaint: Urogenital-Female Stated complaint: CLOGGED URINE BAG Time Seen by Provider: 08/04/18 21:44 Source: family Mode of arrival: Wheelchair Limitations: Language Barrier - History of Present Illness Initial comments: 73-year-old female who last presented in June 2018 and was admitted in diagnosed with likely metastatic cervical cancer and had urostomy tubes placed re-presents with the complaint that she has had leaking from the urostomy site beginning this morning. Patient complains of lower abdominal pain which she states has been there for months as well. Patient has been lost to follow-up since her last presentation to this hospital in May 2018. Patient has not seen a optoelectronics engineer or an oncologist since May. Family states the patient is only taking in liquids and no solid foods. Patient has had no fever according to the family. Severity scale (0 -10): 9 - Related Data Home Medications Medication Instructions Recorded Confirmed Last Taken No Known Home Medications [No 05/28/18 05/28/18 Unknown Reported Home Medications] Allergies Allergy/AdvReac Type Severity Reaction Status Date / Time No Known Allergies Allergy Verified 05/28/18 09:10 ED Review of Systems ROS: Stated complaint: CLOGGED URINE BAG Other details as noted in HPI Constitutional: denies: chills, fever Eyes: denies: eye pain, eye discharge, vision change ENT: denies: ear pain, throat pain Respiratory: denies: cough, shortness of breath, wheezing Cardiovascular: denies: chest pain, palpitations Endocrine: no symptoms reported Gastrointestinal: abdominal pain. denies: nausea, diarrhea Genitourinary: other. denies: urgency, dysuria, discharge Musculoskeletal: denies: back pain, joint swelling, arthralgia Skin: denies: rash, lesions Neurological: denies: headache, weakness, paresthesias Psychiatric: denies: anxiety, depression Hematological/Lymphatic: denies: easy bleeding, easy bruising ED Past Medical Hx - Past Medical History Previous Medical History?: Yes Hx Congestive Heart Failure: No Hx Diabetes: No Hx Renal Disease: Yes (ARF was dialyzed; pelvic mass obstructing ureters-nephros nilson tubes placed) Hx Asthma: No Hx COPD: No Additional medical history: Tubal ligation - Surgical History Past Surgical History?: Yes Additional Surgical History: ileostomy - Social History Smoking Status: Never Smoker Substance Use Type: None - Medications Home Medications: Home Medications Medication Instructions Recorded Confirmed Last Taken Type No Known Home Medications [No 05/28/18 05/28/18 Unknown History Reported Home Medications] ED Physical Exam - General Limitations: Language Barrier General appearance: alert, other (dehydrated; uncomfortable) - Head Head exam: Present: atraumatic, normocephalic - Eye Eye exam: Present: normal appearance - ENT ENT exam: Present: mucous membranes dry - Neck Neck exam: Present: normal inspection - Respiratory Respiratory exam: Present: normal lung sounds bilaterally. Absent: respiratory distress - Cardiovascular Cardiovascular Exam: Present: regular rate, normal rhythm. Absent: systolic murmur, diastolic murmur, rubs, gallop - GI/Abdominal GI/Abdominal exam: Present: soft, tenderness (tenderness noted in suprapubic region), normal bowel sounds. Absent: guarding, rebound - Extremities Exam Extremities exam: Present: normal inspection - Back Exam Back exam: Present: normal inspection, other (tenderness noted in bilateral flank region; urostomy tubes present with no surrounding erythema or exudate present; urine drainage noted) - Neurological Exam Neurological exam: Present: alert, oriented X3, CN II-XII intact - Psychiatric Psychiatric exam: Present: normal affect, normal mood - Skin Skin exam: Present: warm, dry, intact, normal color. Absent: rash ED Course Vital Signs 08/04/18 08/04/18 08/04/18 21:58 22:00 22:16 Pulse Rate 124 H 123 H 124 H Respiratory 19 22 19 Rate Blood Pressure 115/72 Blood Pressure [Right] O2 Sat by Pulse Oximetry 08/04/18 08/04/18 08/04/18 22:30 22:35 22:46 Pulse Rate 117 H 116 H 111 H Respiratory 20 21 20 Rate Blood Pressure 111/62 111/60 Blood Pressure 111/62 [Right] O2 Sat by Pulse Oximetry 08/04/18 08/04/18 08/04/18 23:00 23:33 23:46 Pulse Rate 112 H 114 H 112 H Respiratory 20 18 21 Rate Blood Pressure 110/59 106/65 110/59 Blood Pressure [Right] O2 Sat by Pulse 98 97 Oximetry ED Medical Decision Making - Lab Data Result diagrams: 08/04/18 21:58 08/04/18 21:58 - EKG Data EKG shows normal: sinus rhythm Rate: tachycardia - EKG Data When compared to previous EKG there are: no significant change Interpretation: no acute changes - Medical Decision Making Patient to be admitted to the hospitalist service for continued management and treatment. Dr. Vanessa was consulted and states to keep patient nothing by mouth and she will have her urostomy tubes reevaluated if there is a leakage present. Patient has been unable to follow-up with REGIONAL ACCOUNT MANAGER oncology secondary to citizen issues. The patient received ceftriaxone therapy while here in the emergency department. - Differential Diagnosis UTI; Dehydration; Pneumonia; electrolyte abnormality Critical Care Time: Yes Critical care time in (mins) excluding proc time.: 36 Critical care attestation.: If time is entered above; I have spent that time in minutes in the direct care of this critically ill patient, excluding procedure time. Critical Care time includes time spent on direct bedside care, physician consultation, and frequent reassessment. ED Disposition Clinical Impression: Cervical mass, Dehydration, Complication, urostomy catheter obstruction, Leukocytosis Disposition: [id number] OP ADMIT IP TO THIS HOSP Is pt being admited?: Yes Does the pt Need Aspirin: No Condition: Fair Time of Disposition: 00:35
[2018-08-04 23:10] LABS: Amorphous Crystals,Urine 1+; Bilirubin,Urine NEG (Negative); Blood,Urine SM (Negative); Mucus,Urine 1+ /HPF
[2018-08-04 23:11] LABS: Color,Urine Yellow (Yellow)
--- NOTE | 2018-08-04 23:21 | XRay Report ---
PROCEDURE: XR CHEST 1V AP TECHNIQUE: Chest radiograph single view. HISTORY: WEAKNESS COMPARISONS: May 28, 2018, no report was included . FINDINGS: Heart: Normal. Mediastinum/Vessels: Normal. Lungs/Pleural space: Chronic obstructive changes are identified. No acute infiltrate or effusion. Sc ar formation in the left lung is noted. No evidence of an effusion or pneumothorax.. Bony thorax: There is continued mottled appearance to the posterior aspect of the left sixth rib, patric tructive process within this region of the rib is suspected... Life support devices: None. IMPRESSION: Chronic obstructive pulmonary changes with no evidence of an acute infiltrate or effusio n. There is scar formation in the left lung. Continued mottled appearance of the posterior aspect of the left sixth rib with a destructive process in this region suspected.. This document is electronically signed by Dorie Green DO., August 04 2018 11:19:44 PM ET
[2018-08-04 23:49] LABS: Basophils % (Manual) 0 % (0.0-1.8); Eosinophils % (Manual) 0 % (0.0-4.3); Monocytes % (Manual) 2.5 % (0.0-7.3); Total Cells Counted 200
[2018-08-04 23:50] LABS: Anisocytosis 1+; Hypochromasia 1+; Platelet Clumps 1+
[2018-08-04 23:51] LABS: Platelet Estimate Consistent w Auto
--- NOTE | 2018-08-05 00:07 | Cat Scan Report ---
PROCEDURE: CT ABDOMEN PELVIS WO CON TECHNIQUE: Computerized axial tomography of the abdomen and pelvis was performed after the IV inject ion of iodinated nonionic contrast. CT DOSE LENGTH PRODUCT: mGycm HISTORY: abdominal pain COMPARISONS: None . FINDINGS: Multiple pulmonary nodules are noted in the bilateral lower lobes. A cavitary lesion measuring 3 cm i s noted in the left lower lobe. Irregular thickened aguilar posteriorly. Liver, spleen, pancreas and ad renal glands are within normal limits. Bilateral percutaneous nephrostomy catheters are noted. There is interval decrease in the size of mid pole right renal cyst. There is no change in the moderate deg ree left hydronephrosis. Urinary bladder is partially filled with normal outlines. Aorta is of normal caliber. There is no free fluid or free air. Gallbladder is unremarkable. Small bowel loops are with in normal limits. Appendix is not distinctly visualized. There are no inflammatory changes in the rig ht lower quadrant. There is interval increase in the size and number of multiple central, bilateral p elvic and left para aortic mass lesions. Central pelvic mass measures 8 x 10 cm. Left lateral pelvic wall mass measures 6 .2 x 6.8 cm. Right lateral, mass measures 6.2 x 6.8 cm. A left para-aortic mass measures 5.5 x 5.5 cm . irregular sclerotic lesions are noted involving left iliac bone and left ischium as seen on the vianca or study. Multiple wedge compression deformities of lumbar and lower thoracic vertebrae are again not ed without interval change. IMPRESSION: Multiple nodules in the bilateral lungs one of them located in the left lower lobe demons trating cavitation are consistent with metastatic disease. These have progressed in the interval. Interval increase in the size of a large central pelvic mass lesion which may represent a primary ova adenike malignancy versus Krukenberg tumor. Bilateral lateral pelvic mass lesions and a left para-aortic mass lesion are consistent with lymphadenopathy which has increased in size. Left iliac and ischial sclerotic lesions are also suspicious for metastatic disease. Bilateral percutaneous nephrostomies are noted. There is moderate degree left hydronephrosis. This document is electronically signed by Sheng Hernandez MD., August 05 2018 12:05:55 AM ET
[2018-08-05] MEDS ORDERED: ZOFRAN IV PRN (02:11)
[2018-08-05] MEDS ORDERED: TYLENOL PR PRN (02:13)
[2018-08-05] MEDS ORDERED: NACL 0.9% 1000 ML 1,000 ML IV SCH (03:00)
--- NOTE | 2018-08-05 05:20 | History and Physical Report ---
CHIEF COMPLAINT: Leakage around the urostomy tubes. HISTORY OF PRESENT ILLNESS: There is no history of abdominal pain or flank pain. There is no history of fever or chills and also there is no history of nausea or vomiting; however, family said that the patient has not been taking solid food and enough liquid by mouth. The patient has metastatic cervical cancer and denied history of dizziness, but there is history of fever. PAST MEDICAL HISTORY: Pertinent for metastatic cervical cancer. Also, the patient has past history of renal disease. PAST SURGICAL HISTORY: Pertinent for tubal ligation and ileostomy. FAMILY HISTORY: Noncontributory. SOCIAL HISTORY: The patient does not smoke, does not drink alcohol and does not use illicit drug. MEDICATIONS: The patient's home medications are not known at this time. ALLERGIES: There are no known drug allergies. REVIEW OF SYSTEMS: CONSTITUTIONAL: There is no fever, no chills, no diaphoresis. HEENT: There is no headache or sore throat. CARDIOVASCULAR: There is no chest pain or orthopnea. RESPIRATORY SYSTEM: There is no shortness of breath or cough. GASTROINTESTINAL SYSTEM: There is no nausea, no vomiting, no abdominal pain, diarrhea or constipation. NEUROLOGICAL: There is no numbness, no dizziness, no altered mental status. MUSCULOSKELETAL: There is no joint pain or swelling. DERMATOLOGICAL SYSTEM: There is no skin rash or itching. GENITOURINARY SYSTEM: Showed leakage at the urostomy tube area. Rest of system review is normal. PHYSICAL EXAMINATION: GENERAL: At the time of exam, the patient was found to be alert, oriented x 3 and not in acute distress. VITAL SIGNS: Shows normal temperature with pulse of 124, respirations 19, blood pressure 115/72 with O2 sat running around 97-98% on room air. HEENT: Showed pupils to be equal, round, reactive to light and accommodating. Extraocular muscles are intact. NECK: Supple with no JVD or carotid bruit. CARDIOVASCULAR SYSTEM: Show normal first and second heart sounds with no gallops or murmurs. RESPIRATORY: Showed good air entry on both sides of the lungs with no abnormal breath sounds. GASTROINTESTINAL SYSTEM: Show abdomen to be full, soft, nontender with no organomegaly or rigidity. NEUROLOGICAL: Shows no focal deficit. MUSCULOSKELETAL SYSTEM: Show no joint swelling or tenderness. DERMATOLOGICAL SYSTEM: No skin rash. GENITOURINARY: Show urostomy tube with no leakage observed at this time. PERTINENT LAB AND IMAGING STUDIES: The patient has CT of the abdomen and pelvis done and this shows multiple nodules in the bilateral lungs, one of them located in the lower left lobe demonstrating cavitation and the radiologist said they are consistent with metastatic disease and so that they have progressed in the interval. 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 There is finding of bilateral pelvic lesion and left para-aortic mass lesion consistent with lymphadenopathy, which has increased in size according to the radiologist, left iliac and ischial sclerotic lesions are also suspicious for metastatic diseases, bilateral percutaneous nephrostomies are noted and there is a moderate degree of left hydronephrosis according to the radiologist reading. The patient also had chest x-ray done. Chest x-ray shows chronic obstructive pulmonary changes with no evidence of an acute infiltrate or effusion. There is scar formation in the left lung and the radiology said that there is continued mottled appearance of the posterior aspect of the left sixth rib with destructive process in this region suspected. LABORATORY STUDIES: The patient has CBC done with very high white count of 36,300 with low hemoglobin of 7.1 and low hematocrit of 24.3. CBC differential showed elevated segmented neutrophil count of 91. The patient's chemistry shows slightly low sodium level of 132 and low chloride level of 96.9 with low CO2 of 21, elevated BUN of 25 with normal creatinine and normal GFR of greater than 60. Rest of chemistry show high alkaline phosphatase of 172 and low albumin level of 1.9. The patient's urinalysis showed turbid yellow urine with moderate urine leukocyte esterase and high urine wbc's of 18 with high urine rbc's of 13. DIAGNOSES: 1. Dysfunctional urostomy tube with leakage. 2. Urinary tract infections. 3. Anemia. 4. Metastatic cervical cancer. PLAN: 1. The patient will be admitted to medical/surgical anglin and the patient will remain n.p.o. as requested by the interventional radiologist. 2. The patient will continue Interventional Radiology consult with Dr. Vanessa for evaluation of the leaking urostomy. 3. The patient will be on Tylenol 650 mg rectally every 4 hours for fever and headache. 4. The patient will be on IV ceftriaxone 1 gram daily for treatment of urinary tract infection and also will be on IV Zofran 4 mg every 8 hours for nausea and vomiting. 5. The patient will have CBC checked this morning. JOB# [id number] OCN/NTS
[2018-08-05] MEDS ORDERED: VERSED ONE (09:44)
[2018-08-05] MEDS ORDERED: SUBLIMAZE ONE (09:44)
[2018-08-05] MEDS ORDERED: NACL 0.9% 500 ML IR ONE (09:44)
[2018-08-05] MEDS ORDERED: XYLOCAINE 2% INFILTRATI ONE (09:44)
[2018-08-05] MEDS ORDERED: NACL 0.9% 500 ML 500 ML ONE (09:46)
--- NOTE | 2018-08-05 10:07 | Consultation ---
History of Present Illness - Reason for Consult Consult date: 08/05/18 Nephrostomy malfunction - History of Present Illness 73-year-old female who last presented in June 2018 and was admitted in diagnosed with likely metastatic cervical cancer and had nephrostomy tubes placed presents with the complaint that she has had leaking from the nephrostomy site beginning this morning. Patient complains of lower abdominal pain which she states has been there for months as well. Patient has been lost to follow- up since her last presentation to this hospital in May 2018. Patient has not seen a coating inspector or an oncologist since May. Family states the patient is only taking in liquids and no solid foods. Patient has had no fever according to the family. Interventional radiology consultation for malfunctioning nephrostomy tubes. Patient scheduled for nephrostomy to evaluation-change. CT scan obtained demonstrates metastatic disease with nephrostomy tubes in appropriate position. Nephrostomy tubes are likely partially clogged. Past History Past Medical History: cancer Social history: no significant social history Family history: no significant family history Medications and Allergies Allergies Allergy/AdvReac Type Severity Reaction Status Date / Time No Known Allergies Allergy Verified 05/28/18 09:10 Home Medications Medication Instructions Recorded Confirmed Last Taken Type No Known Home Medications [No 05/28/18 08/05/18 Unknown History Reported Home Medications] Active Meds: Active Medications Acetaminophen (Tylenol) 650 mg [place] Q4H PRN PRN Reason: Fever >101 Ceftriaxone Sodium (Rocephin/Ns 1 Gm/50 Ml) 1 gm in 50 mls @ 100 mls/hr IV Q24HR ALBINA; Protocol Stop: 08/06/18 10:29 Last Admin: 08/04/18 22:22 Dose: 100 mls/hr Documented by: Ceftriaxone Sodium (Rocephin/Ns 1 Gm/50 Ml) 1 gm in 50 mls @ 100 mls/hr IV Q24HR ALBINA; Protocol Sodium Chloride (Nacl 0.9% 1000 Ml) 1,000 mls @ 75 mls/hr IV DIRECT ALBINA Ondansetron HCl (Zofran) 4 mg IV Q8H PRN PRN Reason: Nausea And Vomiting Review of Systems All systems: negative (see HPI) Exam - Constitutional Vitals: Temp Pulse Resp BP Pulse Ox 99.4 F 104 H 16 98/52 97 08/05/18 07:11 08/05/18 07:11 08/05/18 07:11 08/05/18 07:11 08/05/18 07:11 General appearance: Present: no acute distress - EENT Eyes: Present: EOM intact - Respiratory Respiratory effort: normal - Abdominal General gastrointestinal: Present: other (bilateral nephrostomy tubes with leakage) - Psychiatric Psychiatric: appropriate mood/affect, cooperative Results - Labs CBC & Chem 7: 08/04/18 21:58 08/04/18 21:58 Labs: Abnormal lab results 08/04/18 08/04/18 08/04/18 Range/Units 21:58 21:58 21:58 WBC 36.3 H (4.5-11.0) K/mm3 RBC 2.63 L (3.65-5.03) M/mm3 Hgb 7.1 L (10.1-14.3) gm/dl Hct 24.3 L (30.3-42.9) % MCH 27 L (28-32) pg MCHC 29 L (30-34) % RDW 18.0 H (13.2-15.2) % Seg Neuts % (Manual) 91.0 H (40.0-70.0) % Lymphocytes % (Manual) 6.5 L (13.4-35.0) % Seg Neutrophils # Man 33.0 H (1.8-7.7) K/mm3 Monocytes # (Manual) 0.9 H (0.0-0.8) K/mm3 Sodium 132 L (137-145) mmol/L Chloride 96.9 L (98-107) mmol/L Carbon Dioxide 21 L (22-30) mmol/L BUN 25 H (7-17) mg/dL Glucose 112 H (65-100) mg/dL Lactic Acid 2.40 H* (0.7-2.0) mmol/L Alkaline Phosphatase 172 H (35-129) units/L Total Creatine Kinase (30-135) units/L Albumin 1.9 L (3.9-5) g/dL Urine WBC (Auto) (0.0-6.0) /HPF 08/04/18 08/04/18 Range/Units 22:45 23:54 WBC (4.5-11.0) K/mm3 RBC (3.65-5.03) M/mm3 Hgb (10.1-14.3) gm/dl Hct (30.3-42.9) % MCH (28-32) pg MCHC (30-34) % RDW (13.2-15.2) % Seg Neuts % (Manual) (40.0-70.0) % Lymphocytes % (Manual) (13.4-35.0) % Seg Neutrophils # Man (1.8-7.7) K/mm3 Monocytes # (Manual) (0.0-0.8) K/mm3 Sodium (137-145) mmol/L Chloride (98-107) mmol/L Carbon Dioxide (22-30) mmol/L BUN (7-17) mg/dL Glucose (65-100) mg/dL Lactic Acid (0.7-2.0) mmol/L Alkaline Phosphatase (35-129) units/L Total Creatine Kinase 26 L (30-135) units/L Albumin (3.9-5) g/dL Urine WBC (Auto) 18.0 H (0.0-6.0) /HPF Assessment and Plan 73-year-old female with metastatic cancer and bilateral nephrostomy tubes due to urinary obstruction. Plan for nephrostomy tube check and change. Patient will need definitive care for oncologic issues. Given her prior issues, may need transfer to facility with rn gyn oncology to facilitate care.
--- NOTE | 2018-08-05 10:41 | Operative Report ---
Operative Report Operative Report: Exam: Bilateral nephrostogram through existing tubes, fluoroscopic exchange of bilateral nephrostomy tubes Clinical indication: Patient with a history of worsening hydronephrosis and leakage around the catheter predominantly on the right Date: 08/05/2018 Procedure: Following an explanation of the risks, benefits and alternatives; written informed consent was obtained. The patient was brought to the angiogram suite and placed in a prone position on the examination table. Initial evaluation of the catheters demonstrated no kinks or cracking. Initial fluoroscopic evaluation of the catheters demonstrated appropriate positioning. The patient's bilateral lower back was prepped and draped in the usual sterile fashion. 1% lidocaine was used for anesthesia at each catheter entry site. Right: Contrast was attempted to be injected through the indwelling right nephrostomy tube. Other tube is completely clogged. The tube was then cut to release the pigtail. There was prompt drainage of dark urine likely secondary to the clogged being at the hub. A 0.035 guidewire was advanced through the indwelling nephrostomy tube and the indwelling nephrostomy tube removed intact. A new 8 Chinese nephrostomy tube was then advanced over the guidewire and the pigtail formed within the renal pelvis. Contrast was injected through the newly placed nephrostomy tube which demonstrated appropriate positioning and moderate to severe hydronephrosis. A sample was sent for culture. The catheter was securely fastened to the skin surface using 2-0 Ethilon suture and a stay fix device, the catheter was then placed to dependent drainage. Left: Contrast was injected through the left indwelling ostomy tube. There is prompt opacification of the left renal collecting system. There is no drainage in the mid and distal ureter secondary to obstructing masses in the pelvis. The catheter was cut to release the pigtail and a 0.035 guidewire advanced through the catheter coiled within the renal pelvis. The indwelling catheter was then removed intact. A new 8 Chinese nephrostomy tube was then advanced over the guidewire and the pigtail placed within the renal pelvis. The guidewire was removed. A sample of urine was sent for culture. Contrast was injected through the newly placed tube which demonstrated appropriate positioning. The catheter was securely fastened to the skin surface using 2-0 Ethilon suture and a stay fix device. The catheter was in place to dependent drainage. The patient tolerated the procedure well. There were no immediate post procedure complications. Conscious sedation was performed under the guidance of radiologic nursing. Only minimal sedation was utilized. Impression: 1) Bilateral nephrostogram's through indwelling nephrostomy tubes. 2) Fluoroscopic guided exhange of bilateral nephrostomy tubes with samples of urine within both kidneys sent for culture and sensitivity
[2018-08-05] MEDS: ROCEPHIN/NS 1 GM/50 ML 1 GM/50 ML BAG IV SCH (11:13)
[2018-08-05 12:11] LABS: Mean Corpuscular HGB Conc 30 % (30-34); Mean Corpuscular Volume 93 fl (79-97); Platelet Count 274 K/mm3 (140-440); Red Blood Count 2.15 M/mm3 (3.65-5.03)
[2018-08-05 12:20] LABS: Hemoglobin 5.9 gm/dl (10.1-14.3)
[2018-08-05] MEDS ORDERED: NACL 0.9% 500 ML 500 ML IV NR (12:26)
--- NOTE | 2018-08-05 15:45 | Progress Note ---
Assessment and Plan Assessment and plan: Patient is a 73 Monegasque speaking woman with a history of metastatic cancer believed to be cervical cancer to the lungs and causing hydonephrosis with urostomy who presents with urostomy leakage. Dysfunctional bilateral nephrostomy due hydronephrosis tube with leakage: s/p exchange UTI; treat with abx Suspected Metastatic cervical cancer to lungs: d/w patient and daughter thru their log hooker friend [place]. Anemia; transfuse 2 units and repeat levels Severe malnutrition, bmi is wrong: consult Training Coordinator Poor prognosis, problem is she never followed up in May 2018 and no tissue diagnosis of cancer made; so She has not been treated for 2 months. Family wants to take her back to [place] because she is a non-Citizen and unable to afford treatment here. She needs hospice, I told the patient and family without treatment there is high chance she will not live past 6 months starting in May. They were very thankful and said no one spoke to them like this or they would have gone back to [place]. Disposition: continue inpatient care, once h/h stable will discharge. Recommended Hospice CCT 31 minutes History Interval history: Patient was seen and examined. Follow-up on current diagnosis. Overnight uneventful. Patient denies any chest pain, shortness breath, nausea/vomiting or severe headaches. Imaging, nursing note, chart, labs and old chart reviewed. Discussed with patient. Hospitalist Physical - Physical exam Narrative exam: Gen: severe ill appearing, weigh less than 90 lbs, severe cachetic with bone protuding ribs pelvis HEENT: NCAT, EOMI, PERRL, OP Clear Neck: supple, no adenopathy, no thyromegaly, no JVD CVS/Heart: RRR, normal S1S2, pulses present bilaterally Chest/Lungs: CTA B, Symmetrical chest expansion, good air entry bilaterally GI/Abdomen: soft, NTND, good bowel sounds, no guarding or rebound /Bladder: no suprapubic tenderness, no CVA or paraspinal tenderness Extermity/Skin: no c/c/e, no obvious rash MSK: FROM x 4 Neuro: CN 2-12 grossly intact, no new focal deficits Psych: calm - Constitutional Vitals: Temp Pulse Resp BP Pulse Ox 99.1 F 102 H 16 96/54 99 08/05/18 15:31 08/05/18 15:31 08/05/18 15:31 08/05/18 15:31 08/05/18 14:03 General appearance: Present: no acute distress Results - Labs CBC & Chem 7: 08/05/18 11:31 08/04/18 21:58 Labs: Laboratory Last Values WBC 33.1 K/mm3 (4.5-11.0) H 08/05/18 11:31 RBC 2.15 M/mm3 (3.65-5.03) L 08/05/18 11:31 Hgb 5.9 gm/dl (10.1-14.3) L* 08/05/18 11:31 Hct 20.0 % (30.3-42.9) L 08/05/18 11:31 MCV 93 fl (79-97) 08/05/18 11:31 MCH 28 pg (28-32) 08/05/18 11:31 MCHC 30 % (30-34) 08/05/18 11:31 RDW 18.0 % (13.2-15.2) H 08/05/18 11:31 Plt Count 274 K/mm3 (140-440) 08/05/18 11:31 Add Manual Diff Complete 08/04/18 21:58 Total Counted 200 08/04/18 21:58 Seg Neuts % (Manual) 91.0 % (40.0-70.0) H 08/04/18 21:58 Band Neutrophils % 0 % 08/04/18 21:58 Lymphocytes % (Manual) 6.5 % (13.4-35.0) L 08/04/18 21:58 Reactive Lymphs % (Man) 0 % 08/04/18 21:58 Monocytes % (Manual) 2.5 % (0.0-7.3) 08/04/18 21:58 Eosinophils % (Manual) 0 % (0.0-4.3) 08/04/18 21:58 Basophils % (Manual) 0 % (0.0-1.8) 08/04/18 21:58 Metamyelocytes % 0 % 08/04/18 21:58 Myelocytes % 0 % 08/04/18 21:58 Promyelocytes % 0 % 08/04/18 21:58 Blast Cells % 0 % 08/04/18 21:58 Nucleated RBC % Not Reportable 08/04/18 21:58 Seg Neutrophils # Man 33.0 K/mm3 (1.8-7.7) H 08/04/18 21:58 Band Neutrophils # 0.0 K/mm3 08/04/18 21:58 Lymphocytes # (Manual) 2.4 K/mm3 (1.2-5.4) 08/04/18 21:58 Abs React Lymphs (Man) 0.0 K/mm3 08/04/18 21:58 Monocytes # (Manual) 0.9 K/mm3 (0.0-0.8) H 08/04/18 21:58 Eosinophils # (Manual) 0.0 K/mm3 (0.0-0.4) 08/04/18 21:58 Basophils # (Manual) 0.0 K/mm3 (0.0-0.1) 08/04/18 21:58 Metamyelocytes # 0.0 K/mm3 08/04/18 21:58 Myelocytes # 0.0 K/mm3 08/04/18 21:58 Promyelocytes # 0.0 K/mm3 08/04/18 21:58 Blast Cells # 0.0 K/mm3 08/04/18 21:58 Pathologist Review 08/04/18 21:58 WBC Morphology Not Reportable 08/04/18 21:58 Hypersegmented Neuts Not Reportable 08/04/18 21:58 Hyposegmented Neuts Not Reportable 08/04/18 21:58 Hypogranular Neuts Not Reportable 08/04/18 21:58 Smudge Cells Not Reportable 08/04/18 21:58 Toxic Granulation Not Reportable 08/04/18 21:58 Toxic Vacuolation Not Reportable 08/04/18 21:58 Dohle Bodies Not Reportable 08/04/18 21:58 Pelger-Huet Anomaly Not Reportable 08/04/18 21:58 Sully Rods Not Reportable 08/04/18 21:58 Platelet Estimate Consistent w auto 08/04/18 21:58 Clumped Platelets 1+ 08/04/18 21:58 Plt Clumps, EDTA Not Reportable 08/04/18 21:58 Large Platelets Not Reportable 08/04/18 21:58 Giant Platelets Not Reportable 08/04/18 21:58 Platelet Satelliting Not Reportable 08/04/18 21:58 Plt Morphology Comment Not Reportable 08/04/18 21:58 RBC Morphology Not Reportable 08/04/18 21:58 Dimorphic RBCs Not Reportable 08/04/18 21:58 Polychromasia Not Reportable 08/04/18 21:58 Hypochromasia 1+ 08/04/18 21:58 Poikilocytosis Not Reportable 08/04/18 21:58 Anisocytosis 1+ 08/04/18 21:58 Microcytosis Not Reportable 08/04/18 21:58 Macrocytosis Not Reportable 08/04/18 21:58 Spherocytes Not Reportable 08/04/18 21:58 Pappenheimer Bodies Not Reportable 08/04/18 21:58 Sickle Cells Not Reportable 08/04/18 21:58 Target Cells Not Reportable 08/04/18 21:58 Tear Drop Cells Not Reportable 08/04/18 21:58 Ovalocytes Not Reportable 08/04/18 21:58 Helmet Cells Not Reportable 08/04/18 21:58 [place] Bodies Not Reportable 08/04/18 21:58 [place] Rings Not Reportable 08/04/18 21:58 [place] Cells Not Reportable 08/04/18 21:58 Bite Cells Not Reportable 08/04/18 21:58 Crenated Cell Not Reportable 08/04/18 21:58 Elliptocytes Not Reportable 08/04/18 21:58 Acanthocytes (Spur) Not Reportable 08/04/18 21:58 Rouleaux Not Reportable 08/04/18 21:58 Hemoglobin C Crystals Not Reportable 08/04/18 21:58 Schistocytes Not Reportable 08/04/18 21:58 Malaria parasites Not Reportable 08/04/18 21:58 [place] Bodies Not Reportable 08/04/18 21:58 Hem Pathologist Commnt Sent to pathology 08/04/18 21:58 Sodium 132 mmol/L (137-145) L 08/04/18 21:58 Potassium 4.8 mmol/L (3.6-5.0) 08/04/18 21:58 Chloride 96.9 mmol/L (98-107) L 08/04/18 21:58 Carbon Dioxide 21 mmol/L (22-30) L 08/04/18 21:58 Anion Gap 19 mmol/L 08/04/18 21:58 BUN 25 mg/dL (7-17) H 08/04/18 21:58 Creatinine 0.8 mg/dL (0.7-1.2) 08/04/18 21:58 Estimated GFR > 60 ml/min 08/04/18 21:58 BUN/Creatinine Ratio 31 % 08/04/18 21:58 Glucose 112 mg/dL (65-100) H 08/04/18 21:58 Lactic Acid 1.60 mmol/L (0.7-2.0) 08/05/18 02:14 Calcium 9.5 mg/dL (8.4-10.2) 08/04/18 21:58 Total Bilirubin 0.50 mg/dL (0.1-1.2) 08/04/18 21:58 AST 13 units/L (5-40) 08/04/18 21:58 ALT 15 units/L (7-56) 08/04/18 21:58 Alkaline Phosphatase 172 units/L (35-129) H 08/04/18 21:58 Total Creatine Kinase 26 units/L (30-135) L 08/04/18 23:54 Troponin T < 0.010 ng/mL (0.00-0.029) 08/04/18 21:58 Total Protein 7.3 g/dL (6.3-8.2) 08/04/18 21:58 Albumin 1.9 g/dL (3.9-5) L 08/04/18 21:58 Albumin/Globulin Ratio 0.4 % 08/04/18 21:58 Urine Color Yellow (Yellow) 08/04/18 22:45 Urine Turbidity Turbid (Clear) 08/04/18 22:45 Urine pH 7.0 (5.0-7.0) 08/04/18 22:45 Ur Specific [place] 1.014 (1.003-1.030) 08/04/18 22:45 Urine Protein 100 mg/dl mg/dL (Negative) 08/04/18 22:45 Urine Glucose (UA) Neg mg/dL (Negative) 08/04/18 22:45 Urine Ketones Neg mg/dL (Negative) 08/04/18 22:45 Urine Blood Sm (Negative) 08/04/18 22:45 Urine Nitrite Neg (Negative) 08/04/18 22:45 Urine Bilirubin Neg (Negative) 08/04/18 22:45 Urine Urobilinogen 2.0 mg/dL (<2.0) 08/04/18 22:45 Ur Leukocyte Esterase Mod (Negative) 08/04/18 22:45 Urine WBC (Auto) 18.0 /HPF (0.0-6.0) H 08/04/18 22:45 Urine RBC (Auto) 13.0 /HPF (0.0-6.0) 08/04/18 22:45 Amorphous Crystals 1+ 08/04/18 22:45 Urine Mucus 1+ /HPF 08/04/18 22:45 Blood Type O POSITIVE 08/05/18 13:40 Antibody Screen Negative 08/05/18 13:40 Crossmatch See Detail 08/05/18 13:40 Active Medications - Current Medications Current Medications: Generic Name Dose Route Start Last Admin Trade Name Freq PRN Reason Stop Dose Admin Acetaminophen 650 mg 08/05/18 02:13 Tylenol TN Q4H PRN Fever >101 Ceftriaxone Sodium 1 gm in 50 mls @ 100 mls/hr 08/04/18 22:00 08/05/18 11:13 Rocephin/Ns 1 Gm/50 Ml IV 08/06/18 10:29 100 mls/hr Q24HR ALBINA Administration Protocol Ceftriaxone Sodium 1 gm in 50 mls @ 100 mls/hr 08/07/18 10:00 Rocephin/Ns 1 Gm/50 Ml IV Q24HR ALBINA Protocol Sodium Chloride 1,000 mls @ 75 mls/hr 08/05/18 03:00 08/05/18 12:09 Nacl 0.9% 1000 Ml IV 75 mls/hr DIRECT ALBINA Administration Sodium Chloride 500 mls @ 0 mls/hr 08/05/18 12:26 08/05/18 14:06 Nacl 0.9% 500 Ml IV 08/05/18 23:59 50 mls/hr ONCE NR Administration As Directed Ondansetron HCl 4 mg 08/05/18 02:11 Zofran IV Q8H PRN Nausea And Vomiting Nutrition/Malnutrition Assess - Dietary Evaluation Nutrition/Malnutrition Findings: Nutrition Notes Start: 08/05/18 12:29 Freq: Status: Active Protocol: Document 08/05/18 12:29 SA (Rec: 08/05/18 12:44 SA [id number]) Co-Sign 08/05/18 12:29 LP Nutrition Notes 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 Patient states appetite is off and on. 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 Pt reports no weight loss recently. Pt denies swallowing/chewing difficulties. Pt interested in ONS after NPO status. Burn Absent Trauma Absent #1 Nutrition Diagnosis Underweight Etiology older age As Evidenced by Signs and Symptoms BMI: 20.8 Is patient on ventilator? No Is Patient Ambulatory and/or Out of Bed No REE-([facility]-confined to bed) 1141.848 Kcal/Kg value to use for calculation 30 Approximate Energy Requirements Using 1497 kcal/Kg Calculation Used for Recommendations Kcal/kg Additional Notes Protein: 50-60 g/day (1-1.2 g/ day) Fluid: 1 ml/kcal Nutrition Intervention Change Diet Order: Advance as medically feasible Add Supplement/Snack (indicate name/kcal Ensure Enlive when no longer /protein ) NPO Provides kCal: 700 Provides Protein (gm) 40 Goal #1 Diet advancement Anticipated Discharge Needs: unable to determine at this time Follow-Up By: 08/07/18 Additional Comments F/U: PO intake
[2018-08-06 08:04] VITALS: BP 111/63
[2018-08-06] MEDS: ROCEPHIN/NS 1 GM/50 ML 1 GM/50 ML BAG IV SCH (09:17)
--- NOTE | 2018-08-06 10:44 | Progress Note ---
Assessment and Plan Assessment and plan: Patient is a 73 Somali speaking woman with a history of metastatic cancer believed to be cervical cancer to the lungs and causing hydonephrosis with urostomy who presents with urostomy leakage. Dysfunctional bilateral nephrostomy due hydronephrosis tube with leakage: s/p exchange UTI; treat with abx Suspected Metastatic cervical cancer to lungs: d/w patient and daughter thru their medical charge entry specialist friend [place]. Anemia; transfuse 2 units and repeat levels Severe malnutrition, bmi is 15.5: consulted Child And Adolescent Psychologist Poor prognosis, problem is she never followed up in May 2018 and no tissue diagnosis of cancer made; so She has not been treated for 2 months. Family wants to take her back to [place] because she is a non-Citizen and unable to afford treatment here. She needs hospice, I told the patient and family without treatment there is high chance she will not live past 6 months starting in May. They were very thankful and said no one spoke to them like this or they would have gone back to [place]. Disposition: continue inpatient care, if h/h stable is stable will discharge or keep and give more blood. I recommended Hospice if not going to be treated. Daughter at bedside said she will go back to [place] for treatment History Interval history: Patient was seen and examined. Follow-up on current diagnosis. Overnight une ventful. Patient denies any chest pain, shortness breath, nausea/vomiting or severe headaches. Imaging, nursing note, chart, labs and old chart reviewed. Discussed with patient. Hospitalist Physical - Physical exam Narrative exam: Gen: severe ill appearing, weigh less than 90 lbs, severe cachetic with bone protuding ribs pelvis HEENT: NCAT, EOMI, PERRL, OP Clear Neck: supple, no adenopathy, no thyromegaly, no JVD CVS/Heart: RRR, normal S1S2, pulses present bilaterally Chest/Lungs: CTA B, Symmetrical chest expansion, good air entry bilaterally GI/Abdomen: soft, NTND, good bowel sounds, no guarding or rebound /Bladder: no suprapubic tenderness, no CVA or paraspinal tenderness Extermity/Skin: no c/c/e, no obvious rash MSK: FROM x 4 Neuro: CN 2-12 grossly intact, no new focal deficits Psych: calm - Constitutional Vitals: Temp Pulse Resp BP Pulse Ox 98.2 F 97 H 16 111/63 97 04/25/19 07:26 08/06/18 07:26 08/06/18 07:26 08/06/18 07:26 08/06/18 07:26 General appearance: Present: no acute distress Results - Labs CBC & Chem 7: 08/05/18 11:31 08/04/18 21:58 Labs: Laboratory Last Values WBC 33.1 K/mm3 (4.5-11.0) H 08/05/18 11:31 RBC 2.15 M/mm3 (3.65-5.03) L 08/05/18 11:31 Hgb 5.9 gm/dl (10.1-14.3) L* 08/05/18 11:31 Hct 20.0 % (30.3-42.9) L 08/05/18 11:31 MCV 93 fl (79-97) 08/05/18 11:31 MCH 28 pg (28-32) 08/05/18 11:31 MCHC 30 % (30-34) 08/05/18 11:31 RDW 18.0 % (13.2-15.2) H 08/05/18 11:31 Plt Count 274 K/mm3 (140-440) 08/05/18 11:31 Add Manual Diff Complete 08/04/18 21:58 Total Counted 200 08/04/18 21:58 Seg Neuts % (Manual) 91.0 % (40.0-70.0) H 08/04/18 21:58 Band Neutrophils % 0 % 08/04/18 21:58 Lymphocytes % (Manual) 6.5 % (13.4-35.0) L 08/04/18 21:58 Reactive Lymphs % (Man) 0 % 08/04/18 21:58 Monocytes % (Manual) 2.5 % (0.0-7.3) 08/04/18 21:58 Eosinophils % (Manual) 0 % (0.0-4.3) 08/04/18 21:58 Basophils % (Manual) 0 % (0.0-1.8) 08/04/18 21:58 Metamyelocytes % 0 % 08/04/18 21:58 Myelocytes % 0 % 08/04/18 21:58 Promyelocytes % 0 % 08/04/18 21:58 Blast Cells % 0 % 08/04/18 21:58 Nucleated RBC % Not Reportable 08/04/18 21:58 Seg Neutrophils # Man 33.0 K/mm3 (1.8-7.7) H 08/04/18 21:58 Band Neutrophils # 0.0 K/mm3 08/04/18 21:58 Lymphocytes # (Manual) 2.4 K/mm3 (1.2-5.4) 08/04/18 21:58 Abs React Lymphs (Man) 0.0 K/mm3 08/04/18 21:58 Monocytes # (Manual) 0.9 K/mm3 (0.0-0.8) H 08/04/18 21:58 Eosinophils # (Manual) 0.0 K/mm3 (0.0-0.4) 08/04/18 21:58 Basophils # (Manual) 0.0 K/mm3 (0.0-0.1) 08/04/18 21:58 Metamyelocytes # 0.0 K/mm3 08/04/18 21:58 Myelocytes # 0.0 K/mm3 08/04/18 21:58 Promyelocytes # 0.0 K/mm3 08/04/18 21:58 Blast Cells # 0.0 K/mm3 08/04/18 21:58 Pathologist Review 08/04/18 21:58 WBC Morphology Not Reportable 08/04/18 21:58 Hypersegmented Neuts Not Reportable 08/04/18 21:58 Hyposegmented Neuts Not Reportable 08/04/18 21:58 Hypogranular Neuts Not Reportable 08/04/18 21:58 Smudge Cells Not Reportable 08/04/18 21:58 Toxic Granulation Not Reportable 08/04/18 21:58 Toxic Vacuolation Not Reportable 08/04/18 21:58 Dohle Bodies Not Reportable 08/04/18 21:58 Pelger-Huet Anomaly Not Reportable 08/04/18 21:58 Sully Rods Not Reportable 08/04/18 21:58 Platelet Estimate Consistent w auto 08/04/18 21:58 Clumped Platelets 1+ 08/04/18 21:58 Plt Clumps, EDTA Not Reportable 08/04/18 21:58 Large Platelets Not Reportable 08/04/18 21:58 Giant Platelets Not Reportable 08/04/18 21:58 Platelet Satelliting Not Reportable 08/04/18 21:58 Plt Morphology Comment Not Reportable 08/04/18 21:58 RBC Morphology Not Reportable 08/04/18 21:58 Dimorphic RBCs Not Reportable 08/04/18 21:58 Polychromasia Not Reportable 08/04/18 21:58 Hypochromasia 1+ 08/04/18 21:58 Poikilocytosis Not Reportable 08/04/18 21:58 Anisocytosis 1+ 08/04/18 21:58 Microcytosis Not Reportable 08/04/18 21:58 Macrocytosis Not Reportable 08/04/18 21:58 Spherocytes Not Reportable 08/04/18 21:58 Pappenheimer Bodies Not Reportable 08/04/18 21:58 Sickle Cells Not Reportable 08/04/18 21:58 Target Cells Not Reportable 08/04/18 21:58 Tear Drop Cells Not Reportable 08/04/18 21:58 Ovalocytes Not Reportable 08/04/18 21:58 Helmet Cells Not Reportable 08/04/18 21:58 [place] Bodies Not Reportable 08/04/18 21:58 [place] Rings Not Reportable 08/04/18 21:58 [place] Cells Not Reportable 08/04/18 21:58 Bite Cells Not Reportable 08/04/18 21:58 Crenated Cell Not Reportable 08/04/18 21:58 Elliptocytes Not Reportable 08/04/18 21:58 Acanthocytes (Spur) Not Reportable 08/04/18 21:58 Rouleaux Not Reportable 08/04/18 21:58 Hemoglobin C Crystals Not Reportable 08/04/18 21:58 Schistocytes Not Reportable 08/04/18 21:58 Malaria parasites Not Reportable 08/04/18 21:58 [place] Bodies Not Reportable 08/04/18 21:58 Hem Pathologist Commnt Sent to pathology 08/04/18 21:58 Sodium 132 mmol/L (137-145) L 08/04/18 21:58 Potassium 4.8 mmol/L (3.6-5.0) 08/04/18 21:58 Chloride 96.9 mmol/L (98-107) L 08/04/18 21:58 Carbon Dioxide 21 mmol/L (22-30) L 08/04/18 21:58 Anion Gap 19 mmol/L 08/04/18 21:58 BUN 25 mg/dL (7-17) H 08/04/18 21:58 Creatinine 0.8 mg/dL (0.7-1.2) 08/04/18 21:58 Estimated GFR > 60 ml/min 08/04/18 21:58 BUN/Creatinine Ratio 31 % 08/04/18 21:58 Glucose 112 mg/dL (65-100) H 08/04/18 21:58 Lactic Acid 1.60 mmol/L (0.7-2.0) 08/05/18 02:14 Calcium 9.5 mg/dL (8.4-10.2) 08/04/18 21:58 Total Bilirubin 0.50 mg/dL (0.1-1.2) 08/04/18 21:58 AST 13 units/L (5-40) 08/04/18 21:58 ALT 15 units/L (7-56) 08/04/18 21:58 Alkaline Phosphatase 172 units/L (35-129) H 08/04/18 21:58 Total Creatine Kinase 26 units/L (30-135) L 08/04/18 23:54 Troponin T < 0.010 ng/mL (0.00-0.029) 08/04/18 21:58 Total Protein 7.3 g/dL (6.3-8.2) 08/04/18 21:58 Albumin 1.9 g/dL (3.9-5) L 08/04/18 21:58 Albumin/Globulin Ratio 0.4 % 08/04/18 21:58 Urine Color Yellow (Yellow) 08/04/18 22:45 Urine Turbidity Turbid (Clear) 08/04/18 22:45 Urine pH 7.0 (5.0-7.0) 08/04/18 22:45 Ur Specific [place] 1.014 (1.003-1.030) 08/04/18 22:45 Urine Protein 100 mg/dl mg/dL (Negative) 08/04/18 22:45 Urine Glucose (UA) Neg mg/dL (Negative) 08/04/18 22:45 Urine Ketones Neg mg/dL (Negative) 08/04/18 22:45 Urine Blood Sm (Negative) 08/04/18 22:45 Urine Nitrite Neg (Negative) 08/04/18 22:45 Urine Bilirubin Neg (Negative) 08/04/18 22:45 Urine Urobilinogen 2.0 mg/dL (<2.0) 08/04/18 22:45 Ur Leukocyte Esterase Mod (Negative) 08/04/18 22:45 Urine WBC (Auto) 18.0 /HPF (0.0-6.0) H 08/04/18 22:45 Urine RBC (Auto) 13.0 /HPF (0.0-6.0) 08/04/18 22:45 Amorphous Crystals 1+ 08/04/18 22:45 Urine Mucus 1+ /HPF 08/04/18 22:45 Blood Type O POSITIVE 08/05/18 13:40 Antibody Screen Negative 08/05/18 13:40 Crossmatch See Detail 08/05/18 13:40 Active Medications - Current Medications Current Medications: Generic Name Dose Route Start Last Admin Trade Name Freq PRN Reason Stop Dose Admin Acetaminophen 650 mg 08/05/18 02:[address] Q4H PRN Fever >101 Ceftriaxone Sodium 1 gm in 50 mls @ 100 mls/hr 08/07/18 10:00 Rocephin/Ns 1 Gm/50 Ml IV Q24HR ALBINA Protocol Sodium Chloride 1,000 mls @ 75 mls/hr 08/05/18 03:00 08/05/18 12:09 Nacl 0.9% 1000 Ml IV 75 mls/hr DIRECT ALBINA Administration Ondansetron HCl 4 mg 08/05/18 02:11 Zofran IV Q8H PRN Nausea And Vomiting Nutrition/Malnutrition Assess - Dietary Evaluation Nutrition/Malnutrition Findings: Nutrition Notes Start: 08/05/18 12:29 Freq: Status: Active Protocol: Document 08/05/18 12:29 SA (Rec: 08/05/18 12:44 SA [id number]) Co-Sign 08/05/18 12:29 LP Nutrition Notes Need for Assessment generated from: rn complex care Initial or Follow up Assessment Other Pertinent Diagnosis Acute renal failure, abdominal pain, hx of renal disease, cervical cancer Current Diet NPO Labs/Tests Na: 132 BUN: 25 Glu: 112 Pertinent Medications NaCl @ 75ml/hr Height 5 ft 1 in Weight 49.89 kg [place] Body Weight (kg) 47.72 BMI 20.7 Weight Status Appropriate Subjective/Other Information RN screen for MST score of 3. Patient states appetite is off and on. 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 Pt reports no weight loss recently. Pt denies swallowing/chewing difficulties. Pt interested in ONS after NPO status. Burn Absent Trauma Absent #1 Nutrition Diagnosis Underweight Etiology older age As Evidenced by Signs and Symptoms BMI: 20.8 Is patient on ventilator? No Is Patient Ambulatory and/or Out of Bed No REE-([facility]-confined to bed) 1141.848 Kcal/Kg value to use for calculation 30 Approximate Energy Requirements Using 1497 kcal/Kg Calculation Used for Recommendations Kcal/kg Additional Notes Protein: 50-60 g/day (1-1.2 g/ day) Fluid: 1 ml/kcal Nutrition Intervention Change Diet Order: Advance as medically feasible Add Supplement/Snack (indicate name/kcal Ensure Enlive when no longer /protein ) NPO Provides kCal: 700 Provides Protein (gm) 40 Goal #1 Diet advancement Anticipated Discharge Needs: unable to determine at this time Follow-Up By: 08/07/18 Additional Comments F/U: PO intake
--- NOTE | 2018-08-06 10:50 | Discharge Summary ---
Providers - Providers Date of Admission: 08/05/18 02:06 Date of discharge: 08/06/18 Attending physician: JOSE D ROMERO [facility] Hospital[facility] Condition: Poor Hospital course: Patient is a 73 Mongolian speaking woman with a history of metastatic cancer believed to be cervical cancer to the lungs and causing hydonephrosis with u rostomy who presents with urostomy leakage. * CT abd/pelvis wo IMPRESSION: Multiple nodules in the bilateral lungs one of them located in the left lower lobe demonstrating cavitation are consistent w ith metastatic disease. These have progressed in the interval. Interval increase in the size of a large central pelvic mass lesion which may represent a primary ovarian malignancy versus Krukenberg tumor. Bilateral lateral pelvic mass lesions and a left para-aortic mass lesion are consistent with lymphadenopathy which has increased in size. Left iliac and ischial sclerotic lesions are also suspicious for metastatic disease. Bilateral percutaneous nephrostomies are noted. There is moderate degree left hydronephrosis. Dysfunctional bilateral nephrostomy due hydronephrosis tube with leakage: s/p exchange UTI ruled out with negative urine culture. 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 Acute on chronic Anemia of chronic disease; transfuse 2 units and repeat levels Severe malnutrition, bmi is 15.5 she weighs around 80lbs: consulted District Traffic Chief Poor prognosis, the main problem is she never followed up with doctors in May 2018 and no tissue diagnosis of cancer made; so She has not been treated for cancer 2 months and now cancer has progressed. Family wants to take her back to [place]. She needs hospice, I told the patient and family without treatment there is high chance she will not live past 6 months starting in May. They were very thankful and said no one spoke to them like this or they would have gone back to [place]. I will clarify whether patient is a citizen. Home hospice evaluation Disposition: continue inpatient care, if h/h stable is stable will discharge or keep and give more blood. I recommended Hospice if not going to be treated. Daughter at bedside said she will go back to [place] for treatment Disposition: DC-50 TO HOSPICE (HOME) Time spent for discharge: 35 minutes Core Measure Documentation - Palliative Care Palliative Care/ Comfort Measures: Not Applicable - Core Measures Any of the following diagnoses?: none - VTE Discharge Requirements Deep Vein Thrombosis/Pulmonary Embolism Present on Admission: No Has pt received <5 days of overlap therapy or INR<2.0: No Anticoagulant overlap therapy prescribed at discharge: No Contraindication No Overlap Therapy order at DC: Not Indicated Exam - Physical Exam Narrative exam: Gen: severe ill appearing, weigh less than 90 lbs, severe cachetic with bone protuding ribs pelvis HEENT: NCAT, EOMI, PERRL, OP Clear Neck: supple, no adenopathy, no thyromegaly, no JVD CVS/Heart: RRR, normal S1S2, pulses present bilaterally Chest/Lungs: CTA B, Symmetrical chest expansion, good air entry bilaterally GI/Abdomen: soft, NTND, good bowel sounds, no guarding or rebound /Bladder: no suprapubic tenderness, no CVA or paraspinal tenderness Extermity/Skin: no c/c/e, no obvious rash MSK: FROM x 4 Neuro: CN 2-12 grossly intact, no new focal deficits Psych: calm - Constitutional Vitals: Temp Pulse Resp BP Pulse Ox 98.2 F 97 H 16 111/63 97 08/06/18 07:26 08/06/18 07:26 08/06/18 07:26 08/06/18 07:26 08/06/18 07:26 Plan Activity: other (no strenous activity) Diet: other (Mechanical soft) Special Instructions: home hospice Additional Instructions: Must see Cancer doctor, either Dr. Garcia or go to [place] for treatment Follow up with: [facility] MD LETICIA [Primary Care Provider] - 3-5 Days JOSH FELIPE MD [Staff Physician] - 7 Days DANGELO GARCIA MD [Staff Physician] - 7 Days
[2018-08-06 11:08] LABS: Hematocrit 29.5 % (30.3-42.9); Hemoglobin 9.4 gm/dl (10.1-14.3); Mean Corpuscular HGB Conc 32 % (30-34); Mean Corpuscular Volume 90 fl (79-97); Platelet Count 214 K/mm3 (140-440); Red Blood Count 3.29 M/mm3 (3.65-5.03); Red Cell Distribution Width 15.4 % (13.2-15.2)
[2018-08-07] MEDS ORDERED: ROCEPHIN/NS 1 GM/50 ML 1 GM/50 ML BAG IV SCH (10:00)
== END 2018-08-06 14:18 | disposition home or self-care (01) | DRG 698 ==
LOC: ED 21:29 → 2B-ACE 08-05 02:06
PROVIDERS: ADMIT Internal Medicine; ATTEND Internal Medicine
PROC: 0T25X0Z Change Drainage Device in Kidney, External Approach (ICD-10-PCS; principal; 2018-08-05)
PROC: BT131ZZ Fluoroscopy of Bilateral Kidneys using Low Osmolar Contrast (ICD-10-PCS; 2018-08-05)
PROC: 30233N1 Transfusion of Nonautologous Red Blood Cells into Peripheral Vein, Percutaneous Approach (ICD-10-PCS; 2018-08-05)
DX: T83.032A Leakage of nephrostomy catheter, initial encounter (principal); E43 Unspecified severe protein-calorie malnutrition; T83.89XA Other specified complication of genitourinary prosthetic devices, implants and grafts, initial encounter; N13.30 Unspecified hydronephrosis; D62 Acute posthemorrhagic anemia; Z68.1 Body mass index [BMI] 19.9 or less, adult; Y83.8 Other surgical procedures as the cause of abnormal reaction of the patient, or of later complication, without mention of misadventure at the time of the procedure; C53.9 Malignant neoplasm of cervix uteri, unspecified; E86.0 Dehydration; D72.829 Elevated white blood cell count, unspecified; Y92.89 Other specified places as the place of occurrence of the external cause; Z93.2 Ileostomy status; Z98.51 Tubal ligation status
CPT/HCPCS: 36415; 50435; 71045; 74176; 80053; 81001; 82140; 82550; 84484; 85007; 85025; 85027; 86850; 86900; 86901; 86920; 87040; 87076; 87086; 87116; 87186; 93005; 93010; 96365; 99291; G0378; C1729; C1751; C1769; J0696; J2250; J3010; J7030; J7040; P9016; Q9967